=== PATIENT | female | born 1950 | race Caucasian/White ===

== ENCOUNTER 2016-03-24 18:54 | Emergency (ER) | payer MEDICARE, MEDICAID ==
[~2016-03-24] VITALS: Ht 172.7 cm; Wt 88.6 kg
[2016-03-24 18:54] VITALS: Ht 172.7 cm; Wt 88.6 kg
[~2016-03-24 18:54] MED LIST: BACL20TA PO; BENA5TAB2 PO; CALC300T4 PO; DIAZ5TAB4 PO; DIPH25CA6 PO; FENT-23 TD; HYD25 PO; LYR75 PO; NITR-58 PO; ONDA-43 PO; OXYC-183 PO; PANT40TA4 PO; RESTOP4 BOTH EYES; ROSU20TA PO; TEMA30CA6 PO; [UNRECOGNIZED DRUG - OTHER] PO
[2016-03-24] MEDS ORDERED: DIPHTH/TET/ACEL PERTUSS (ADULT) 0.5 ML VIAL IM* ONE (19:30)
--- NOTE | 2016-03-24 19:36 | ERD ---
ER Documentation Chief Complaint Date/Time DATE: 03/24/16 TIME: 19:35 Chief Complaint sacral area lac@1600 after breaking the toilet seat while sitting on it HPI This 65-year-old female complains of a laceration in her sacral area after a toilet seat broke while she was sitting on it. She has some bleeding and is unable to see the wound. Her tetanus is not up-to-date. ROS All systems reviewed and are negative except as per history of present illness. Medications Home Meds Active Scripts Nitrofurantoin Monohyd Macrocr* (Macrobid*) 100 Mg Capsr, 100 MG PO BID for 10 Days, CAP Prov:ADENIKE OTERO 03/01/16 Reported Medications Calcium Carbonate* (Tums X-Str) 300 Mg Tab.chew, 600 MG PO DAILY Y for GASTROINTESTINAL UPSET, TAB.CHEW 03/01/16 Benazepril Hcl* (Benazepril Hcl*) 5 Mg Tablet, 5 MG PO BID, #60 TAB 03/01/16 Hydrochlorothiazide* (Hydrochlorothiazide*) 25 Mg Tab, 25 MG PO DAILY, #30 TAB 03/01/16 Ondansetron Hcl* (Zofran*) 4 Mg Tab, 4 MG PO Q4H Y for NAUSEA AND OR VOMITING, TAB 03/01/16 [Modvigil] No Conflict Check, 200 MG PO DAILY 03/01/16 Diphenhydramine Hcl* (Diphenhydramine Hcl*) 25 Mg Capsule, 25 MG PO Q6 Y for ITCHING, CAP 03/01/16 Pantoprazole* (Pantoprazole*) 40 Mg Tablet.dr, 40 MG PO BID, TAB 03/01/16 Pregabalin* (Lyrica*) 75 Mg Capsule, 75 MG PO BID, CAP 09/18/15 Oxycodone Hcl-Acetaminophen* (Oxycodone Hcl-Acetaminophen*) 10-325 Mg Tablet, 2 TAB PO Q4 Y for SEVERE PAIN LEVEL 7-10, TAB 09/18/15 Cyclosporine* (Restasis* Oph) 32 Ea Droperette, 1 DROP BOTH EYES Q12, #1 BOX 03/02/15 Fentanyl Patch* (Fentanyl Patch*) 75 Mcg/Hr Transdermal Patch, 1 PATCH TD Q72H, PATCH 03/02/15 Diazepam* (Diazepam*) 5 Mg Tablet, 10 MG PO QHS Y for MUSCLE SPASMS, TAB 03/02/15 Temazepam* (Restoril*) 30 Mg Capsule, 30 MG PO HS Y for INSOMNIA, CAP 03/02/15 Rosuvastatin Calcium* (Crestor*) 20 Mg Tablet, 20 MG PO QHS, #30 TAB 03/02/15 Baclofen* (Baclofen*) 20 Mg Tablet, 20 MG PO TID, TAB 03/02/15 Allergies Allergies: Coded Allergies: Sulfa (Sulfonamide Antibiotics) (Verified Allergy, Severe, 03/01/16) NSAIDS (Non-Steroidal Anti-Inflamma (Unverified Allergy, Unknown, 03/01/16 ) aspirin (Unverified Allergy, Unknown, 03/01/16) atenolol (Unverified Allergy, Unknown, 03/01/16) cefazolin (Unverified Allergy, Unknown, 03/01/16) PMhx/Soc History of Surgery: Yes (Mult. revisions, biceps tendon repair, left sholder) Anesthesia Reaction: No Hx Neurological Disorder: Yes (ms, neurogenic bladder, ) Hx Respiratory Disorders: No Hx Cardiac Disorders: Yes (htn, cva, 10 strokes, 2 heart attacks) Hx Psychiatric Problems: No Hx Alcohol Use: No Hx Substance Use: No Hx Tobacco Use: No Smoking Status: Never smoker Physical Exam Vitals Vital Signs Date Time Temp Pulse Resp B/P Pulse Ox O2 Delivery O2 Flow Rate FiO2 03/24/16 18:54 97.4 96 20 149/74 97 Physical Exam Const: [] Alert, [id number]. Head: Atraumatic Eyes: Normal Conjunctiva ENT: Normal External Ears, Nose and Mouth. Neck: Full range of motion..~ No meningismus. Resp: Clear to auscultation bilaterally Cardio: Regular rate and rhythm, no murmurs Abd: Soft, non tender, non distended. Normal bowel sounds Skin: No petechiae or rashes. There is a very small 3 x 2 mm abrasion at the sacral area. There is some dried blood but no active bleeding. There is no warmth, erythema or bony deformities. Back: No midline or flank tenderness Ext: No cyanosis, or edema Neur: Awake and alert Psych: Normal Mood and Affect Results 24 hrs Current Medications Medications (Trade) Dose Ordered Sig/Franky Route PRN Reason Start Time Stop Time Status Last Admin Dose Admin Diphtheria/ Tetanus/Acell Pertussis (Adacel) 0.5 ml ONCE ONCE IM* 03/24/16 19:30 03/24/16 19:32 DC Procedures/MDM Patient was given a tetanus booster. The wound was cleansed and dressed. Patient presents with a superficial abrasion without evidence of laceration which need suturing, infection, signs or symptoms to suggest fracture. She will be discharged home with wound care instructions to return for redness, fevers, new or worsening symptoms or primary care doctor. Departure Diagnosis: Primary Impression: Laceration Condition: Stable Patient Instructions: Laceration, Small/Superficial, Not Sutured Additional Instructions: Wound is a small superficial abrasion should heal without further treatment. Recheck for redness, worsening pain, new or worsening symptoms PAYAM MILIAN MD Mar 24, 2016 19:36
[2016-03-24 20:01] VITALS: BP 145/85; PULSE 86; RESP 15; TEMP 98.4
== END 2016-03-24 20:01 | disposition home or self-care (01) ==
LOC: FTE 18:54
DX: S31.010A Laceration without foreign body of lower back and pelvis without penetration into retroperitoneum, initial encounter (principal); I10 Essential (primary) hypertension; W22.8XXA Striking against or struck by other objects, initial encounter; Y92.511 Restaurant or cafe as the place of occurrence of the external cause; Z23 Encounter for immunization
CPT/HCPCS: 90471; 90715

== ENCOUNTER 2016-07-18 16:37 | Emergency (ER) | payer MEDICARE, BC ==
[~2016-07-18] VITALS: Ht 172.7 cm; Wt 88.0 kg
[2016-07-18 16:39] VITALS: Ht 172.7 cm; Wt 88.0 kg
[2016-07-18] MEDS ORDERED: HYDROmorphONE 1 MG/ML SYG IV STA (17:23)
[2016-07-18] MEDS ORDERED: ONDANSETRON 4 MG INJ IV ONE (17:30)
[2016-07-18] MEDS ORDERED: HYDROmorphONE 1 MG/ML SYG IM STA ×2 (18:19→20:09)
--- NOTE | 2016-07-18 18:19 | RADRPT ---
PROCEDURE: XR Knee. CLINICAL INDICATION: Right knee pain. TECHNIQUE: Three views of the right knee. COMPARISON: None available FINDINGS: There is no acute fracture or dislocation. The patient status post total knee arthroplasty with pat ellar resurfacing. There is no evidence of osteolysis. No joint effusion is identified. IMPRESSION: 1. No acute fracture or dislocation of the right knee. 2. Total knee arthroplasty. RPTAT: HTAR .Aubrey Woods MD, MD Date Time Electronically viewed and signed by .Aubrey Woods MD, on 07/18/2016 18:19 .R/
[2016-07-18] MEDS ORDERED: HYDR-902 PO (19:59)
--- NOTE | 2016-07-18 20:13 | ERD ---
ER Documentation Chief Complaint Date/Time DATE: 07/18/16 TIME: 19:59 Chief Complaint RIGHT KNEE PAIN AFTER TRIP AND FALL AT HOME HPI This is 66-year-old female with a history of right knee replacement since she was walking at home when she lost her balance and tripped and fell twisting and landing on her right knee. She is complaining of pain at the right medial knee more than diffuse. The pain is described as sharp nonradiating worse with movement better with rest. She did not hit her head no loss of consciousness no neck pain no back pain other extremity pain no chest pain abdominal pain no head ROS All systems reviewed and are negative except as per history of present illness. Medications Home Meds Active Scripts Hydrocodone/Acetaminophen (Downs 10-325 Tablet) 1 Each Tablet, 1 TAB PO Q6H Y for PAIN, #20 TAB Prov:ANTHONY ANDERSON DO 07/18/16 Nitrofurantoin Monohyd Macrocr* (Macrobid*) 100 Mg Capsr, 100 MG PO BID for 10 Days, CAP Prov:ADENIKE OTERO 03/01/16 Reported Medications Calcium Carbonate* (Tums X-Str) 300 Mg Tab.chew, 600 MG PO DAILY Y for GASTROINTESTINAL UPSET, TAB.CHEW 03/01/16 Benazepril Hcl* (Benazepril Hcl*) 5 Mg Tablet, 5 MG PO BID, #60 TAB 03/01/16 Hydrochlorothiazide* (Hydrochlorothiazide*) 25 Mg Tab, 25 MG PO DAILY, #30 TAB 03/01/16 Ondansetron Hcl* (Zofran*) 4 Mg Tab, 4 MG PO Q4H Y for NAUSEA AND OR VOMITING, TAB 03/01/16 [Modvigil] No Conflict Check, 200 MG PO DAILY 03/01/16 Diphenhydramine Hcl* (Diphenhydramine Hcl*) 25 Mg Capsule, 25 MG PO Q6 Y for ITCHING, CAP 03/01/16 Pantoprazole* (Pantoprazole*) 40 Mg Tablet.dr, 40 MG PO BID, TAB 03/01/16 Pregabalin* (Lyrica*) 75 Mg Capsule, 75 MG PO BID, CAP 09/18/15 Oxycodone Hcl-Acetaminophen* (Oxycodone Hcl-Acetaminophen*) 10-325 Mg Tablet, 2 TAB PO Q4 Y for SEVERE PAIN LEVEL 7-10, TAB 09/18/15 Cyclosporine* (Restasis* Oph) 32 Ea Droperette, 1 DROP BOTH EYES Q12, #1 BOX 03/02/15 Fentanyl Patch* (Fentanyl Patch*) 75 Mcg/Hr Transdermal Patch, 1 PATCH TD Q72H, PATCH 03/02/15 Diazepam* (Diazepam*) 5 Mg Tablet, 10 MG PO QHS Y for MUSCLE SPASMS, TAB 03/02/15 Temazepam* (Restoril*) 30 Mg Capsule, 30 MG PO HS Y for INSOMNIA, CAP 03/02/15 Rosuvastatin Calcium* (Crestor*) 20 Mg Tablet, 20 MG PO QHS, #30 TAB 03/02/15 Baclofen* (Baclofen*) 20 Mg Tablet, 20 MG PO TID, TAB 03/02/15 Allergies Allergies: Coded Allergies: Sulfa (Sulfonamide Antibiotics) (Verified Allergy, Severe, 03/01/16) NSAIDS (Non-Steroidal Anti-Inflamma (Unverified Allergy, Unknown, 03/01/16 ) aspirin (Unverified Allergy, Unknown, 03/01/16) atenolol (Unverified Allergy, Unknown, 03/01/16) cefazolin (Unverified Allergy, Unknown, 03/01/16) PMhx/Soc History of Surgery: Yes (Mult. revisions, biceps tendon repair, left sholder) Anesthesia Reaction: No Hx Neurological Disorder: Yes (ms, neurogenic bladder, ) Hx Respiratory Disorders: No Hx Cardiac Disorders: Yes (htn, cva, 10 strokes, 2 heart attacks) Hx Psychiatric Problems: No Hx Alcohol Use: No Hx Substance Use: No Hx Tobacco Use: No FmHx Family History: No coronary disease Physical Exam Vitals Vital Signs Date Time Temp Pulse Resp B/P Pulse Ox O2 Delivery O2 Flow Rate FiO2 07/18/16 16:39 98.3 76 18 142/68 96 Physical Exam Const: Well-developed, well-nourished Head: Atraumatic, normocephalic Eyes: Normal Conjunctiva, PERRLA, EOMI, normal sclera, no nystagmus ENT: Normal External Ears, Nose and Mouth, moist mucus membranes. Neck: Full range of motion. No meningismus, no lymphadenopathy. Resp: Clear to auscultation bilaterally, no wheezing, rhonchi, rales Cardio: Regular rate and rhythm, no murmurs, S1 S2 present Abd: Soft, non tender x 4, non distended. Normal bowel sounds, no guarding or rebound, no pulsitile abdominal masses or bruits Skin: No petechiae or rashes, no ecchymosis , no maculopapular rash Back: No midline or flank tenderness Ext: No cyanosis, or edema, FROM x 4, the right leg is held in valgus , there is pain along the medial collateral ligament with some instability of this ligament. No gross dislocation, right leg dorsalis pedis and posterior tibial pulses are bounding the leg is warm, neurovascularly intact x 4 Neur: Awake and alert, STR 5/5 x 4, sensation intact x 4, no focal findings, cerebellum intact Psych: Normal Mood and Affect Results 24 hrs Current Medications Medications (Trade) Dose Ordered Sig/Franky Route PRN Reason Start Time Stop Time Status Last Admin Dose Admin Ondansetron HCl (Zofran Inj) 4 mg ONCE ONCE IV 07/18/16 17:30 07/18/16 17:31 DC Hydromorphone HCl (Dilaudid) 1 mg ONCE STAT IV 07/18/16 17:23 07/18/16 17:24 Cancel Hydromorphone HCl (Dilaudid) 1 mg ONCE STAT IM 07/18/16 18:19 07/18/16 18:20 DC 07/18/16 18:24 Procedures/MDM PROCEDURE: XR Knee. CLINICAL INDICATION: Right knee pain. TECHNIQUE: Three views of the right knee. COMPARISON: None available FINDINGS: There is no acute fracture or dislocation. The patient status post total knee arthroplasty with patellar resurfacing. There is no evidence of osteolysis. No joint effusion is identified. IMPRESSION: 1. No acute fracture or dislocation of the right knee. 2. Total knee arthroplasty. RPTAT: HTAR .Aubrey Woods MD, Date Time Electronically viewed and signed by .Aubrey Woods MD, on 07/18/2016 18:19 .R/ CC: ANTHONY ANDERSON DO The patient has a history of MS and is mostly in a wheelchair but can walk some. She is he walks with a walker. I highly suspect there is a severe middle medial collateral ligament tear due to the deformity that the leg is held in. When the leg is straightened out there is some pain and spontaneously starts to go back into valgus. She had a knee immobilizer placed and she will call her orthopedist in the morning for follow-up Departure Diagnosis: Primary Impression: Knee injury Encounter type: initial encounter Laterality: right Qualified Code: S89.91XA - Knee injury, right, initial encounter Additional Impression: Grade 1 injury of medial collateral ligament of right knee Encounter type: initial encounter Qualified Code: S83.411A - Grade 1 injury of medial collateral ligament of right knee, initial encounter Condition: Stable Patient Instructions: Knee Sprain: Collateral Ligaments Referrals: CARMEN EUCEDA MD, APOSTOLOS A. DO July 18, 2016 20:11
== END 2016-07-18 20:47 | disposition home or self-care (01) ==
LOC: FTE 16:37
DX: S83.411A Sprain of medial collateral ligament of right knee, initial encounter (principal); I10 Essential (primary) hypertension; W01.0XXA Fall on same level from slipping, tripping and stumbling without subsequent striking against object, initial encounter; Y92.009 Unspecified place in unspecified non-institutional (private) residence as the place of occurrence of the external cause
CPT/HCPCS: 29505; 73562; 96372; 99284; J1170; J2405

== ENCOUNTER 2016-09-17 18:46 | Observation (INO) | payer MEDICARE, BC ==
[~2016-09-17] VITALS: Ht 172.7 cm; Wt 96.6 kg
[~2016-09-17 18:46] MED LIST changes: +HYDR-902 PO
--- NOTE | 2016-09-17 19:47 | RADRPT ---
PROCEDURE: XR, Chest. CLINICAL INDICATION: Chest pain. TECHNIQUE: AP chest COMPARISON: Chest, 09/18/2015. FINDINGS: There is calcified atherosclerosis of the aortic arch. There is no acute infiltrate in the lungs. No pleural effusion. The heart is not enlarged. The right Port-A-Cath remains in good position. A catheter or wire is overlying the left subclavian vein and superior vena cava, unchanged. IMPRESSION: 1. Unremarkable chest x-ray. 2. Calcified atherosclerosis of the aortic arch. RPTAT: GG .Miki Herrera MD, MD Date Time Electronically viewed and signed by .Miki Herrera MD, MD on 09/17/2016 19:46 .Y/
[2016-09-17] MEDS ORDERED: NITROGLYCERIN 2% 1 GM OINT PKT TD STA (19:49)
[2016-09-17 20:28] LABS: ADD SCAN DIFF NO
[2016-09-17 20:31] LABS: BASOPHILS % 0.4 % (0.0-2.0); EOSINOPHILS # 0.3 10^3/ul (0.0-0.5); EOSINOPHILS % 3.4 % (0.0-7.0); HEMATOCRIT 35.2 % (37.0-47.0); HEMOGLOBIN 11.2 g/dl (12.0-16.0); LYMPHOCYTES # 3.6 10^3/ul (0.8-2.9); LYMPHOCYTES % 37.5 % (15.0-51.0); MEAN CORPUSCULAR HEMOGLOBIN 26.9 pg (29.0-33.0); MEAN CORPUSCULAR HGB CONC 31.8 g/dl (32.0-37.0); MEAN CORPUSCULAR VOLUME 84.4 fl (82.0-101.0); MEAN PLATELET VOLUME 9.6 fl (7.4-10.4); MONOCYTE # 1.2 10^3/ul (0.3-0.9); NEUTROPHIL # 4.5 10^3/ul (1.6-7.5); NEUTROPHILS % 46.2 % (39.0-77.0); NUCLEATED RED BLOOD CELLS% 0.4 /100WBC (0.0-0.0); PLATELET COUNT 261 10^3/UL (140-415); RED BLOOD COUNT 4.17 10^6/ul (4.20-5.40); RED CELL DISTRIBUTION WIDTH 16.1 % (11.5-14.5); WHITE BLOOD COUNT 9.7 10^3/ul (4.8-10.8)
--- NOTE | 2016-09-17 20:46 | RADRPT ---
PROCEDURE: US bilateral lower extremity venous Doppler CLINICAL INDICATION: Bilateral swelling TECHNIQUE: Multiple sonographic images of the bilateral lower extremity deep venous system was obt ained utilizing grayscale, color-flow, compressive sonography and Doppler imaging with augmentation. COMPARISON: There are no similar studies submitted for comparison. FINDINGS: There is normal compressibility and flow within the left common femoral, superficial femoral, poplit eal, and calf veins. There is normal compressibility and flow within the right common femoral, superficial femoral, popli teal, and calf veins. IMPRESSION: No evidence of DVT within the lower extremities. RPTAT: HIKT .Shmuel Christensen MD, MD Date Time Electronically viewed and signed by .Shmuel Christensen MD, MD on 09/17/2016 20:46 .T/
[2016-09-17 20:47] LABS: INR 1.03; PROTIME 13.5 Sec (12.2-14.2); PT RATIO 1.1
[2016-09-17 20:48] LABS: PARTIAL THROMBOPLASTIN TIME 29.7 Sec (25.0-35.0)
[2016-09-17 20:51] LABS: ALANINE AMINOTRANSFERASE 30 IU/L (13-69); ALBUMIN 4.3 g/dl (3.3-4.9); ALBUMIN/GLOBULIN RATIO 1.65; ALKALINE PHOSPHATASE 90 IU/L (42-121); ANION GAP 21 (8-16); ASPARTATE AMINO TRANSFERASE 24 IU/L (15-46); BILIRUBIN,INDIRECT 0.1 mg/dl (0-1.1); BILIRUBIN,TOTAL 0.1 mg/dl (0.2-1.3); BLOOD UREA NITROGEN 20 mg/dl (7-20); CALCIUM 8.8 mg/dl (8.4-10.2); CARBON DIOXIDE 28 mmol/L (21-31); CHLORIDE 97 mmol/L (97-110); CREATININE 0.67 mg/dl (0.44-1.00); GLUCOSE 99 mg/dl (70-220); SODIUM 143 mmol/L (135-144); TOTAL PROTEIN 6.9 g/dl (6.1-8.1)
[2016-09-17 21:01] LABS: POTASSIUM 2.9 mmol/L (3.5-5.1)
[2016-09-17 21:05] LABS: TROPONIN-I < 0.012 ng/ml (0.00-0.12)
[2016-09-17] MEDS ORDERED: POTASSIUM CHLORIDE 20 MEQ POWDER FOR ORAL SOLN PO ONE (21:30)
[2016-09-17] MEDS ORDERED: morphine 4 MG/ML VIAL IV STA (21:45)
[2016-09-17] MEDS ORDERED: morphine 4 MG/ML VIAL ONE (21:47)
[2016-09-17] MEDS ORDERED: NITROGLYCERIN (SL) 0.4 MG TAB SL PRN (22:00)
[2016-09-17] MEDS ORDERED: ONDANSETRON 4 MG INJ IV PRN (23:00)
[2016-09-17] MEDS ORDERED: ACETAMINOPHEN 325 MG TAB PO PRN (23:00)
--- NOTE | 2016-09-17 23:29 | ERA ---
ER Documentation Chief Complaint Date/Time DATE: 09/17/16 TIME: 19:00 Chief Complaint sharp cp radiates to left jaw and sob started around 5pm HPI 66-year-old female with a history of multiple sclerosis, meningitis, encephalopathy, coronary artery disease and CVA brought to the ED by caregiver for evaluation of chest pain. Patient with several hour history of acute onset of sharp and pressure-like substernal chest pain which radiates to her left jaw and left arm shortness of breath. Denies nausea, vomiting or diaphoresis. No palpitations. No relieving or exacerbating factors. Denies URI symptoms or cough. No leg pain or swelling. Denies abdominal pain or back pain. No fevers or chills. ROS All systems reviewed and are negative except as per history of present illness. Medications Home Meds Active Scripts Acetaminophen* (Tylophen*) 500 Mg Capsule, 500 MG PO Q6H Y for PAIN for 1 Day, TAB Prov:RUBEN SALAZAR MD 09/18/16 Hydrocodone/Acetaminophen ([place] 10-325 Tablet) 1 Each Tablet, 1 TAB PO Q6H Y for PAIN, #20 TAB Prov:ANTHONY ANDERSON DO 07/18/16 Nitrofurantoin Monohyd Macrocr* (Macrobid*) 100 Mg Capsr, 100 MG PO BID for 10 Days, CAP Prov:ADENIKE OTERO 03/01/16 Reported Medications Calcium Carbonate* (Tums X-Str) 300 Mg Tab.chew, 600 MG PO DAILY Y for GASTROINTESTINAL UPSET, TAB.CHEW 03/01/16 Benazepril Hcl* (Benazepril Hcl*) 5 Mg Tablet, 5 MG PO BID, #60 TAB 03/01/16 Hydrochlorothiazide* (Hydrochlorothiazide*) 25 Mg Tab, 25 MG PO DAILY, #30 TAB 03/01/16 Ondansetron Hcl* (Zofran*) 4 Mg Tab, 4 MG PO Q4H Y for NAUSEA AND OR VOMITING, TAB 03/01/16 [Modvigil] No Conflict Check, 200 MG PO DAILY 03/01/16 Diphenhydramine Hcl* (Diphenhydramine Hcl*) 25 Mg Capsule, 25 MG PO Q6 Y for ITCHING, CAP 03/01/16 Pantoprazole* (Pantoprazole*) 40 Mg Tablet.dr, 40 MG PO BID, TAB 03/01/16 Pregabalin* (Lyrica*) 75 Mg Capsule, 75 MG PO BID, CAP 09/18/15 Oxycodone Hcl-Acetaminophen* (Oxycodone Hcl-Acetaminophen*) 10-325 Mg Tablet, 2 TAB PO Q4 Y for SEVERE PAIN LEVEL 7-10, TAB 09/18/15 Cyclosporine* (Restasis* Oph) 32 Ea Droperette, 1 DROP BOTH EYES Q12, #1 BOX 03/02/15 Fentanyl Patch* (Fentanyl Patch*) 75 Mcg/Hr Transdermal Patch, 1 PATCH TD Q72H, PATCH 03/02/15 Diazepam* (Diazepam*) 5 Mg Tablet, 10 MG PO QHS Y for MUSCLE SPASMS, TAB 03/02/15 Temazepam* (Restoril*) 30 Mg Capsule, 30 MG PO HS Y for INSOMNIA, CAP 03/02/15 Rosuvastatin Calcium* (Crestor*) 20 Mg Tablet, 20 MG PO QHS, #30 TAB 03/02/15 Baclofen* (Baclofen*) 20 Mg Tablet, 20 MG PO TID, TAB 03/02/15 Allergies Allergies: Coded Allergies: Sulfa (Sulfonamide Antibiotics) (Verified Allergy, Severe, 03/01/16) NSAIDS (Non-Steroidal Anti-Inflamma (Unverified Allergy, Unknown, 03/01/16 ) aspirin (Unverified Allergy, Unknown, 03/01/16) atenolol (Unverified Allergy, Unknown, 03/01/16) cefazolin (Unverified Allergy, Unknown, 03/01/16) PMhx/Soc Reviewed in chart. As per HPI. History of Surgery: Yes (Mult. revisions, biceps tendon repair, left sholder) Anesthesia Reaction: No Hx Neurological Disorder: Yes (ms, neurogenic bladder, ) Hx Respiratory Disorders: No Hx Cardiac Disorders: Yes (htn, cva, 10 strokes, 2 heart attacks) Hx Psychiatric Problems: No Hx Alcohol Use: No Hx Substance Use: No Hx Tobacco Use: No Smoking Status: Never smoker FmHx Unknown Physical Exam Vitals Vital Signs Date Time Temp Pulse Resp B/P Pulse Ox O2 Delivery O2 Flow Rate FiO2 09/17/16 22:33 85 21 115/90 97 Room Air 09/17/16 21:00 76 27 130/83 100 Room Air 09/17/16 18:50 98.4 81 20 136/72 98 Physical Exam Const: Alert, moderate distress Head: Atraumatic Eyes: Normal Conjunctiva ENT: Normal External Ears, Nose and Mouth. Neck: Full range of motion. Nontender. No JVD. Resp: Breath sounds are equal and clear to auscultation bilaterally. No rales rhonchi or wheezes Cardio: Regular rate and rhythm, no murmurs. Reproducible chest wall tenderness Abd: Soft, obese, non tender, non distended. Normal bowel sounds Skin: No petechiae or rashes Back: No midline or flank tenderness Ext: No cyanosis, or edema. No calf tenderness Neur: Awake and alert Psych: Appears anxious but not depressed. Result Diagram: 09/17/16201409/17/162014 Results 24 hrs Laboratory Tests Test 09/17/16 20:15 White Blood Count 9.710^3/ul Red Blood Count 4.1710^6/ul Hemoglobin 11.2g/dl Hematocrit 35.2% Mean Corpuscular Volume 84.4fl Mean Corpuscular Hemoglobin 26.9pg Mean Corpuscular Hemoglobin Concent 31.8g/dl Red Cell Distribution Width 16.1% Platelet Count 35463^3/UL Mean Platelet Volume 9.6fl Neutrophils % 46.2% Lymphocytes % 37.5% Monocytes % 12.0% Eosinophils % 3.4% Basophils % 0.4% Nucleated Red Blood Cells % 0.4/100WBC Neutrophils # 4.510^3/ul Lymphocytes # 3.610^3/ul Monocytes # 1.210^3/ul Eosinophils # 0.310^3/ul Basophils # 0.010^3/ul Nucleated Red Blood Cells # 0.010^3/ul Prothrombin Time 13.5Sec Prothrombin Time Ratio 1.1 INR International Normalized Ratio 1.03 Activated Partial Thromboplast Time 29.7Sec Sodium Level 143mmol/L Potassium Level 2.9mmol/L Chloride Level 97mmol/L Carbon Dioxide Level 28mmol/L Anion Gap 21 Blood Urea Nitrogen 20mg/dl Creatinine 0.67mg/dl Glucose Level 99mg/dl Calcium Level 8.8mg/dl Total Bilirubin 0.1mg/dl Direct Bilirubin 0.00mg/dl Indirect Bilirubin 0.1mg/dl Aspartate Amino Transf (AST/SGOT) 24IU/L Alanine Aminotransferase (ALT/SGPT) 30IU/L Alkaline Phosphatase 90IU/L Troponin I < 0.012ng/ml Total Protein 6.9g/dl Albumin 4.3g/dl Globulin 2.60g/dl Albumin/Globulin Ratio 1.65 Current Medications Medications (Trade) Dose Ordered Sig/Franky Route PRN Reason Start Time Stop Time Status Last Admin Dose Admin Nitroglycerin (Nitroglycerin 2% Oint) 1 inch ONCE STAT TD 09/17/16 19:49 09/17/16 19:53 DC 09/17/16 20:20 Potassium Chloride (Potassium Chloride Pwd/Soln) 40 meq ONCE ONCE PO 09/17/16 21:30 09/17/16 21:31 DC 09/17/16 21:50 Nitroglycerin (Nitroglycerin (Sl Tab) 0.4 Mg) 1 tab Q5M UP TO 3 DOSES PRN SL CHEST PAIN 09/17/16 22:00 Morphine Sulfate (morphine) 4 mg ONCE STAT IV 09/17/16 21:45 09/17/16 21:46 DC 09/17/16 21:51 Morphine Sulfate (morphine) 4 mg STK-MED ONCE .ROUTE 09/17/16 21:47 09/17/16 21:48 DC EKG: TIME: 18:57. Sinus tachycardia. Ventricular rate 97. Occasional premature atrial complexes. No acute ST segment elevation or depression. EP Interpretation: Abnormal EKG EKG: TIME: 21:40. Sinus rhythm with PACs. Ventricular rate 73. Left axis deviation. No acute ST segment elevation or depression. EP Interpretation: Abnormal EKG. . IMAGING: PROCEDURE: US bilateral lower extremity venous Doppler CLINICAL INDICATION: Bilateral swelling TECHNIQUE: Multiple sonographic images of the bilateral lower extremity deep venous system was obtained utilizing grayscale, color-flow, compressive sonography and Doppler imaging with augmentation. COMPARISON: There are no similar studies submitted for comparison. FINDINGS: There is normal compressibility and flow within the left common femoral, superficial femoral, popliteal, and calf veins. There is normal compressibility and flow within the right common femoral, superficial femoral, popliteal, and calf veins. IMPRESSION: No evidence of DVT within the lower extremities. RPTAT: HIKT .Shmuel Christensen MD, Date Time Electronically viewed and signed by .Shmuel Christensen MD, on 09/17/2016 20:46 .T/ PROCEDURE: XR, Chest. CLINICAL INDICATION: Chest pain. TECHNIQUE: AP chest COMPARISON: Chest, 09/18/2015. FINDINGS: There is calcified atherosclerosis of the aortic arch. There is no acute infiltrate in the lungs. No pleural effusion. The heart is not enlarged. The right Port-A-Cath remains in good position. A catheter or wire is overlying the left subclavian vein and superior vena cava, unchanged. IMPRESSION: 1. Unremarkable chest x-ray. 2. Calcified atherosclerosis of the aortic arch. RPTAT: GG .Miki Herrera MD, MD Date Time Electronically viewed and signed by .Miik Herrera MD, on 09/17/2016 19:46 .Y/ Procedures/MDM DOCUMENTS REVIEWED: ED nurse, no prior records MEDICAL DECISION MAKIN-year-old female with a history of multiple sclerosis , meningitis, encephalopathy, coronary artery disease and CVA brought to the ED by caregiver for evaluation of chest pain. No acute ischemic EKG changes or elevated troponin. Ongoing chest pain despite sublingual nitroglycerin improved with morphine but not resolved. Doubt pulmonary embolism and venous Dopplers of lower extremities are negative. No radiographic evidence of pneumonia or pneumothorax. Doubt aortic dissection. Hypokalemia replaced orally. Patient be admitted to telemetry observation for further evaluation and management. Counseled patient and family regarding diagnosis, diagnostic results and plan for admission. CALLS/CONSULTS: Time 22:30, Dr. Chao, Recommends Admission to telemetry observation. PATIENT CARE TRANSITIONED: Time: Dr. Jeremie Chao. Departure Diagnosis: Primary Impression: Chest pain Qualified Code: R07.9 - Chest pain, unspecified type Additional Impressions: Multiple sclerosis History of KS (myocardial infarction) Hypokalemia Condition: Serious KAL LAMBERT MD Sep 17, 2016 23:28 Chest pain Qualified Code: R07.9 - Chest pain, unspecified type Additional Impressions: Multiple sclerosis History of KS (myocardial infarction) Hypokalemia KAL LAMBERT MD Sep 17, 2016 23:28
[2016-09-18] VITALS (9 sets, daily range): BP systolic 117–133; BP diastolic 63–117; PULSE 60–71; RESP 15–20; Ht 172.7 cm; Wt 96.6 kg
[2016-09-18] MEDS ORDERED: CALCIUM CARBONATE 750 MG CHEW TAB PO PRN (01:30)
[2016-09-18] MEDS ORDERED: POTASSIUM CHLORIDE (SR) 20 MEQ TAB PO ONE (01:30)
[2016-09-18] MEDS ORDERED: DIAZEPAM 5 MG TAB PO PRN (01:30)
[2016-09-18] MEDS ORDERED: TEMAZEPAM 15 MG CAP PO PRN (01:30)
[2016-09-18] MEDS ORDERED: HYDROCODONE/APAP (10/325) TAB PO PRN (01:30)
[2016-09-18] MEDS ORDERED: DIPHENHYDRAMINE 25 MG CAP PO PRN (01:30)
[2016-09-18] MEDS ORDERED: ONDANSETRON 4 MG INJ IV PRN (01:30)
[2016-09-18] MEDS ORDERED: FENTAnyl PATCH 75 MCG/HR TRANSDERM SCH (02:00)
--- NOTE | 2016-09-18 02:12 | HP ---
Date/Time of Note Date/Time of Note DATE: 09/18/16 TIME: 01:13 Assessment/Plan VTE Prophylaxis VTE Prophylaxis Intervention: LMWH Lines/Catheters IV Catheter Type (from Nrsg): [place] [facility] line still needed: Yes Assessment/Plan Assessment/Plan 66 yo Fwith a long hx of MS who presents with chest pain x 1 day with the following 1. Atypical CP r/o ACS 2. Multiple PACs on EKG likely 2/2 #3 3. Hypokalemia 4. Chronic MS on infusion Tx at [facility]: was to have monthly infusion tomorrow 5. Significant family hx of CAD 6. Indwelling Port PLAN: Telemetry admission, trend cardiac enzymes, 2d echo if none recently and possible cardiology consult for stress test if patient opts to miss infusion. oxygen and nitroglycerin therapy as needed. Daily aspirin if no allergy or bleeding risk. Get lipid profile, magnesium and TSH levels in am. Replace Potassium and provide supportive care Prophylaxis:Pecid and Lovenox HPI/ROS Admit Date/Time Admit Date/Time Sep 17, 2016 at 22:59 Hx of Present Illness This is a 66-year-old female who presented to the emergency room with complaints of left midsternal chest pain that radiates to her jaw into and is associated with shortness of breath. Pain was said to have occurred suddenly midafternoon yesterday, and patient has had a few episodes since the first occurrence. Patient's pain starts suddenly and it is rated a 9-10 out of 10 at the worst is relieved by intravenous morphine given in the emergency room as well as on the floor. Patient has a chronic history of multiple sclerosis and is usually wheelchair dependent but can ambulate with a walker. She went to room from her caregiver who takes care of her most of the day. She gets monthly infusions at [facility] for her multiple sclerosis and is actually scheduled for an infusion tomorrow. However, patient's pain is also reproducible on chest wall palpation, and the patient states that in the past when she has had costochondritis she has had similar pain, but because she has significant family history and that the pain radiates up to her jaw she decided to come into be evaluated. 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 It is unclear if patient indeed had 3 MIs in the past. Apparently she had a history of an intracranial bleed which kept her intubated for a prolonged period of time and she was told that during this period she had 3 heart attacks. She states no further intervention shown was done however. ROS 12 point review if systems was done and pertinent findings are as noted. Constitutional: No chills, No fatigue, No nausea, No poor po Eyes: no complaints ENT: no complaints Respiratory: shortness of breath Cardiovascular: edema, No lightheadedness Gastrointestinal: no complaints Genitourinary: no complaints Musculoskeletal: back pain Skin: no complaints Neurologic: no complaints Psychological: anxiety PMH/Family/Social Past Medical History 1. Multiple sclerosis exacerbation that has improved significant with left- sided strength improving. 2. Chronic pain, better controlled. 3. Hypokalemia status post repletion. 4. History of cerebrovascular accident, stable. 5. History of myocardial infarctions, stable., 6. Iron deficiency anemia, status post supplementation. 7. Mild hypokalemia. 8. Mild dysuria without urinary tract infection. 9. High blood pressure with improved control. Past Surgical History She indicates she has had a left hip revision in May 2015 and a right hip revision in December 2015 Family History Significant Family History: other (patient states almost every member of her family including her son had MIs or strokes and bulk of them before age 50) Social History Alcohol Use: none Smoking Status: Never smoker Drug Use: none Exam/Review of Systems Vital Signs Vitals Vital Signs Date Time Temp Pulse Resp B/P Pulse Ox O2 Delivery O2 Flow Rate FiO2 09/18/16 00:23 76 17 114/77 97 Room Air 09/17/16 18:50 98.4 Exam Constitutional: alert, oriented Psych: anxiety Head: normocephalic Eyes: PERRL ENMT: mucosa pink and moist Neck: supple Respiratory: clear to auscultation, normal air movement, other (R port no inflammation or warmth) Cardiovascular: nl pulses, regular rate and rhythm, No murmurs/extra sounds Gastrointestinal: bowel sounds, non-tender, soft Extremities: other (msc wasting), No edema Neurological: nl mental status, nl speech, No confused Skin: No diaphoresis, No rash or lesions Labs Result Diagram: 09/17/16201409/17/162014 Procedures Procedures Laboratory Tests Test 09/17/16 20:15 White Blood Count 9.710^3/ul Red Blood Count 4.1710^6/ul Hemoglobin 11.2g/dl Hematocrit 35.2% Mean Corpuscular Volume 84.4fl Mean Corpuscular Hemoglobin 26.9pg Mean Corpuscular Hemoglobin Concent 31.8g/dl Red Cell Distribution Width 16.1% Platelet Count 85613^3/UL Mean Platelet Volume 9.6fl Neutrophils % 46.2% Lymphocytes % 37.5% Monocytes % 12.0% Eosinophils % 3.4% Basophils % 0.4% Nucleated Red Blood Cells % 0.4/100WBC Neutrophils # 4.510^3/ul Lymphocytes # 3.610^3/ul Monocytes # 1.210^3/ul Eosinophils # 0.310^3/ul Basophils # 0.010^3/ul Nucleated Red Blood Cells # 0.010^3/ul Prothrombin Time 13.5Sec Prothrombin Time Ratio 1.1 INR International Normalized Ratio 1.03 Activated Partial Thromboplast Time 29.7Sec Sodium Level 143mmol/L Potassium Level 2.9mmol/L Chloride Level 97mmol/L Carbon Dioxide Level 28mmol/L Anion Gap 21 Blood Urea Nitrogen 20mg/dl Creatinine 0.67mg/dl Glucose Level 99mg/dl Calcium Level 8.8mg/dl Total Bilirubin 0.1mg/dl Direct Bilirubin 0.00mg/dl Indirect Bilirubin 0.1mg/dl Aspartate Amino Transf (AST/SGOT) 24IU/L Alanine Aminotransferase (ALT/SGPT) 30IU/L Alkaline Phosphatase 90IU/L Troponin I < 0.012ng/ml Total Protein 6.9g/dl Albumin 4.3g/dl Globulin 2.60g/dl Albumin/Globulin Ratio 1.65 Current Medications Medications (Trade) Dose Ordered Sig/Franky Route PRN Reason Start Time Stop Time Status Last Admin Dose Admin Nitroglycerin (Nitroglycerin 2% Oint) 1 inch ONCE STAT TD 09/17/16 19:49 09/17/16 19:53 DC 09/17/16 20:20 1 INCH Potassium Chloride (Potassium Chloride Pwd/Soln) 40 meq ONCE ONCE PO 09/17/16 21:30 09/17/16 21:31 DC 09/17/16 21:50 40 MEQ Nitroglycerin (Nitroglycerin (Sl Tab) 0.4 Mg) 1 tab Q5M UP TO 3 DOSES PRN SL CHEST PAIN 09/17/16 22:00 Morphine Sulfate (morphine) 4 mg ONCE STAT IV 09/17/16 21:45 09/17/16 21:46 DC 09/17/16 21:51 4 MG Morphine Sulfate (morphine) 4 mg STK-MED ONCE .ROUTE 09/17/16 21:47 09/17/16 21:48 DC Ondansetron HCl (Zofran Inj) 4 mg ER BRIDGE PRN IV NAUSEA AND/OR VOMITING 09/17/16 23:00 09/18/16 22:59 Acetaminophen (Tylenol Tab) 650 mg ER BRIDGE PRN PO MILD PAIN/FEVER 09/17/16 23:00 09/18/16 22:59 EKG: TIME: 18:57. Sinus tachycardia. Ventricular rate 97. Occasional premature atrial complexes. No acute ST segment elevation or depression. EP Interpretation: Abnormal EKG EKG: TIME: 21:40. Sinus rhythm with PACs. Ventricular rate 73. Left axis deviation. No acute ST segment elevation or depression. EP Interpretation: Abnormal EKG. PROCEDURE: XR, Chest. CLINICAL INDICATION: Chest pain. TECHNIQUE: AP chest COMPARISON: Chest, 09/18/2015. FINDINGS: There is calcified atherosclerosis of the aortic arch. There is no acute infiltrate in the lungs. No pleural effusion. The heart is not enlarged. The right Port-A-Cath remains in good position. A catheter or wire is overlying the left subclavian vein and superior vena cava, unchanged. IMPRESSION: 1. Unremarkable chest x-ray. 2. Calcified atherosclerosis of the aortic arch. RPTAT: GG .Miki Herrera MD, MD Date Time Electronically viewed and signed by .Miki Herrera MD, MD on 09/17/2016 19:46 .Y/ CC: MAILE WADE MD, BOLATITO M. Sep 18, 2016 01:23
[2016-09-18] MEDS: morphine 2 MG INJ IV PRN ×2 (02:31→08:27)
[2016-09-18 03:09] LABS: CREATINE KINASE 26 IU/L (23-200)
[2016-09-18 03:22] LABS: CK-MB 0.73 ng/ml (0.0-2.4)
[2016-09-18 03:24] LABS: TROPONIN-I < 0.012 ng/ml (0.00-0.12)
[2016-09-18] MEDS ORDERED: PANTOPRAZOLE (EC) 40 MG TAB PO SCH (06:00)
[2016-09-18] MEDS ORDERED: OXYCODONE/ACETAMINOPHEN (10/325) TAB PO PRN (07:30)
[2016-09-18 08:36] LABS: CREATINE KINASE 21 IU/L (23-200)
[2016-09-18 08:39] LABS: CHOL/HDL RATIO 7.1 RATIO; MAGNESIUM 1.7 mg/dl (1.7-2.5)
[2016-09-18 08:56] LABS: TROPONIN-I < 0.012 ng/ml (0.00-0.12)
[2016-09-18] MEDS ORDERED: PREGABALIN 75 MG CAP PO SCH (09:00)
[2016-09-18] MEDS ORDERED: BACLOFEN 10 MG TAB PO SCH (09:00)
[2016-09-18] MEDS ORDERED: ENOXAPARIN 40 MG/0.4 ML SYG SC SCH (09:00)
[2016-09-18] MEDS ORDERED: HYDROCHLOROTHIAZIDE 25 MG TAB PO SCH (09:00)
[2016-09-18] MEDS ORDERED: CYCLOSPORINE 0.05% OPH DROPERETTE BOTH EYES SCH (09:00)
[2016-09-18] MEDS ORDERED: BENAZEPRIL 5 MG TAB PO SCH (09:00)
[2016-09-18 09:07] LABS: THYROID STIMULATING HORMONE 3.19 MIU/L (0.465-4.680)
--- NOTE | 2016-09-18 11:55 | RADRPT ---
Echocardiogram Report Patient Name: ASHLEY LOMAX Gender: Female Date: 1950 Study Date: 18-Sep-2016 [employer] Operator: Clinton Quiñonez [facility] Location: [id number] Ref. Physician: GINA FINLEY Quality: Technically Difficult Study Procedures: Transthoracic echocardiogram with complete 2D, M-Mode, and doppler examination. Indications: Chest Pain. 2D/M Mode Doppler Measurement Value Normal Ranges Measurement Value Normal Ranges LVIDd 2D 4.0 3.5 - 5.6 cm AV Peak Luis Felipe 1.7 m/sec LVIDs 2D 2.6 2.1 - 4.1 cm AV Peak PG 11.0 mmHg FS 2D 35.5 % LVOT Peak Luis Felipe 1.4 m/sec LVPWd 2D 1.0 0.6 - 1.1 cm LVOT Peak PG 8.0 mmHg IVSd 2D 1.2 0.6 - 1.1 cm MV E Peak Luis Felipe 0.5 m/sec IVS/LVPW 2D 1.2 MV A Peak Luis Felipe 0.8 m/sec AoR Diam 2D 3.3 2.0 - 3.7 cm MV E/A 0.6 LA/Ao 2D 1 0 - 1 MV Decel Time 261 msec EDV 2D 62.6 cm3 MV E/A 0.6 ESV 2D 16.8 cm3 TR Peak Luis Felipe 2.5 m/sec LA Dimen 2D 3.3 2.3 - 4.0 cm TR Peak PG 24.0 mmHg RVSP 27.0 mmHg Findings Left Ventricle: Overall, normal left ventricular systolic function. Not all segments visualized. Normal left ventricular cavity size. Mild concentric left ventricular hypertrophy. Ejection fraction is visually estimated at 60 %. Tissue Doppler/Mitral Doppler indices are consistent with impaired relaxation (Stage I diastolic dysfunction). Right Ventricle: Normal right ventricular size. Normal right ventricular systolic function. Left Atrium: The left atrium is normal in size. Right Atrium: The right atrium is normal in size. Mitral Valve: Normal appearance and function of the mitral valve with trace physiologic regurgitation. Aortic Valve: Normal appearance of the aortic valve. No significant aortic stenosis or insufficiency. Tricuspid Valve: Normal appearance of the tricuspid valve. Estimated peak PA systolic pressure 27 mmHg. There is mild tricuspid regurgitation. Pulmonic Valve: Pulmonic valve not well visualized. Pericardium: Normal pericardium with no significant pericardial effusion. Aorta: Normal aortic root. IVC: Normal size and normal respiratory collapse consistent with normal right atrial pressure. Conclusions Overall, normal left ventricular systolic function. Not all segments visualized. Normal left ventricular cavity size. Mild concentric left ventricular hypertrophy. Ejection fraction is visually estimated at 60 %. Tissue Doppler/Mitral Doppler indices are consistent with impaired relaxation (Stage I diastolic dysfunction). Normal right ventricular size. Normal right ventricular systolic function. The left atrium is normal in size. The right atrium is normal in size. Estimated peak PA systolic pressure 27 mmHg. There is mild tricuspid regurgitation. No significant valvular stenosis or regurgitation seen of remaining visualized valves. Normal pericardium with no significant pericardial effusion. Electronically Signed By: Se Friedman 18-Sep-2016 11:55:03 -0700 Patient Name: ASHLEY LOMAX Study Date: 18-Sep-2016 [id number]
--- NOTE | 2016-09-18 12:05 | CONS ---
Date/Time of Note Date/Time of Note DATE: 09/18/16 TIME: 11:59 Assessment/Plan Assessment/Plan Additional Assessment/Plan Chest wall pain Preserved ejection fraction Multiple sclerosis Hypertension Chronic pain -Patient with right-sided chest pain worse after using her walker for prolonged period yesterday. Pain is elicited with movement of the right arm and palpation of the chest wall. Serial cardiac enzymes remain negative, ECG without any ischemic abnormalities and echocardiogram with preserved ejection fraction. Patient is anxious to be discharged since she has a 2 PM infusion appointment at [facility]. Given the above results and symptoms atypical for cardiac ischemia, no further inpatient cardiac workup needed at the current time and recommend outpatient follow-up. Consultation Date/Type/Reason Admit Date/Time Sep 17, 2016 at 22:59 Type of Consultation: cv Reason for Consultation Chest pain Hx of Present Illness This is a 66-year-old female with past medical history of multiple sclerosis, hypertension who presents with right-sided chest pain. Patient admits to being more active yesterday and was walking with her walker. Later in the afternoon, she noticed right-sided chest pain. Pain is sharp and aching like. Pain is worse with palpation of the chest wall movement of the right arm. She also developed some shortness of breath at this time and possible neck pain. Because of the above, she became concerned and came to the emergency room for further evaluation and care. Since then, most of her symptoms have improved but she still has a mild ache on her right side of chest which is worse with palpation. He otherwise denies exertional chest pain or shortness of breath, dizziness or lightheadedness. Denies any diaphoresis. 12 point review of systems was performed with all pertinent positives and negatives mentioned above and all else is negative Eyes: no complaints ENT: no complaints Respiratory: shortness of breath Cardiovascular: edema, No lightheadedness Gastrointestinal: no complaints Genitourinary: no complaints Musculoskeletal: back pain Skin: no complaints Neurologic: no complaints Psychological: anxiety Past Medical History Multiple sclerosis Medical History: hypertension Past Surgical History Orthopedic surgery Family History Significant Family History: no pertinent family hx Social History Alcohol Use: none Smoking Status: Never smoker Drug Use: none Other Social History 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 Exam/Review of Systems Vital Signs Vitals Vital Signs Date Time Temp Pulse Resp B/P Pulse Ox O2 Delivery O2 Flow Rate FiO2 09/18/16 11:22 98.6 67 18 133/63 98 09/18/16 00:30 Room Air Intake and Output 09/17/16 09/17/16 09/18/16 15:00 23:00 07:00 Intake Total 300 ml Balance 300 ml Exam No apparent distress Constitutional: alert, obese, oriented Head: normocephalic Neck: supple Respiratory: clear to auscultation, normal air movement Cardiovascular: other (S1-S2 heard, no murmurs appreciated), regular rate and rhythm Gastrointestinal: bowel sounds, non-tender, other (No guarding), soft Musculoskeletal: other (Right side of chest wall tenderness to palpation with pain elicited the same pain patient complaining of) Extremities: edema (Trace) Results Result Diagram: 09/17/16201409/17/162014 Results 24 hrs Laboratory Tests Test 09/17/16 20:15 09/18/16 02:30 09/18/16 07:55 White Blood Count 9.7 # Red Blood Count 4.17 L Hemoglobin 11.2 L Hematocrit 35.2 L Mean Corpuscular Volume 84.4 Mean Corpuscular Hemoglobin 26.9 L Mean Corpuscular Hemoglobin Concent 31.8 L Red Cell Distribution Width 16.1 H Platelet Count 261 Mean Platelet Volume 9.6 # Neutrophils % 46.2 Lymphocytes % 37.5 Monocytes % 12.0 H Eosinophils % 3.4 Basophils % 0.4 Nucleated Red Blood Cells % 0.4 H Neutrophils # 4.5 Lymphocytes # 3.6 H Monocytes # 1.2 H Eosinophils # 0.3 Basophils # 0.0 Nucleated Red Blood Cells # 0.0 Prothrombin Time 13.5 Prothrombin Time Ratio 1.1 INR International Normalized Ratio 1.03 Activated Partial Thromboplast Time 29.7 Sodium Level 143 Potassium Level 2.9 *L Chloride Level 97 Carbon Dioxide Level 28 Anion Gap 21 H Blood Urea Nitrogen 20 Creatinine 0.67 Glucose Level 99 Calcium Level 8.8 Total Bilirubin 0.1 L Direct Bilirubin 0.00 Indirect Bilirubin 0.1 Aspartate Amino Transf (AST/SGOT) 24 Alanine Aminotransferase (ALT/SGPT) 30 Alkaline Phosphatase 90 Troponin I < 0.012 < 0.012 < 0.012 Total Protein 6.9 Albumin 4.3 Globulin 2.60 Albumin/Globulin Ratio 1.65 Creatine Kinase 26 21 L Creatine Kinase Index 2.8 2.4 Creatinine Kinase MB (Mass) 0.73 0.50 Magnesium Level 1.7 Triglycerides Level 91 Cholesterol Level 277 H LDL Cholesterol, Calculated 220 HDL Cholesterol 39 Cholesterol/HDL Ratio 7.1 Thyroid Stimulating Hormone (TSH) 3.190 Medications Medications Current Medications Baclofen (Lioresal) 20 mg TID PO Last administered on 09/18/16 08:20; Admin Dose 20 MG; Start 09/18/16 at 09:00 Benazepril HCl (Lotensin) 5 mg BID PO ; Start 09/18/16 at 09:00 Calcium Carbonate (Tums Ex) 1,500 mg DAILY PRN PO GASTROINTESTINAL UPSET; Start 09/18/16 at 01:30 Cyclosporine (Restasis) 1 drop Q12 BOTH EYES ; Start 09/18/16 at 09:00 Diazepam (Valium) 5 mg QHS PRN PO MUSCLE SPASMS; Start 09/18/16 at 01:30 Diphenhydramine HCl (Benadryl) 25 mg Q6 PRN PO ITCHING Last administered on 09/18 05:09; Admin Dose 25 MG; Start 09/18/16 at 01:30 Hydrochlorothiazide (Hydrochlorothiazide) 25 mg DAILY PO Last administered on 08:19; Admin Dose 25 MG; Start 09/18/16 at 09:00 Pantoprazole (Protonix Tab) 40 mg DAILY@06 PO Last administered on 09/18/16 05: 09; Admin Dose 40 MG; Start 09/18/16 at 06:00 Pregabalin (Lyrica) 75 mg BID PO Last administered on 09/18/16 08:18; Admin Dose 75 MG; Start 09/18/16 at 09:00 Atorvastatin Calcium (Lipitor) 80 mg DAILY@21 PO ; Start 09/18/16 at 21:00 Temazepam (Restoril) 30 mg HS PRN PO INSOMNIA; Start 09/18/16 at 01:30 Enoxaparin Sodium (Lovenox) 40 mg DAILY SC ; Start 09/18/16 at 09:00 Ondansetron HCl (Zofran Inj) 4 mg Q6H PRN IV NAUSEA AND/OR VOMITING; Start 09/18 at 01:30 Morphine Sulfate (morphine) 2 mg Q6H PRN IV pain Last administered on 09/18/16 08:27; Admin Dose 2 MG; Start 09/18/16 at 01:30 Fentanyl (Duragesic 75 Mcg/Hr Patch) 1 patch Q72H TRANSDERM ; Start 09/20/16 at 02:00 Oxycodone/ Acetaminophen (Endocet ()) 2 tab Q4H PRN PO SEVERE PAIN LEVEL 7-10; Start 09/18/16 at 07:30 Procedures Procedures ECG demonstrates sinus rhythm at 73 bpm, borderline prolonged AL interval at 196 ms, QRS 90 ms, nonspecific STT wave abnormality Se Friedman DO Sep 18, 2016 12:04
--- NOTE | 2016-09-18 12:21 | PDOCDIS ---
Discharge Instructions DIAGNOSIS Discharge Diagnosis chest pain CONDITION Patient Condition: Stable HOME CARE INSTRUCTIONS: Diet Instructions: Regular ACTIVITY: Activity Restrictions: Slowly Increase Activity Avoid heavy lifting FOLLOW UP/APPOINTMENTS Follow-up Plan appt PCP RUBEN Stearns MD Sep 18, 2016 12:21
[2016-09-18] MEDS ORDERED: ACET500C5 PO (12:23)
--- NOTE | 2016-09-18 13:08 | DS ---
Date/Time of Note Date/Time of Note DATE: 09/18/16 TIME: 13:05 Discharge Summary Admission/Discharge Info Admit Date/Time Sep 17, 2016 at 22:59 Discharge Date/Time 09/18/16 Discharge Diagnosis chest pain Procedures Echo normal Hx of Present Illness This is a 66-year-old female who presented to the emergency room with complaints of left midsternal chest pain that radiates to her jaw into and is associated with shortness of breath. Pain was said to have occurred suddenly midafternoon yesterday, and patient has had a few episodes since the first occurrence. Patient's pain starts suddenly and it is rated a 9-10 out of 10 at the worst is relieved by intravenous morphine given in the emergency room as well as on the floor. Patient has a chronic history of multiple sclerosis and is usually wheelchair dependent but can ambulate with a walker. She went to room from her caregiver who takes care of her most of the day. She gets monthly infusions at [facility] for her multiple sclerosis and is actually scheduled for an infusion tomorrow. However, patient's pain is also reproducible on chest wall palpation, and the patient states that in the past when she has had costochondritis she has had similar pain, but because she has significant family history and that the pain radiates up to her jaw she decided to come into be evaluated. 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 It is unclear if patient indeed had 3 MIs in the past. Apparently she had a history of an intracranial bleed which kept her intubated for a prolonged period of time and she was told that during this period she had 3 heart attacks. She states no further intervention shown was done however. Hospital Course This is a 66-year-old female with atypical chest pain. Ruled out for acute coronary syndrome by enzymes EKG symptoms. Seen by cardiology. Patient states she has been more active lately. Denies any chest wall injury recent travel ill contacts or productive cough. Chest x-ray normal/no acute anterior thoracic process. Troponins negative. No arrhythmia on monitor. Stable and fit for discharge. Tylenol Motrin as needed. Reinforced that this she may last for 2 weeks. Does have cardiac risk factors and they will meet need to be continued to be optimized medically. Chronic MS. Needs advanced care planning established. Discharge plan Appointment primary 1 week Appointment later this afternoon with [facility] for MS therapy Diet: Low-salt cholesterol Activity no driving no heavy exercise lifting Allergies apparently nonsteroidals, sulfa, aspirin, atenolol, cephalosporin CODE STATUS full Condition stable Pending tests none Functional status awake alert agrees to plan of care DME to be determined Barriers to discharge none Reason for admission chest pain New medication Tylenol or Motrin as needed. States she cannot take nonsteroidals but for unknown reason. Home Meds Active Scripts Acetaminophen* (Tylophen*) 500 Mg Capsule, 500 MG PO Q6H Y for PAIN for 1 Day, TAB Prov:RUBEN SALAZAR MD 09/18/16 Hydrocodone/Acetaminophen (Christine 10-325 Tablet) 1 Each Tablet, 1 TAB PO Q6H Y for PAIN, #20 TAB Prov:ANTHONY ANDERSON DO 07/18/16 Nitrofurantoin Monohyd Macrocr* (Macrobid*) 100 Mg Capsr, 100 MG PO BID for 10 Days, CAP Prov:ADENIKE OTERO 03/01/16 Reported Medications Calcium Carbonate* (Tums X-Str) 300 Mg Tab.chew, 600 MG PO DAILY Y for GASTROINTESTINAL UPSET, TAB.CHEW 03/01/16 Benazepril Hcl* (Benazepril Hcl*) 5 Mg Tablet, 5 MG PO BID, #60 TAB 03/01/16 Hydrochlorothiazide* (Hydrochlorothiazide*) 25 Mg Tab, 25 MG PO DAILY, #30 TAB 03/01/16 Ondansetron Hcl* (Zofran*) 4 Mg Tab, 4 MG PO Q4H Y for NAUSEA AND OR VOMITING, TAB 03/01/16 [Modvigil] No Conflict Check, 200 MG PO DAILY 03/01/16 Diphenhydramine Hcl* (Diphenhydramine Hcl*) 25 Mg Capsule, 25 MG PO Q6 Y for ITCHING, CAP 03/01/16 Pantoprazole* (Pantoprazole*) 40 Mg Tablet.dr, 40 MG PO BID, TAB 03/01/16 Pregabalin* (Lyrica*) 75 Mg Capsule, 75 MG PO BID, CAP 09/18/15 Oxycodone Hcl-Acetaminophen* (Oxycodone Hcl-Acetaminophen*) 10-325 Mg Tablet, 2 TAB PO Q4 Y for SEVERE PAIN LEVEL 7-10, TAB 09/18/15 Cyclosporine* (Restasis* Oph) 32 Ea Dro[place]rette, 1 DROP BOTH EYES Q12, #1 BOX 03/02/15 Fentanyl Patch* (Fentanyl Patch*) 75 Mcg/Hr Transdermal Patch, 1 PATCH TD Q72H, PATCH 03/02/15 Diazepam* (Diazepam*) 5 Mg Tablet, 10 MG PO QHS Y for MUSCLE SPASMS, TAB 03/02/15 Temazepam* (Restoril*) 30 Mg Capsule, 30 MG PO HS Y for INSOMNIA, CAP 03/02/15 Rosuvastatin Calcium* (Crestor*) 20 Mg Tablet, 20 MG PO QHS, #30 TAB 03/02/15 Baclofen* (Baclofen*) 20 Mg Tablet, 20 MG PO TID, TAB 03/02/15 Primary Care Provider Nikita Severino Pending Labs Laboratory Tests Test 09/17/16 20:15 09/18/16 02:30 09/18/16 07:55 White Blood Count 9.710^3/ul (4.8-10.8) Red Blood Count 4.1710^6/ul (4.20-5.40) Hemoglobin 11.2g/dl (12.0-16.0) Hematocrit 35.2% (37.0-47.0) Mean Corpuscular Volume 84.4fl (82.0-101.0) Mean Corpuscular Hemoglobin 26.9pg (29.0-33.0) Mean Corpuscular Hemoglobin Concent 31.8g/dl (32.0-37.0) Red Cell Distribution Width 16.1% (11.5-14.5) Platelet Count 76553^3/UL (140-415) Mean Platelet Volume 9.6fl (7.4-10.4) Neutrophils % 46.2% (39.0-77.0) Lymphocytes % 37.5% (15.0-51.0) Monocytes % 12.0% (0.0-11.0) Eosinophils % 3.4% (0.0-7.0) Basophils % 0.4% (0.0-2.0) Nucleated Red Blood Cells % 0.4/100WBC (0.0-0.0) Neutrophils # 4.510^3/ul (1.6-7.5) Lymphocytes # 3.610^3/ul (0.8-2.9) Monocytes # 1.210^3/ul (0.3-0.9) Eosinophils # 0.310^3/ul (0.0-0.5) Basophils # 0.010^3/ul (0.0-0.1) Nucleated Red Blood Cells # 0.010^3/ul (0.0-0.0) Prothrombin Time 13.5Sec (12.2-14.2) Prothrombin Time Ratio 1.1 INR International Normalized Ratio 1.03 Activated Partial Thromboplast Time 29.7Sec (25.0-35.0) Sodium Level 143mmol/L (135-144) Potassium Level 2.9mmol/L (3.5-5.1) Chloride Level 97mmol/L (97-110) Carbon Dioxide Level 28mmol/L (21-31) Anion Gap 21 (8-16) Blood Urea Nitrogen 20mg/dl (7-20) Creatinine 0.67mg/dl (0.44-1.00) Glucose Level 99mg/dl (70-220) Calcium Level 8.8mg/dl (8.4-10.2) Total Bilirubin 0.1mg/dl (0.2-1.3) Direct Bilirubin 0.00mg/dl (0.00-0.20) Indirect Bilirubin 0.1mg/dl (0-1.1) Aspartate Amino Transf (AST/SGOT) 24IU/L (15-46) Alanine Aminotransferase (ALT/SGPT) 30IU/L (13-69) Alkaline Phosphatase 90IU/L (42-121) Troponin I < 0.012ng/ml (0.00-0.12) < 0.012ng/ml (0.00-0.12) < 0.012ng/ml (0.00-0.12) Total Protein 6.9g/dl (6.1-8.1) Albumin 4.3g/dl (3.3-4.9) Globulin 2.60g/dl (1.3-3.2) Albumin/Globulin Ratio 1.65 Creatine Kinase 26IU/L (23-200) 21IU/L (23-200) Creatine Kinase Index 2.8 2.4 Creatinine Kinase MB (Mass) 0.73ng/ml (0.0-2.4) 0.50ng/ml (0.0-2.4) Magnesium Level 1.7mg/dl (1.7-2.5) Triglycerides Level 91mg/dl (0-149) Cholesterol Level 277mg/dl (100-200) LDL Cholesterol, Calculated 220mg/dl HDL Cholesterol 39mg/dl (35-98) Cholesterol/HDL Ratio 7.1RATIO Thyroid Stimulating Hormone (TSH) 3.190MIU/L (0.465-4.680) RUBEN SALAZAR MD Sep 18, 2016 13:08
[2016-09-18] MEDS ORDERED: ATORVASTATIN 80 MG TAB PO SCH (21:00)
[2016-09-20] MEDS ORDERED: FENTAnyl PATCH 75 MCG/HR TRANSDERM SCH ×2 (02:00→09:00)
== END 2016-09-18 13:35 | disposition home health service (06) ==
LOC: E/R 18:46 → TEL 22:59
PROVIDERS: ADMIT Family Medicine; ATTEND Family Medicine
DX: R07.89 Other chest pain (principal); E87.6 Hypokalemia
CPT/HCPCS: 36415; 71010; 80053; 80061; 82550; 82553; 83036; 83735; 84443; 84484; 85025; 85610; 85730; 93005; 93306; 93970; 96374; 99285; G0378; J2270; J1650

== ENCOUNTER 2016-09-23 06:55 | Day surgery (SDC) | payer MEDICARE, BC ==
[~2016-09-23] VITALS: Ht 172.7 cm; Wt 97.0 kg
[2016-09-23] VITALS (16 sets, daily range): BP systolic 117–145; BP diastolic 56–72; PULSE 56–70; RESP 11–25; Ht 172.7 cm; Wt 97.0 kg
[~2016-09-23 06:55] MED LIST changes: +ACET500C5 PO
[2016-09-23] MEDS ORDERED: LIDOCAINE 1%/EPI (MDV) 20 ML INJ ONE (07:00)
[2016-09-23] MEDS ORDERED: DEXT10TA9 PO (07:58)
[2016-09-23] MEDS ORDERED: PROPOFOL 20 ML ONE (09:30)
[2016-09-23] MEDS ORDERED: ROCURONIUM 50 MG INJ ONE (09:30)
[2016-09-23] MEDS ORDERED: FENTAnyl 50 MCG/ML VIAL ONE (09:31)
[2016-09-23] MEDS ORDERED: MIDAZOLAM 1 MG/ML 2 ML INJ ONE (09:31)
--- NOTE | 2016-09-23 09:42 | HPN ---
Date/Time of Note Date/Time of Note DATE: 09/23/16 TIME: 09:42 Interval H&P Admission Note Pt. seen H&P reviewed: No system changes LIDIA ROSE MD Sep 23, 2016 09:42
[2016-09-23] MEDS ORDERED: PHENYLephrine (100 MCG/ML) 5ML SYG ONE (10:06)
[2016-09-23] MEDS ORDERED: DEXAMETHASONE 4 MG/ML 1 ML INJ ONE (10:20)
[2016-09-23] MEDS ORDERED: ONDANSETRON 4 MG INJ ONE (10:20)
[2016-09-23] MEDS ORDERED: FAMOTIDINE 20 MG INJ ONE (10:26)
[2016-09-23] MEDS ORDERED: BUPIVACAINE 0.5%/EPI (SDV) 30 ML INJ ONE (10:26)
[2016-09-23] MEDS ORDERED: MEPERIDINE 25 MG INJ IV PRN (11:00)
[2016-09-23] MEDS ORDERED: ONDANSETRON 4 MG INJ IV PRN (11:00)
[2016-09-23] MEDS ORDERED: DIPHENHYDRAMINE 50 MG INJ IV PRN (11:00)
[2016-09-23] MEDS ORDERED: HYDROmorphONE (0.2 MG/ML) 10ML SYG IV PRN ×2 (11:00)
--- NOTE | 2016-09-23 11:03 | OPR ---
Date/Time of Note Date/Time of Note DATE: 09/23/16 TIME: 11:01 Operative Report Procedure Date: Sep 23, 2016 Preoperative Diagnosis Left buttocks mass Postoperative Diagnosis Left buttocks mass Operation Performed Resection left buttocks mass Surgeon: LIDIA ROSE MD Anesthesia: general Estimated Blood Loss: minimal Specimens Left buttocks mass Tubes/Drains None Complications: None Pt Condition Post Procedure: stable Disposition: PACU Indications Left buttocks mass Operative\Procedure Findings Patient was taken to the operating room after induction of general anesthesia was placed placed in the right lateral decubitus position left side up prepped and draped in usual sterile fashion antibiotics was given timeout was called and I started I made a 8 cm incision left buttocks horizontal fashion incision was taken down to subcutaneous tissue which was opened using electrocautery there appeared to be calcified mass in the left buttocks about 6 x 8 cm which was then resected using electrocautery and Metzenbaum scissors the wound was irrigated and closed in 2 layers of 2-0 Vicryl suture for deep 2-0 Vicryl suture for subcu and 3-0 Vicryl suture for running for skin closure and Steri-Strips were applied patient tolerated procedure well end of dictation LIDIA ROSE MD Sep 23, 2016 11:03
== END 2016-09-23 13:48 | disposition home or self-care (01) ==
LOC: SDS 06:55
PROVIDERS: ATTEND Thoracic Surgery (Cardiothoracic Vascular Surgery)
DX: I96 Gangrene, not elsewhere classified (principal); L90.5 Scar conditions and fibrosis of skin; E66.9 Obesity, unspecified; Z68.32 Body mass index [BMI] 32.0-32.9, adult
CPT/HCPCS: 11406; 88307; 88311; J1100; J1170; J2175; J2250; J2405; J3010; J2370

== ENCOUNTER 2016-10-22 18:37 | Inpatient (IN) | payer MEDICARE, BC ==
[~2016-10-22] VITALS: Ht 172.7 cm; Wt 103.7 kg
[~2016-10-22 18:37] MED LIST changes: -ACET500C5 PO; -CALC300T4 PO; +DEXT10TA9 PO; -DIAZ5TAB4 PO; -DIPH25CA6 PO; -HYDR-902 PO; -NITR-58 PO; -ONDA-43 PO; -PANT40TA4 PO; -RESTOP4 BOTH EYES; -TEMA30CA6 PO; -[UNRECOGNIZED DRUG - OTHER] PO
[2016-10-22 22:00] VITALS: BP 153/74; RESP 18
[2016-10-22 22:58] LABS: ADD UMIC YES; UR ASCORBIC ACID NEGATIVE (NEGATIVE); UR BILIRUBIN (Dip) NEGATIVE (NEGATIVE); UR BLOOD (Dip) 1+ mg/dL (NEGATIVE); UR CLARITY CLEAR (CLEAR); UR COLOR STRAW (YELLOW); UR GLUCOSE (Dip) NEGATIVE (NEGATIVE); UR KETONES (Dip) NEGATIVE (NEGATIVE); UR LEUKOCYTE ESTERASE (Dip) 3+ Leu/ul (NEGATIVE); UR NITRITE (Dip) NEGATIVE (NEGATIVE); UR RBC 1 /HPF (0-5); UR SPECIFIC GRAVITY (Dip) 1.006 (1.003-1.030); UR TOTAL PROTEIN (Dip) NEGATIVE (NEGATIVE); UR UROBILINOGEN (Dip) NEGATIVE (NEGATIVE)
[2016-10-22] MEDS ORDERED: ACETAMINOPHEN 325 MG TAB PO PRN (23:00)
[2016-10-22] MEDS ORDERED: OXYCODONE/ACETAMINOPHEN (5/325) TAB PO PRN (23:00)
[2016-10-22] MEDS ORDERED: DIPHENHYDRAMINE 25 MG CAP PO PRN (23:00)
[2016-10-22] MEDS ORDERED: LACTULOSE 30ML CUP PO PRN (23:00)
[2016-10-22] MEDS ORDERED: DIAZEPAM 5 MG TAB PO PRN (23:00)
[2016-10-22] MEDS ORDERED: BISACODYL 10 MG SUPP PR PRN (23:00)
[2016-10-22] MEDS ORDERED: TEMAZEPAM 15 MG CAP PO PRN (23:45)
[2016-10-23] MEDS: OXYCODONE/ACETAMINOPHEN (5/325) TAB PO PRN ×4 (01:27→16:36)
[2016-10-23 01:38] VITALS: Ht 172.7 cm; Wt 103.7 kg
[2016-10-23 02:00] VITALS: BP 143/68; RESP 18
[2016-10-23] MEDS: PANTOPRAZOLE (EC) 40 MG TAB PO SCH ×2 (05:22→18:08)
[2016-10-23] MEDS: morphine 2 MG INJ IV PRN ×2 (05:22→19:12)
[2016-10-23 07:26] LABS: BASOPHILS % 0.2 % (0.0-2.0); EOSINOPHILS # 0.1 10^3/ul (0.0-0.5); EOSINOPHILS % 1.1 % (0.0-7.0); HEMATOCRIT 35.8 % (37.0-47.0); HEMOGLOBIN 11.1 g/dl (12.0-16.0); LYMPHOCYTES # 3.7 10^3/ul (0.8-2.9); LYMPHOCYTES % 33.6 % (15.0-51.0); MEAN CORPUSCULAR HEMOGLOBIN 26.8 pg (29.0-33.0); MEAN CORPUSCULAR VOLUME 86.5 fl (82.0-101.0); MEAN PLATELET VOLUME 10.5 fl (7.4-10.4); MONOCYTE # 1.2 10^3/ul (0.3-0.9); MONOCYTES % 11.1 % (0.0-11.0); NEUTROPHIL # 5.7 10^3/ul (1.6-7.5); NEUTROPHILS % 51.3 % (39.0-77.0); NUCLEATED RED BLOOD CELLS # 0.1 10^3/ul (0.0-0.0); NUCLEATED RED BLOOD CELLS% 0.5 /100WBC (0.0-0.0); PLATELET COUNT 179 10^3/UL (140-415); RED BLOOD COUNT 4.14 10^6/ul (4.20-5.40); RED CELL DISTRIBUTION WIDTH 16.8 % (11.5-14.5)
[2016-10-23 07:46] LABS: ALBUMIN 3.3 g/dl (3.3-4.9); ALBUMIN/GLOBULIN RATIO 1.26; BILIRUBIN,INDIRECT 0.2 mg/dl (0-1.1); BILIRUBIN,TOTAL 0.2 mg/dl (0.2-1.3); CREATININE 0.71 mg/dl (0.44-1.00); POTASSIUM 4.1 mmol/L (3.5-5.1); TOTAL PROTEIN 5.9 g/dl (6.1-8.1)
[2016-10-23 07:57] VITALS: BP 174/74; RESP 18
[2016-10-23] MEDS: CLINDAMYCIN 300 MG CAP PO SCH ×2 (08:49→21:20)
[2016-10-23] MEDS: CYCLOSPORINE 0.05% OPH DROPERETTE BOTH EYES SCH ×2 (08:49→21:20)
[2016-10-23] MEDS: PREGABALIN 75 MG CAP PO SCH ×3 (08:49→21:19)
[2016-10-23] MEDS: ENOXAPARIN 40 MG/0.4 ML SYG SC SCH (08:49)
[2016-10-23] MEDS: HYDROCHLOROTHIAZIDE 25 MG TAB PO SCH (08:49)
[2016-10-23] MEDS: DOCUSATE SODIUM 100 MG CAP PO SCH ×2 (08:50→21:19)
[2016-10-23] MEDS: BACLOFEN 10 MG TAB PO SCH ×3 (08:50→21:20)
[2016-10-23] MEDS: L ACIDOPHIL/B LACTIS/B LONGUM CAPSULE PO SCH (08:51)
[2016-10-23] MEDS ORDERED: BIOTIN 5 MG PO SCH (09:00)
--- NOTE | 2016-10-23 10:21 | HP ---
DATE OF ADMISSION: 10/22/2016 CHIEF COMPLAINT: Left hip wound MS exacerbation. HISTORY OF PRESENT ILLNESS: This is a 66-year-old female with a past medical history of multiple sclerosis status, relapsing, remitting, currently receiving IV monthly infusions by a neurologist, history of hyperlipidemia, chronic pain syndrome, history of CVA, history of multiple hip replacement surgeries, who presents to [facility] for care due to recent MS flare and left hip I and D. patient presented to [facility] due to pain on her left hip. The patient had swelling and redness. She took a course of clindamycin; however, the pain developed and worsened. As a result, she came to the hospital, was admitted and underwent I and D with antibiotic bead placement. The patient, following the play the procedure, developed an MS flare, was seen by a neurologist and given a course of IV Solu-Medrol 1 g for 3 days. The patient also receives monthly Tysabri infusion her neurologist, Dr. Tilley, at [place]. The patient had a recent infusion approximately 1 week ago. The patient, after being stabilized, had a significant decline in her premorbid condition, as a result, she was transferred to [facility] for continued care. Upon my evaluation of the patient at this time, she is currently stable. She is complaining of generalized pain and weakness. She denies any fevers, chills, any nausea, vomiting. PAST MEDICAL HISTORY: As stated above. History of multiple sclerosis, relapsing, remitting, history of dyslipidemia, chronic pain syndrome, history of CVA. PAST SURGICAL HISTORY: Patient has had a subdural hematoma 1999, left hip replacement x2, right hip replacement followed by the revision, right total knee, left shoulder replacement, left toe amputation, appendectomy, cholecystectomy. MEDICATIONS: Reviewed and reconciled. ALLERGIES: MULTIPLE. PLEASE SEE LIST. FAMILY HISTORY: Noncontributory. SOCIAL HISTORY: Does not drink, smoke, or do drugs. REVIEW OF SYSTEMS: Fourteen point review of systems conducted. Pertinent positives stated in HPI, otherwise negative. PHYSICAL EXAMINATION: VITAL SIGNS: Blood pressure is 143/68, respirations 18, pulse 66, temperature 97.8. HEENT: Head is normocephalic. Pupils are reactive to light. NECK: Supple. HEART: Regular rate. LUNGS: Show diminished breath sounds at the base. ABDOMEN: Soft, nontender to palpation. No guarding. EXTREMITIES: Negative for clubbing, cyanosis. Trace edema. DERMATOLOGIC: Clean. No rashes. MUSCULOSKELETAL: No joint effusion. NEUROLOGIC: The patient has general weakness. Exam is limited. The patient is able to move her upper extremities, although there is greater weakness on the right compared to left. LABORATORY DATA: Show white count 11.0, hemoglobin 9.1, crit 25.8, platelet count 179. Sodium 147, potassium 4.1, BUN 34, creatinine 0.71. ASSESSMENT AND PLAN: This is a 66-year-old female who presents with: 1. Left hip infection, status post incision and drainage with antibiotic bead placement. Patient currently is receiving clindamycin. Plan is to continue current treatment plan. Jos[place] place an ID consult with Dr. Saldaña for evaluation and monitor closely. 2. History of multiple sclerosis, relapsing, remitting with acute flare. Patient is status post Solu-Medrol. Patient is status post recent infusion Tysabri. At this point, we will continue to monitor. We will place a neurologic consult for evaluation. 3. Dyslipidemia. Continue current statin regimen. 4. Hypertension. We will continue current blood pressure regimen. Control her underlying pain. We will adjust medications as needed. 5. Hyponatremia. We will encourage free water intake. 6. Chronic pain syndrome. Continue current pain regimen. Continue Lyrica. We will follow up with Dr. Mckeon for pain management. 7. Insomnia. Continue Restoril. 8. Gastrointestinal and deep venous thrombosis prophylaxis. Continue proton pump inhibitor and Lovenox. 9. Anemia. Monitor H and H levels. Please note, I spent 25 minutes face to face time with the patient. The patient is full code. Dictated By: Samy Mejia DO /laura/lia /Document#: [id number]
--- NOTE | 2016-10-23 11:01 | CONS ---
Date/Time of Note Date/Time of Note DATE: 10/23/16 TIME: 10:49 Assessment/Plan Assessment/Plan Chief Complaint/Hosp Course 66 yo female with history of relapsing remitting MS, admitted to [facility] for L hip I/D c/o right sided weakness treated with 3 days of IV Solumedrol. Reviewed MRI Brain and C Spine imaging from outside hospital. Recommend: may give additional 2 doses of IV Solumedrol , would avoid further doses as she already received 3 doses at [facility] continue neuropathic pain meds on Lyrica 75 mg TID and Baclofen for spasticity continue rehabilitation as planned continue to follow with outside neurologist Problems: Consultation Date/Type/Reason Admit Date/Time Oct 22, 2016 at 21:20 Date of Consultation: Oct 23, 2016 Type of Consultation: Neurology Reason for Consultation MS exacerbation Referring Provider: MARIAELENA LINDQUIST DO Hx of Present Illness 66 year old female with history of relapsing remitting MS since 1986 currently being treated with IV Tysabri infusions monthly followed by Dr. Alexander in [place]. She also has a history of HTN, Chronic pain syndrome, multiple CVA, multiple hip replacements admitted to [facility] acute rehab after left hip I/D done at [facility]. Prior to this hospitalization she was given her IV Tysabri dose on 10/18, during admission to the hospital she c/o increasing right sided weakness of her arm and leg during admission and was also treated with 3 days of IV Solumedrol during that admission. She is now transferred to [facility] acute rehab, has an indwelling goldberg catheter and now in a wheelchair. At home she usually ambulates with a cane and her typical exacerbations involve left arm and leg weakness. Recent MRI Brain done at [facility] 10/20 showed multiple white matter lesions c/ w MS no enhancing lesions. MRI C Spine showed spinal cord lesions C7 vertebral body level, disc bulges moderate stenosis C5-6. Past Medical History as per HPI Exam/Review of Systems Vital Signs Vitals Vital Signs Date Time Temp Pulse Resp B/P Pulse Ox O2 Delivery O2 Flow Rate FiO2 10/23/16 07:57 97.9 51 18 174/74 98 Exam awake and alert in wheelchair she is oriented to self, hospital no aphasia no neglect CN: TREVOR, VFF EOMI no nystagmus, V1-3 intact, no facial asymmetry palate upgoing uvula midline scm/trap tongue midline Motor: Bilateral UE strength atleast 3/5 throughout mild weakness on the right side compared to left Tone wnl throughout Reflexes 2+ UE absent LE Results Result Diagram: 10/23/16 0647 10/23/16 0647 Results 24 hrs Laboratory Tests Test 10/22/16 22:30 10/23/16 06:47 Urine Color STRAW Urine Clarity CLEAR Urine pH 9.0 Urine Specific [place] 1.006 Urine Ketones NEGATIVE Urine Nitrite NEGATIVE Urine Bilirubin NEGATIVE Urine Urobilinogen NEGATIVE Urine Leukocyte Esterase 3+ H Urine Microscopic RBC 1 Urine Microscopic WBC 12 H Urine Hemoglobin 1+ H Urine Glucose NEGATIVE Urine Total Protein NEGATIVE White Blood Count 11.0 H Red Blood Count 4.14 L Hemoglobin 11.1 L Hematocrit 35.8 L Mean Corpuscular Volume 86.5 Mean Corpuscular Hemoglobin 26.8 L Mean Corpuscular Hemoglobin Concent 31.0 L Red Cell Distribution Width 16.8 H Platelet Count 179 # Mean Platelet Volume 10.5 H Neutrophils % 51.3 Lymphocytes % 33.6 Monocytes % 11.1 H Eosinophils % 1.1 Basophils % 0.2 Nucleated Red Blood Cells % 0.5 H Neutrophils # 5.7 Lymphocytes # 3.7 H Monocytes # 1.2 H Eosinophils # 0.1 Basophils # 0.0 Nucleated Red Blood Cells # 0.1 H Sodium Level 147 H Potassium Level 4.1 Chloride Level 104 Carbon Dioxide Level 31 Anion Gap 16 Blood Urea Nitrogen 34 H Creatinine 0.71 Glucose Level 77 Calcium Level 9.0 Total Bilirubin 0.2 Direct Bilirubin 0.00 Indirect Bilirubin 0.2 Aspartate Amino Transf (AST/SGOT) 35 Alanine Aminotransferase (ALT/SGPT) 37 Alkaline Phosphatase 57 Total Protein 5.9 L Albumin 3.3 Globulin 2.60 Albumin/Globulin Ratio 1.26 Medications Medications Current Medications Docusate Sodium (Colace) 100 mg BID PO Last administered on 10/23/16t 08:50; Admin Dose 100 MG; Start 10/23/16 at 09:00 Senna (Senokot) 1 tab HS PO ; Start 10/23/16 at 21:00 Lactulose (Enulose) 20 gm DAILY PRN PO CONSTIPATION; Start 10/22/16 at 23:00 Bisacodyl (Dulcolax Supp) 10 mg DAILY PRN MI CONSTIPATION; Start 10/22/16 at 23: 00 Acetaminophen (Tylenol Tab) 650 mg Q4H PRN PO PAIN; Start 10/22/16 at 23:00 Baclofen (Lioresal) 20 mg TID PO Last administered on 10/23/16 08:50; Admin Dose 20 MG; Start 10/23/16 at 09:00 Pantoprazole (Protonix Tab) 40 mg BID@06,18 PO Last administered on 10/23/16 05 :22; Admin Dose 40 MG; Start 10/23/16 at 06:00 Diazepam (Valium) 10 mg HS PRN PO MUSCLE SPASMS; Start 10/22/16 at 23:00 Fentanyl (Duragesic 75 Mcg/Hr Patch) 1 patch Q72H TRANSDERM ; Start 10/24/16 at 18:00 Diphenhydramine HCl (Benadryl) 25 mg Q6H PRN PO ITCHING; Start 10/22/16 at 23:00 Cyclosporine (Restasis) 1 drop BID BOTH EYES Last administered on 10/23/16 08: 49; Admin Dose 1 DROP; Start 10/23/16 at 09:00 Hydrochlorothiazide (Hydrochlorothiazide) 25 mg DAILY PO Last administered on 08:49; Admin Dose 25 MG; Start 10/23/16 at 09:00 Ondansetron HCl (Zofran Tab) 4 mg Q8 PRN PO NAUSEA AND/OR VOMITING; Start at 23:00 Calcium Carbonate (Tums) 1,000 mg Q4 PRN PO heartburn; Start 10/22/16 at 23:00 Oxycodone/ Acetaminophen (Percocet (5/ 325)) 1 tab Q4H PRN PO PAIN; Start at 23:00 Oxycodone/ Acetaminophen (Percocet (5/ 325)) 2 tab Q4H PRN PO PAIN Last administered on 10/23/16 08:48; Admin Dose 2 TAB; Start 10/22/16 at 23:00 Pregabalin (Lyrica) 75 mg TID PO Last administered on 10/23/16 08:49; Admin Dose 75 MG; Start 10/23/16 at 09:00 Clindamycin HCl (Cleocin) 300 mg BID PO Last administered on 10/23/16 08:49; Admin Dose 300 MG; Start 10/23/16 at 09:00 Enoxaparin Sodium (Lovenox) 40 mg DAILY SC Last administered on 10/23/16 08:49 ; Admin Dose 40 MG; Start 10/23/16 at 09:00 Lactobacillus Acidophilus (Florajen3 Capsule) 2 each DAILY PO Last administered on 10/23/16 08:51; Admin Dose 2 EACH; Start 10/23/16 at 09:00 Temazepam (Restoril) 30 mg HS PRN PO INSOMNIA; Start 10/22/16 at 23:45 Atorvastatin Calcium (Lipitor) 20 mg DAILY@21 PO ; Start 10/23/16 at 21:00 Amphetamine/ Dextroamphetamine (Adderall) 10 mg BID PO ; Start 10/23/16 at 09:00 ; Status UNV Morphine Sulfate (morphine) 2 mg Q4H PRN IV SEVERE PAIN LEVEL 7-10 Last administered on 10/23/16 05:22; Admin Dose 2 MG; Start 10/23/16 at 03:00 Miscellaneous Information (*Order Clarification Bulletin) MEDICATION REQUIRES CLARIFICATI... Q8H XX Last administered on 10/23/16 09:22; Admin Dose 1 EA; Start 10/23/16 at 09:00 PK BELL MD Oct 23, 2016 11:00
[2016-10-23] MEDS ORDERED: AMPHETAMINE PO SCH (13:00)
[2016-10-23] MEDS ORDERED: DEXTROAMPHETAMINE PO SCH (13:00)
[2016-10-23] MEDS: METHYLPRED. NA SUCC 1,000 MG in DEXTROSE 5% 50 ML IVPB SCH (13:37)
--- NOTE | 2016-10-23 13:58 | CONS ---
DATE OF ADMISSION: 10/22/2016 DATE OF CONSULTATION: 10/23/2016 REHABILITATION IMPAIRMENT CATEGORY: Multiple sclerosis exacerbation. ACTIVE COMORBIDITIES: 1. Status post left hip I and D. 2. Questionable spinal cord lesion posterior aspect of C7. 3. Hyperlipidemia. 4. Acute pain syndrome. 5. History of multiple hip surgeries. 6. Chronic pain. 7. History of recurrent CVAs. 8. History of subdural hematoma with evacuation. 9. History of right total knee replacement. 10. History of multiple lumbar surgeries. 11. History of left shoulder replacement. 12. History of left 2nd toe amputation. 13. Constipation. 14. Impairments in self-care and mobility. HISTORY OF PRESENT ILLNESS: Patient is a 66-year-old female with a history of multiple medical comorbidities including arthritis affecting multiple joints and with multiple surgeries in addition to multiple sclerosis, who was admitted for a left hip I and D with antibiotic bead placements. After the procedure, patient was noted to have left-sided weakness. Workup did include MRI of the brain and C-spine. MRI of the brain did show white matter lesions consistent with history of MS. MRI of the C-spine did demonstrate questionable spinal cord lesion at C7, C4-5 disk bulge, C5-6 disk bulge, and C6-7 disk bulge. Patient was followed closely by Neurology and treated with IV Solu-Medrol. Patient is noted to have significant impairments in self-care and mobility as compared to baseline and has been cleared to transfer to the rehabilitation unit for comprehensive interdisciplinary rehab care. FUNCTIONAL HISTORY: Prior to recent events, patient ambulated independently. Currently, she is on maximal assist for self-care and maximal assist for mobility tasks. I have reviewed the preadmission screen and patient's current functional status is consistent with the preadmission screen. SOCIAL HISTORY: Patient reportedly lives at home and hopes to return there upon discharge. PAST MEDICAL HISTORY: 1. Multiple sclerosis. 2. Multiple right hip surgeries with right hip replacement followed by revision surgeries for dislocations and repeat revision surgery in January 2016. 3. A history of left hip surgeries. 4. History of right total knee replacement. 5. History of multiple lumbar surgeries. 6. History of left shoulder replacement. 7. History of left toe amputation. CURRENT MEDICATIONS: Please see medication reconciliation sheet. ALLERGIES: SULFA, ASPIRIN, ATENOLOL, CEFAZOLIN AND NSAIDS. PHYSICAL EXAMINATION: VITAL SIGNS: She is currently afebrile, with stable vital signs. HEENT: The extraocular motions appear intact. The oropharynx is clear. NECK: Supple. LUNGS: Clear anteriorly. ABDOMEN: Soft, nontender, with positive bowel sounds. NEUROLOGIC: She is awake and oriented to person and hospital. She will follow simple 1-step commands. She demonstrates antigravity strength in the bilateral biceps, triceps and category analyst strength. She has notably decrease shoulder forward flexion and abduction bilaterally. She has antigravity strength in the bilateral lower extremities. PLAN: Patient has been admitted for comprehensive interdisciplinary acute rehab and is anticipated to tolerate 3 hours of daily therapy in divided doses for at least 5 out 7 days a week. The treatment plan will include: 1. Physical therapy to focus on bed mobility, transfers and household ambulation with goals of having patient reach a standby assist level. 2. Occupational therapy to focus on hygiene, grooming, dressing, bathing and toileting activities with goals of having patient reach a standby assist level at the seated level. 3. Speech therapy for full cognitive assessment and retraining with the goal of having patient return to baseline cognition. 4. Rehabilitation nursing for carryover of therapeutic interventions, the goal of continent of bowel and bladder and the goal of pain adequately managed on oral medications. REHABILITATION BARRIER: Pain. INTERVENTION FOR BARRIER: Interdisciplinary approach. ESTIMATED LENGTH OF STAY: Fourteen days. DISPOSITION GOAL: Home. I acknowledged I performed a full physical examination on this patient within 24 hours of admission to the rehabilitation unit and believe that the patient is a good candidate for comprehensive interdisciplinary rehab care and is anticipated to make reasonable goals in a reasonable period of time as outlined above. Dictated By: Chhaya Saldaña MD /laura/lia /Document#: [id number]
--- NOTE | 2016-10-23 15:31 | CONS ---
Date/Time of Note Date/Time of Note DATE: 10/23/16 TIME: 15:30 Consultation Date/Type/Reason Admit Date/Time Oct 22, 2016 at 21:20 Date of Consultation: Oct 23, 2016 Type of Consultation: ID Reason for Consultation Antibiotic management Exam/Review of Systems Vital Signs Vitals Vital Signs Date Time Temp Pulse Resp B/P Pulse Ox O2 Delivery O2 Flow Rate FiO2 10/23/16 07:57 97.9 51 18 174/74 98 Results Result Diagram: 10/23/16 0647 10/23/16 0647 Results 24 hrs Laboratory Tests Test 10/22/16 22:30 10/23/16 06:47 Urine Color STRAW Urine Clarity CLEAR Urine pH 9.0 Urine Specific Arabi 1.006 Urine Ketones NEGATIVE Urine Nitrite NEGATIVE Urine Bilirubin NEGATIVE Urine Urobilinogen NEGATIVE Urine Leukocyte Esterase 3+ H Urine Microscopic RBC 1 Urine Microscopic WBC 12 H Urine Hemoglobin 1+ H Urine Glucose NEGATIVE Urine Total Protein NEGATIVE White Blood Count 11.0 H Red Blood Count 4.14 L Hemoglobin 11.1 L Hematocrit 35.8 L Mean Corpuscular Volume 86.5 Mean Corpuscular Hemoglobin 26.8 L Mean Corpuscular Hemoglobin Concent 31.0 L Red Cell Distribution Width 16.8 H Platelet Count 179 # Mean Platelet Volume 10.5 H Neutrophils % 51.3 Lymphocytes % 33.6 Monocytes % 11.1 H Eosinophils % 1.1 Basophils % 0.2 Nucleated Red Blood Cells % 0.5 H Neutrophils # 5.7 Lymphocytes # 3.7 H Monocytes # 1.2 H Eosinophils # 0.1 Basophils # 0.0 Nucleated Red Blood Cells # 0.1 H Sodium Level 147 H Potassium Level 4.1 Chloride Level 104 Carbon Dioxide Level 31 Anion Gap 16 Blood Urea Nitrogen 34 H Creatinine 0.71 Glucose Level 77 Calcium Level 9.0 Total Bilirubin 0.2 Direct Bilirubin 0.00 Indirect Bilirubin 0.2 Aspartate Amino Transf (AST/SGOT) 35 Alanine Aminotransferase (ALT/SGPT) 37 Alkaline Phosphatase 57 Total Protein 5.9 L Albumin 3.3 Globulin 2.60 Albumin/Globulin Ratio 1.26 Medications Medications Current Medications Docusate Sodium (Colace) 100 mg BID PO Last administered on 10/23/16t 08:50; Admin Dose 100 MG; Start 10/23/16 at 09:00 Senna (Senokot) 1 tab HS PO ; Start 10/23/16 at 21:00 Lactulose (Enulose) 20 gm DAILY PRN PO CONSTIPATION; Start 10/22/16 at 23:00 Bisacodyl (Dulcolax Supp) 10 mg DAILY PRN [place] CONSTIPATION; Start 10/22/16 at 23: 00 Acetaminophen (Tylenol Tab) 650 mg Q4H PRN PO PAIN; Start 10/22/16 at 23:00 Baclofen (Lioresal) 20 mg TID PO Last administered on 10/23/16 12:25; Admin Dose 20 MG; Start 10/23/16 at 09:00 Pantoprazole (Protonix Tab) 40 mg BID@,18 PO Last administered on 10/23/16 05 :22; Admin Dose 40 MG; Start 10/23/16 at 06:00 Diazepam (Valium) 10 mg HS PRN PO MUSCLE SPASMS; Start 10/22/16 at 23:00 Fentanyl (Duragesic 75 Mcg/Hr Patch) 1 patch Q72H TRANSDERM ; Start 10/24/16 at 18:00 Diphenhydramine HCl (Benadryl) 25 mg Q6H PRN PO ITCHING; Start 10/22/16 at 23:00 Cyclosporine (Restasis) 1 drop BID BOTH EYES Last administered on 10/23/16 08: 49; Admin Dose 1 DROP; Start 10/23/16 at 09:00 Hydrochlorothiazide (Hydrochlorothiazide) 25 mg DAILY PO Last administered on 08:49; Admin Dose 25 MG; Start 10/23/16 at 09:00 Ondansetron HCl (Zofran Tab) 4 mg Q8 PRN PO NAUSEA AND/OR VOMITING; Start at 23:00 Calcium Carbonate (Tums) 1,000 mg Q4 PRN PO heartburn; Start 10/22/16 at 23:00 Oxycodone/ Acetaminophen (Percocet (5/ 325)) 1 tab Q4H PRN PO PAIN; Start at 23:00 Oxycodone/ Acetaminophen (Percocet (5/ 325)) 2 tab Q4H PRN PO PAIN Last administered on 10/23/16 12:53; Admin Dose 2 TAB; Start 10/22/16 at 23:00 Pregabalin (Lyrica) 75 mg TID PO Last administered on 10/23/16 12:25; Admin Dose 75 MG; Start 10/23/16 at 09:00 Clindamycin HCl (Cleocin) 300 mg BID PO Last administered on 10/23/16 08:49; Admin Dose 300 MG; Start 10/23/16 at 09:00 Enoxaparin Sodium (Lovenox) 40 mg DAILY SC Last administered on 10/23/16 08:49 ; Admin Dose 40 MG; Start 10/23/16 at 09:00 Lactobacillus Acidophilus (Florajen3 Capsule) 2 each DAILY PO Last administered on 10/23/16 08:51; Admin Dose 2 EACH; Start 10/23/16 at 09:00 Temazepam (Restoril) 30 mg HS PRN PO INSOMNIA; Start 10/22/16 at 23:45 Atorvastatin Calcium (Lipitor) 20 mg DAILY@21 PO ; Start 10/23/16 at 21:00 Amphetamine/ Dextroamphetamine (Adderall) 10 mg BID@09,12 PO Last administered on 10/23/16 13:37; Admin Dose 10 MG; Start 10/23/16 at 13:00 Morphine Sulfate 2 mg 2 mg Q4H PRN IV SEVERE PAIN LEVEL 7-10 Last administered on 10/23/16 05:22; Admin Dose 2 MG; Start 10/23/16 at 03:00 Methylprednisolone Sodium Succinate/ Dextrose (Solu-Medrol/D5W) 50 ml @ 100 mls /hr DAILY IVPB Last administered on 10/23/16 13:37; Admin Dose 100 MLS/HR; Start 10/23/16 at 12:00; Stop 10/24/16 at 11:59 KELSI MCKINNON MD Oct 23, 2016 15:31
[2016-10-23] MEDS: ERTAPENEM SODIUM 1 GM in SOD CHLORIDE 0.9% 100 ML IVPB SCH ×2 (16:36→17:48)
[2016-10-23 19:56] VITALS: BP 173/82; RESP 18
[2016-10-23] MEDS: AZTREONAM 1 GM/NS (PMX) 50 ML IVPB SCH (21:19)
[2016-10-23] MEDS: SENNA TAB PO SCH (21:19)
[2016-10-23] MEDS: ATORVASTATIN 20 MG TAB PO SCH (21:20)
--- NOTE | 2016-10-23 22:24 | CONS ---
DATE OF ADMISSION: 10/22/2016 DATE OF CONSULTATION: 10/23/2016 REASON FOR CONSULTATION: Antibiotic management. HISTORY OF PRESENT ILLNESS: Claire Mosqueda is a 66-year-old female, brought to [facility] with left hip wound and history of multiple sclerosis exacerbation with relapsing and remitting. She is receiving monthly infusions by neurologist for her multiple sclerosis. Other problems include: 1. Hyperlipidemia. 2. Chronic pain syndrome. 3. History of CVA. 4. Multiple hip replacement surgeries. She presents at [facility] due to recent MS flare and left hip I and D. The patient initially presented to [facility] due to pain in the left hip. She had swelling and redness. She took a course of clindamycin, however, the pain continued to worsen. As a result, she came to the hospital, was admitted, underwent I and D with antibiotic bead placement. The patient had a multiple sclerosis flare. She was seen by Neurology given a course of IV Solu-Medrol 1 g IV piggyback q. day for 3 days. She receives monthly Tysabri infusions by her environmental economist Dr. Tilley at [facility]. She has had a significant decline in her premorbid condition. PAST MEDICAL HISTORY: Operations as outlined. Past medical history is also positive for chronic pain syndrome and history of CVA. PAST SURGICAL HISTORY: Positive for a subdural hematoma in 1999. She had left hip replacement x2. Right hip replacement followed by revision, right total knee replacement, left shoulder replacement, left toe amputation, appendectomy and cholecystectomy. FAMILY HISTORY: Noncontributory. SOCIAL HISTORY: She does not smoke, drink, or abuse drugs. ALLERGIES: NONE TO PENICILLIN, SULFA, OR FOODS. MEDICATION: Per chart. REVIEW OF SYSTEMS: As per HPI. PHYSICAL EXAMINATION: GENERAL APPEARANCE: The patient is well developed, elderly and ill appearing female who is awake, responsive, in no acute distress. VITAL SIGNS: Stable. She is afebrile. SKIN: Without generalized rash. HEENT: Within normal limits. NECK: Supple. Lymph nodes not palpable. CHEST: Decreased breath sounds at the bases. HEART: Without murmur or gallop. ABDOMEN: Soft, nontender, without organosplenomegaly or masses. EXTREMITIES: Without cyanosis, clubbing, or edema. RECTAL AND GENITAL: Exam is deferred. NEUROLOGIC: The patient has generalized weakness. She is able to move her upper extremities. There is great weakness on the right compared to the left LABORATORY DATA: White count of 11,000, hemoglobin and hematocrit 9.1 and 25.8, platelet count 179,000. BUN and creatinine 34/0.71. ASSESSMENT: Patient therefore presents with left hip infection, status post incision and drainage with antibiotic bead placement. She is currently receiving clindamycin. We will continue her on this regimen. I have been called to see the patient for evaluation and to monitor this infection. She has multiple sclerosis, dyslipidemia, hypertension, hyponatremia, chronic pain syndrome, and numerous other problems. I will dictate my findings to Dr. Mejia and Dr. Mike Saldaña. Of note, is the fact that patient's urine culture from the 8th is positive and therefore she may require additional antibiotic therapy. She is currently only on clindamycin. She may be colonized rather than infected. Her white count is 98.4, 97.9 and her urine is positive for 3 plus leukocyte esterase. We will probably add ertapenem to her regimen until we get results back. I will dictate my findings to the aforementioned physicians. Dictated By: Heath Saldaña MD JD/laura/rodney /Document#: [id number]
[2016-10-24 02:00] VITALS: BP 145/70; RESP 18
--- NOTE | 2016-10-24 02:09 | CONS ---
DATE OF ADMISSION: 10/22/2016 DATE OF CONSULTATION: 10/23/2016 Type of consultation: Psychological. REFERRING PHYSICIAN: Chhaya Saldaña MD Consulting psychologist: Miki Keita, Ph.D. REASON FOR CONSULTATION: This consultation was requested by Chhaya Saldaña MD in order to evaluate the cognitive and emotional function of this patient related to her present medical condition. HISTORY OF PRESENT ILLNESS: The patient is a 66-year-old female. She has been in the rehabilitation unit a couple different times before. The patient was last seen by this examiner on 01/31/2016. The patient has multiple sclerosis and has had a recent exacerbation and this is what has caused her to come into the hospital and the rehab unit before. The patient is motivated to get better and does want to increase her overall ability to function. The patient is concerned about her present medical condition, but has had numerous problems medically over the years. The patient has had numerous strokes as well as other medical problems that relate to her MS. FAMILY/SOCIAL HISTORY: The patient presently rents a room from a friend who is a partial caregiver. He helps her with numerous issues that she cannot deal with on her own. The patient does want to return to this living situation when she is discharged. MEDICATION: The patient is currently on: 1. Adderall 10 mg b.i.d. 2. Lyrica 75 mg t.i.d. 3. Valium 10 mg p.r.n. 4. Restoril 30 mg at bedtime. 5. It was suggested with the patient and talked about in regard to her possibly trying Cymbalta for some of her neuropathic pain and underlying depression related to her MS. Substance use: The patient reports that she does not use alcohol or other drugs. 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 The patient used to be a binge drinker periodically and then went to Alcoholics Anonymous and has been involved with them for the last 30 years and has stayed sober. The patient also goes to go Overeaters Anonymous as she used to weigh 356 pounds and is presently still obese. Patient reports that she does not smoke. MENTAL STATUS EXAMINATION: Appearance: The patient was seen up in her wheelchair. She appears of average height. She is obese. She wears glasses and is right-handed. Behavior: The patient was cooperative during the consultation. The patient did attempt to answer all questions presented to her by the interviewer. Mood and affect: The patient's mood appears to be slightly depressed. Affect does appear to be slightly anxious. Perception: Patient reports no hallucinations or delusions. The patient was alert to person, place, situation, and time. Memory and cognition: The patient's memory and cognition does have some impairment. This impairment probably relates to her MS as well as the numerous strokes that she has had. The patient was able to say the name of the hospital and she was able to say the month and year. The patient was able to say who the President of [facility] is but could not say who the governor of the state is or the mayor of the city. The patient was unable to spell world backwards correctly. She spelled it "DLOROW." Patient was only able to do 2, 7 subtractions from 100 and then could not go any further. Overall, the patient's cognitive functioning is fairly good considering all her medical problems. Intelligence: Intelligence appears to fall in the average range. Insight: Good. Judgment: Good. Thought content: The patient is concerned about her present medical condition. The patient wants to return to be as independent as she can be. The patient is very aware and very frustrated about her overall medical condition. The patient reports that she has had numerous struggles with her medical problems and is continuing to have issues with them. DISCUSSION: The patient can likely benefit from some one-to-one cognitive/behavioral psychotherapy while she is on the unit. The psychotherapy could help her deal with her underlying level of depression and frustration regarding her medical problems. The patient is seeing a neurologist Dr. Tilley, and she did say that she was going to talk to her about possible medication adjustments. 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 Thank you very much, Dr. Mike Saldaña, for referring this individual. Please do not hesitate to call if you have additional questions. Dictated By: Miki Keita, PHD /laura/cam /Document#: [id number] MILLICENT
[2016-10-24] MEDS: morphine 2 MG INJ IV PRN ×2 (02:25→09:21)
[2016-10-24] MEDS: PANTOPRAZOLE (EC) 40 MG TAB PO SCH ×2 (05:50→19:11)
[2016-10-24] MEDS: OXYCODONE/ACETAMINOPHEN (5/325) TAB PO PRN ×2 (05:51→15:05)
[2016-10-24 07:30] VITALS: BP 158/76; RESP 18
[2016-10-24] MEDS: ENOXAPARIN 40 MG/0.4 ML SYG SC SCH (09:00)
--- NOTE | 2016-10-24 09:33 | CONS ---
Date/Time of Note Date/Time of Note DATE: 10/24/16 TIME: 09:31 Consult Date/Type/Reason Admit Date/Time Oct 22, 2016 at 21:20 Initial Consult Date 10/23/16 Type of Consultation: ID Ordering Provider: MARIAELENA LINDQUIST DO Objective Vital Signs Date Time Temp Pulse Resp B/P Pulse Ox O2 Delivery O2 Flow Rate FiO2 10/24/16 07:30 98.7 68 18 158/76 97 Intake and Output 10/23/16 10/23/16 10/24/16 15:00 23:00 07:00 Intake Total 800 ml 350 ml 500 ml Output Total 1400 ml 400 ml Balance -600 ml -50 ml 500 ml Results/Medications Result Diagram: 10/23/16 0647 10/23/16 0647 Medications Current Medications Docusate Sodium (Colace) 100 mg BID PO Last administered on 10/23/16 21:19; Admin Dose 100 MG; Start 10/23/16 at 09:00 Senna (Senokot) 1 tab HS PO Last administered on 10/23/16 21:19; Admin Dose 1 TAB; Start 10/23/16 at 21:00 Lactulose (Enulose) 20 gm DAILY PRN PO CONSTIPATION; Start 10/22/16 at 23:00 Bisacodyl (Dulcolax Supp) [address] CONSTIPATION; Start 10/22/16 at 23: 00 Acetaminophen (Tylenol Tab) 650 mg Q4H PRN PO PAIN; Start 10/22/16 at 23:00 Baclofen (Lioresal) 20 mg TID PO Last administered on 10/23/16 21:20; Admin Dose 20 MG; Start 10/23/16 at 09:00 Pantoprazole (Protonix Tab) 40 mg BID@06,18 PO Last administered on 10/24/16 05:50; Admin Dose 40 MG; Start 10/23/16 at 06:00 Diazepam (Valium) 10 mg HS PRN PO MUSCLE SPASMS; Start 10/22/16 at 23:00 Fentanyl (Duragesic 75 Mcg/Hr Patch) 1 patch Q72H TRANSDERM ; Start 10/24/16 at 18:00 Diphenhydramine HCl (Benadryl) 25 mg Q6H PRN PO ITCHING; Start 10/22/16 at 23:00 Cyclosporine (Restasis) 1 drop BID BOTH EYES Last administered on 10/23/16 21: 20; Admin Dose 1 DROP; Start 10/23/16 at 09:00 Hydrochlorothiazide (Hydrochlorothiazide) 25 mg DAILY PO Last administered on 08:49; Admin Dose 25 MG; Start 10/23/16 at 09:00 Ondansetron HCl (Zofran Tab) 4 mg Q8 PRN PO NAUSEA AND/OR VOMITING; Start at 23:00 Calcium Carbonate (Tums) 1,000 mg Q4 PRN PO heartburn; Start 10/22/16 at 23:00 Oxycodone/ Acetaminophen (Percocet (5/ 325)) 1 tab Q4H PRN PO PAIN; Start at 23:00 Oxycodone/ Acetaminophen (Percocet (5/ 325)) 2 tab Q4H PRN PO PAIN Last administered on 10/24/16 05:51; Admin Dose 2 TAB; Start 10/22/16 at 23:00 Pregabalin (Lyrica) 75 mg TID PO Last administered on 10/23/16 21:19; Admin Dose 75 MG; Start 10/23/16 at 09:00 Clindamycin HCl (Cleocin) 300 mg BID PO Last administered on 10/23/16 21:20; Admin Dose 300 MG; Start 10/23/16 at 09:00 Enoxaparin Sodium (Lovenox) 40 mg DAILY SC Last administered on 10/23/16 08:49 ; Admin Dose 40 MG; Start 10/23/16 at 09:00 Lactobacillus Acidophilus (Florajen3 Capsule) 2 each DAILY PO Last administered on 10/23/16 08:51; Admin Dose 2 EACH; Start 10/23/16 at 09:00 Temazepam (Restoril) 30 mg HS PRN PO INSOMNIA; Start 10/22/16 at 23:45 Atorvastatin Calcium (Lipitor) 20 mg DAILY@21 PO Last administered on 10/23/16 21:20; Admin Dose 20 MG; Start 10/23/16 at 21:00 Morphine Sulfate 2 mg 2 mg Q4H PRN IV SEVERE PAIN LEVEL 7-10 Last administered on 10/24/16 09:21; Admin Dose 2 MG; Start 10/23/16 at 03:00 Methylprednisolone Sodium Succinate/ Dextrose (Solu-Medrol/D5W) 50 ml @ 100 mls /hr DAILY IVPB Last administered on 10/23/16 13:37; Admin Dose 100 MLS/HR; Start 10/23/16 at 12:00; Stop 10/24/16 at 11:59 Amphetamine/ Dextroamphetamine 10 mg 10 mg BID@09,13 PO ; Start 10/24/16 at 09: 00 Aztreonam (Azactam 1gm/NS (Pmx)) 50 ml @ 100 mls/hr Q12 IVPB Last administered on 10/23/16 21:19; Admin Dose 100 MLS/HR; Start 10/23/16 at 21:00 Assessment/Plan Additional Assessment/Plan Rehab- MS exacerbation; recent left hip I and D. Continue current rehab program Questionable spinal cord lesion posterior aspect of C7. Hyperlipidemia. Acute/chronic pain syndrome. History of multiple hip surgeries. History of recurrent CVAs. History of subdural hematoma with evacuation. History of right total knee replacement. History of multiple lumbar surgeries. History of left shoulder replacement. History of left 2nd toe amputation. JEREMY CHOWDHURY MD Oct 24, 2016 09:33
[2016-10-24] MEDS: BACLOFEN 10 MG TAB PO SCH ×3 (10:16→21:07)
[2016-10-24] MEDS: DOCUSATE SODIUM 100 MG CAP PO SCH ×2 (10:16→21:07)
[2016-10-24] MEDS: CLINDAMYCIN 300 MG CAP PO SCH ×2 (10:16→21:07)
[2016-10-24] MEDS: CYCLOSPORINE 0.05% OPH DROPERETTE BOTH EYES SCH ×2 (10:17→21:24)
[2016-10-24] MEDS: L ACIDOPHIL/B LACTIS/B LONGUM CAPSULE PO SCH (10:25)
[2016-10-24] MEDS: METHYLPRED. NA SUCC 1,000 MG in DEXTROSE 5% 50 ML IVPB SCH (10:25)
[2016-10-24] MEDS: PREGABALIN 75 MG CAP PO SCH ×3 (10:25→21:07)
[2016-10-24] MEDS: HYDROCHLOROTHIAZIDE 25 MG TAB PO SCH (10:29)
--- NOTE | 2016-10-24 10:35 | CONS ---
Date/Time of Note Date/Time of Note DATE: 10/24/16 TIME: 10:35 Consult Date/Type/Reason Admit Date/Time Oct 22, 2016 at 21:20 Initial Consult Date 10/23/16 Type of Consultation: ID Ordering Provider: MARIAELENA LINDQUIST DO Objective Vital Signs Date Time Temp Pulse Resp B/P Pulse Ox O2 Delivery O2 Flow Rate FiO2 10/24/16 07:30 98.7 68 18 158/76 97 Intake and Output 10/23/16 10/23/16 10/24/16 15:00 23:00 07:00 Intake Total 800 ml 350 ml 500 ml Output Total 1400 ml 400 ml Balance -600 ml -50 ml 500 ml Results/Medications Result Diagram: 10/23/16 0647 10/23/16 0647 Medications Current Medications Docusate Sodium (Colace) 100 mg BID PO Last administered on 10/24/16 10:16; Admin Dose 100 MG; Start 10/23/16 at 09:00 Senna (Senokot) 1 tab HS PO Last administered on 10/23/16 21:19; Admin Dose 1 TAB; Start 10/23/16 at 21:00 Lactulose (Enulose) 20 gm DAILY PRN PO CONSTIPATION; Start 10/22/16 at 23:00 Bisacodyl (Dulcolax Supp) 10 mg DAILY PRN [place] CONSTIPATION; Start 10/22/16 at 23: 00 Acetaminophen (Tylenol Tab) 650 mg Q4H PRN PO PAIN; Start 10/22/16 at 23:00 Baclofen (Lioresal) 20 mg TID PO Last administered on 10/24/16 10:16; Admin Dose 20 MG; Start 10/23/16 at 09:00 Pantoprazole (Protonix Tab) 40 mg BID@06,18 PO Last administered on 10/24/16 05:50; Admin Dose 40 MG; Start 10/23/16 at 06:00 Diazepam (Valium) 10 mg HS PRN PO MUSCLE SPASMS; Start 10/22/16 at 23:00 Fentanyl (Duragesic 75 Mcg/Hr Patch) 1 patch Q72H TRANSDERM ; Start 10/24/16 at 18:00 Diphenhydramine HCl (Benadryl) 25 mg Q6H PRN PO ITCHING; Start 10/22/16 at 23:00 Cyclosporine (Restasis) 1 drop BID BOTH EYES Last administered on 10/24/16 10: 17; Admin Dose 1 DROP; Start 10/23/16 at 09:00 Hydrochlorothiazide (Hydrochlorothiazide) 25 mg DAILY PO Last administered on 08:49; Admin Dose 25 MG; Start 10/23/16 at 09:00 Ondansetron HCl (Zofran Tab) 4 mg Q8 PRN PO NAUSEA AND/OR VOMITING; Start at 23:00 Calcium Carbonate (Tums) 1,000 mg Q4 PRN PO heartburn; Start 10/22/16 at 23:00 Oxycodone/ Acetaminophen (Percocet (5/ 325)) 1 tab Q4H PRN PO PAIN; Start at 23:00 Oxycodone/ Acetaminophen (Percocet (5/ 325)) 2 tab Q4H PRN PO PAIN Last administered on 10/24/16 05:51; Admin Dose 2 TAB; Start 10/22/16 at 23:00 Pregabalin (Lyrica) 75 mg TID PO Last administered on 10/24/16 10:25; Admin Dose 75 MG; Start 10/23/16 at 09:00 Clindamycin HCl (Cleocin) 300 mg BID PO Last administered on 10/24/16 10:16; Admin Dose 300 MG; Start 10/23/16 at 09:00 Enoxaparin Sodium (Lovenox) 40 mg DAILY SC Last administered on 10/23/16 08:49 ; Admin Dose 40 MG; Start 10/23/16 at 09:00 Lactobacillus Acidophilus (Florajen3 Capsule) 2 each DAILY PO Last administered on 10/24/16 10:25; Admin Dose 2 EACH; Start 10/23/16 at 09:00 Temazepam (Restoril) 30 mg HS PRN PO INSOMNIA; Start 10/22/16 at 23:45 Atorvastatin Calcium (Lipitor) 20 mg DAILY@21 PO Last administered on 10/23/16 21:20; Admin Dose 20 MG; Start 10/23/16 at 21:00 Morphine Sulfate 2 mg 2 mg Q4H PRN IV SEVERE PAIN LEVEL 7-10 Last administered on 10/24/16 09:21; Admin Dose 2 MG; Start 10/23/16 at 03:00 Methylprednisolone Sodium Succinate/ Dextrose (Solu-Medrol/D5W) 50 ml @ 100 mls /hr DAILY IVPB Last administered on 10/24/16 10:25; Admin Dose 100 MLS/HR; Start 10/23/16 at 12:00; Stop 10/24/16 at 11:59 Amphetamine/ Dextroamphetamine 10 mg 10 mg BID@09,13 PO ; Start 10/24/16 at 09: 00 Aztreonam (Azactam 1gm/NS (Pmx)) 50 ml @ 100 mls/hr Q12 IVPB Last administered on 10/23/16 21:19; Admin Dose 100 MLS/HR; Start 10/23/16 at 21:00 Amlodipine Besylate (Norvasc) 5 mg DAILY PO ; Start 10/25/16 at 09:00 JEREMY CHOWDHURY MD Oct 24, 2016 10:35
[2016-10-24] MEDS: HYDROmorphONE 1 MG/ML SYG IV PRN ×4 (10:48→19:34)
--- NOTE | 2016-10-24 11:30 | PN ---
DATE: 10/24/2016 SUBJECTIVE DATA: The patient is stable. Complains of pain, receiving pain medications. No other events noted. OBJECTIVE DATA: VITAL SIGNS: Blood pressure 158/76, respirations 18, pulse 68, temperature 98.7. HEENT: Head is normocephalic. NECK: Supple. HEART: Regular rate. LUNGS: Show diminished breath sounds at the base. ABDOMEN: Soft, nontender to palpation. No rebound or guarding. EXTREMITIES: Negative for clubbing, cyanosis. No edema. DERMATOLOGIC: Clean. No rashes. MUSCULOSKELETAL: No joint effusion. NEUROLOGIC: No change in exam. MEDICATIONS: Reviewed. LABORATORY AND DIAGNOSTIC DATA: Currently pending. ASSESSMENT AND PLAN: 1. Left hip infections. Patient is status post incision and drainage with antibiotic bead placement, and clindamycin. Continue follow up with Infectious Disease. 2. History of multiple sclerosis, relapsing, remitting with acute flare. The patient is status post Solu-Medrol recently, status post recent effusion of Tysabri. At this point, continue current medical management. Appreciate Neurology's evaluation. 3. Dyslipidemia. Continue statin therapy. 4. Hypertension. Blood pressure remains elevated. Plan is to continue hydrochlorothiazide. We will start the patient on Norvasc, low dose, 5 mg daily. 5. Hypernatremic. Continue current free water intake. 6. Chronic pain syndrome. Continue current pain regimen. 7. Insomnia. Continue Restoril. 8. Anemia. Monitor H and H levels. 9. Gastrointestinal and deep venous thrombosis prophylaxis. Continue proton pump inhibitor and Lovenox. Dictated By: Samy Mejia DO /laura/lia /Document#: [id number]
[2016-10-24] MEDS: DEXTROAMPHET/AMPHET 10 MG TAB PO SCH ×2 (11:48→16:26)
[2016-10-24] MEDS: AZTREONAM 1 GM/NS (PMX) 50 ML IVPB SCH ×2 (12:30→21:06)
[2016-10-24] MEDS ORDERED: FENTAnyl PATCH 75 MCG/HR TRANSDERM SCH (18:00)
[2016-10-24 19:49] VITALS: BP 178/81; RESP 18
[2016-10-24] MEDS: SENNA TAB PO SCH (21:00)
[2016-10-24] MEDS: ATORVASTATIN 20 MG TAB PO SCH (21:07)
[2016-10-24] MEDS: FENTAnyl PATCH 75 MCG/HR TRANSDERM SCH (21:28)
--- NOTE | 2016-10-25 00:19 | CONS ---
Date/Time of Note Date/Time of Note DATE: 10/24/16 TIME: 23:08 Assessment/Plan Assessment/Plan Chief Complaint/Hosp Course ID PROGRESS NOTE CURRENT ABX: => Clinda PO + Azactam IV #2 * PLAN TONIGHT=> DC AZACTAM + Rx Amikacin in the am s/p Ertapenem x1 10/23 24H INTERVAL SUMMARY * 66 yo F w/Hx of MS w/acute flare == currently sleeping * Hx of left hip infx on topical Clindamycin * Leukocytosis on admit to rehab, no fevers * (+)UA-> Given single dose of Ertapenem -- now on Azactam; however doubt Azactam w/treat ESBL * 10/22 URINE CX: URINE CULTURE Final Organism 1 PROTEUS MIRABILIS COLONY COUNT >100,000 CFU/ml P. MIRAB M.I.C. RX --------- --- AMIKACIN <=2 S AMPICILLIN >=32 R CEFEPIME <=1 S CEFOTAXIME R CIPROFLOXACIN >=4 R GENTAMICIN >=16 R IMIPENEM R LEVOFLOXACIN 4 I NITROFURANTOIN 128 R TOBRAMYCIN >=16 R TRIMETHOPRIM/SULFAMETHOXAZOLE >=320 R PIPERACILLIN/TAZOBACTAM <=4 S Physical examination: WN, WD, VSS, NAD - sleeping HEENT: Unremarkable/ CHEST: Equal chest rise bilaterally without dyspnea on observation CV: Radial pulse RRR ABD: Soft, nontender : Deferred EXT: NO cyanosis on observation, SKIN: No rash, no diaphoresis ID ASSESSMENT 66 yo F w/PMHx of MS=> relapsing/remitting w/acute flare on steroids admit rehab with: 1. SIRS w/ mild leukocytosis 11.0 on admit to rehab, no fevers, VSS 2. Urine Cx (+)GNR-CRE * Proteus Mirabilis CRE =Sensitive to: Amikacin, Cefepime, Zosyn= MISLEADING= Zosyn will FAIL In-Vivo due to ESBL/CRE 3. Left hip infections-> s/p I&D w/antibiotic bead placement == Clindamycin PO ABX 4. Chronic pain syndrome. 5. Insomnia. 6. Anemia ABX ALLERGY: Sulfa/Ancef CURRENT ABX: => Cleocin Topical Gel + Azactam #2 => PLAN TONIGHT = DC AZACTAM + Rx Amikacin in the am s/p Ertapenem x1 10/23 ID RECOMMENDATIONS 1. DC Azactam => CRE & ESBL enzyme renders beta-lactams + monobactams (Azactam) resistant. 2. Start Amikacin and watch renal function * ABX of choice for CRE = Aminoglycosides (per sensitivities) + Colimycin * Will not use Cefepime due to allergy to cephalosporin listed. * This GNR is RESISTANT to Primaxin/Macrobid = MDRO CRE * Fosfomycin is approved empiric Rx for MDRO pathogens; yet we don't have sensitivities; hence she may fail empiric RX. 3. Continue current ABX for left hip infection = Clindamycin PO * =>Will come back/follow up on clinical status of the wound response to topical another day. Problems: Consultation Date/Type/Reason Admit Date/Time Oct 22, 2016 at 21:20 Initial Consult Date 10/23/16 Type of Consultation: ID Referring Provider: MARIAELENA LINDQUIST DO Exam/Review of Systems Vital Signs Vitals Vital Signs Date Time Temp Pulse Resp B/P Pulse Ox O2 Delivery O2 Flow Rate FiO2 10/24/16 19:49 97.8 74 18 178/81 97 Intake and Output 10/23/16 10/23/16 10/24/16 15:00 23:00 07:00 Intake Total 800 ml 350 ml 500 ml Output Total 1400 ml 400 ml Balance -600 ml -50 ml 500 ml Results Result Diagram: 10/23/16 0647 10/23/16 0647 Medications Medications Current Medications Docusate Sodium (Colace) 100 mg BID PO Last administered on 10/24/16 21:07; Admin Dose 100 MG; Start 10/23/16 at 09:00 Senna (Senokot) 1 tab HS PO Last administered on 10/23/16 21:19; Admin Dose 1 TAB; Start 10/23/16 at 21:00 Lactulose (Enulose) 20 gm DAILY PRN PO CONSTIPATION; Start 10/22/16 at 23:00 Bisacodyl (Dulcolax Supp) 10 mg DAILY PRN [place] CONSTIPATION; Start 10/22/16 at 23: 00 Acetaminophen (Tylenol Tab) 650 mg Q4H PRN PO PAIN; Start 10/22/16 at 23:00 Baclofen (Lioresal) 20 mg TID PO Last administered on 10/24/16 21:07; Admin Dose 20 MG; Start 10/23/16 at 09:00 Pantoprazole (Protonix Tab) 40 mg BID@,18 PO Last administered on 10/24/16 19:11; Admin Dose 40 MG; Start 10/23/16 at 06:00 Diazepam (Valium) 10 mg HS PRN PO MUSCLE SPASMS; Start 10/22/16 at 23:00 Diphenhydramine HCl (Benadryl) 25 mg Q6H PRN PO ITCHING; Start 10/22/16 at 23:00 Cyclosporine (Restasis) 1 drop BID BOTH EYES Last administered on 10/24/16 21: 24; Admin Dose 1 DROP; Start 10/23/16 at 09:00 Hydrochlorothiazide (Hydrochlorothiazide) 25 mg DAILY PO Last administered on 08:49; Admin Dose 25 MG; Start 10/23/16 at 09:00 Ondansetron HCl (Zofran Tab) 4 mg Q8 PRN PO NAUSEA AND/OR VOMITING; Start at 23:00 Calcium Carbonate (Tums) 1,000 mg Q4 PRN PO heartburn; Start 10/22/16 at 23:00 Oxycodone/ Acetaminophen (Percocet (5/ 325)) 1 tab Q4H PRN PO PAIN; Start at 23:00 Oxycodone/ Acetaminophen (Percocet (5/ 325)) 2 tab Q4H PRN PO PAIN Last administered on 10/24/16 15:05; Admin Dose 2 TAB; Start 10/22/16 at 23:00 Pregabalin (Lyrica) 75 mg TID PO Last administered on 10/24/16 21:07; Admin Dose 75 MG; Start 10/23/16 at 09:00 Clindamycin HCl (Cleocin) 300 mg BID PO Last administered on 10/24/16 21:07; Admin Dose 300 MG; Start 10/23/16 at 09:00 Enoxaparin Sodium (Lovenox) 40 mg DAILY SC Last administered on 10/23/16 08:49 ; Admin Dose 40 MG; Start 10/23/16 at 09:00 Lactobacillus Acidophilus (Florajen3 Capsule) 2 each DAILY PO Last administered on 10/24/16 10:25; Admin Dose 2 EACH; Start 10/23/16 at 09:00 Temazepam (Restoril) 30 mg HS PRN PO INSOMNIA; Start 10/22/16 at 23:45 Atorvastatin Calcium (Lipitor) 20 mg DAILY@21 PO Last administered on 21:07; Admin Dose 20 MG; Start 10/23/16 at 21:00 Amphetamine/ Dextroamphetamine 10 mg 10 mg BID@09,13 PO Last administered on 16:26; Admin Dose 10 MG; Start 10/24/16 at 09:00 Aztreonam (Azactam 1gm/NS (Pmx)) 50 ml @ 100 mls/hr Q12 IVPB Last administered on 10/24/16 21:06; Admin Dose 100 MLS/HR; Start 10/23/16 at 21:00 Amlodipine Besylate (Norvasc) 5 mg DAILY PO ; Start 10/25/16 at 09:00 Hydromorphone HCl (Dilaudid) 1 mg Q3H PRN IV PAIN Last administered on 19:34; Admin Dose 1 MG; Start 10/24/16 at 11:00 Fentanyl (Duragesic 75 Mcg/Hr Patch) 1 patch Q72H TRANSDERM Last administered on 10/24/16 21:28; Admin Dose 1 PATCH; Start 10/24/16 at 21:00 PEDRO SANDHU NP Oct 24, 2016 23:53
[2016-10-25] MEDS ORDERED: AMIKACIN 1,000 MG in SOD CHLORIDE 0.9% 150 ML IVPB SCH ×2 (01:00→08:00)
[2016-10-25 03:41] VITALS: BP 140/68; RESP 18
[2016-10-25] MEDS: HYDROmorphONE 1 MG/ML SYG IV PRN ×3 (04:17→20:44)
[2016-10-25] MEDS: PANTOPRAZOLE (EC) 40 MG TAB PO SCH ×2 (06:40→17:41)
[2016-10-25 07:46] LABS: BASOPHILS % 0.3 % (0.0-2.0); HEMATOCRIT 34.7 % (37.0-47.0); HEMOGLOBIN 11.3 g/dl (12.0-16.0); LYMPHOCYTES # 1.8 10^3/ul (0.8-2.9); LYMPHOCYTES % 19.1 % (15.0-51.0); MEAN CORPUSCULAR HEMOGLOBIN 27.6 pg (29.0-33.0); MEAN CORPUSCULAR HGB CONC 32.6 g/dl (32.0-37.0); MEAN CORPUSCULAR VOLUME 84.8 fl (82.0-101.0); MEAN PLATELET VOLUME 11.2 fl (7.4-10.4); MONOCYTE # 0.5 10^3/ul (0.3-0.9); NEUTROPHIL # 6.8 10^3/ul (1.6-7.5); NEUTROPHILS % 71.7 % (39.0-77.0); NUCLEATED RED BLOOD CELLS% 0.4 /100WBC (0.0-0.0); PLATELET COUNT 223 10^3/UL (140-415); RED BLOOD COUNT 4.09 10^6/ul (4.20-5.40); WHITE BLOOD COUNT 9.4 10^3/ul (4.8-10.8)
[2016-10-25 07:56] VITALS: BP 176/75; RESP 18
[2016-10-25 08:10] LABS: CALCIUM 8.9 mg/dl (8.4-10.2); CREATININE 0.62 mg/dl (0.44-1.00); MAGNESIUM 2.3 mg/dl (1.7-2.5); PHOSPHORUS 3.7 mg/dl (2.5-4.9)
[2016-10-25] MEDS: ENOXAPARIN 40 MG/0.4 ML SYG SC SCH ×2 (09:00→09:26)
[2016-10-25] MEDS ORDERED: AMLODIPINE 5 MG TAB PO SCH (09:00)
[2016-10-25] MEDS: CYCLOSPORINE 0.05% OPH DROPERETTE BOTH EYES SCH ×2 (09:00→21:00)
[2016-10-25] MEDS ORDERED: AMIKACIN IV PER PHARMACY XX SCH (09:00)
[2016-10-25] MEDS: DEXTROAMPHET/AMPHET 10 MG TAB PO SCH ×2 (09:12→13:38)
[2016-10-25] MEDS: PREGABALIN 75 MG CAP PO SCH ×3 (09:20→20:45)
[2016-10-25] MEDS: CLINDAMYCIN 300 MG CAP PO SCH ×2 (09:20→20:48)
[2016-10-25] MEDS: DOCUSATE SODIUM 100 MG CAP PO SCH ×2 (09:24→20:45)
[2016-10-25] MEDS: HYDROCHLOROTHIAZIDE 25 MG TAB PO SCH (09:24)
[2016-10-25] MEDS: NIFEdipine (XL) 30 MG TAB PO SCH (09:24)
[2016-10-25] MEDS: BACLOFEN 10 MG TAB PO SCH ×3 (09:25→20:45)
[2016-10-25 09:30] VITALS: BP 152/68; PULSE 72
[2016-10-25] MEDS: L ACIDOPHIL/B LACTIS/B LONGUM CAPSULE PO SCH (09:32)
--- NOTE | 2016-10-25 10:52 | PN ---
DATE: 10/25/2016 SUBJECTIVE DATA: The patient is clinically stable. The patient continues to have pain, but controlled. No other events noted. OBJECTIVE DATA: VITAL SIGNS: Blood pressure is 176/75, respirations 18, pulse 104, temperature 98.6. HEENT: Head is normocephalic. NECK: Supple. HEART: Regular rate. LUNGS: Diminished breath sounds at the base. ABDOMEN: Soft, nontender to palpation. No rebound or guarding. EXTREMITIES: Negative for clubbing, cyanosis. No edema. DERMATOLOGIC: No rashes. MUSCULOSKELETAL: No joint effusion. NEUROLOGIC: No change in exam. MEDICATIONS: Reviewed. LABORATORY AND DIAGNOSTIC DATA: White count 9.4, hemoglobin 9.3, platelet count 223,000. Sodium 145, potassium 4.2, BUN 30, creatinine 0.62. ASSESSMENT AND PLAN: 1. Left hip infection. Patient status post-irrigation and debridement, with antibiotic . The patient is currently on antibiotic therapy. Will continue. Follow up with Infectious Disease. 2. Multiple sclerosis, relapsing, remitting with acute flare. The patient is currently receiving Solu-Medrol, status post- steroid infusion. Continue to monitor. Follow up with Urology. 3. Hypertension. Blood pressure remains elevated. Will continue hydrochlorothiazide. The patient's Norvasc was added. Will also continue to controlled the patient's underlying pain. 4. Dyslipidemia. Continue statin therapy. 5. Hypernatremia. Continue current free water intake. 6. Chronic pain syndrome and neuropathy. Continue current pain regimen. 7. Insomnia. Continue Restoril. 8. Anemia. Monitor hemoglobin and hematocrit levels. 9. Gastrointestinal and deep venous thrombosis prophylaxis. Continue PPI and Lovenox. Dictated By: Samy Mejia DO /laura/suzette /Document#: [id number]
--- NOTE | 2016-10-25 11:46 | HKNOTE ---
DATE OF SERVICE: 10/25/2016 HISTORY OF PRESENT ILLNESS: The patient is a 66-year-old lady with a past medical history of multiple sclerosis. The patient says has exacerbation of multiple sclerosis. The patient is followed by IV Tysabri infusion monthly. The patient feels weak on the right side more than the left side. Admitted to acute rehab facility for more evaluation and treatment, continuation of her therapy. PHYSICAL EXAMINATION: GENERAL: The patient is alert, awake and oriented, following simple commands. HEART: Regular rate and rhythm. LUNGS: Equal breath sounds. ABDOMEN: Soft, not distended and nontender. NEUROLOGIC: Cranial nerve 2 shows pupils equal on both sides. Cranial nerve 3, 4, and 6 equal and intact. Cranial nerve 5 lack of sensation to face. Cranial nerve 7 symmetrical. Cranial nerve 8 decreased hearing bilaterally with hearing aids. Cranial nerve 9 and 10 Motor exam; right side is 3/5, left side 4/5. Reflexes 2 plus with upgoing toes. ASSESSMENT: 1. The patient is a 66-year-old with underlying multiple sclerosis. Continue the patient on intravenous steroids for 5 days total. 2. Muscle spasm probably secondary to multiple sclerosis. Leave the patient on Soma as needed or baclofen 20 mg 3 times a day as needed. 3. Paresthesia, probably secondary to multiple sclerosis. Follow up the patient with Lyrica 75 mg twice a day as needed. The patient followed by physical therapy. 4. Arm weakness. The patient followed by occupational therapy. Thank you for asking me to see this patient with you. Dictated By: Will Melton MD /laura/lavelle /Document#: [id number]
--- NOTE | 2016-10-25 14:36 | CONS ---
Date/Time of Note Date/Time of Note DATE: 10/25/16 TIME: 14:25 Consult Date/Type/Reason Admit Date/Time Oct 22, 2016 at 21:20 Initial Consult Date 10/23/16 Type of Consultation: ID Ordering Provider: MARIAELENA LINDQUIST DO Subjective Patient with some short-term memory impairment Objective Lungs clear abdomen soft Moderate assist ambulation 35 feet Vital Signs Date Time Temp Pulse Resp B/P Pulse Ox O2 Delivery O2 Flow Rate FiO2 10/25/16 09:30 72 152/68 100 10/25/16 07:56 98.6 18 Intake and Output 10/24/16 10/24/16 10/25/16 15:00 23:00 07:00 Intake Total 50 ml 870 ml 1020 ml Output Total 1 ml Balance 50 ml 869 ml 1020 ml Results/Medications Result Diagram: 10/25/16 0635 10/25/16 0635 Results 24 hrs Laboratory Tests Test 10/25/16 06:35 White Blood Count 9.4 Red Blood Count 4.09 L Hemoglobin 11.3 L Hematocrit 34.7 L Mean Corpuscular Volume 84.8 Mean Corpuscular Hemoglobin 27.6 L Mean Corpuscular Hemoglobin Concent 32.6 Red Cell Distribution Width 16.0 H Platelet Count 223 # Mean Platelet Volume 11.2 H Neutrophils % 71.7 Lymphocytes % 19.1 Monocytes % 5.0 Eosinophils % 0.0 Basophils % 0.3 Nucleated Red Blood Cells % 0.4 H Neutrophils # 6.8 Lymphocytes # 1.8 Monocytes # 0.5 Eosinophils # 0.0 Basophils # 0.0 Nucleated Red Blood Cells # 0.0 Sodium Level 145 H Potassium Level 4.0 Chloride Level 102 Carbon Dioxide Level 31 Anion Gap 16 Blood Urea Nitrogen 30 H Creatinine 0.62 Glucose Level 151 Calcium Level 8.9 Phosphorus Level 3.7 Magnesium Level 2.3 Medications Current Medications Docusate Sodium (Colace) 100 mg BID PO Last administered on 10/25/16 09:24; Admin Dose 100 MG; Start 10/23/16 at 09:00 Senna (Senokot) 1 tab HS PO Last administered on 10/23/16 21:19; Admin Dose 1 TAB; Start 10/23/16 at 21:00 Lactulose (Enulose) 20 gm DAILY PRN PO CONSTIPATION; Start 10/22/16 at 23:00 Bisacodyl (Dulcolax Supp) 10 mg DAILY PRN [place] CONSTIPATION; Start 10/22/16 at 23: 00 Acetaminophen (Tylenol Tab) 650 mg Q4H PRN PO PAIN; Start 10/22/16 at 23:00 Baclofen (Lioresal) 20 mg TID PO Last administered on 10/25/16 13:05; Admin Dose 20 MG; Start 10/23/16 at 09:00 Pantoprazole (Protonix Tab) 40 mg BID@,18 PO Last administered on 10/25/16 06:40; Admin Dose 40 MG; Start 10/23/16 at 06:00 Diazepam (Valium) 10 mg HS PRN PO MUSCLE SPASMS; Start 10/22/16 at 23:00 Diphenhydramine HCl (Benadryl) 25 mg Q6H PRN PO ITCHING; Start 10/22/16 at 23:00 Cyclosporine (Restasis) 1 drop BID BOTH EYES Last administered on 10/24/16 21: 24; Admin Dose 1 DROP; Start 10/23/16 at 09:00 Hydrochlorothiazide (Hydrochlorothiazide) 25 mg DAILY PO Last administered on 09:24; Admin Dose 25 MG; Start 10/23/16 at 09:00 Ondansetron HCl (Zofran Tab) 4 mg Q8 PRN PO NAUSEA AND/OR VOMITING; Start at 23:00 Calcium Carbonate (Tums) 1,000 mg Q4 PRN PO heartburn; Start 10/22/16 at 23:00 Oxycodone/ Acetaminophen (Percocet (5/ 325)) 1 tab Q4H PRN PO PAIN; Start at 23:00 Oxycodone/ Acetaminophen (Percocet (5/ 325)) 2 tab Q4H PRN PO PAIN Last administered on 10/24/16 15:05; Admin Dose 2 TAB; Start 10/22/16 at 23:00 Pregabalin (Lyrica) 75 mg TID PO Last administered on 10/25/16 13:05; Admin Dose 75 MG; Start 10/23/16 at 09:00 Clindamycin HCl (Cleocin) 300 mg BID PO Last administered on 10/25/16 09:20; Admin Dose 300 MG; Start 10/23/16 at 09:00 Enoxaparin Sodium (Lovenox) 40 mg DAILY SC Last administered on 10/23/16 08:49 ; Admin Dose 40 MG; Start 10/23/16 at 09:00 Lactobacillus Acidophilus (Florajen3 Capsule) 2 each DAILY PO Last administered on 10/25/16 09:32; Admin Dose 2 EACH; Start 10/23/16 at 09:00 Temazepam (Restoril) 30 mg HS PRN PO INSOMNIA; Start 10/22/16 at 23:45 Atorvastatin Calcium (Lipitor) 20 mg DAILY@21 PO Last administered on 21:07; Admin Dose 20 MG; Start 10/23/16 at 21:00 Hydromorphone HCl (Dilaudid) 1 mg Q3H PRN IV PAIN Last administered on 13:04; Admin Dose 1 MG; Start 10/24/16 at 11:00 Fentanyl (Duragesic 75 Mcg/Hr Patch) 1 patch Q72H TRANSDERM Last administered on 10/24/16 21:28; Admin Dose 1 PATCH; Start 10/24/16 at 21:00 Amikacin Sulfate AMIKACIN PER PHARMAC... NOTE XX ; Start 10/25/16 at 09:00; Stop 10/30/16 at 08:59 Amikacin Sulfate/ Sodium Chloride (Amikacin/NS) 154 ml @ 154 mls/hr Q36H IVPB Last administered on 10/25/16 09:32; Admin Dose 154 MLS/HR; Start 10/25/16 at 08:00 Amphetamine/ Dextroamphetamine (Adderall) 10 mg BID@08,13 PO Last administered on 10/25/16 13:38; Admin Dose 10 MG; Start 10/25/16 at 08:00 Nifedipine (Procardia Xl) 30 mg DAILY PO Last administered on 10/25/16 09:24; Admin Dose 30 MG; Start 10/25/16 at 09:00 Miscellaneous Information (*Rx Drug Level Order Reminder*) RANDOM AMIKACIN LEVEL 8... ONCE ONCE XX ; Start 10/25/16 at 19:00; Stop 10/25/16 at 19:01 Assessment/Plan Additional Assessment/Plan Rehabilitation- Multiple sclerosis exacerbation. Continue treatment plan as tolerated Status post left hip I and D. Questionable spinal cord lesion posterior aspect of C7. Hyperlipidemia. Acute pain syndrome-continue current pain meds History of multiple hip surgeries. History of recurrent CVAs. History of subdural hematoma with evacuation. History of right total knee replacement. History of multiple lumbar surgeries. History of left shoulder replacement. JEREMY CHOWDHURY MD Oct 25, 2016 14:35
--- NOTE | 2016-10-25 16:30 | CONS ---
Date/Time of Note Date/Time of Note DATE: 10/25/16 TIME: 16:23 Assessment/Plan Assessment/Plan Chief Complaint/Hosp Course ID PROGRESS NOTE CURRENT ABX: => Clinda PO + Amikacin #1 Azactam IV #2 -> DC 10/24 s/p Ertapenem x1 10/23 24H INTERVAL SUMMARY * 66 yo F -- Obese, sitting up in chair -- not able to talk to me since she is "I'm on the phone calling my other doctor, I need him to call in a prescription for me" --- She nods her head "yes" when I ask if she is doing OK. * No fevers, WBC normalized @ 9.4 today * She was given single dose of Ertapenem, then started on Azactam for GNR UTI which came back (+)CRE * Last night, Azactam was changed to Amikacin for short course cover CRE UTI * 10/22 URINE CX: URINE CULTURE Final Organism 1 PROTEUS MIRABILIS COLONY COUNT >100,000 CFU/ml P. MIRAB M.I.C. RX --------- --- AMIKACIN <=2 S AMPICILLIN >=32 R CEFEPIME <=1 S CEFOTAXIME R CIPROFLOXACIN >=4 R GENTAMICIN >=16 R IMIPENEM R LEVOFLOXACIN 4 I NITROFURANTOIN 128 R TOBRAMYCIN >=16 R TRIMETHOPRIM/SULFAMETHOXAZOLE >=320 R PIPERACILLIN/TAZOBACTAM <=4 S Physical examination: WN, WD, VSS, NAD - A/A/O sitting up in chair, NAD HEENT: Unremarkable/ CHEST: Equal chest rise bilaterally without dyspnea on observation CV: Radial pulse RRR ABD: Soft, nontender : Deferred EXT: NO cyanosis on observation, large BLEXT == obesity SKIN: No rash, no diaphoresis ID ASSESSMENT 66 yo F w/PMHx of MS=> relapsing/remitting w/acute flare on steroids admit rehab with: 1. SIRS w/ mild leukocytosis 11.0 on admit to rehab, no fevers, VSS 2. Urine Cx (+)GNR-CRE * Proteus Mirabilis CRE =Sensitive to: Amikacin, Cefepime, Zosyn= MISLEADING= Zosyn will FAIL In-Vivo due to ESBL/CRE 3. Left hip infections-> s/p I&D w/antibiotic bead placement == Clindamycin PO ABX 4. Chronic pain syndrome. 5. Insomnia. 6. Anemia ABX ALLERGY: Sulfa/Ancef CURRENT ABX: => Clinda PO + Amikacin #1 Azactam IV #2 -> DC 10/24 s/p Ertapenem x1 10/23 ID RECOMMENDATIONS 1. DC Azactam => CRE & ESBL enzyme renders beta-lactams + monobactams (Azactam) resistant. 2. Started on short course Amikacin => watch renal function * ABX of choice for CRE = Aminoglycosides (per sensitivities) + Colimycin * Will not use Cefepime due to allergy to cephalosporin listed. * This GNR is RESISTANT to Primaxin/Macrobid = MDRO CRE * Fosfomycin is approved empiric Rx for MDRO pathogens; yet we don't have sensitivities; hence she may fail empiric RX. 3. Continue current ABX for left hip infection with follow up per her ORTHO surgeon = Clindamycin PO * Will see PRN -- call Neelima Blas NP or Dr. Saldaña if further recs warranted. Problems: Consultation Date/Type/Reason Admit Date/Time Oct 22, 2016 at 21:20 Initial Consult Date 10/23/16 Type of Consultation: ID Referring Provider: MARIAELENA LINDQUIST DO Exam/Review of Systems Vital Signs Vitals Vital Signs Date Time Temp Pulse Resp B/P Pulse Ox O2 Delivery O2 Flow Rate FiO2 10/25/16 09:30 72 152/68 100 10/25/16 07:56 98.6 18 Intake and Output 10/24/16 10/24/16 10/25/16 15:00 23:00 07:00 Intake Total 50 ml 870 ml 1020 ml Output Total 1 ml Balance 50 ml 869 ml 1020 ml Results Result Diagram: 10/25/16 0635 10/25/16 0635 Results 24 hrs Laboratory Tests Test 10/25/16 06:35 White Blood Count 9.4 Red Blood Count 4.09 L Hemoglobin 11.3 L Hematocrit 34.7 L Mean Corpuscular Volume 84.8 Mean Corpuscular Hemoglobin 27.6 L Mean Corpuscular Hemoglobin Concent 32.6 Red Cell Distribution Width 16.0 H Platelet Count 223 # Mean Platelet Volume 11.2 H Neutrophils % 71.7 Lymphocytes % 19.1 Monocytes % 5.0 Eosinophils % 0.0 Basophils % 0.3 Nucleated Red Blood Cells % 0.4 H Neutrophils # 6.8 Lymphocytes # 1.8 Monocytes # 0.5 Eosinophils # 0.0 Basophils # 0.0 Nucleated Red Blood Cells # 0.0 Sodium Level 145 H Potassium Level 4.0 Chloride Level 102 Carbon Dioxide Level 31 Anion Gap 16 Blood Urea Nitrogen 30 H Creatinine 0.62 Glucose Level 151 Calcium Level 8.9 Phosphorus Level 3.7 Magnesium Level 2.3 Medications Medications Current Medications Docusate Sodium (Colace) 100 mg BID PO Last administered on 10/25/16 09:24; Admin Dose 100 MG; Start 10/23/16 at 09:00 Senna (Senokot) 1 tab HS PO Last administered on 10/23/16 21:19; Admin Dose 1 TAB; Start 10/23/16 at 21:00 Lactulose (Enulose) 20 gm DAILY PRN PO CONSTIPATION; Start 10/22/16 at 23:00 Bisacodyl (Dulcolax Supp) 10 mg DAILY PRN [place] CONSTIPATION; Start 10/22/16 at 23: 00 Acetaminophen (Tylenol Tab) 650 mg Q4H PRN PO PAIN; Start 10/22/16 at 23:00 Baclofen (Lioresal) 20 mg TID PO Last administered on 10/25/16 13:05; Admin Dose 20 MG; Start 10/23/16 at 09:00 Pantoprazole (Protonix Tab) 40 mg BID@06,18 PO Last administered on 10/25/16 06:40; Admin Dose 40 MG; Start 10/23/16 at 06:00 Diazepam (Valium) 10 mg HS PRN PO MUSCLE SPASMS; Start 10/22/16 at 23:00 Diphenhydramine HCl (Benadryl) 25 mg Q6H PRN PO ITCHING; Start 10/22/16 at 23:00 Cyclosporine (Restasis) 1 drop BID BOTH EYES Last administered on 10/24/16 21: 24; Admin Dose 1 DROP; Start 10/23/16 at 09:00 Hydrochlorothiazide (Hydrochlorothiazide) 25 mg DAILY PO Last administered on 09:24; Admin Dose 25 MG; Start 10/23/16 at 09:00 Ondansetron HCl (Zofran Tab) 4 mg Q8 PRN PO NAUSEA AND/OR VOMITING; Start at 23:00 Calcium Carbonate (Tums) 1,000 mg Q4 PRN PO heartburn; Start 10/22/16 at 23:00 Oxycodone/ Acetaminophen (Percocet (5/ 325)) 1 tab Q4H PRN PO PAIN; Start at 23:00 Oxycodone/ Acetaminophen (Percocet (5/ 325)) 2 tab Q4H PRN PO PAIN Last administered on 10/24/16 15:05; Admin Dose 2 TAB; Start 10/22/16 at 23:00 Pregabalin (Lyrica) 75 mg TID PO Last administered on 10/25/16 13:05; Admin Dose 75 MG; Start 10/23/16 at 09:00 Clindamycin HCl (Cleocin) 300 mg BID PO Last administered on 10/25/16 09:20; Admin Dose 300 MG; Start 10/23/16 at 09:00 Enoxaparin Sodium (Lovenox) 40 mg DAILY SC Last administered on 10/23/16 08:49 ; Admin Dose 40 MG; Start 10/23/16 at 09:00 Lactobacillus Acidophilus (Florajen3 Capsule) 2 each DAILY PO Last administered on 10/25/16 09:32; Admin Dose 2 EACH; Start 10/23/16 at 09:00 Temazepam (Restoril) 30 mg HS PRN PO INSOMNIA; Start 10/22/16 at 23:45 Atorvastatin Calcium (Lipitor) 20 mg DAILY@21 PO Last administered on 21:07; Admin Dose 20 MG; Start 10/23/16 at 21:00 Hydromorphone HCl (Dilaudid) 1 mg Q3H PRN IV PAIN Last administered on 13:04; Admin Dose 1 MG; Start 10/24/16 at 11:00 Fentanyl (Duragesic 75 Mcg/Hr Patch) 1 patch Q72H TRANSDERM Last administered on 10/24/16 21:28; Admin Dose 1 PATCH; Start 10/24/16 at 21:00 Amikacin Sulfate AMIKACIN PER PHARMAC... NOTE XX ; Start 10/25/16 at 09:00; Stop 10/30/16 at 08:59 Amikacin Sulfate/ Sodium Chloride (Amikacin/NS) 154 ml @ 154 mls/hr Q36H IVPB Last administered on 10/25/16 09:32; Admin Dose 154 MLS/HR; Start 10/25/16 at 08:00 Amphetamine/ Dextroamphetamine (Adderall) 10 mg BID@08,13 PO Last administered on 10/25/16 13:38; Admin Dose 10 MG; Start 10/25/16 at 08:00 Nifedipine (Procardia Xl) 30 mg DAILY PO Last administered on 10/25/16 09:24; Admin Dose 30 MG; Start 10/25/16 at 09:00 Miscellaneous Information (*Rx Drug Level Order Reminder*) RANDOM AMIKACIN LEVEL 8... ONCE ONCE XX ; Start 10/25/16 at 19:00; Stop 10/25/16 at 19:01 Duloxetine HCl (Cymbalta) 20 mg DAILY PO ; Start 10/26/16 at 09:00 PEDRO SANDHU NP Oct 25, 2016 16:30
[2016-10-25 20:00] VITALS: BP 140/77; RESP 18
[2016-10-25] MEDS: ATORVASTATIN 20 MG TAB PO SCH (20:44)
[2016-10-25] MEDS: SENNA TAB PO SCH (20:44)
[2016-10-26 02:00] VITALS: BP 137/60; RESP 18
[2016-10-26] MEDS: HYDROmorphONE 1 MG/ML SYG IV PRN ×3 (02:21→17:53)
[2016-10-26] MEDS: PANTOPRAZOLE (EC) 40 MG TAB PO SCH ×2 (06:47→17:52)
[2016-10-26] MEDS: OXYCODONE/ACETAMINOPHEN (5/325) TAB PO PRN (06:52)
[2016-10-26 07:30] VITALS: BP 167/73; RESP 18
[2016-10-26 08:30] VITALS: PULSE 55
[2016-10-26] MEDS: DOCUSATE SODIUM 100 MG CAP PO SCH ×3 (09:00→21:34)
[2016-10-26] MEDS: ENOXAPARIN 40 MG/0.4 ML SYG SC SCH (09:00)
[2016-10-26] MEDS: PREGABALIN 75 MG CAP PO SCH ×3 (09:48→21:34)
[2016-10-26] MEDS: L ACIDOPHIL/B LACTIS/B LONGUM CAPSULE PO SCH (09:48)
[2016-10-26] MEDS: BACLOFEN 10 MG TAB PO SCH ×3 (09:49→21:35)
[2016-10-26] MEDS: CLINDAMYCIN 300 MG CAP PO SCH ×2 (09:49→21:35)
[2016-10-26] MEDS: CYCLOSPORINE 0.05% OPH DROPERETTE BOTH EYES SCH ×2 (09:49→21:35)
[2016-10-26] MEDS: DULOXETINE 20 MG CAP DR PO SCH (09:49)
[2016-10-26] MEDS: NIFEdipine (XL) 30 MG TAB PO SCH (09:50)
[2016-10-26] MEDS: HYDROCHLOROTHIAZIDE 25 MG TAB PO SCH (09:50)
[2016-10-26] MEDS: AMIKACIN 1,000 MG in SOD CHLORIDE 0.9% 150 ML IVPB SCH (10:06)
--- NOTE | 2016-10-26 10:15 | PN ---
Date/Time of Note Date/Time of Note DATE: 10/26/16 TIME: 10:11 Assessment/Plan VTE Prophylaxis VTE Prophylaxis Intervention: LMWH Lines/Catheters IV Catheter Type (from Nrs): PORTACATH Urinary Cath still in place: No Assessment/Plan Assessment/Plan 1. Multiple sclerosis, relapsing remitting, with exacerbation, with spasticity, neurogenic bowel/bladder, impaired mobility/gait/ADLs. Continue PT/OT. Max assist for transfers and gait with walker. Poor standing balance. Bowel and bladder programs. Continue medical management per neurology, status post steroids. 2. Left hip infection, status post left hip I& D with antibiotics bead placement , with history of multiple hip surgeries in the past. Antibiotics per infectious disease. Continue hip precautions. Continue therapies. 3. Hypertension. Monitor BP. Continue medical management per internal medicine. 4. Hyperlipidemia. Continue statin. 5. Acute on chronic pain syndrome, history of neuropathy. Pain stable. Continue pain regimen. Adjust as needed. 6. History of recurrent CVAs. 7. History of subdural hematoma with evacuation. 8. History of right total knee replacement. 9. History of multiple lumbar surgeries. 10. History of left shoulder replacement. 11. Anemia. Stable on last labs, continue to monitor. 12. UTI. Antibiotics managed per infectious disease. Subjective 24 Hr Interval Summary Free Text/Dictation Rehab progress note Subjective: Reports minimal pain currently in back and lower extremity. ROS: Denies chest pain, no shortness of breath, no abdominal pain, no vomiting, no chills, no constipation. Exam/Review of Systems Vital Signs Vitals Vital Signs Date Time Temp Pulse Resp B/P Pulse Ox O2 Delivery O2 Flow Rate FiO2 10/26/16 07:30 97.7 56 18 167/73 99 Intake and Output 10/25/16 10/25/16 10/26/16 15:00 23:00 07:00 Intake Total 800 ml 660 ml 450 ml Balance 800 ml 660 ml 450 ml Exam General: Awake, alert, no acute distress CV: Regular rate, s1s2 audible Lungs: Clear to auscultation anteriorly, no wheezing Abdomen soft, nontender Extremities without cyanosis, no distal edema Neuro: Follows simple commands. No apparent focal changes. Results Result Diagram: 10/25/16 0635 10/25/16 0635 Medications Medications Current Medications Docusate Sodium (Colace) 100 mg BID PO Last administered on 10/25/16 20:45; Admin Dose 100 MG; Start 10/23/16 at 09:00 Senna (Senokot) 1 tab HS PO Last administered on 10/25/16 20:44; Admin Dose 1 TAB; Start 10/23/16 at 21:00 Lactulose (Enulose) 20 gm DAILY PRN PO CONSTIPATION; Start 10/22/16 at 23:00 Bisacodyl (Dulcolax Supp) 10 mg DAILY PRN [place] CONSTIPATION; Start 10/22/16 at 23: 00 Acetaminophen (Tylenol Tab) 650 mg Q4H PRN PO PAIN; Start 10/22/16 at 23:00 Baclofen (Lioresal) 20 mg TID PO Last administered on 10/26/16 09:49; Admin Dose 20 MG; Start 10/23/16 at 09:00 Pantoprazole (Protonix Tab) 40 mg BID@,18 PO Last administered on 10/26/16 06:47; Admin Dose 40 MG; Start 10/23/16 at 06:00 Diazepam (Valium) 10 mg HS PRN PO MUSCLE SPASMS; Start 10/22/16 at 23:00 Diphenhydramine HCl (Benadryl) 25 mg Q6H PRN PO ITCHING; Start 10/22/16 at 23:00 Cyclosporine (Restasis) 1 drop BID BOTH EYES Last administered on 10/26/16 09: 49; Admin Dose 1 DROP; Start 10/23/16 at 09:00 Hydrochlorothiazide (Hydrochlorothiazide) 25 mg DAILY PO Last administered on 09:50; Admin Dose 25 MG; Start 10/23/16 at 09:00 Ondansetron HCl (Zofran Tab) 4 mg Q8 PRN PO NAUSEA AND/OR VOMITING; Start at 23:00 Calcium Carbonate (Tums) 1,000 mg Q4 PRN PO heartburn; Start 10/22/16 at 23:00 Oxycodone/ Acetaminophen (Percocet (5/ 325)) 1 tab Q4H PRN PO PAIN; Start at 23:00 Oxycodone/ Acetaminophen (Percocet (5/ 325)) 2 tab Q4H PRN PO PAIN Last administered on 10/26/16 06:52; Admin Dose 2 TAB; Start 10/22/16 at 23:00 Pregabalin (Lyrica) 75 mg TID PO Last administered on 10/26/16 09:48; Admin Dose 75 MG; Start 10/23/16 at 09:00 Clindamycin HCl (Cleocin) 300 mg BID PO Last administered on 10/26/16 09:49; Admin Dose 300 MG; Start 10/23/16 at 09:00 Enoxaparin Sodium (Lovenox) 40 mg DAILY SC Last administered on 10/23/16 08:49 ; Admin Dose 40 MG; Start 10/23/16 at 09:00 Lactobacillus Acidophilus (Florajen3 Capsule) 2 each DAILY PO Last administered on 10/26/16 09:48; Admin Dose 2 EACH; Start 10/23/16 at 09:00 Temazepam (Restoril) 30 mg HS PRN PO INSOMNIA; Start 10/22/16 at 23:45 Atorvastatin Calcium (Lipitor) 20 mg DAILY@21 PO Last administered on 20:44; Admin Dose 20 MG; Start 10/23/16 at 21:00 Hydromorphone HCl (Dilaudid) 1 mg Q3H PRN IV PAIN Last administered on 02:21; Admin Dose 1 MG; Start 10/24/16 at 11:00 Fentanyl (Duragesic 75 Mcg/Hr Patch) 1 patch Q72H TRANSDERM Last administered on 10/24/16 21:28; Admin Dose 1 PATCH; Start 10/24/16 at 21:00 Amikacin Sulfate (Amikacin Iv Per Pharmacy) AMIKACIN PER PHARMAC... NOTE XX ; Start 10/25/16 at 09:00; Stop 10/30/16 at 08:59 Amphetamine/ Dextroamphetamine (Adderall) 10 mg BID@08,13 PO Last administered on 10/25/16 13:38; Admin Dose 10 MG; Start 10/25/16 at 08:00 Nifedipine (Procardia Xl) 30 mg DAILY PO Last administered on 10/26/16 09:50; Admin Dose 30 MG; Start 10/25/16 at 09:00 Duloxetine HCl 20 mg 20 mg DAILY PO Last administered on 10/26/16 09:49; Admin Dose 20 MG; Start 8/12/17 at 09:00 Amikacin Sulfate/ Sodium Chloride (Amikacin/NS) 154 ml @ 154 mls/hr Q24H IVPB Last administered on 10/26/16t 10:06; Admin Dose 154 MLS/HR; Start 10/26/16 at 09:30 Miscellaneous Information (*Rx Drug Level Order Reminder*) AMIKACIN TROUGH AT 0... ONCE ONCE XX ; Start 10/27/16 at 08:30; Stop 10/27/16 at 08:31 TEENA CHOUDHARY Oct 26, 2016 10:15
[2016-10-26] MEDS: DEXTROAMPHET/AMPHET 10 MG TAB PO SCH ×2 (10:18→14:19)
--- NOTE | 2016-10-26 10:32 | PN ---
DATE: 10/26/2016 SUBJECTIVE DATA: The patient is stable. No events overnight. No fevers, chills, nausea, or vomiting. OBJECTIVE DATA: VITAL SIGNS: Blood pressure is 167/73, respirations 18, pulse 60, temperature 97.7. HEENT: Head is normocephalic. NECK: Supple. HEART: Regular rate. LUNGS: Diminished breath sounds at the base. ABDOMEN: Soft, nontender to palpation. No guarding. EXTREMITIES: Negative for clubbing, cyanosis, no edema. DERMATOLOGIC: No rashes. MUSCULOSKELETAL: No joint effusion. NEUROLOGIC: No change in exam. MEDICATIONS: Reviewed. LABORATORY AND DIAGNOSTIC DATA: Reviewed. ASSESSMENT AND PLAN: 1. Left hip infection. Status post irrigation and debridement. Status post-antibiotic replacement. At this point, continue to monitor. 2. Urinary tract infection. Continue current antibiotic regimen. Per infectious disease. 3. Hypertension. Blood pressure is improving. Continue current blood pressure regimen. 4. Dyslipidemia. Continue statin therapy. 5. Multiple sclerosis, relapsing, remitting. The patient is status post-acute flare. The patient is status [id number]. [id number] infusion. Appreciate Neurology's evaluation. Continue current treatment plan. Follow up recommendations. 6. Hyponatremia, improved. 7. Chronic pain syndrome. Continue current pain regimen. 8. Neuropathy. Continue Lyrica. 9. Insomnia. Continue Restoril. 10. Anemia. Monitor hemoglobin and hematocrit levels. 11. Gastrointestinal and deep venous thrombosis prophylaxis. Continue proton pump inhibitor and Lovenox. Dictated By: Samy Mejia DO /laura/suzette /Document#: [id number]
[2016-10-26 14:00] VITALS: BP 130/79; RESP 18
[2016-10-26 19:32] VITALS: BP 158/66; RESP 19
[2016-10-26 19:49] VITALS: BP 139/71; RESP 18
[2016-10-26] MEDS: SENNA TAB PO SCH (21:00)
[2016-10-26] MEDS: ATORVASTATIN 20 MG TAB PO SCH (21:35)
[2016-10-26] MEDS: CALCIUM CARBONATE 500 MG CHEW TAB PO PRN (21:54)
[2016-10-27] MEDS: HYDROmorphONE 1 MG/ML SYG IV PRN ×5 (01:20→21:54)
[2016-10-27 02:00] VITALS: BP 113/56; RESP 18
[2016-10-27] MEDS: OXYCODONE/ACETAMINOPHEN (5/325) TAB PO PRN ×4 (02:08→20:37)
--- NOTE | 2016-10-27 04:33 | PN ---
DATE: 10/22/2016 SUBJECTIVE: No acute changes overnight. The patient is alert, sitting up in a wheelchair. She has visitors at the bedside. She denies pain or discomfort. No nausea, vomiting, or diarrhea. Antimicrobial is Amikacin. PHYSICAL EXAMINATION: GENERAL: Chronically ill-appearing, elderly woman who is alert, in no distress. HEENT: Head is atraumatic, normocephalic. Sclerae are anicteric. Buccal mucosa is pink. NECK: Supple. LUNGS: Chest rise is symmetrical. Breath sounds are clear. HEART: S1, S2. ABDOMEN: Soft. Bowel sounds are present. ASSESSMENT: 1. Proteus mirabilis urinary tract infection, remains on Amikacin. 2. Neurogenic bladder with ongoing urinary retention. 3. Multiple sclerosis. 4. History of cerebrovascular accident. 5. Multiple hip replacements surgeries. PLAN: The patient remains stable on appropriate antimicrobials. She is also on oral clindamycin for recurrent hip infection. We will continue her on current regimen, monitor postvoid residuals. Dictated By: Ritika Blas NP /laura/bon /Document#: [id number]
[2016-10-27] MEDS: PANTOPRAZOLE (EC) 40 MG TAB PO SCH ×2 (06:40→17:50)
[2016-10-27 08:00] VITALS: BP 104/53; PULSE 55; RESP 21
[2016-10-27] MEDS: HYDROCHLOROTHIAZIDE 25 MG TAB PO SCH (09:00)
[2016-10-27] MEDS: NIFEdipine (XL) 30 MG TAB PO SCH (09:00)
--- NOTE | 2016-10-27 09:09 | PN ---
Date/Time of Note Date/Time of Note DATE: 10/27/16 TIME: 09:07 Assessment/Plan VTE Prophylaxis VTE Prophylaxis Intervention: LMWH Lines/Catheters IV Catheter Type (from Nrsg): Central Line Central line still needed: Yes Urinary Cath still in place: No Assessment/Plan Assessment/Plan 1. Relapsing remitting multiple sclerosis with exacerbation, with spasticity, neuropathy, neurogenic bowel/bladder, with impaired mobility/gait/ADLs. Continue PT/OT. SPV for grooming, total assist for lower body dressing. Medical management per neurology, status post course of steroids. Continue bowel and bladder programs. 2. Left hip infection, status post left hip I& D with antibiotic bead placement , with history of multiple hip surgeries in the past. Continue antibiotics per infectious disease. Continue hip precautions. 3. Hypertension. Continue medical management per internal medicine. 4. Hyperlipidemia. Continue statin. 5. Acute on chronic pain syndrome. Pain controlled. Continue pain regimen. 6. History of recurrent CVAs. Secondary stroke prevention per neurology. 7. History of subdural hematoma with evacuation. 8. History of right total knee replacement. 9. History of multiple lumbar surgeries. 10. History of left shoulder replacement. 11. UTI. On antibiotics per infectious disease. 12. Anemia. Continue to monitor hemoglobin/hematocrit. 13. Hypernatremia, improving on last labs. Internal medicine managing. Continue to monitor. Subjective 24 Hr Interval Summary Free Text/Dictation Rehab progress note Subjective: No new complaints, chronic pain stable. ROS: Denies chest pain, no shortness of breath, no abdominal pain, no nausea or vomiting, no chills, no new weakness, no constipation. Exam/Review of Systems Vital Signs Vitals Vital Signs Date Time Temp Pulse Resp B/P Pulse Ox O2 Delivery O2 Flow Rate FiO2 10/27/16 02:00 98.0 60 18 113/56 97 Intake and Output 10/26/16 10/26/16 10/27/16 15:00 23:00 07:00 Intake Total 154 ml 920 ml 500 ml Output Total 1 ml Balance 154 ml 920 ml 499 ml Exam General: Awake, alert, no acute distress CV: Regular rate, s1s2 audible Lungs: No crackles, no wheezing Abdomen soft, nontender Extremities without cyanosis, no new swelling Neuro: Follows simple commands. No focal changes. Results Result Diagram: 10/25/16 0635 10/25/16 0635 Medications Medications Current Medications Docusate Sodium (Colace) 100 mg BID PO Last administered on 10/25/16 20:45; Admin Dose 100 MG; Start 10/23/16 at 09:00 Senna (Senokot) 1 tab HS PO Last administered on 10/25/16 20:44; Admin Dose 1 TAB; Start 10/23/16 at 21:00 Lactulose (Enulose) 20 gm DAILY PRN PO CONSTIPATION; Start 10/22/16 at 23:00 Bisacodyl (Dulcolax Supp) 10 mg DAILY PRN [place] CONSTIPATION; Start 10/22/16 at 23: 00 Acetaminophen (Tylenol Tab) 650 mg Q4H PRN PO PAIN; Start 10/22/16 at 23:00 Baclofen (Lioresal) 20 mg TID PO Last administered on 10/26/16 21:35; Admin Dose 20 MG; Start 10/23/16 at 09:00 Pantoprazole (Protonix Tab) 40 mg BID@18 PO Last administered on 10/27/16 06:40; Admin Dose 40 MG; Start 10/23/16 at 06:00 Diazepam (Valium) 10 mg HS PRN PO MUSCLE SPASMS; Start 10/22/16 at 23:00 Diphenhydramine HCl (Benadryl) 25 mg Q6H PRN PO ITCHING; Start 10/22/16 at 23:00 Cyclosporine (Restasis) 1 drop BID BOTH EYES Last administered on 10/26/16 21: 35; Admin Dose 1 DROP; Start 10/23/16 at 09:00 Hydrochlorothiazide (Hydrochlorothiazide) 25 mg DAILY PO Last administered on 09:50; Admin Dose 25 MG; Start 10/23/16 at 09:00 Ondansetron HCl (Zofran Tab) 4 mg Q8 PRN PO NAUSEA AND/OR VOMITING; Start at 23:00 Calcium Carbonate (Tums) 1,000 mg Q4 PRN PO heartburn Last administered on 10/26 21:54; Admin Dose 1,000 MG; Start 10/22/16 at 23:00 Oxycodone/ Acetaminophen (Percocet (5/ 325)) 1 tab Q4H PRN PO PAIN; Start at 23:00 Oxycodone/ Acetaminophen (Percocet (5/ 325)) 2 tab Q4H PRN PO PAIN Last administered on 10/27/16 06:43; Admin Dose 2 TAB; Start 10/22/16 at 23:00 Pregabalin (Lyrica) 75 mg TID PO Last administered on 10/26/16 21:34; Admin Dose 75 MG; Start 10/23/16 at 09:00 Clindamycin HCl (Cleocin) 300 mg BID PO Last administered on 10/26/16 21:35; Admin Dose 300 MG; Start 10/23/16 at 09:00 Enoxaparin Sodium (Lovenox) 40 mg DAILY SC Last administered on 10/23/16 08:49 ; Admin Dose 40 MG; Start 10/23/16 at 09:00 Lactobacillus Acidophilus (Florajen3 Capsule) 2 each DAILY PO Last administered on 10/26/16 09:48; Admin Dose 2 EACH; Start 10/23/16 at 09:00 Temazepam (Restoril) 30 mg HS PRN PO INSOMNIA; Start 10/22/16 at 23:45 Atorvastatin Calcium (Lipitor) 20 mg DAILY@21 PO Last administered on 21:35; Admin Dose 20 MG; Start 10/23/16 at 21:00 Hydromorphone HCl (Dilaudid) 1 mg Q3H PRN IV PAIN Last administered on 01:20; Admin Dose 1 MG; Start 10/24/16 at 11:00 Fentanyl (Duragesic 75 Mcg/Hr Patch) 1 patch Q72H TRANSDERM Last administered on 10/24/16 21:28; Admin Dose 1 PATCH; Start 10/24/16 at 21:00 Amikacin Sulfate (Amikacin Iv Per Pharmacy) AMIKACIN PER PHARMAC... NOTE XX ; Start 10/25/16 at 09:00; Stop 10/30/16 at 08:59 Amphetamine/ Dextroamphetamine (Adderall) 10 mg BID@08,13 PO Last administered on 10/26/16 14:19; Admin Dose 10 MG; Start 10/25/16 at 08:00 Nifedipine (Procardia Xl) 30 mg DAILY PO Last administered on 10/26/16 09:50; Admin Dose 30 MG; Start 10/25/16 at 09:00 Duloxetine HCl 20 mg 20 mg DAILY PO Last administered on 10/26/16 09:49; Admin Dose 20 MG; Start 10/26/16 at 09:00 Amikacin Sulfate/ Sodium Chloride (Amikacin/NS) 154 ml @ 154 mls/hr Q24H IVPB Last administered on 10/26/16 10:06; Admin Dose 154 MLS/HR; Start 10/26/16 at 09:30 TEENA CHOUDHARY Oct 27, 2016 09:09
[2016-10-27] MEDS: DEXTROAMPHET/AMPHET 10 MG TAB PO SCH ×2 (09:44→12:58)
[2016-10-27] MEDS: CLINDAMYCIN 300 MG CAP PO SCH ×2 (09:45→20:36)
[2016-10-27] MEDS: DOCUSATE SODIUM 100 MG CAP PO SCH ×2 (09:45→20:36)
[2016-10-27] MEDS: DULOXETINE 20 MG CAP DR PO SCH (09:45)
[2016-10-27] MEDS: BACLOFEN 10 MG TAB PO SCH ×3 (09:51→20:35)
[2016-10-27] MEDS: PREGABALIN 75 MG CAP PO SCH ×3 (09:51→20:37)
[2016-10-27] MEDS: CYCLOSPORINE 0.05% OPH DROPERETTE BOTH EYES SCH ×2 (09:52→21:00)
[2016-10-27] MEDS: ENOXAPARIN 40 MG/0.4 ML SYG SC SCH (09:52)
[2016-10-27] MEDS: AMIKACIN 1,000 MG in SOD CHLORIDE 0.9% 150 ML IVPB SCH (09:55)
[2016-10-27] MEDS: L ACIDOPHIL/B LACTIS/B LONGUM CAPSULE PO SCH (09:58)
--- NOTE | 2016-10-27 10:06 | PN ---
DATE: 10/27/2016 SUBJECTIVE DATA: The patient is clinically improving. No other events noted. No hemoptysis, hematemesis, hematochezia. OBJECTIVE DATA: VITAL SIGNS: Blood pressure is 113/56, respirations 18, pulse 60, temperature 98.0. HEENT: Head is normocephalic. NECK: Supple. HEART: Regular rate. LUNGS: Diminished breath sounds at the base. ABDOMEN: Soft, nontender to palpation. No rebound or guarding. EXTREMITIES: Negative for clubbing, cyanosis, no edema. DERMATOLOGIC: No rashes. MUSCULOSKELETAL: No joint effusion. NEUROLOGIC: No change in exam. MEDICATIONS: Reviewed. LABORATORY AND DIAGNOSTIC DATA: Reviewed. No new labs. ASSESSMENT AND PLAN: 1. Left hip infection, status post incision and drainage, status post antibiotic bead placement. The patient is currently stable. Continue to monitor. 2. Urinary tract infection. Continue current antibiotic regimen. 3. Hypertension. Blood pressure controlled. Continue current regimen. 4. . 5. Multiple sclerosis. The patient has relapsing and remitting. The patient is status post acute flare, status post Solu-Medrol. Status post infusion. Being followed by Neurology. Follow up recommendations. 6. Hyponatremia, improved. 7. Chronic pain regimen. Continue current pain management. 8. Neuropathy. Continue Lyrica. 9. Insomnia. Continue Restoril. 10. Anemia. Monitor hemoglobin and hematocrit levels. 11. Gastrointestinal and deep venous thrombosis prophylaxis. Continue proton pump inhibitor and Lovenox. 12. Mild hyponatremia. Continue current free water intake. Dictated By: Samy Mejia DO /laura/gerard /Document#: [id number]
[2016-10-27 20:00] VITALS: BP 137/60; RESP 18
[2016-10-27] MEDS: ATORVASTATIN 20 MG TAB PO SCH (20:35)
[2016-10-27] MEDS: SENNA TAB PO SCH (20:37)
[2016-10-27] MEDS: FENTAnyl PATCH 75 MCG/HR TRANSDERM SCH (22:01)
[2016-10-28 02:00] VITALS: BP 133/63; RESP 18
[2016-10-28] MEDS: HYDROmorphONE 1 MG/ML SYG IV PRN ×5 (02:15→18:41)
[2016-10-28] MEDS: OXYCODONE/ACETAMINOPHEN (5/325) TAB PO PRN ×4 (04:50→21:16)
[2016-10-28] MEDS: PANTOPRAZOLE (EC) 40 MG TAB PO SCH ×2 (05:34→17:43)
[2016-10-28 07:14] LABS: BASOPHILS % 0.1 % (0.0-2.0); EOSINOPHILS # 0.5 10^3/ul (0.0-0.5); EOSINOPHILS % 5.2 % (0.0-7.0); HEMATOCRIT 34.5 % (37.0-47.0); HEMOGLOBIN 10.8 g/dl (12.0-16.0); LYMPHOCYTES # 4.7 10^3/ul (0.8-2.9); LYMPHOCYTES % 45.5 % (15.0-51.0); MEAN CORPUSCULAR HEMOGLOBIN 27.1 pg (29.0-33.0); MEAN CORPUSCULAR HGB CONC 31.3 g/dl (32.0-37.0); MEAN CORPUSCULAR VOLUME 86.7 fl (82.0-101.0); MEAN PLATELET VOLUME 10.9 fl (7.4-10.4); MONOCYTE # 0.9 10^3/ul (0.3-0.9); MONOCYTES % 8.2 % (0.0-11.0); NEUTROPHIL # 3.8 10^3/ul (1.6-7.5); NEUTROPHILS % 37.2 % (39.0-77.0); NUCLEATED RED BLOOD CELLS% 0.2 /100WBC (0.0-0.0); PLATELET COUNT 185 10^3/UL (140-415); RED BLOOD COUNT 3.98 10^6/ul (4.20-5.40); RED CELL DISTRIBUTION WIDTH 16.3 % (11.5-14.5); WHITE BLOOD COUNT 10.3 10^3/ul (4.8-10.8)
[2016-10-28 07:30] VITALS: BP 130/62; RESP 18
[2016-10-28 07:57] LABS: CALCIUM 8.4 mg/dl (8.4-10.2); CREATININE 0.71 mg/dl (0.44-1.00); MAGNESIUM 1.9 mg/dl (1.7-2.5); PHOSPHORUS 4.5 mg/dl (2.5-4.9); POTASSIUM 3.9 mmol/L (3.5-5.1)
[2016-10-28] MEDS: DULOXETINE 20 MG CAP DR PO SCH (08:11)
[2016-10-28] MEDS: CLINDAMYCIN 300 MG CAP PO SCH ×2 (08:11→21:16)
[2016-10-28] MEDS: BACLOFEN 10 MG TAB PO SCH ×3 (08:12→21:16)
[2016-10-28] MEDS: HYDROCHLOROTHIAZIDE 25 MG TAB PO SCH (08:12)
[2016-10-28] MEDS: PREGABALIN 75 MG CAP PO SCH ×3 (08:12→21:15)
[2016-10-28] MEDS: NIFEdipine (XL) 30 MG TAB PO SCH (08:16)
[2016-10-28] MEDS: DOCUSATE SODIUM 100 MG CAP PO SCH ×2 (08:16→21:15)
[2016-10-28] MEDS: ENOXAPARIN 40 MG/0.4 ML SYG SC SCH (08:17)
[2016-10-28] MEDS: L ACIDOPHIL/B LACTIS/B LONGUM CAPSULE PO SCH (08:58)
[2016-10-28] MEDS: DEXTROAMPHET/AMPHET 10 MG TAB PO SCH ×2 (08:58→13:16)
[2016-10-28] MEDS: CYCLOSPORINE 0.05% OPH DROPERETTE BOTH EYES SCH ×2 (08:58→21:23)
--- NOTE | 2016-10-28 11:00 | PN ---
DATE: 10/28/2016 SUBJECTIVE DATA: Patient is stable. No events overnight. No fevers, chills, nausea, vomiting. OBJECTIVE DATA: VITAL SIGNS: Blood pressure 132/62, respirations 18, pulse 83, temperature 97.6. HEENT: Head is normocephalic. NECK: Supple. HEART: Regular rate. LUNGS: Diminished breath sounds at the base. ABDOMEN: Soft, nontender to palpation. No rebound or guarding. EXTREMITIES: Negative for clubbing, cyanosis. No edema. DERMATOLOGIC: No rashes. MUSCULOSKELETAL: No joint effusion. NEUROLOGIC: No change in exam. MEDICATIONS: Reviewed. LABORATORY AND DIAGNOSTIC DATA: Sodium 139, potassium 3.9, BUN 22, creatinine 0.71. White count 10.3, hemoglobin 10.8, hematocrit 34.5, platelet count is 185. ASSESSMENT AND PLAN: 1. Left hip infection, status post I and D, status post antibiotic replacement. The patient is currently stable. 2. Urinary tract infection. Continue current antibiotic regimen. 3. Hypertension. Continue current blood pressure regimen. 4. Multiple sclerosis. Patient's has relapsing and remitting. The patient is status post acute flare, status post Solu-Medrol being followed by Neurology. 5. Hyponatremia, improved. 6. Chronic pain syndrome. Continue current pain management. 7. Neuropathy, continue Lyrica. 8. Insomnia. Continue Restoril. 9. Anemia. Monitor H and H levels. 10. Gastrointestinal and deep venous thrombosis prophylaxis. Continue Lovenox. 11. Mild hypernatremia, improved. Continue to monitor. Dictated By: Samy Mejia DO /laura/nilesh /Document#: [id number]
--- NOTE | 2016-10-28 13:26 | CONS ---
Date/Time of Note Date/Time of Note DATE: 10/28/16 TIME: 13:25 Consult Date/Type/Reason Admit Date/Time Oct 22, 2016 at 21:20 Initial Consult Date 10/23/16 Type of Consultation: ID Ordering Provider: MARIAELENA LINDQUIST DO Objective Vital Signs Date Time Temp Pulse Resp B/P Pulse Ox O2 Delivery O2 Flow Rate FiO2 10/28/16 07:30 97.7 56 18 130/62 96 10/27/16 08:00 Room Air Intake and Output 10/27/16 10/27/16 10/28/16 15:00 23:00 07:00 Intake Total 154 ml Balance 154 ml INTERDISCIPLINARY TEAM CONFERENCE BOWEL- Cont BLADDER-Cont SKIN- improving OT- DRESSING-min/mod BATHING-min/mod TOILETING-min/mod PT- BED MOBILITY-min TRANSFERS-mod AMBULATION- mod 30 feet W.C. MOBILITY-min SPEECH- COGNITION-min A/P- Interdisciplinary team conference held today. Please see interdisciplinary sheet. Working toward d.c. on 11/05 with post discharge follow up of physical therapy, occupational therapy. Results/Medications Result Diagram: 10/28/16 0600 10/28/16 0600 Results 24 hrs Laboratory Tests Test 10/28/16 06:00 White Blood Count 10.3 Red Blood Count 3.98 L Hemoglobin 10.8 L Hematocrit 34.5 L Mean Corpuscular Volume 86.7 Mean Corpuscular Hemoglobin 27.1 L Mean Corpuscular Hemoglobin Concent 31.3 L Red Cell Distribution Width 16.3 H Platelet Count 185 Mean Platelet Volume 10.9 H Neutrophils % 37.2 L Lymphocytes % 45.5 Monocytes % 8.2 Eosinophils % 5.2 Basophils % 0.1 Nucleated Red Blood Cells % 0.2 H Neutrophils # 3.8 Lymphocytes # 4.7 H Monocytes # 0.9 Eosinophils # 0.5 Basophils # 0.0 Nucleated Red Blood Cells # 0.0 Sodium Level 139 Potassium Level 3.9 Chloride Level 101 Carbon Dioxide Level 33 H Anion Gap 9 Blood Urea Nitrogen 22 H Creatinine 0.71 Glucose Level 83 Calcium Level 8.4 Phosphorus Level 4.5 Magnesium Level 1.9 Medications Current Medications Docusate Sodium (Colace) 100 mg BID PO Last administered on 10/27/16t 09:45; Admin Dose 100 MG; Start 10/23/16 at 09:00 Senna (Senokot) 1 tab HS PO Last administered on 10/25/16 20:44; Admin Dose 1 TAB; Start 10/23/16 at 21:00 Lactulose (Enulose) 20 gm DAILY PRN PO CONSTIPATION; Start 10/22/16 at 23:00 Bisacodyl (Dulcolax Supp) 10 mg DAILY PRN [place] CONSTIPATION; Start 10/22/16 at 23: 00 Acetaminophen (Tylenol Tab) 650 mg Q4H PRN PO PAIN; Start 10/22/16 at 23:00 Baclofen (Lioresal) 20 mg TID PO Last administered on 10/28/16 12:38; Admin Dose 20 MG; Start 10/23/16 at 09:00 Pantoprazole (Protonix Tab) 40 mg BID@18 PO Last administered on 10/28/16 05:34; Admin Dose 40 MG; Start 10/23/16 at 06:00 Diazepam (Valium) 10 mg HS PRN PO MUSCLE SPASMS; Start 10/22/16 at 23:00 Diphenhydramine HCl (Benadryl) 25 mg Q6H PRN PO ITCHING; Start 10/22/16 at 23:00 Cyclosporine (Restasis) 1 drop BID BOTH EYES Last administered on 10/28/16 08: 58; Admin Dose 1 DROP; Start 10/23/16 at 09:00 Hydrochlorothiazide (Hydrochlorothiazide) 25 mg DAILY PO Last administered on 08:12; Admin Dose 25 MG; Start 10/23/16 at 09:00 Ondansetron HCl (Zofran Tab) 4 mg Q8 PRN PO NAUSEA AND/OR VOMITING; Start at 23:00 Calcium Carbonate (Tums) 1,000 mg Q4 PRN PO heartburn Last administered on 10/26 21:54; Admin Dose 1,000 MG; Start 10/22/16 at 23:00 Oxycodone/ Acetaminophen (Percocet (5/ 325)) 1 tab Q4H PRN PO PAIN; Start at 23:00 Oxycodone/ Acetaminophen (Percocet (5/ 325)) 2 tab Q4H PRN PO PAIN Last administered on 10/28/16 10:27; Admin Dose 2 TAB; Start 10/22/16 at 23:00 Pregabalin (Lyrica) 75 mg TID PO Last administered on 10/28/16 12:38; Admin Dose 75 MG; Start 10/23/16 at 09:00 Clindamycin HCl (Cleocin) 300 mg BID PO Last administered on 10/28/16 08:11; Admin Dose 300 MG; Start 10/23/16 at 09:00 Enoxaparin Sodium (Lovenox) 40 mg DAILY SC Last administered on 10/27/16 09:52 ; Admin Dose 40 MG; Start 10/23/16 at 09:00 Lactobacillus Acidophilus (Florajen3 Capsule) 2 each DAILY PO Last administered on 10/28/16 08:58; Admin Dose 2 EACH; Start 10/23/16 at 09:00 Temazepam (Restoril) 30 mg HS PRN PO INSOMNIA; Start 10/22/16 at 23:45 Atorvastatin Calcium (Lipitor) 20 mg DAILY@21 PO Last administered on 20:35; Admin Dose 20 MG; Start 10/23/16 at 21:00 Hydromorphone HCl (Dilaudid) 1 mg Q3H PRN IV PAIN Last administered on 12:43; Admin Dose 1 MG; Start 10/24/16 at 11:00 Fentanyl (Duragesic 75 Mcg/Hr Patch) 1 patch Q72H TRANSDERM Last administered on 10/27/16 22:01; Admin Dose 1 PATCH; Start 10/24/16 at 21:00 Amikacin Sulfate (Amikacin Iv Per Pharmacy) AMIKACIN PER PHARMAC... NOTE XX ; Start 10/25/16 at 09:00; Stop 10/30/16 at 08:59 Amphetamine/ Dextroamphetamine (Adderall) 10 mg BID@08,13 PO Last administered on 10/28/16 13:16; Admin Dose 10 MG; Start 10/25/16 at 08:00 Nifedipine (Procardia Xl) 30 mg DAILY PO Last administered on 10/26/16 09:50; Admin Dose 30 MG; Start 10/25/16 at 09:00 Duloxetine HCl 20 mg 20 mg DAILY PO Last administered on 10/28/16 08:11; Admin Dose 20 MG; Start 10/26/16 at 09:00 Amikacin Sulfate/ Sodium Chloride (Amikacin/NS) 154 ml @ 154 mls/hr Q36H IVPB ; Start 10/28/16 at 21:30 JEREMY CHOWDHURY MD Oct 28, 2016 13:25
[2016-10-28 14:00] VITALS: BP 128/66; RESP 18
--- NOTE | 2016-10-28 19:32 | RADRPT ---
Vent Rate: 65 bpm RR Interval: 0 msec SD Interval: 152 msec QRS Duration: 88 msec QT Interval: 382 msec QTC Interval: 397 msec P-R-T Orange: 28 - -19 - 41 degrees Sinus rhythm with premature atrial complexes Minimal voltage criteria for LVH, may be normal variant Borderline ECG Electronically Signed By: Vargas Mary [id number]
[2016-10-28 20:00] VITALS: BP 144/63; RESP 18
[2016-10-28] MEDS: ATORVASTATIN 20 MG TAB PO SCH (21:15)
[2016-10-28] MEDS: SENNA TAB PO SCH (21:15)
[2016-10-28] MEDS: AMIKACIN 1,000 MG in SOD CHLORIDE 0.9% 150 ML IVPB SCH (21:22)
[2016-10-28] MEDS: CALCIUM CARBONATE 500 MG CHEW TAB PO PRN (21:22)
[2016-10-29] MEDS: HYDROmorphONE 1 MG/ML SYG IV PRN ×7 (00:32→20:49)
[2016-10-29 02:00] VITALS: RESP 18
[2016-10-29] MEDS: CALCIUM CARBONATE 500 MG CHEW TAB PO PRN ×2 (03:52→21:00)
[2016-10-29] MEDS: PANTOPRAZOLE (EC) 40 MG TAB PO SCH ×2 (06:40→19:10)
[2016-10-29 07:48] VITALS: BP 128/60; RESP 18
[2016-10-29] MEDS: L ACIDOPHIL/B LACTIS/B LONGUM CAPSULE PO SCH (09:00)
[2016-10-29] MEDS: HYDROCHLOROTHIAZIDE 25 MG TAB PO SCH (09:00)
[2016-10-29] MEDS: CYCLOSPORINE 0.05% OPH DROPERETTE BOTH EYES SCH ×2 (09:00→20:44)
[2016-10-29] MEDS: DOCUSATE SODIUM 100 MG CAP PO SCH ×2 (09:00→20:44)
[2016-10-29] MEDS: ENOXAPARIN 40 MG/0.4 ML SYG SC SCH (09:00)
[2016-10-29] MEDS: PREGABALIN 75 MG CAP PO SCH ×3 (09:00→20:44)
[2016-10-29] MEDS: BACLOFEN 10 MG TAB PO SCH ×3 (09:00→20:44)
[2016-10-29] MEDS: NIFEdipine (XL) 30 MG TAB PO SCH (09:00)
[2016-10-29] MEDS: CLINDAMYCIN 300 MG CAP PO SCH ×3 (09:00→20:44)
[2016-10-29] MEDS: OXYCODONE/ACETAMINOPHEN (5/325) TAB PO PRN ×2 (09:19→23:36)
[2016-10-29] MEDS: DEXTROAMPHET/AMPHET 10 MG TAB PO SCH ×2 (09:21→13:41)
--- NOTE | 2016-10-29 12:37 | CONS ---
Date/Time of Note Date/Time of Note DATE: 10/29/16 TIME: 12:37 Consult Date/Type/Reason Admit Date/Time Oct 22, 2016 at 21:20 Initial Consult Date 10/23/16 Type of Consultation: ID Ordering Provider: MARIAELENA LINDQUIST DO Subjective Rn reports patient has inadvertantly sprayed room freshener in her mouth last night Objective pulm-cta abd-soft mod assist transfer Vital Signs Date Time Temp Pulse Resp B/P Pulse Ox O2 Delivery O2 Flow Rate FiO2 10/29/16 07:48 98.0 52 18 128/60 97 10/27/16 08:00 Room Air Intake and Output 10/28/16 10/28/16 10/29/16 15:00 23:00 07:00 Intake Total 694 ml 350 ml Balance 694 ml 350 ml Results/Medications Result Diagram: 10/28/16 0600 10/28/16 0600 Medications Current Medications Docusate Sodium (Colace) 100 mg BID PO Last administered on 10/28/16 21:15; Admin Dose 100 MG; Start 10/23/16 at 09:00 Senna (Senokot) 1 tab HS PO Last administered on 10/28/16 21:15; Admin Dose 1 TAB; Start 10/23/16 at 21:00 Lactulose (Enulose) 20 gm DAILY PRN PO CONSTIPATION; Start 10/22/16 at 23:00 Bisacodyl (Dulcolax Supp) 10 mg DAILY PRN [place] CONSTIPATION; Start 10/22/16 at 23: 00 Acetaminophen (Tylenol Tab) 650 mg Q4H PRN PO PAIN; Start 10/22/16 at 23:00 Baclofen (Lioresal) 20 mg TID PO Last administered on 10/28/16 21:16; Admin Dose 20 MG; Start 10/23/16 at 09:00 Pantoprazole (Protonix Tab) 40 mg BID@06,18 PO Last administered on 10/29/16 06:40; Admin Dose 40 MG; Start 10/23/16 at 06:00 Diazepam (Valium) 10 mg HS PRN PO MUSCLE SPASMS; Start 10/22/16 at 23:00 Diphenhydramine HCl (Benadryl) 25 mg Q6H PRN PO ITCHING; Start 10/22/16 at 23:00 Cyclosporine (Restasis) 1 drop BID BOTH EYES Last administered on 10/28/16 21: 23; Admin Dose 1 DROP; Start 10/23/16 at 09:00 Hydrochlorothiazide (Hydrochlorothiazide) 25 mg DAILY PO Last administered on 08:12; Admin Dose 25 MG; Start 10/23/16 at 09:00 Ondansetron HCl (Zofran Tab) 4 mg Q8 PRN PO NAUSEA AND/OR VOMITING; Start at 23:00 Calcium Carbonate (Tums) 1,000 mg Q4 PRN PO heartburn Last administered on 10/29 03:52; Admin Dose 1,000 MG; Start 10/22/16 at 23:00 Oxycodone/ Acetaminophen (Percocet (5/ 325)) 1 tab Q4H PRN PO PAIN; Start at 23:00 Oxycodone/ Acetaminophen (Percocet (5/ 325)) 2 tab Q4H PRN PO PAIN Last administered on 10/29/16 09:19; Admin Dose 2 TAB; Start 10/22/16 at 23:00 Pregabalin (Lyrica) 75 mg TID PO Last administered on 10/28/16 21:15; Admin Dose 75 MG; Start 10/23/16 at 09:00 Clindamycin HCl (Cleocin) 300 mg BID PO Last administered on 10/28/16 21:16; Admin Dose 300 MG; Start 10/23/16 at 09:00 Enoxaparin Sodium (Lovenox) 40 mg DAILY SC Last administered on 10/27/16 09:52 ; Admin Dose 40 MG; Start 10/23/16 at 09:00 Lactobacillus Acidophilus (Florajen3 Capsule) 2 each DAILY PO Last administered on 10/28/16 08:58; Admin Dose 2 EACH; Start 10/23/16 at 09:00 Temazepam (Restoril) 30 mg HS PRN PO INSOMNIA; Start 10/22/16 at 23:45 Atorvastatin Calcium (Lipitor) 20 mg DAILY@21 PO Last administered on 21:15; Admin Dose 20 MG; Start 10/23/16 at 21:00 Hydromorphone HCl (Dilaudid) 1 mg Q3H PRN IV PAIN Last administered on 11:16; Admin Dose 1 MG; Start 10/24/16 at 11:00 Fentanyl (Duragesic 75 Mcg/Hr Patch) 1 patch Q72H TRANSDERM Last administered on 10/27/16 22:01; Admin Dose 1 PATCH; Start 10/24/16 at 21:00 Amikacin Sulfate (Amikacin Iv Per Pharmacy) AMIKACIN PER PHARMAC... NOTE XX ; Start 10/25/16 at 09:00; Stop 10/30/16 at 08:59 Amphetamine/ Dextroamphetamine (Adderall) 10 mg BID@08,13 PO Last administered on 10/29/16 09:21; Admin Dose 10 MG; Start 10/25/16 at 08:00 Nifedipine (Procardia Xl) 30 mg DAILY PO Last administered on 10/26/16 09:50; Admin Dose 30 MG; Start 10/25/16 at 09:00 Duloxetine HCl 20 mg 20 mg DAILY PO Last administered on 10/28/16 08:11; Admin Dose 20 MG; Start 10/26/16 at 09:00 Amikacin Sulfate/ Sodium Chloride (Amikacin/NS) 154 ml @ 154 mls/hr Q36H IVPB Last administered on 10/28/16 21:22; Admin Dose 154 MLS/HR; Start 10/28/16 at 21:30 Assessment/Plan Additional Assessment/Plan Rehabilitation- Multiple sclerosis exacerbation. Increase activities as tolerated. GI- monitor sx Status post left hip I and D. Questionable spinal cord lesion posterior aspect of C7. Hyperlipidemia. Acute pain syndrome-continue current pain meds History of multiple hip surgeries. History of recurrent CVAs. History of subdural hematoma with evacuation. History of right total knee replacement. History of multiple lumbar surgeries. History of left shoulder replacement. JEREMY CHOWDHURY MD Oct 29, 2016 12:37
[2016-10-29] MEDS: DULOXETINE 20 MG CAP DR PO SCH (14:05)
--- NOTE | 2016-10-29 16:00 | PN ---
Date/Time of Note Date/Time of Note DATE: 10/29/16 TIME: 15:59 Assessment/Plan VTE Prophylaxis VTE Prophylaxis Intervention: other Lines/Catheters IV Catheter Type (from Nrs): portacath Urinary Cath still in place: No Assessment/Plan Assessment/Plan 1. Left hip infection, status post I and D, status post antibiotic replacement. The patient is currently stable. 2. Urinary tract infection. Continue current antibiotic regimen. 3. Hypertension. Continue current blood pressure regimen. 4. Multiple sclerosis. Patient's has relapsing and remitting. The patient is status post acute flare, status post Solu-Medrol being followed by Neurology. 5. Hyponatremia, improved. 6. Chronic pain syndrome. Continue current pain management. 7. Neuropathy, continue Lyrica. 8. Insomnia. Continue Restoril. 9. Anemia. Monitor H and H levels. 10. Gastrointestinal and deep venous thrombosis prophylaxis. Continue Lovenox. 11. Mild hypernatremia, improved. Continue to monitor. Subjective 24 Hr Interval Summary Free Text/Dictation SUBJECTIVE DATA: Patient is stable. No events overnight. No fevers, chills, nausea, vomiting. OBJECTIVE DATA: HEENT: Head is normocephalic. NECK: Supple. HEART: Regular rate. LUNGS: Diminished breath sounds at the base. ABDOMEN: Soft, nontender to palpation. No rebound or guarding. EXTREMITIES: Negative for clubbing, cyanosis. No edema. DERMATOLOGIC: No rashes. MUSCULOSKELETAL: No joint effusion. NEUROLOGIC: No change in exam. MEDICATIONS: Reviewed. Exam/Review of Systems Vital Signs Vitals Vital Signs Date Time Temp Pulse Resp B/P Pulse Ox O2 Delivery O2 Flow Rate FiO2 10/29/16 07:48 98.0 52 18 128/60 97 10/27/16 08:00 Room Air Intake and Output 10/28/16 10/28/16 10/29/16 15:00 23:00 07:00 Intake Total 694 ml 350 ml Balance 694 ml 350 ml Results Result Diagram: 10/28/16 0600 10/28/16 0600 Medications Medications Current Medications Docusate Sodium (Colace) 100 mg BID PO Last administered on 10/28/16 21:15; Admin Dose 100 MG; Start 10/23/16 at 09:00 Senna (Senokot) 1 tab HS PO Last administered on 10/28/16 21:15; Admin Dose 1 TAB; Start 10/23/16 at 21:00 Lactulose (Enulose) 20 gm DAILY PRN PO CONSTIPATION; Start 10/22/16 at 23:00 Bisacodyl (Dulcolax Supp) 10 mg DAILY PRN [place] CONSTIPATION; Start 10/22/16 at 23: 00 Acetaminophen (Tylenol Tab) 650 mg Q4H PRN PO PAIN; Start 10/22/16 at 23:00 Baclofen (Lioresal) 20 mg TID PO Last administered on 10/29/16 14:07; Admin Dose 20 MG; Start 10/23/16 at 09:00 Pantoprazole (Protonix Tab) 40 mg BID@18 PO Last administered on 10/29/16 06:40; Admin Dose 40 MG; Start 10/23/16 at 06:00 Diazepam (Valium) 10 mg HS PRN PO MUSCLE SPASMS; Start 10/22/16 at 23:00 Diphenhydramine HCl (Benadryl) 25 mg Q6H PRN PO ITCHING; Start 10/22/16 at 23:00 Cyclosporine (Restasis) 1 drop BID BOTH EYES Last administered on 10/28/16 21: 23; Admin Dose 1 DROP; Start 10/23/16 at 09:00 Hydrochlorothiazide (Hydrochlorothiazide) 25 mg DAILY PO Last administered on 08:12; Admin Dose 25 MG; Start 10/23/16 at 09:00 Ondansetron HCl (Zofran Tab) 4 mg Q8 PRN PO NAUSEA AND/OR VOMITING; Start at 23:00 Calcium Carbonate (Tums) 1,000 mg Q4 PRN PO heartburn Last administered on 10/29 03:52; Admin Dose 1,000 MG; Start 10/22/16 at 23:00 Oxycodone/ Acetaminophen (Percocet (5/ 325)) 1 tab Q4H PRN PO PAIN; Start at 23:00 Oxycodone/ Acetaminophen (Percocet (5/ 325)) 2 tab Q4H PRN PO PAIN Last administered on 10/29/16 09:19; Admin Dose 2 TAB; Start 10/22/16 at 23:00 Pregabalin (Lyrica) 75 mg TID PO Last administered on 10/29/16 14:05; Admin Dose 75 MG; Start 10/23/16 at 09:00 Clindamycin HCl (Cleocin) 300 mg BID PO Last administered on 10/29/16 14:07; Admin Dose 300 MG; Start 10/23/16 at 09:00 Enoxaparin Sodium (Lovenox) 40 mg DAILY SC Last administered on 10/27/16 09:52 ; Admin Dose 40 MG; Start 10/23/16 at 09:00 Lactobacillus Acidophilus (Florajen3 Capsule) 2 each DAILY PO Last administered on 10/28/16 08:58; Admin Dose 2 EACH; Start 10/23/16 at 09:00 Temazepam (Restoril) 30 mg HS PRN PO INSOMNIA; Start 10/22/16 at 23:45 Atorvastatin Calcium (Lipitor) 20 mg DAILY@21 PO Last administered on 21:15; Admin Dose 20 MG; Start 10/23/16 at 21:00 Hydromorphone HCl (Dilaudid) 1 mg Q3H PRN IV PAIN Last administered on 14:04; Admin Dose 1 MG; Start 10/24/16 at 11:00 Fentanyl (Duragesic 75 Mcg/Hr Patch) 1 patch Q72H TRANSDERM Last administered on 10/27/16 22:01; Admin Dose 1 PATCH; Start 10/24/16 at 21:00 Amikacin Sulfate (Amikacin Iv Per Pharmacy) AMIKACIN PER PHARMAC... NOTE XX ; Start 10/25/16 at 09:00; Stop 10/30/16 at 08:59 Amphetamine/ Dextroamphetamine (Adderall) 10 mg BID@08,13 PO Last administered on 10/29/16 13:41; Admin Dose 10 MG; Start 10/25/16 at 08:00 Nifedipine (Procardia Xl) 30 mg DAILY PO Last administered on 10/26/16 09:50; Admin Dose 30 MG; Start 10/25/16 at 09:00 Duloxetine HCl 20 mg 20 mg DAILY PO Last administered on 10/29/16 14:05; Admin Dose 20 MG; Start 10/26/16 at 09:00 Amikacin Sulfate/ Sodium Chloride (Amikacin/NS) 154 ml @ 154 mls/hr Q36H IVPB Last administered on 10/28/16t 21:22; Admin Dose 154 MLS/HR; Start 10/28/16 at 21:30 ENEDINA THAKUR DO Oct 29, 2016 16:00
--- NOTE | 2016-10-29 17:01 | CONS ---
Date/Time of Note Date/Time of Note DATE: 10/29/16 TIME: 17:00 Assessment/Plan Assessment/Plan Chief Complaint/Hosp Course SUBJECTIVE: No acute changes overnight. The patient is alert, sitting up in a wheelchair, denies pain, no fevers. PHYSICAL EXAMINATION: GENERAL: Chronically ill-appearing, elderly woman who is alert, in no distress. HEENT: Head is atraumatic, normocephalic. Sclerae are anicteric. Buccal mucosa is pink. NECK: Supple. LUNGS: Chest rise is symmetrical. Breath sounds are clear. HEART: S1, S2. ABDOMEN: Soft. Bowel sounds are present. ASSESSMENT: 1. Proteus mirabilis urinary tract infection, remains on Amikacin. 2. Neurogenic bladder with ongoing urinary retention. 3. Multiple sclerosis. 4. History of cerebrovascular accident. 5. Multiple hip replacements surgeries. PLAN: The patient remains stable, completing abx, continue acute rehab, repeat cx's prn DW pt Problems: Consultation Date/Type/Reason Admit Date/Time Oct 22, 2016 at 21:20 Initial Consult Date 10/23/16 Type of Consultation: ID Referring Provider: MARIAELENA LINDQUIST DO Exam/Review of Systems Vital Signs Vitals Vital Signs Date Time Temp Pulse Resp B/P Pulse Ox O2 Delivery O2 Flow Rate FiO2 10/29/16 07:48 98.0 52 18 128/60 97 10/27/16 08:00 Room Air Intake and Output 10/28/16 10/28/16 10/29/16 15:00 23:00 07:00 Intake Total 694 ml 350 ml Balance 694 ml 350 ml Results Result Diagram: 10/28/16 0600 10/28/16 0600 Medications Medications Current Medications Docusate Sodium (Colace) 100 mg BID PO Last administered on 10/28/16 21:15; Admin Dose 100 MG; Start 10/23/16 at 09:00 Senna (Senokot) 1 tab HS PO Last administered on 10/28/16 21:15; Admin Dose 1 TAB; Start 10/23/16 at 21:00 Lactulose (Enulose) 20 gm DAILY PRN PO CONSTIPATION; Start 10/22/16 at 23:00 Bisacodyl (Dulcolax Supp) 10 mg DAILY PRN [place] CONSTIPATION; Start 10/22/16 at 23: 00 Acetaminophen (Tylenol Tab) 650 mg Q4H PRN PO PAIN; Start 10/22/16 at 23:00 Baclofen (Lioresal) 20 mg TID PO Last administered on 10/29/16 14:07; Admin Dose 20 MG; Start 10/23/16 at 09:00 Pantoprazole (Protonix Tab) 40 mg BID@06,18 PO Last administered on 10/29/16 06:40; Admin Dose 40 MG; Start 10/23/16 at 06:00 Diazepam (Valium) 10 mg HS PRN PO MUSCLE SPASMS; Start 10/22/16 at 23:00 Diphenhydramine HCl (Benadryl) 25 mg Q6H PRN PO ITCHING; Start 10/22/16 at 23:00 Cyclosporine (Restasis) 1 drop BID BOTH EYES Last administered on 10/28/16 21: 23; Admin Dose 1 DROP; Start 10/23/16 at 09:00 Hydrochlorothiazide (Hydrochlorothiazide) 25 mg DAILY PO Last administered on 08:12; Admin Dose 25 MG; Start 10/23/16 at 09:00 Ondansetron HCl (Zofran Tab) 4 mg Q8 PRN PO NAUSEA AND/OR VOMITING; Start at 23:00 Calcium Carbonate (Tums) 1,000 mg Q4 PRN PO heartburn Last administered on 10/29 03:52; Admin Dose 1,000 MG; Start 10/22/16 at 23:00 Oxycodone/ Acetaminophen (Percocet (5/ 325)) 1 tab Q4H PRN PO PAIN; Start at 23:00 Oxycodone/ Acetaminophen (Percocet (5/ 325)) 2 tab Q4H PRN PO PAIN Last administered on 10/29/16 09:19; Admin Dose 2 TAB; Start 10/22/16 at 23:00 Pregabalin (Lyrica) 75 mg TID PO Last administered on 10/29/16 14:05; Admin Dose 75 MG; Start 10/23/16 at 09:00 Clindamycin HCl (Cleocin) 300 mg BID PO Last administered on 10/29/16 14:07; Admin Dose 300 MG; Start 10/23/16 at 09:00 Enoxaparin Sodium (Lovenox) 40 mg DAILY SC Last administered on 10/27/16 09:52 ; Admin Dose 40 MG; Start 10/23/16 at 09:00 Lactobacillus Acidophilus (Florajen3 Capsule) 2 each DAILY PO Last administered on 10/29/16 09:00; Admin Dose 2 EACH; Start 10/23/16 at 09:00 Temazepam (Restoril) 30 mg HS PRN PO INSOMNIA; Start 10/22/16 at 23:45 Atorvastatin Calcium (Lipitor) 20 mg DAILY@21 PO Last administered on 21:15; Admin Dose 20 MG; Start 10/23/16 at 21:00 Hydromorphone HCl (Dilaudid) 1 mg Q3H PRN IV PAIN Last administered on 14:04; Admin Dose 1 MG; Start 10/24/16 at 11:00 Fentanyl (Duragesic 75 Mcg/Hr Patch) 1 patch Q72H TRANSDERM Last administered on 10/27/16 22:01; Admin Dose 1 PATCH; Start 10/24/16 at 21:00 Amikacin Sulfate (Amikacin Iv Per Pharmacy) AMIKACIN PER PHARMAC... NOTE XX ; Start 10/25/16 at 09:00; Stop 10/30/16 at 08:59 Amphetamine/ Dextroamphetamine (Adderall) 10 mg BID@08,13 PO Last administered on 10/29/16 13:41; Admin Dose 10 MG; Start 10/25/16 at 08:00 Nifedipine (Procardia Xl) 30 mg DAILY PO Last administered on 10/26/16 09:50; Admin Dose 30 MG; Start 10/25/16 at 09:00 Duloxetine HCl 20 mg 20 mg DAILY PO Last administered on 10/29/16 14:05; Admin Dose 20 MG; Start 10/26/16 at 09:00 Amikacin Sulfate/ Sodium Chloride (Amikacin/NS) 154 ml @ 154 mls/hr Q36H IVPB Last administered on 10/28/16 21:22; Admin Dose 154 MLS/HR; Start 10/28/16 at 21:30 Miscellaneous Information (* Miscellaneous Pharmacy Order) 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 ONCE XX ; Start 10/29/16 at 17:00; Status UNV Miscellaneous Information (* Miscellaneous Pharmacy Order) patients own medication- blink tea... ONCE XX ; Start 10/29/16 at 17:00; Status YAN AIKEN NP Oct 29, 2016 17:01
[2016-10-29] MEDS ORDERED: BIOTENE MOISTURIZING PO PRN (17:30)
[2016-10-29] MEDS ORDERED: BLINK TEARS BOTH EYES PRN (17:30)
[2016-10-29 20:00] VITALS: BP 147/65; RESP 18
[2016-10-29] MEDS: ATORVASTATIN 20 MG TAB PO SCH (20:44)
[2016-10-29] MEDS: SENNA TAB PO SCH (21:00)
[2016-10-30 02:00] VITALS: BP 102/51; RESP 18
[2016-10-30] MEDS: HYDROmorphONE 1 MG/ML SYG IV PRN (02:03)
[2016-10-30] MEDS: PANTOPRAZOLE (EC) 40 MG TAB PO SCH ×2 (05:33→17:48)
[2016-10-30] MEDS: OXYCODONE/ACETAMINOPHEN (5/325) TAB PO PRN ×3 (05:34→22:02)
[2016-10-30 07:26] VITALS: BP 108/59; RESP 18
--- NOTE | 2016-10-30 08:53 | PN ---
Date/Time of Note Date/Time of Note DATE: 10/30/16 TIME: 08:51 Assessment/Plan VTE Prophylaxis VTE Prophylaxis Intervention: other Lines/Catheters [facility] PORTACATH Urinary Cath still in place: No Assessment/Plan Chief Complaint/Hosp Course 1. Left hip infection, status post I and D, status post antibiotic replacement. The patient is currently stable. 2. Urinary tract infection. Continue current antibiotic regimen. 3. Hypertension. Continue current blood pressure regimen. 4. Multiple sclerosis. Patient's has relapsing and remitting. The patient is status post acute flare, status post Solu-Medrol being followed by Neurology. 5. Hyponatremia, improved. 6. Chronic pain syndrome. Continue current pain management. 7. Neuropathy, continue Lyrica. 8. Insomnia. Continue Restoril. 9. Anemia. Monitor H and H levels. 10. Gastrointestinal and deep venous thrombosis prophylaxis. Continue Lovenox. 11. Mild hypernatremia, improved. Continue to monitor. medicine follow up SUBJECTIVE DATA: Patient is stable. No events overnight. No fevers, chills, nausea, vomiting. pain is not adequately controlled with current dose of dilaudid OBJECTIVE DATA: HEENT: Head is normocephalic. NECK: Supple. HEART: Regular rate. LUNGS: Diminished breath sounds at the base. ABDOMEN: Soft, nontender to palpation. No rebound or guarding. EXTREMITIES: Negative for clubbing, cyanosis. No edema. DERMATOLOGIC: No rashes. MUSCULOSKELETAL: No joint effusion. NEUROLOGIC: No change in exam. MEDICATIONS: Reviewed. Problems: Exam/Review of Systems Vital Signs Vitals Vital Signs Date Time Temp Pulse Resp B/P Pulse Ox O2 Delivery O2 Flow Rate FiO2 10/30/16 07:26 97.9 51 18 108/59 97 10/27/16 08:00 Room Air Intake and Output 10/29/16 10/29/16 10/30/16 15:00 23:00 07:00 Intake Total 800 ml 400 ml 420 ml Output Total 500 ml Balance 300 ml 400 ml 420 ml Results Result Diagram: 10/28/16 0600 10/28/16 0600 Medications Medications Current Medications Docusate Sodium (Colace) 100 mg BID PO Last administered on 10/29/16t 20:44; Admin Dose 100 MG; Start 10/23/16 at 09:00 Senna (Senokot) 1 tab HS PO Last administered on 10/28/16 21:15; Admin Dose 1 TAB; Start 10/23/16 at 21:00 Lactulose (Enulose) 20 gm DAILY PRN PO CONSTIPATION; Start 10/22/16 at 23:00 Bisacodyl (Dulcolax Supp) 10 mg DAILY PRN [place] CONSTIPATION; Start 10/22/16 at 23: 00 Acetaminophen (Tylenol Tab) 650 mg Q4H PRN PO PAIN; Start 10/22/16 at 23:00 Baclofen (Lioresal) 20 mg TID PO Last administered on 10/29/16 20:44; Admin Dose 20 MG; Start 10/23/16 at 09:00 Pantoprazole (Protonix Tab) 40 mg BID@,18 PO Last administered on 10/30/16 05:33; Admin Dose 40 MG; Start 10/23/16 at 06:00 Diazepam (Valium) 10 mg HS PRN PO MUSCLE SPASMS; Start 10/22/16 at 23:00 Diphenhydramine HCl (Benadryl) 25 mg Q6H PRN PO ITCHING; Start 10/22/16 at 23:00 Cyclosporine (Restasis) 1 drop BID BOTH EYES Last administered on 10/29/16 20: 44; Admin Dose 1 DROP; Start 10/23/16 at 09:00 Hydrochlorothiazide (Hydrochlorothiazide) 25 mg DAILY PO Last administered on 08:12; Admin Dose 25 MG; Start 10/23/16 at 09:00 Ondansetron HCl (Zofran Tab) 4 mg Q8 PRN PO NAUSEA AND/OR VOMITING; Start at 23:00 Calcium Carbonate (Tums) 1,000 mg Q4 PRN PO heartburn Last administered on 10/29 21:00; Admin Dose 1,000 MG; Start 10/22/16 at 23:00 Oxycodone/ Acetaminophen (Percocet (5/ 325)) 1 tab Q4H PRN PO PAIN; Start at 23:00 Oxycodone/ Acetaminophen (Percocet (5/ 325)) 2 tab Q4H PRN PO PAIN Last administered on 10/30/16 05:34; Admin Dose 2 TAB; Start 10/22/16 at 23:00 Pregabalin (Lyrica) 75 mg TID PO Last administered on 10/29/16 20:44; Admin Dose 75 MG; Start 10/23/16 at 09:00 Clindamycin HCl (Cleocin) 300 mg BID PO Last administered on 10/29/16 20:44; Admin Dose 300 MG; Start 10/23/16 at 09:00 Enoxaparin Sodium (Lovenox) 40 mg DAILY SC Last administered on 10/27/16 09:52 ; Admin Dose 40 MG; Start 10/23/16 at 09:00 Lactobacillus Acidophilus (Florajen3 Capsule) 2 each DAILY PO Last administered on 10/29/16 09:00; Admin Dose 2 EACH; Start 10/23/16 at 09:00 Temazepam (Restoril) 30 mg HS PRN PO INSOMNIA; Start 10/22/16 at 23:45 Atorvastatin Calcium (Lipitor) 20 mg DAILY@21 PO Last administered on 20:44; Admin Dose 20 MG; Start 10/23/16 at 21:00 Hydromorphone HCl (Dilaudid) 1 mg Q3H PRN IV PAIN Last administered on 02:03; Admin Dose 1 MG; Start 10/24/16 at 11:00 Fentanyl (Duragesic 75 Mcg/Hr Patch) 1 patch Q72H TRANSDERM Last administered on 10/27/16 22:01; Admin Dose 1 PATCH; Start 10/24/16 at 21:00 Amikacin Sulfate (Amikacin Iv Per Pharmacy) AMIKACIN PER PHARMAC... NOTE XX ; Start 10/25/16 at 09:00; Stop 10/30/16 at 08:59 Amphetamine/ Dextroamphetamine (Adderall) 10 mg BID@,13 PO Last administered on 10/29/16 13:41; Admin Dose 10 MG; Start 10/25/16 at 08:00 Nifedipine (Procardia Xl) 30 mg DAILY PO Last administered on 10/26/16 09:50; Admin Dose 30 MG; Start 10/25/16 at 09:00 Duloxetine HCl 20 mg 20 mg DAILY PO Last administered on 10/29/16 14:05; Admin Dose 20 MG; Start 10/26/16 at 09:00 Amikacin Sulfate/ Sodium Chloride (Amikacin/NS) 154 ml @ 154 mls/hr Q36H IVPB Last administered on 10/28/16t 21:22; Admin Dose 154 MLS/HR; Start 10/28/16 at 21:30 Patient Own Medication 1 ea Q2H PRN PO DRY MOUTH; Start 10/29/16 at 17:30 Patient Own Medication 1 ea Q1H PRN BOTH EYES DRY EYES; Start 10/29/16 at 17:30 ENEDINA THKAUR DO Oct 30, 2016 08:53
[2016-10-30] MEDS: DULOXETINE 20 MG CAP DR PO SCH (09:00)
[2016-10-30] MEDS: ENOXAPARIN 40 MG/0.4 ML SYG SC SCH (09:00)
[2016-10-30] MEDS: DOCUSATE SODIUM 100 MG CAP PO SCH ×3 (09:00→21:03)
--- NOTE | 2016-10-30 09:30 | CONS ---
Date/Time of Note Date/Time of Note DATE: 10/30/16 TIME: 09:29 Consult Date/Type/Reason Admit Date/Time Oct 22, 2016 at 21:20 Initial Consult Date 10/23/16 Type of Consultation: ID Ordering Provider: MARIAELENA LINDQUIST DO Subjective Doing well Objective mod assist ambulation 40 feet Vital Signs Date Time Temp Pulse Resp B/P Pulse Ox O2 Delivery O2 Flow Rate FiO2 10/30/16 07:26 97.9 51 18 108/59 97 10/27/16 08:00 Room Air Intake and Output 10/29/16 10/29/16 10/30/16 14:59 22:59 06:59 Intake Total 800 ml 400 ml 420 ml Output Total 500 ml Balance 300 ml 400 ml 420 ml Results/Medications Result Diagram: 10/28/16 0600 10/28/16 0600 Medications Current Medications Docusate Sodium (Colace) 100 mg BID PO Last administered on 10/29/16 20:44; Admin Dose 100 MG; Start 10/23/16 at 09:00 Senna (Senokot) 1 tab HS PO Last administered on 10/28/16 21:15; Admin Dose 1 TAB; Start 10/23/16 at 21:00 Lactulose (Enulose) 20 gm DAILY PRN PO CONSTIPATION; Start 10/22/16 at 23:00 Bisacodyl (Dulcolax Supp) 10 mg DAILY PRN [place] CONSTIPATION; Start 10/22/16 at 23: 00 Acetaminophen (Tylenol Tab) 650 mg Q4H PRN PO PAIN; Start 10/22/16 at 23:00 Baclofen (Lioresal) 20 mg TID PO Last administered on 10/29/16 20:44; Admin Dose 20 MG; Start 10/23/16 at 09:00 Pantoprazole (Protonix Tab) 40 mg BID@06,18 PO Last administered on 10/30/16 05:33; Admin Dose 40 MG; Start 10/23/16 at 06:00 Diazepam (Valium) 10 mg HS PRN PO MUSCLE SPASMS; Start 10/22/16 at 23:00 Diphenhydramine HCl (Benadryl) 25 mg Q6H PRN PO ITCHING; Start 10/22/16 at 23:00 Cyclosporine (Restasis) 1 drop BID BOTH EYES Last administered on 10/29/16 20: 44; Admin Dose 1 DROP; Start 10/23/16 at 09:00 Hydrochlorothiazide (Hydrochlorothiazide) 25 mg DAILY PO Last administered on 08:12; Admin Dose 25 MG; Start 10/23/16 at 09:00 Ondansetron HCl (Zofran Tab) 4 mg Q8 PRN PO NAUSEA AND/OR VOMITING; Start at 23:00 Calcium Carbonate (Tums) 1,000 mg Q4 PRN PO heartburn Last administered on 10/29 21:00; Admin Dose 1,000 MG; Start 10/22/16 at 23:00 Oxycodone/ Acetaminophen (Percocet (5/ 325)) 1 tab Q4H PRN PO PAIN; Start at 23:00 Oxycodone/ Acetaminophen (Percocet (5/ 325)) 2 tab Q4H PRN PO PAIN Last administered on 10/30/16 05:34; Admin Dose 2 TAB; Start 10/22/16 at 23:00 Pregabalin (Lyrica) 75 mg TID PO Last administered on 10/29/16 20:44; Admin Dose 75 MG; Start 10/23/16 at 09:00 Clindamycin HCl (Cleocin) 300 mg BID PO Last administered on 10/29/16 20:44; Admin Dose 300 MG; Start 10/23/16 at 09:00 Enoxaparin Sodium (Lovenox) 40 mg DAILY SC Last administered on 10/27/16 09:52 ; Admin Dose 40 MG; Start 10/23/16 at 09:00 Lactobacillus Acidophilus (Florajen3 Capsule) 2 each DAILY PO Last administered on 10/29/16 09:00; Admin Dose 2 EACH; Start 10/23/16 at 09:00 Temazepam (Restoril) 30 mg HS PRN PO INSOMNIA; Start 10/22/16 at 23:45 Atorvastatin Calcium (Lipitor) 20 mg DAILY@21 PO Last administered on 20:44; Admin Dose 20 MG; Start 10/23/16 at 21:00 Fentanyl (Duragesic 75 Mcg/Hr Patch) 1 patch Q72H TRANSDERM Last administered on 10/27/16 22:01; Admin Dose 1 PATCH; Start 10/24/16 at 21:00 Amphetamine/ Dextroamphetamine (Adderall) 10 mg BID@08,13 PO Last administered on 10/29/16 13:41; Admin Dose 10 MG; Start 10/25/16 at 08:00 Nifedipine (Procardia Xl) 30 mg DAILY PO Last administered on 10/26/16 09:50; Admin Dose 30 MG; Start 10/25/16 at 09:00 Duloxetine HCl 20 mg 20 mg DAILY PO Last administered on 10/29/16 14:05; Admin Dose 20 MG; Start 10/26/16 at 09:00 Amikacin Sulfate/ Sodium Chloride (Amikacin/NS) 154 ml @ 154 mls/hr Q36H IVPB Last administered on 10/28/16 21:22; Admin Dose 154 MLS/HR; Start 10/28/16 at 21:30 Patient Own Medication 1 ea Q2H PRN PO DRY MOUTH; Start 10/29/16 at 17:30 Patient Own Medication 1 ea Q1H PRN BOTH EYES DRY EYES; Start 10/29/16 at 17:30 Hydromorphone HCl (Dilaudid) 1.5 mg Q3H PRN IV PAIN; Start 10/30/16 at 11:00; Status UNV Assessment/Plan Additional Assessment/Plan Rehabilitation- Multiple sclerosis exacerbation, Status post left hip I and D, Questionable spinal cord lesion posterior aspect of C7. Continue treatment plan Hyperlipidemia. Acute pain syndrome-continue current pain meds-encouraged to decrease prn History of multiple hip surgeries. History of recurrent CVAs. History of subdural hematoma with evacuation. History of right total knee replacement. History of multiple lumbar surgeries. History of left shoulder replacement. JEREMY CHOWDHURY MD Oct 30, 2016 09:30
[2016-10-30] MEDS: CYCLOSPORINE 0.05% OPH DROPERETTE BOTH EYES SCH ×2 (09:46→21:52)
[2016-10-30] MEDS: DEXTROAMPHET/AMPHET 10 MG TAB PO SCH ×2 (09:46→13:01)
[2016-10-30] MEDS: CLINDAMYCIN 300 MG CAP PO SCH ×2 (09:46→21:03)
[2016-10-30] MEDS: HYDROCHLOROTHIAZIDE 25 MG TAB PO SCH (09:47)
[2016-10-30] MEDS: PREGABALIN 75 MG CAP PO SCH ×3 (09:47→21:03)
[2016-10-30] MEDS: BACLOFEN 10 MG TAB PO SCH ×3 (09:47→21:03)
[2016-10-30] MEDS: NIFEdipine (XL) 30 MG TAB PO SCH (09:48)
[2016-10-30] MEDS: CALCIUM CARBONATE 500 MG CHEW TAB PO PRN ×2 (10:01→21:08)
[2016-10-30] MEDS: HYDROmorphONE 2 MG/ML SYG IV PRN ×4 (10:01→21:01)
[2016-10-30] MEDS: L ACIDOPHIL/B LACTIS/B LONGUM CAPSULE PO SCH (10:10)
[2016-10-30] MEDS: AMIKACIN 1,000 MG in SOD CHLORIDE 0.9% 150 ML IVPB SCH (10:12)
--- NOTE | 2016-10-30 13:10 | CONS ---
DATE OF ADMISSION: 10/22/2016 DATE OF CONSULTATION: 10/30/2016 HISTORY OF PRESENT ILLNESS: Claire Mosqueda is a 66-year-old female, with a history of right-sided hearing loss since pushing a silicone earplug deep in her ear. She has some pressure but no true pain. She denies any vertigo, otorrhea or tinnitus. PAST MEDICAL HISTORY: Multiple sclerosis, left hip infection. PAST SURGICAL HISTORY: Fifty-eight separate surgeries. DRUG ALLERGIES: Ancef, sulfa, aspirin, NSAIDs, atenolol. MEDICATION: List was reviewed. SOCIAL HISTORY: Negative for tobacco, alcohol, or drug abuse. FAMILY HISTORY: Negative for any heart, lung, kidney, thyroid, or liver disease. REVIEW OF SYSTEMS: Other than her left hip pain, 14-point review of systems otherwise noncontributory. PHYSICAL EXAMINATION: HEENT: Today, her left ear canal is clear. Ear drum is intact without evidence of fluid, erythema or infection. On the right side, canal is impacted with a silicone earplug. Using an alligator forceps, I was able to dissect this to 160 degrees and slowly wiggle it out. I was able to completely remove it. At this point, I could see the eardrum, which is intact. There is no evidence of fluid, erythema or infection. The nose shows no significant septal deflection. Oral cavity, oropharynx are without lesion. NECK: Shows no lymphadenopathy or thyromegaly. Trachea is midline. without lesion. IMPRESSION: 1. Foreign body, right ear. 2. Conductive hearing loss, right ear. PLAN: At this point, the foreign body was easily removed. Nothing else needs to be done at this point. If there are any questions or concerns, please feel free to call at any time. Dictated By: Roshan Carty MD /laura/lia /Document#: [id number]
[2016-10-30 20:00] VITALS: BP 125/65; RESP 18
[2016-10-30] MEDS: SENNA TAB PO SCH ×2 (21:00→21:03)
[2016-10-30] MEDS: ATORVASTATIN 20 MG TAB PO SCH (21:03)
[2016-10-30] MEDS: FENTAnyl PATCH 75 MCG/HR TRANSDERM SCH (22:01)
[2016-10-31] MEDS: HYDROmorphONE 2 MG/ML SYG IV PRN ×7 (01:40→22:20)
[2016-10-31 02:00] VITALS: BP 128/58; RESP 18
[2016-10-31] MEDS: PANTOPRAZOLE (EC) 40 MG TAB PO SCH ×2 (05:38→18:37)
[2016-10-31] MEDS: OXYCODONE/ACETAMINOPHEN (5/325) TAB PO PRN ×2 (06:24→20:59)
[2016-10-31 07:30] VITALS: BP 121/56; RESP 18
[2016-10-31] MEDS: DOCUSATE SODIUM 100 MG CAP PO SCH ×2 (09:00→21:00)
[2016-10-31] MEDS: DULOXETINE 20 MG CAP DR PO SCH (09:00)
[2016-10-31] MEDS: ENOXAPARIN 40 MG/0.4 ML SYG SC SCH (09:00)
--- NOTE | 2016-10-31 09:33 | PN ---
Date/Time of Note Date/Time of Note DATE: 10/31/16 TIME: 09:33 Assessment/Plan VTE Prophylaxis VTE Prophylaxis Intervention: other Lines/Catheters IV [facility] Type [facility]from [facility]): MICHAEL CATH Urinary Cath still in place: No Assessment/Plan Chief Complaint/Hosp Course 1. Left hip infection, status post I and D, status post antibiotic replacement. The patient is currently stable. 2. Urinary tract infection. Continue current antibiotic regimen. 3. Hypertension. Continue current blood pressure regimen. 4. Multiple sclerosis. Patient's has relapsing and remitting. The patient is status post acute flare, status post Solu-Medrol being followed by Neurology. 5. Hyponatremia, improved. 6. Chronic pain syndrome. Continue current pain management. 7. Neuropathy, continue Lyrica. 8. Insomnia. Continue Restoril. 9. Anemia. Monitor H and H levels. 10. Gastrointestinal and deep venous thrombosis prophylaxis. Continue Lovenox. 11. Mild hypernatremia, improved. Continue to monitor. medicine follow up SUBJECTIVE DATA: Patient is stable. No events overnight. No fevers, chills, nausea, vomiting. pain is now adequately controlled with current dose of dilaudid foreign object from R ear removed by ENT OBJECTIVE DATA: HEENT: Head is normocephalic. NECK: Supple. HEART: Regular rate. LUNGS: Diminished breath sounds at the base. ABDOMEN: Soft, nontender to palpation. No rebound or guarding. EXTREMITIES: Negative for clubbing, cyanosis. No edema. DERMATOLOGIC: No rashes. MUSCULOSKELETAL: No joint effusion. NEUROLOGIC: No change in exam. MEDICATIONS: Reviewed. Problems: Exam/Review of Systems Vital Signs Vitals Vital Signs Date Time Temp Pulse Resp B/P Pulse Ox O2 Delivery O2 Flow Rate FiO2 10/31/16 07:30 97.6 46 18 121/56 98 10/27/16 08:00 Room Air Intake and Output 10/30/16 10/30/16 10/31/16 15:00 23:00 07:00 Intake Total 1004 ml 700 ml 200 ml Output Total 250 ml Balance 754 ml 700 ml 200 ml Results Result Diagram: 10/28/16 0600 10/28/16 0600 Medications Medications Current Medications Docusate Sodium (Colace) 100 mg BID PO Last administered on 10/29/16t 20:44; Admin Dose 100 MG; Start 10/23/16 at 09:00 Senna (Senokot) 1 tab HS PO Last administered on 10/28/16 21:15; Admin Dose 1 TAB; Start 10/23/16 at 21:00 Lactulose (Enulose) 20 gm DAILY PRN PO CONSTIPATION; Start 10/22/16 at 23:00 Bisacodyl (Dulcolax Supp) 10 mg DAILY PRN [place] CONSTIPATION; Start 10/22/16 at 23: 00 Acetaminophen (Tylenol Tab) 650 mg Q4H PRN PO PAIN; Start 10/22/16 at 23:00 Baclofen (Lioresal) 20 mg TID PO Last administered on 10/30/16 21:03; Admin Dose 20 MG; Start 10/23/16 at 09:00 Pantoprazole (Protonix Tab) 40 mg BID@,18 PO Last administered on 10/31/16 05:38; Admin Dose 40 MG; Start 10/23/16 at 06:00 Diazepam (Valium) 10 mg HS PRN PO MUSCLE SPASMS; Start 10/22/16 at 23:00 Diphenhydramine HCl (Benadryl) 25 mg Q6H PRN PO ITCHING; Start 10/22/16 at 23:00 Cyclosporine (Restasis) 1 drop BID BOTH EYES Last administered on 10/30/16 21: 52; Admin Dose 1 DROP; Start 10/23/16 at 09:00 Hydrochlorothiazide (Hydrochlorothiazide) 25 mg DAILY PO Last administered on 09:47; Admin Dose 25 MG; Start 10/23/16 at 09:00 Ondansetron HCl (Zofran Tab) 4 mg Q8 PRN PO NAUSEA AND/OR VOMITING; Start at 23:00 Calcium Carbonate (Tums) 1,000 mg Q4 PRN PO heartburn Last administered on 10/30 21:08; Admin Dose 1,000 MG; Start 10/22/16 at 23:00 Oxycodone/ Acetaminophen (Percocet (5/ 325)) 1 tab Q4H PRN PO PAIN; Start at 23:00 Oxycodone/ Acetaminophen (Percocet (5/ 325)) 2 tab Q4H PRN PO PAIN Last administered on 10/31/16 06:24; Admin Dose 2 TAB; Start 10/22/16 at 23:00 Pregabalin (Lyrica) 75 mg TID PO Last administered on 10/30/16 21:03; Admin Dose 75 MG; Start 10/23/16 at 09:00 Clindamycin HCl (Cleocin) 300 mg BID PO Last administered on 10/30/16 21:03; Admin Dose 300 MG; Start 10/23/16 at 09:00 Enoxaparin Sodium (Lovenox) 40 mg DAILY SC Last administered on 10/27/16 09:52 ; Admin Dose 40 MG; Start 10/23/16 at 09:00 Lactobacillus Acidophilus (Florajen3 Capsule) 2 each DAILY PO Last administered on 10/30/16 10:10; Admin Dose 2 EACH; Start 10/23/16 at 09:00 Temazepam (Restoril) 30 mg HS PRN PO INSOMNIA; Start 10/22/16 at 23:45 Atorvastatin Calcium (Lipitor) 20 mg DAILY@21 PO Last administered on 21:03; Admin Dose 20 MG; Start 10/23/16 at 21:00 Fentanyl (Duragesic 75 Mcg/Hr Patch) 1 patch Q72H TRANSDERM Last administered on 10/30/16 22:01; Admin Dose 1 PATCH; Start 10/24/16 at 21:00 Amphetamine/ Dextroamphetamine (Adderall) 10 mg BID@08,13 PO Last administered on 10/30/16 13:01; Admin Dose 10 MG; Start 10/25/16 at 08:00 Nifedipine (Procardia Xl) 30 mg DAILY PO Last administered on 10/30/16 09:48; Admin Dose 30 MG; Start 10/25/16 at 09:00 Duloxetine HCl 20 mg 20 mg DAILY PO Last administered on 10/30/16 09:00; Admin Dose 20 MG; Start 10/26/16 at 09:00 Amikacin Sulfate/ Sodium Chloride (Amikacin/NS) 154 ml @ 154 mls/hr Q36H IVPB Last administered on 10/30/16 10:12; Admin Dose 154 MLS/HR; Start 10/28/16 at 21:30 Patient Own Medication 1 ea Q2H PRN PO DRY MOUTH Last administered on 10:04; Admin Dose 1 EA; Start 10/29/16 at 17:30 Patient Own Medication 1 ea Q1H PRN BOTH EYES DRY EYES Last administered on 10:04; Admin Dose 1 EA; Start 10/29/16 at 17:30 Hydromorphone HCl (Dilaudid) 1.5 mg Q3H PRN IV PAIN Last administered on 05:38; Admin Dose 1.5 MG; Start 10/30/16 at 10:00 ENEDINA THAKUR DO Oct 31, 2016 09:33
[2016-10-31] MEDS: NIFEdipine (XL) 30 MG TAB PO SCH (09:36)
[2016-10-31] MEDS: PREGABALIN 75 MG CAP PO SCH ×3 (09:36→20:59)
[2016-10-31] MEDS: HYDROCHLOROTHIAZIDE 25 MG TAB PO SCH (09:37)
[2016-10-31] MEDS: CLINDAMYCIN 300 MG CAP PO SCH (09:37)
[2016-10-31] MEDS: CYCLOSPORINE 0.05% OPH DROPERETTE BOTH EYES SCH ×2 (09:37→20:59)
--- NOTE | 2016-10-31 09:55 | PN ---
DATE: 10/30/2016 PSYCHOLOGY - INDIVIDUAL SESSION - [id number]: This is a follow up on a patient was seen last week. The patient reports that she is feeling better. The patient feels that she is making progress while she has been in the hospital. The patient does know that she probably could benefit from some continued psychotherapy. The patient is going to look for a therapist near where she lives to see if she can follow up in psychotherapy after discharge. The patient also reported that she was able to and has started Cymbalta to try to help her with her mood and MS. The patient is motivated to help herself. Dictated By: Miki Keita, PHD /laura/cam /Document#: [id number]
[2016-10-31] MEDS: BACLOFEN 10 MG TAB PO SCH ×3 (11:23→20:59)
[2016-10-31] MEDS: L ACIDOPHIL/B LACTIS/B LONGUM CAPSULE PO SCH (11:24)
[2016-10-31] MEDS: DEXTROAMPHET/AMPHET 10 MG TAB PO SCH ×2 (11:50→18:37)
--- NOTE | 2016-10-31 13:17 | CONS ---
Date/Time of Note Date/Time of Note DATE: 10/31/16 TIME: 13:15 Consult Date/Type/Reason Admit Date/Time Oct 22, 2016 at 21:20 Initial Consult Date 10/23/16 Type of Consultation: ID Ordering Provider: MARIAELENA LINDQUIST DO Subjective Comfortable Objective pulm-cta abd-soft Vital Signs Date Time Temp Pulse Resp B/P Pulse Ox O2 Delivery O2 Flow Rate FiO2 10/31/16 07:30 97.6 46 18 121/56 98 10/27/16 08:00 Room Air Intake and Output 10/30/16 10/30/16 10/31/16 15:00 23:00 07:00 Intake Total 1004 ml 700 ml 200 ml Output Total 250 ml Balance 754 ml 700 ml 200 ml Results/Medications Result Diagram: 10/28/16 0600 10/28/16 0600 Medications Current Medications Docusate Sodium (Colace) 100 mg BID PO Last administered on 10/29/16 20:44; Admin Dose 100 MG; Start 10/23/16 at 09:00 Senna (Senokot) 1 tab HS PO Last administered on 10/28/16 21:15; Admin Dose 1 TAB; Start 10/23/16 at 21:00 Lactulose (Enulose) 20 gm DAILY PRN PO CONSTIPATION; Start 10/22/16 at 23:00 Bisacodyl (Dulcolax Supp) [address] CONSTIPATION; Start 10/22/16 at 23: 00 Acetaminophen (Tylenol Tab) 650 mg Q4H PRN PO PAIN; Start 10/22/16 at 23:00 Baclofen (Lioresal) 20 mg TID PO Last administered on 10/31/16 11:23; Admin Dose 20 MG; Start 10/23/16 at 09:00 Pantoprazole (Protonix Tab) 40 mg BID@06,18 PO Last administered on 10/31/16 05:38; Admin Dose 40 MG; Start 10/23/16 at 06:00 Diazepam (Valium) 10 mg HS PRN PO MUSCLE SPASMS; Start 10/22/16 at 23:00 Diphenhydramine HCl (Benadryl) 25 mg Q6H PRN PO ITCHING; Start 10/22/16 at 23:00 Cyclosporine (Restasis) 1 drop BID BOTH EYES Last administered on 10/31/16 09: 37; Admin Dose 1 DROP; Start 10/23/16 at 09:00 Hydrochlorothiazide (Hydrochlorothiazide) 25 mg DAILY PO Last administered on 09:37; Admin Dose 25 MG; Start 10/23/16 at 09:00 Ondansetron HCl (Zofran Tab) 4 mg Q8 PRN PO NAUSEA AND/OR VOMITING; Start at 23:00 Calcium Carbonate (Tums) 1,000 mg Q4 PRN PO heartburn Last administered on 10/30 21:08; Admin Dose 1,000 MG; Start 10/22/16 at 23:00 Oxycodone/ Acetaminophen (Percocet (5/ 325)) 1 tab Q4H PRN PO PAIN; Start at 23:00 Oxycodone/ Acetaminophen (Percocet (5/ 325)) 2 tab Q4H PRN PO PAIN Last administered on 10/31/16 06:24; Admin Dose 2 TAB; Start 10/22/16 at 23:00 Pregabalin (Lyrica) 75 mg TID PO Last administered on 10/31/16 09:36; Admin Dose 75 MG; Start 10/23/16 at 09:00 Clindamycin HCl (Cleocin) 300 mg BID PO Last administered on 10/31/16 09:37; Admin Dose 300 MG; Start 10/23/16 at 09:00 Enoxaparin Sodium (Lovenox) 40 mg DAILY SC Last administered on 10/27/16 09:52 ; Admin Dose 40 MG; Start 10/23/16 at 09:00 Lactobacillus Acidophilus (Florajen3 Capsule) 2 each DAILY PO Last administered on 10/31/16 11:24; Admin Dose 2 EACH; Start 10/23/16 at 09:00 Temazepam (Restoril) 30 mg HS PRN PO INSOMNIA; Start 10/22/16 at 23:45 Atorvastatin Calcium (Lipitor) 20 mg DAILY@21 PO Last administered on 21:03; Admin Dose 20 MG; Start 10/23/16 at 21:00 Fentanyl (Duragesic 75 Mcg/Hr Patch) 1 patch Q72H TRANSDERM Last administered on 10/30/16 22:01; Admin Dose 1 PATCH; Start 10/24/16 at 21:00 Amphetamine/ Dextroamphetamine (Adderall) 10 mg BID@08,13 PO Last administered on 10/31/16 11:50; Admin Dose 10 MG; Start 10/25/16 at 08:00 Nifedipine (Procardia Xl) 30 mg DAILY PO Last administered on 10/31/16 09:36; Admin Dose 30 MG; Start 10/25/16 at 09:00 Duloxetine HCl 20 mg 20 mg DAILY PO Last administered on 10/30/16 09:00; Admin Dose 20 MG; Start 10/26/16 at 09:00 Amikacin Sulfate/ Sodium Chloride (Amikacin/NS) 154 ml @ 154 mls/hr Q36H IVPB Last administered on 10/30/16 10:12; Admin Dose 154 MLS/HR; Start 10/28/16 at 21:30 Patient Own Medication 1 ea Q2H PRN PO DRY MOUTH Last administered on 10:04; Admin Dose 1 EA; Start 10/29/16 at 17:30 Patient Own Medication 1 ea Q1H PRN BOTH EYES DRY EYES Last administered on 10:04; Admin Dose 1 EA; Start 10/29/16 at 17:30 Hydromorphone HCl (Dilaudid) 1.5 mg Q3H PRN IV PAIN Last administered on 11:46; Admin Dose 1.5 MG; Start 10/30/16 at 10:00 Miscellaneous Information (*Rx Drug Level Order Reminder*) 1 ONCE ONCE XX ; Start 10/31/16 at 20:30; Stop 10/31/16 at 20:31 Assessment/Plan Additional Assessment/Plan Rehabilitation- Multiple sclerosis exacerbation, Status post left hip I and D, Questionable spinal cord lesion posterior aspect of C7. Continue to improve Hyperlipidemia. Acute pain syndrome-continue current pain meds-encouraged to decrease prn History of multiple hip surgeries. History of recurrent CVAs. History of subdural hematoma with evacuation. History of right total knee replacement. History of multiple lumbar surgeries. History of left shoulder replacement. JEREMY CHOWDHURY MD Oct 31, 2016 13:17
[2016-10-31 14:00] VITALS: BP 124/56; RESP 20
--- NOTE | 2016-10-31 14:26 | CONS ---
Date/Time of Note Date/Time of Note DATE: 10/31/16 TIME: 14:25 Assessment/Plan Assessment/Plan Chief Complaint/Hosp Course SUBJECTIVE: No acute changes overnight. The patient is alert, sitting up in a wheelchair, denies pain, no fevers. PHYSICAL EXAMINATION: GENERAL: Chronically ill-appearing, elderly woman who is alert, in no distress. HEENT: Head is atraumatic, normocephalic. Sclerae are anicteric. Buccal mucosa is pink. NECK: Supple. LUNGS: Chest rise is symmetrical. Breath sounds are clear. HEART: S1, S2. ABDOMEN: Soft. Bowel sounds are present. ASSESSMENT: 1. Proteus mirabilis urinary tract infection 2. Neurogenic bladder with ongoing urinary retention. 3. Multiple sclerosis. 4. History of cerebrovascular accident. 5. Multiple hip replacements surgeries. PLAN: The patient remains stable, hip incision looks clean, no fevers, will dc abx and observe, repeat cx's prn DW staff Problems: Consultation Date/Type/Reason Admit Date/Time Oct 22, 2016 at 21:20 Initial Consult Date 10/23/16 Type of Consultation: ID Referring Provider: MARIAELENA LINDQUIST DO Exam/Review of Systems Vital Signs Vitals Vital Signs Date Time Temp Pulse Resp B/P Pulse Ox O2 Delivery O2 Flow Rate FiO2 10/31/16 07:30 97.6 46 18 121/56 98 10/27/16 08:00 Room Air Intake and Output 10/30/16 10/30/16 10/31/16 15:00 23:00 07:00 Intake Total 1004 ml 700 ml 200 ml Output Total 250 ml Balance 754 ml 700 ml 200 ml Results Result Diagram: 10/28/16 0600 10/28/16 0600 Medications Medications Current Medications Docusate Sodium (Colace) 100 mg BID PO Last administered on 10/29/16 20:44; Admin Dose 100 MG; Start 10/23/16 at 09:00 Senna (Senokot) 1 tab HS PO Last administered on 10/28/16 21:15; Admin Dose 1 TAB; Start 10/23/16 at 21:00 Lactulose (Enulose) 20 gm DAILY PRN PO CONSTIPATION; Start 10/22/16 at 23:00 Bisacodyl (Dulcolax Supp) 10 mg DAILY PRN [place] CONSTIPATION; Start 10/22/16 at 23: 00 Acetaminophen (Tylenol Tab) 650 mg Q4H PRN PO PAIN; Start 10/22/16 at 23:00 Baclofen (Lioresal) 20 mg TID PO Last administered on 10/31/16 11:23; Admin Dose 20 MG; Start 10/23/16 at 09:00 Pantoprazole (Protonix Tab) 40 mg BID@,18 PO Last administered on 10/31/16 05:38; Admin Dose 40 MG; Start 10/23/16 at 06:00 Diazepam (Valium) 10 mg HS PRN PO MUSCLE SPASMS; Start 10/22/16 at 23:00 Diphenhydramine HCl (Benadryl) 25 mg Q6H PRN PO ITCHING; Start 10/22/16 at 23:00 Cyclosporine (Restasis) 1 drop BID BOTH EYES Last administered on 10/31/16 09: 37; Admin Dose 1 DROP; Start 10/23/16 at 09:00 Hydrochlorothiazide (Hydrochlorothiazide) 25 mg DAILY PO Last administered on 09:37; Admin Dose 25 MG; Start 10/23/16 at 09:00 Ondansetron HCl (Zofran Tab) 4 mg Q8 PRN PO NAUSEA AND/OR VOMITING; Start at 23:00 Calcium Carbonate (Tums) 1,000 mg Q4 PRN PO heartburn Last administered on 10/30 21:08; Admin Dose 1,000 MG; Start 10/22/16 at 23:00 Oxycodone/ Acetaminophen (Percocet (5/ 325)) 1 tab Q4H PRN PO PAIN; Start at 23:00 Oxycodone/ Acetaminophen (Percocet (5/ 325)) 2 tab Q4H PRN PO PAIN Last administered on 10/31/16 06:24; Admin Dose 2 TAB; Start 10/22/16 at 23:00 Pregabalin (Lyrica) 75 mg TID PO Last administered on 10/31/16 09:36; Admin Dose 75 MG; Start 10/23/16 at 09:00 Clindamycin HCl (Cleocin) 300 mg BID PO Last administered on 10/31/16 09:37; Admin Dose 300 MG; Start 10/23/16 at 09:00 Enoxaparin Sodium (Lovenox) 40 mg DAILY SC Last administered on 10/27/16 09:52 ; Admin Dose 40 MG; Start 10/23/16 at 09:00 Lactobacillus Acidophilus (Florajen3 Capsule) 2 each DAILY PO Last administered on 10/31/16 11:24; Admin Dose 2 EACH; Start 10/23/16 at 09:00 Temazepam (Restoril) 30 mg HS PRN PO INSOMNIA; Start 10/22/16 at 23:45 Atorvastatin Calcium (Lipitor) 20 mg DAILY@21 PO Last administered on 21:03; Admin Dose 20 MG; Start 10/23/16 at 21:00 Fentanyl (Duragesic 75 Mcg/Hr Patch) 1 patch Q72H TRANSDERM Last administered on 10/30/16 22:01; Admin Dose 1 PATCH; Start 10/24/16 at 21:00 Amphetamine/ Dextroamphetamine (Adderall) 10 mg BID@08,13 PO Last administered on 10/31/16 11:50; Admin Dose 10 MG; Start 10/25/16 at 08:00 Nifedipine (Procardia Xl) 30 mg DAILY PO Last administered on 10/31/16 09:36; Admin Dose 30 MG; Start 10/25/16 at 09:00 Duloxetine HCl 20 mg 20 mg DAILY PO Last administered on 10/30/16 09:00; Admin Dose 20 MG; Start 10/26/16 at 09:00 Amikacin Sulfate/ Sodium Chloride (Amikacin/NS) 154 ml @ 154 mls/hr Q36H IVPB Last administered on 10/30/16 10:12; Admin Dose 154 MLS/HR; Start 10/28/16 at 21:30 Patient Own Medication 1 ea Q2H PRN PO DRY MOUTH Last administered on 10:04; Admin Dose 1 EA; Start 10/29/16 at 17:30 Patient Own Medication 1 ea Q1H PRN BOTH EYES DRY EYES Last administered on 10:04; Admin Dose 1 EA; Start 10/29/16 at 17:30 Hydromorphone HCl (Dilaudid) 1.5 mg Q3H PRN IV PAIN Last administered on 11:46; Admin Dose 1.5 MG; Start 10/30/16 at 10:00 Miscellaneous Information (*Rx Drug Level Order Reminder*) 1 ONCE ONCE XX ; Start 10/31/16 at 20:30; Stop 10/31/16 at 20:31 YAN OATES NP Oct 31, 2016 14:26
[2016-10-31 19:27] VITALS: BP 128/74; RESP 19
[2016-10-31] MEDS: ATORVASTATIN 20 MG TAB PO SCH (20:59)
[2016-10-31] MEDS: SENNA TAB PO SCH (21:00)
[2016-11-01] MEDS: HYDROmorphONE 2 MG/ML SYG IV PRN ×6 (05:38→21:03)
[2016-11-01] MEDS: PANTOPRAZOLE (EC) 40 MG TAB PO SCH ×2 (05:38→18:11)
[2016-11-01 05:41] VITALS: BP 101/51; PULSE 53; RESP 16
[2016-11-01 06:49] LABS: CREATININE 0.6 mg/dl (0.44-1.00)
[2016-11-01 07:30] VITALS: BP 107/55; RESP 18
[2016-11-01] MEDS: DEXTROAMPHET/AMPHET 10 MG TAB PO SCH ×2 (08:00→15:51)
[2016-11-01] MEDS: PREGABALIN 75 MG CAP PO SCH ×3 (09:00→20:59)
[2016-11-01] MEDS: DOCUSATE SODIUM 100 MG CAP PO SCH ×2 (09:00→20:59)
[2016-11-01] MEDS: DULOXETINE 20 MG CAP DR PO SCH (09:00)
[2016-11-01] MEDS: CYCLOSPORINE 0.05% OPH DROPERETTE BOTH EYES SCH ×2 (09:00→21:03)
[2016-11-01] MEDS: ENOXAPARIN 40 MG/0.4 ML SYG SC SCH (09:00)
[2016-11-01] MEDS: NIFEdipine (XL) 30 MG TAB PO SCH (09:00)
[2016-11-01] MEDS: L ACIDOPHIL/B LACTIS/B LONGUM CAPSULE PO SCH (09:00)
[2016-11-01] MEDS: ONDANSETRON 4 MG TAB PO PRN (09:03)
--- NOTE | 2016-11-01 09:54 | CONS ---
Date/Time of Note Date/Time of Note DATE: 11/01/16 TIME: 09:53 Consult Date/Type/Reason Admit Date/Time Oct 22, 2016 at 21:20 Initial Consult Date 10/23/16 Type of Consultation: ID Ordering Provider: MARIAELENA LINDQUIST DO Objective min assist ambulation Vital Signs Date Time Temp Pulse Resp B/P Pulse Ox O2 Delivery O2 Flow Rate FiO2 11/01/16 07:30 97.6 50 18 107/55 96 11/01/16 05:41 Room Air Intake and Output 10/31/16 10/31/16 11/01/16 15:00 23:00 07:00 Intake Total 650 ml 920 ml Output Total 1 ml Balance 650 ml 919 ml Results/Medications Result Diagram: 10/28/16 0600 11/01/16 0557 Results 24 hrs Laboratory Tests Test 11/01/16 05:57 Blood Urea Nitrogen 14 Creatinine 0.60 Medications Current Medications Docusate Sodium (Colace) 100 mg BID PO Last administered on 10/29/16 20:44; Admin Dose 100 MG; Start 10/23/16 at 09:00 Senna (Senokot) 1 tab HS PO Last administered on 10/28/16 21:15; Admin Dose 1 TAB; Start 10/23/16 at 21:00 Lactulose (Enulose) 20 gm DAILY PRN PO CONSTIPATION; Start 10/22/16 at 23:00 Bisacodyl (Dulcolax Supp) 10 mg DAILY PRN [place] CONSTIPATION; Start 10/22/16 at 23: 00 Acetaminophen (Tylenol Tab) 650 mg Q4H PRN PO PAIN; Start 10/22/16 at 23:00 Baclofen (Lioresal) 20 mg TID PO Last administered on 10/31/16 20:59; Admin Dose 20 MG; Start 10/23/16 at 09:00 Pantoprazole (Protonix Tab) 40 mg BID@ PO Last administered on 11/01/16 05:38; Admin Dose 40 MG; Start 10/23/16 at 06:00 Diazepam (Valium) 10 mg HS PRN PO MUSCLE SPASMS; Start 10/22/16 at 23:00 Diphenhydramine HCl (Benadryl) 25 mg Q6H PRN PO ITCHING; Start 10/22/16 at 23:00 Cyclosporine (Restasis) 1 drop BID BOTH EYES Last administered on 10/31/16 20: 59; Admin Dose 1 DROP; Start 10/23/16 at 09:00 Hydrochlorothiazide (Hydrochlorothiazide) 25 mg DAILY PO Last administered on 09:37; Admin Dose 25 MG; Start 10/23/16 at 09:00 Ondansetron HCl (Zofran Tab) 4 mg Q8 PRN PO NAUSEA AND/OR VOMITING Last administered on 11/01/16 09:03; Admin Dose 4 MG; Start 10/22/16 at 23:00 Calcium Carbonate (Tums) 1,000 mg Q4 PRN PO heartburn Last administered on 10/30 21:08; Admin Dose 1,000 MG; Start 10/22/16 at 23:00 Oxycodone/ Acetaminophen (Percocet (5/ 325)) 1 tab Q4H PRN PO PAIN; Start at 23:00 Oxycodone/ Acetaminophen (Percocet (5/ 325)) 2 tab Q4H PRN PO PAIN Last administered on 10/31/16 20:59; Admin Dose 2 TAB; Start 10/22/16 at 23:00 Pregabalin (Lyrica) 75 mg TID PO Last administered on 10/31/16 20:59; Admin Dose 75 MG; Start 10/23/16 at 09:00 Enoxaparin Sodium (Lovenox) 40 mg DAILY SC Last administered on 10/27/16 09:52 ; Admin Dose 40 MG; Start 10/23/16 at 09:00 Lactobacillus Acidophilus (Florajen3 Capsule) 2 each DAILY PO Last administered on 10/31/16 11:24; Admin Dose 2 EACH; Start 10/23/16 at 09:00 Temazepam (Restoril) 30 mg HS PRN PO INSOMNIA; Start 10/22/16 at 23:45 Atorvastatin Calcium (Lipitor) 20 mg DAILY@21 PO Last administered on 20:59; Admin Dose 20 MG; Start 10/23/16 at 21:00 Fentanyl (Duragesic 75 Mcg/Hr Patch) 1 patch Q72H TRANSDERM Last administered on 10/30/16 22:01; Admin Dose 1 PATCH; Start 10/24/16 at 21:00 Amphetamine/ Dextroamphetamine (Adderall) 10 mg BID@08,13 PO Last administered on 10/31/16 18:37; Admin Dose 10 MG; Start 10/25/16 at 08:00 Nifedipine (Procardia Xl) 30 mg DAILY PO Last administered on 10/31/16 09:36; Admin Dose 30 MG; Start 10/25/16 at 09:00 Duloxetine HCl (Cymbalta) 20 mg DAILY PO Last administered on 10/31/16 09:00; Admin Dose 20 MG; Start 10/26/16 at 09:00 Patient Own Medication 1 ea Q2H PRN PO DRY MOUTH Last administered on 10:04; Admin Dose 1 EA; Start 10/29/16 at 17:30 Patient Own Medication 1 ea Q1H PRN BOTH EYES DRY EYES Last administered on 10:04; Admin Dose 1 EA; Start 10/29/16 at 17:30 Hydromorphone HCl (Dilaudid) 1.5 mg Q3H PRN IV PAIN Last administered on 08:59; Admin Dose 1.5 MG; Start 10/30/16 at 10:00 Assessment/Plan Additional Assessment/Plan Rehabilitation- Multiple sclerosis exacerbation, Status post left hip I and D, Questionable spinal cord lesion posterior aspect of C7. Continue treatment plan. Patient continues to make gains Hyperlipidemia. Acute pain syndrome-continue current pain meds-encouraged to decrease prn History of multiple hip surgeries. History of recurrent CVAs. History of subdural hematoma with evacuation. History of right total knee replacement. History of multiple lumbar surgeries. History of left shoulder replacement. JEREMY CHOWDHURY MD Nov 01, 2016 09:53
--- NOTE | 2016-11-01 11:49 | PN ---
Date/Time of Note Date/Time of Note DATE: 11/01/16 TIME: 11:49 Assessment/Plan VTE Prophylaxis VTE Prophylaxis Intervention: other Lines/Catheters IV Catheter Type (from [facility], [place]): MICHAEL CATH Urinary Cath still in place: No Assessment/Plan Chief Complaint/Hosp Course 1. Left hip infection, status post I and D, status post antibiotic replacement. The patient is currently stable. 2. Urinary tract infection. Continue current antibiotic regimen. 3. Hypertension. Continue current blood pressure regimen. 4. Multiple sclerosis. Patient's has relapsing and remitting. The patient is status post acute flare, status post Solu-Medrol being followed by Neurology. 5. Hyponatremia, improved. 6. Chronic pain syndrome. Continue current pain management. 7. Neuropathy, continue Lyrica. 8. Insomnia. Continue Restoril. 9. Anemia. Monitor H and H levels. 10. Gastrointestinal and deep venous thrombosis prophylaxis. Continue Lovenox. 11. Mild hypernatremia, improved. Continue to monitor. medicine follow up SUBJECTIVE DATA: Patient is stable. No events overnight. No fevers, chills, nausea, vomiting. pain is now adequately controlled with current dose of dilaudid foreign object from R ear removed by ENT OBJECTIVE DATA: HEENT: Head is normocephalic. NECK: Supple. HEART: Regular rate. LUNGS: Diminished breath sounds at the base. ABDOMEN: Soft, nontender to palpation. No rebound or guarding. EXTREMITIES: Negative for clubbing, cyanosis. No edema. DERMATOLOGIC: No rashes. MUSCULOSKELETAL: No joint effusion. NEUROLOGIC: No change in exam. MEDICATIONS: Reviewed. Problems: Exam/Review of Systems Vital Signs Vitals Vital Signs Date Time Temp Pulse Resp B/P Pulse Ox O2 Delivery O2 Flow Rate FiO2 11/01/16 07:30 97.6 50 18 107/55 96 11/01/16 05:41 Room Air Intake and Output 10/31/16 10/31/16 11/01/16 15:00 23:00 07:00 Intake Total 650 ml 920 ml Output Total 1 ml Balance 650 ml 919 ml Results Result Diagram: 10/28/16 0600 11/01/16 0557 Results 24 hrs Laboratory Tests Test 11/01/16 05:57 Blood Urea Nitrogen 14 Creatinine 0.60 Medications Medications Current Medications Docusate Sodium (Colace) 100 mg BID PO Last administered on 10/29/16 20:44; Admin Dose 100 MG; Start 10/23/16 at 09:00 Senna (Senokot) 1 tab HS PO Last administered on 10/28/16 21:15; Admin Dose 1 TAB; Start 10/23/16 at 21:00 Lactulose (Enulose) 20 gm DAILY PRN PO CONSTIPATION; Start 10/22/16 at 23:00 Bisacodyl (Dulcolax Supp) 10 mg DAILY PRN [place] CONSTIPATION; Start 10/22/16 at 23: 00 Acetaminophen (Tylenol Tab) 650 mg Q4H PRN PO PAIN; Start 10/22/16 at 23:00 Baclofen (Lioresal) 20 mg TID PO Last administered on 10/31/16 20:59; Admin Dose 20 MG; Start 10/23/16 at 09:00 Pantoprazole (Protonix Tab) 40 mg BID@18 PO Last administered on 11/01/16 05:38; Admin Dose 40 MG; Start 10/23/16 at 06:00 Diazepam (Valium) 10 mg HS PRN PO MUSCLE SPASMS; Start 10/22/16 at 23:00 Diphenhydramine HCl (Benadryl) 25 mg Q6H PRN PO ITCHING; Start 10/22/16 at 23:00 Cyclosporine (Restasis) 1 drop BID BOTH EYES Last administered on 10/31/16 20: 59; Admin Dose 1 DROP; Start 10/23/16 at 09:00 Hydrochlorothiazide (Hydrochlorothiazide) 25 mg DAILY PO Last administered on 09:37; Admin Dose 25 MG; Start 10/23/16 at 09:00 Ondansetron HCl (Zofran Tab) 4 mg Q8 PRN PO NAUSEA AND/OR VOMITING Last administered on 11/01/16 09:03; Admin Dose 4 MG; Start 10/22/16 at 23:00 Calcium Carbonate (Tums) 1,000 mg Q4 PRN PO heartburn Last administered on 10/30 21:08; Admin Dose 1,000 MG; Start 10/22/16 at 23:00 Oxycodone/ Acetaminophen (Percocet (5/ 325)) 1 tab Q4H PRN PO PAIN; Start at 23:00 Oxycodone/ Acetaminophen (Percocet (5/ 325)) 2 tab Q4H PRN PO PAIN Last administered on 10/31/16 20:59; Admin Dose 2 TAB; Start 10/22/16 at 23:00 Pregabalin (Lyrica) 75 mg TID PO Last administered on 10/31/16 20:59; Admin Dose 75 MG; Start 10/23/16 at 09:00 Enoxaparin Sodium (Lovenox) 40 mg DAILY SC Last administered on 10/27/16 09:52 ; Admin Dose 40 MG; Start 10/23/16 at 09:00 Lactobacillus Acidophilus (Florajen3 Capsule) 2 each DAILY PO Last administered on 10/31/16 11:24; Admin Dose 2 EACH; Start 10/23/16 at 09:00 Temazepam (Restoril) 30 mg HS PRN PO INSOMNIA; Start 10/22/16 at 23:45 Atorvastatin Calcium (Lipitor) 20 mg DAILY@21 PO Last administered on 20:59; Admin Dose 20 MG; Start 10/23/16 at 21:00 Fentanyl (Duragesic 75 Mcg/Hr Patch) 1 patch Q72H TRANSDERM Last administered on 10/30/16 22:01; Admin Dose 1 PATCH; Start 10/24/16 at 21:00 Amphetamine/ Dextroamphetamine (Adderall) 10 mg BID@08,13 PO Last administered on 10/31/16 18:37; Admin Dose 10 MG; Start 10/25/16 at 08:00 Nifedipine (Procardia Xl) 30 mg DAILY PO Last administered on 10/31/16 09:36; Admin Dose 30 MG; Start 10/25/16 at 09:00 Duloxetine HCl (Cymbalta) 20 mg DAILY PO Last administered on 10/31/16 09:00; Admin Dose 20 MG; Start 10/26/16 at 09:00 Patient Own Medication 1 ea Q2H PRN PO DRY MOUTH Last administered on 10:04; Admin Dose 1 EA; Start 10/29/16 at 17:30 Patient Own Medication 1 ea Q1H PRN BOTH EYES DRY EYES Last administered on 10:04; Admin Dose 1 EA; Start 10/29/16 at 17:30 Hydromorphone HCl (Dilaudid) 1.5 mg Q3H PRN IV PAIN Last administered on t 08:59; Admin Dose 1.5 MG; Start 10/30/16 at 10:00 ENEDINA THAKUR DO Nov 01, 2016 11:49
[2016-11-01] MEDS: HYDROCHLOROTHIAZIDE 25 MG TAB PO SCH (12:55)
[2016-11-01] MEDS: BACLOFEN 10 MG TAB PO SCH ×3 (12:56→20:59)
[2016-11-01 19:49] VITALS: BP 160/73; RESP 18
[2016-11-01] MEDS: ATORVASTATIN 20 MG TAB PO SCH (20:59)
[2016-11-01] MEDS: SENNA TAB PO SCH (20:59)
[2016-11-01] MEDS: OXYCODONE/ACETAMINOPHEN (5/325) TAB PO PRN (21:48)
[2016-11-02 02:00] VITALS: BP 139/62; RESP 18
[2016-11-02] MEDS: HYDROmorphONE 2 MG/ML SYG IV PRN ×5 (02:47→21:34)
[2016-11-02] MEDS: PANTOPRAZOLE (EC) 40 MG TAB PO SCH ×2 (05:17→17:16)
[2016-11-02] MEDS: ENOXAPARIN 40 MG/0.4 ML SYG SC SCH (09:00)
[2016-11-02] MEDS: DOCUSATE SODIUM 100 MG CAP PO SCH ×2 (09:00→21:00)
[2016-11-02] MEDS: NIFEdipine (XL) 30 MG TAB PO SCH (09:00)
[2016-11-02] MEDS: HYDROCHLOROTHIAZIDE 25 MG TAB PO SCH (09:00)
[2016-11-02] MEDS: PREGABALIN 75 MG CAP PO SCH ×3 (09:24→21:32)
[2016-11-02] MEDS: CYCLOSPORINE 0.05% OPH DROPERETTE BOTH EYES SCH ×2 (09:24→21:33)
[2016-11-02] MEDS: DULOXETINE 20 MG CAP DR PO SCH (09:24)
[2016-11-02] MEDS: BACLOFEN 10 MG TAB PO SCH ×3 (09:24→21:32)
[2016-11-02] MEDS: L ACIDOPHIL/B LACTIS/B LONGUM CAPSULE PO SCH (09:25)
[2016-11-02 09:30] VITALS: BP 124/61; PULSE 52; RESP 18
[2016-11-02] MEDS: DEXTROAMPHET/AMPHET 10 MG TAB PO SCH ×2 (09:52→14:11)
--- NOTE | 2016-11-02 10:53 | PN ---
Date/Time of Note Date/Time of Note DATE: 11/02/16 TIME: 10:53 Assessment/Plan VTE Prophylaxis VTE Prophylaxis Intervention: other Lines/Catheters IV C[facility]ter Type (from [facility]): MICHAEL CATH Urinary Cath still in place: No Assessment/Plan Chief Complaint/Hosp Course medicine follow up SUBJECTIVE DATA: Patient is stable. No events overnight. No fevers, chills, nausea, vomiting. pain is now adequately controlled with current dose of dilaudid foreign object from R ear removed by ENT OBJECTIVE DATA: HEENT: Head is normocephalic. NECK: Supple. HEART: Regular rate. LUNGS: Diminished breath sounds at the base. ABDOMEN: Soft, nontender to palpation. No rebound or guarding. EXTREMITIES: Negative for clubbing, cyanosis. No edema. DERMATOLOGIC: No rashes. MUSCULOSKELETAL: No joint effusion. NEUROLOGIC: No change in exam. MEDICATIONS: Reviewed. 1. Left hip infection, status post I and D, status post antibiotic replacement. The patient is currently stable. 2. Urinary tract infection. Continue current antibiotic regimen. 3. Hypertension. Continue current blood pressure regimen. 4. Multiple sclerosis. Patient's has relapsing and remitting. The patient is status post acute flare, status post Solu-Medrol being followed by Neurology. 5. Hyponatremia, improved. 6. Chronic pain syndrome. Continue current pain management. 7. Neuropathy, continue Lyrica. 8. Insomnia. Continue Restoril. 9. Anemia. Monitor H and H levels. 10. Gastrointestinal and deep venous thrombosis prophylaxis. Continue Lovenox. 11. Mild hypernatremia, improved. Continue to monitor. Problems: Exam/Review of Systems Vital Signs Vitals Vital Signs Date Time Temp Pulse Resp B/P Pulse Ox O2 Delivery O2 Flow Rate FiO2 11/02/16 09:30 52 18 124/61 11/02/16 02:00 98.2 92 11/01/16 05:41 Room Air Intake and Output 11/01/16 11/01/16 11/02/16 15:00 23:00 07:00 Intake Total 1360 ml 700 ml Balance 1360 ml 700 ml Results Result Diagram: 11/01/16 0557 Medications Medications Current Medications Docusate Sodium (Colace) 100 mg BID PO Last administered on 11/01/16t 20:59; Admin Dose 100 MG; Start 10/23/16 at 09:00 Senna (Senokot) 1 tab HS PO Last administered on 11/01/16 20:59; Admin Dose 1 TAB; Start 10/23/16 at 21:00 Lactulose (Enulose) 20 gm DAILY PRN PO CONSTIPATION; Start 10/22/16 at 23:00 Bisacodyl (Dulcolax Supp) 10 mg DAILY PRN [place] CONSTIPATION; Start 10/22/16 at 23: 00 Acetaminophen (Tylenol Tab) 650 mg Q4H PRN PO PAIN; Start 10/22/16 at 23:00 Baclofen (Lioresal) 20 mg TID PO Last administered on 11/02/16 09:24; Admin Dose 20 MG; Start 10/23/16 at 09:00 Pantoprazole (Protonix Tab) 40 mg BID@ PO Last administered on 11/02/16 05:17; Admin Dose 40 MG; Start 10/23/16 at 06:00 Diazepam (Valium) 10 mg HS PRN PO MUSCLE SPASMS; Start 10/22/16 at 23:00 Diphenhydramine HCl (Benadryl) 25 mg Q6H PRN PO ITCHING; Start 10/22/16 at 23:00 Cyclosporine (Restasis) 1 drop BID BOTH EYES Last administered on 11/02/16 09: 24; Admin Dose 1 DROP; Start 10/23/16 at 09:00 Hydrochlorothiazide (Hydrochlorothiazide) 25 mg DAILY PO Last administered on 12:55; Admin Dose 25 MG; Start 10/23/16 at 09:00 Ondansetron HCl (Zofran Tab) 4 mg Q8 PRN PO NAUSEA AND/OR VOMITING Last administered on 11/01/16 09:03; Admin Dose 4 MG; Start 10/22/16 at 23:00 Calcium Carbonate (Tums) 1,000 mg Q4 PRN PO heartburn Last administered on 10/30 21:08; Admin Dose 1,000 MG; Start 10/22/16 at 23:00 Oxycodone/ Acetaminophen (Percocet (5/ 325)) 1 tab Q4H PRN PO PAIN Last administered on 11/02/16 05:17; Admin Dose 1 TAB; Start 10/22/16 at 23:00 Oxycodone/ Acetaminophen (Percocet (5/ 325)) 2 tab Q4H PRN PO PAIN Last administered on 11/01/16 21:48; Admin Dose 2 TAB; Start 10/22/16 at 23:00 Pregabalin (Lyrica) 75 mg TID PO Last administered on 11/02/16 09:24; Admin Dose 75 MG; Start 10/23/16 at 09:00 Enoxaparin Sodium (Lovenox) 40 mg DAILY SC Last administered on 10/27/16 09:52 ; Admin Dose 40 MG; Start 10/23/16 at 09:00 Lactobacillus Acidophilus (Florajen3 Capsule) 2 each DAILY PO Last administered on 11/02/16 09:25; Admin Dose 2 EACH; Start 10/23/16 at 09:00 Temazepam (Restoril) 30 mg HS PRN PO INSOMNIA; Start 10/22/16 at 23:45 Atorvastatin Calcium (Lipitor) 20 mg DAILY@21 PO Last administered on 20:59; Admin Dose 20 MG; Start 10/23/16 at 21:00 Fentanyl (Duragesic 75 Mcg/Hr Patch) 1 patch Q72H TRANSDERM Last administered on 10/30/16 22:01; Admin Dose 1 PATCH; Start 10/24/16 at 21:00 Amphetamine/ Dextroamphetamine (Adderall) 10 mg BID@ PO Last administered on 11/02/16 09:52; Admin Dose 10 MG; Start 10/25/16 at 08:00 Nifedipine (Procardia Xl) 30 mg DAILY PO Last administered on 10/31/16 09:36; Admin Dose 30 MG; Start 10/25/16 at 09:00 Duloxetine HCl (Cymbalta) 20 mg DAILY PO Last administered on 11/02/16 09:24; Admin Dose 20 MG; Start 10/26/16 at 09:00 Patient Own Medication 1 ea Q2H PRN PO DRY MOUTH Last administered on 10:04; Admin Dose 1 EA; Start 10/29/16 at 17:30 Patient Own Medication 1 ea Q1H PRN BOTH EYES DRY EYES Last administered on 10:04; Admin Dose 1 EA; Start 10/29/16 at 17:30 Hydromorphone HCl (Dilaudid) 1.5 mg Q3H PRN IV PAIN Last administered on t 07:46; Admin Dose 1.5 MG; Start 10/30/16 at 10:00 ENEDINA THAKUR DO Nov 02, 2016 10:53
--- NOTE | 2016-11-02 11:05 | CONS ---
Date/Time of Note Date/Time of Note DATE: 11/02/16 TIME: 11:03 Consult Date/Type/Reason Admit Date/Time Oct 22, 2016 at 21:20 Initial Consult Date 10/23/16 Type of Consultation: ID Ordering Provider: MARIAELENA LINDQUIST DO Subjective No new complaints Objective pulm-cta abd-soft min assist Vital Signs Date Time Temp Pulse Resp B/P Pulse Ox O2 Delivery O2 Flow Rate FiO2 11/02/16 09:30 52 18 124/61 11/02/16 02:00 98.2 92 11/01/16 05:41 Room Air Intake and Output 11/01/16 11/01/16 11/02/16 15:00 23:00 07:00 Intake Total 1360 ml 700 ml Balance 1360 ml 700 ml Results/Medications Result Diagram: 11/01/16 0557 Medications Current Medications Docusate Sodium (Colace) 100 mg BID PO Last administered on 11/01/16 20:59; Admin Dose 100 MG; Start 10/23/16 at 09:00 Senna (Senokot) 1 tab HS PO Last administered on 11/01/16 20:59; Admin Dose 1 TAB; Start 10/23/16 at 21:00 Lactulose (Enulose) 20 gm DAILY PRN PO CONSTIPATION; Start 10/22/16 at 23:00 Bisacodyl (Dulcolax Supp) 10 mg DAILY PRN [place] CONSTIPATION; Start 10/22/16 at 23: 00 Acetaminophen (Tylenol Tab) 650 mg Q4H PRN PO PAIN; Start 10/22/16 at 23:00 Baclofen (Lioresal) 20 mg TID PO Last administered on 11/02/16 09:24; Admin Dose 20 MG; Start 10/23/16 at 09:00 Pantoprazole (Protonix Tab) 40 mg BID@18 PO Last administered on 11/02/16 05:17; Admin Dose 40 MG; Start 10/23/16 at 06:00 Diazepam (Valium) 10 mg HS PRN PO MUSCLE SPASMS; Start 10/22/16 at 23:00 Diphenhydramine HCl (Benadryl) 25 mg Q6H PRN PO ITCHING; Start 10/22/16 at 23:00 Cyclosporine (Restasis) 1 drop BID BOTH EYES Last administered on 11/02/16 09: 24; Admin Dose 1 DROP; Start 10/23/16 at 09:00 Hydrochlorothiazide (Hydrochlorothiazide) 25 mg DAILY PO Last administered on 12:55; Admin Dose 25 MG; Start 10/23/16 at 09:00 Ondansetron HCl (Zofran Tab) 4 mg Q8 PRN PO NAUSEA AND/OR VOMITING Last administered on 11/01/16 09:03; Admin Dose 4 MG; Start 10/22/16 at 23:00 Calcium Carbonate (Tums) 1,000 mg Q4 PRN PO heartburn Last administered on 10/30 21:08; Admin Dose 1,000 MG; Start 10/22/16 at 23:00 Oxycodone/ Acetaminophen (Percocet (5/ 325)) 1 tab Q4H PRN PO PAIN Last administered on 11/02/16 05:17; Admin Dose 1 TAB; Start 10/22/16 at 23:00 Oxycodone/ Acetaminophen (Percocet (5/ 325)) 2 tab Q4H PRN PO PAIN Last administered on 11/01/16 21:48; Admin Dose 2 TAB; Start 10/22/16 at 23:00 Pregabalin (Lyrica) 75 mg TID PO Last administered on 11/02/16 09:24; Admin Dose 75 MG; Start 10/23/16 at 09:00 Enoxaparin Sodium (Lovenox) 40 mg DAILY SC Last administered on 10/27/16 09:52 ; Admin Dose 40 MG; Start 10/23/16 at 09:00 Lactobacillus Acidophilus (Florajen3 Capsule) 2 each DAILY PO Last administered on 11/02/16 09:25; Admin Dose 2 EACH; Start 10/23/16 at 09:00 Temazepam (Restoril) 30 mg HS PRN PO INSOMNIA; Start 10/22/16 at 23:45 Atorvastatin Calcium (Lipitor) 20 mg DAILY@21 PO Last administered on 20:59; Admin Dose 20 MG; Start 10/23/16 at 21:00 Fentanyl (Duragesic 75 Mcg/Hr Patch) 1 patch Q72H TRANSDERM Last administered on 10/30/16 22:01; Admin Dose 1 PATCH; Start 10/24/16 at 21:00 Amphetamine/ Dextroamphetamine (Adderall) 10 mg BID@08,13 PO Last administered on 11/02/16 09:52; Admin Dose 10 MG; Start 10/25/16 at 08:00 Nifedipine (Procardia Xl) 30 mg DAILY PO Last administered on 10/31/16 09:36; Admin Dose 30 MG; Start 10/25/16 at 09:00 Duloxetine HCl (Cymbalta) 20 mg DAILY PO Last administered on 11/02/16 09:24; Admin Dose 20 MG; Start 10/26/16 at 09:00 Patient Own Medication 1 ea Q2H PRN PO DRY MOUTH Last administered on 10:04; Admin Dose 1 EA; Start 10/29/16 at 17:30 Patient Own Medication 1 ea Q1H PRN BOTH EYES DRY EYES Last administered on 10:04; Admin Dose 1 EA; Start 10/29/16 at 17:30 Hydromorphone HCl (Dilaudid) 1.5 mg Q3H PRN IV PAIN Last administered on 07:46; Admin Dose 1.5 MG; Start 10/30/16 at 10:00 Assessment/Plan Additional Assessment/Plan Rehabilitation- Multiple sclerosis exacerbation, Status post left hip I and D, Questionable spinal cord lesion posterior aspect of C7. Continue current treatment plan Hyperlipidemia. Acute pain syndrome- decrease prn History of multiple hip surgeries. History of recurrent CVAs. History of subdural hematoma with evacuation. History of right total knee replacement. History of multiple lumbar surgeries. History of left shoulder replacement. JEREMY CHOWDHURY MD Nov 02, 2016 11:05
[2016-11-02 20:46] VITALS: BP 143/70; RESP 18
[2016-11-02] MEDS: SENNA TAB PO SCH (21:00)
[2016-11-02] MEDS: ATORVASTATIN 20 MG TAB PO SCH (21:32)
[2016-11-02] MEDS: FENTAnyl PATCH 75 MCG/HR TRANSDERM SCH (21:55)
[2016-11-03] MEDS: HYDROmorphONE 2 MG/ML SYG IV PRN ×6 (00:14→21:15)
[2016-11-03 02:30] VITALS: BP 145/68; RESP 18
[2016-11-03] MEDS: PANTOPRAZOLE (EC) 40 MG TAB PO SCH ×2 (06:44→18:12)
[2016-11-03] MEDS: OXYCODONE/ACETAMINOPHEN (5/325) TAB PO PRN ×3 (06:48→20:43)
[2016-11-03 08:00] VITALS: BP 136/65; PULSE 68; RESP 18
[2016-11-03] MEDS: HYDROCHLOROTHIAZIDE 25 MG TAB PO SCH (08:58)
[2016-11-03] MEDS: NIFEdipine (XL) 30 MG TAB PO SCH (08:58)
[2016-11-03] MEDS: PREGABALIN 75 MG CAP PO SCH ×3 (08:58→20:42)
[2016-11-03] MEDS: BACLOFEN 10 MG TAB PO SCH ×3 (08:58→20:43)
[2016-11-03] MEDS: L ACIDOPHIL/B LACTIS/B LONGUM CAPSULE PO SCH (08:59)
[2016-11-03] MEDS: ENOXAPARIN 40 MG/0.4 ML SYG SC SCH (09:00)
[2016-11-03] MEDS: DOCUSATE SODIUM 100 MG CAP PO SCH ×2 (09:00→20:47)
--- NOTE | 2016-11-03 10:13 | PN ---
Date/Time of Note Date/Time of Note DATE: 11/03/16 TIME: 10:12 Assessment/Plan VTE Prophylaxis VTE Prophylaxis Intervention: other Lines/Catheters IV Catheter Type (from Nrs): Port-A-Cath Urinary Cath still in place: No Assessment/Plan Chief Complaint/Hosp Course medicine follow up SUBJECTIVE DATA: Patient is stable. No events overnight. No fevers, chills, nausea, vomiting. pain is now adequately controlled with current dose of dilaudid foreign object from R ear removed by ENT OBJECTIVE DATA: HEENT: Head is normocephalic. NECK: Supple. HEART: Regular rate. LUNGS: Diminished breath sounds at the base. ABDOMEN: Soft, nontender to palpation. No rebound or guarding. EXTREMITIES: Negative for clubbing, cyanosis. No edema. DERMATOLOGIC: No rashes. MUSCULOSKELETAL: No joint effusion. NEUROLOGIC: No change in exam. MEDICATIONS: Reviewed. 1. Left hip infection, status post I and D, status post antibiotic replacement. The patient is currently stable. 2. Urinary tract infection. Continue current antibiotic regimen. 3. Hypertension. Continue current blood pressure regimen. 4. Multiple sclerosis. Patient's has relapsing and remitting. The patient is status post acute flare, status post Solu-Medrol being followed by Neurology. 5. Hyponatremia, improved. 6. Chronic pain syndrome. Continue current pain management. 7. Neuropathy, continue Lyrica. 8. Insomnia. Continue Restoril. 9. Anemia. Monitor H and H levels. 10. Gastrointestinal and deep venous thrombosis prophylaxis. Continue Lovenox. 11. Mild hypernatremia, improved. Continue to monitor. Problems: Exam/Review of Systems Vital Signs Vitals Vital Signs Date Time Temp Pulse Resp B/P Pulse Ox O2 Delivery O2 Flow Rate FiO2 11/03/16 02:30 97.3 68 18 145/68 94 11/01/16 05:41 Room Air Intake and Output 11/02/16 11/02/16 11/03/16 15:00 23:00 07:00 Intake Total 800 ml 1120 ml 980 ml Balance 800 ml 1120 ml 980 ml Results Result Diagram: 11/01/16 0557 Medications Medications Current Medications Docusate Sodium (Colace) 100 mg BID PO Last administered on 11/01/16t 20:59; Admin Dose 100 MG; Start 10/23/16 at 09:00 Senna (Senokot) 1 tab HS PO Last administered on 11/01/16 20:59; Admin Dose 1 TAB; Start 10/23/16 at 21:00 Lactulose (Enulose) 20 gm DAILY PRN PO CONSTIPATION; Start 10/22/16 at 23:00 Bisacodyl (Dulcolax Supp) 10 mg DAILY PRN CA CONSTIPATION; Start 10/22/16 at 23: 00 Acetaminophen (Tylenol Tab) 650 mg Q4H PRN PO PAIN; Start 10/22/16 at 23:00 Baclofen (Lioresal) 20 mg TID PO Last administered on 11/03/16 08:58; Admin Dose 20 MG; Start 10/23/16 at 09:00 Pantoprazole (Protonix Tab) 40 mg BID@ PO Last administered on 11/03/16 06:44; Admin Dose 40 MG; Start 10/23/16 at 06:00 Diazepam (Valium) 10 mg HS PRN PO MUSCLE SPASMS; Start 10/22/16 at 23:00 Diphenhydramine HCl (Benadryl) 25 mg Q6H PRN PO ITCHING; Start 10/22/16 at 23:00 Cyclosporine (Restasis) 1 drop BID BOTH EYES Last administered on 11/02/16 21: 33; Admin Dose 1 DROP; Start 10/23/16 at 09:00 Hydrochlorothiazide (Hydrochlorothiazide) 25 mg DAILY PO Last administered on 08:58; Admin Dose 25 MG; Start 10/23/16 at 09:00 Ondansetron HCl (Zofran Tab) 4 mg Q8 PRN PO NAUSEA AND/OR VOMITING Last administered on 11/01/16 09:03; Admin Dose 4 MG; Start 10/22/16 at 23:00 Calcium Carbonate (Tums) 1,000 mg Q4 PRN PO heartburn Last administered on 10/30 21:08; Admin Dose 1,000 MG; Start 10/22/16 at 23:00 Oxycodone/ Acetaminophen (Percocet (5/ 325)) 1 tab Q4H PRN PO PAIN Last administered on 11/02/16 05:17; Admin Dose 1 TAB; Start 10/22/16 at 23:00 Oxycodone/ Acetaminophen (Percocet (5/ 325)) 2 tab Q4H PRN PO PAIN Last administered on 11/03/16 06:48; Admin Dose 2 TAB; Start 10/22/16 at 23:00 Pregabalin (Lyrica) 75 mg TID PO Last administered on 11/03/16 08:58; Admin Dose 75 MG; Start 10/23/16 at 09:00 Enoxaparin Sodium (Lovenox) 40 mg DAILY SC Last administered on 10/27/16 09:52 ; Admin Dose 40 MG; Start 10/23/16 at 09:00 Lactobacillus Acidophilus (Florajen3 Capsule) 2 each DAILY PO Last administered on 11/03/16 08:59; Admin Dose 2 EACH; Start 10/23/16 at 09:00 Temazepam (Restoril) 30 mg HS PRN PO INSOMNIA; Start 10/22/16 at 23:45 Atorvastatin Calcium (Lipitor) 20 mg DAILY@21 PO Last administered on 21:32; Admin Dose 20 MG; Start 10/23/16 at 21:00 Fentanyl (Duragesic 75 Mcg/Hr Patch) 1 patch Q72H TRANSDERM Last administered on 11/02/16 21:55; Admin Dose 1 PATCH; Start 10/24/16 at 21:00 Amphetamine/ Dextroamphetamine (Adderall) 10 mg BID@08,13 PO Last administered on 11/02/16 14:11; Admin Dose 10 MG; Start 10/25/16 at 08:00 Nifedipine (Procardia Xl) 30 mg DAILY PO Last administered on 11/03/16 08:58; Admin Dose 30 MG; Start 10/25/16 at 09:00 Duloxetine HCl (Cymbalta) 20 mg DAILY PO Last administered on 11/02/16 09:24; Admin Dose 20 MG; Start 10/26/16 at 09:00 Patient Own Medication 1 ea Q2H PRN PO DRY MOUTH Last administered on 10:04; Admin Dose 1 EA; Start 10/29/16 at 17:30 Patient Own Medication 1 ea Q1H PRN BOTH EYES DRY EYES Last administered on 10:04; Admin Dose 1 EA; Start 10/29/16 at 17:30 Hydromorphone HCl (Dilaudid) 1.5 mg Q3H PRN IV PAIN Last administered on t 08:57; Admin Dose 1.5 MG; Start 10/30/16 at 10:00 ENEDINA THAKUR DO Nov 03, 2016 10:12
[2016-11-03] MEDS: DEXTROAMPHET/AMPHET 10 MG TAB PO SCH ×2 (10:25→12:53)
[2016-11-03] MEDS: CYCLOSPORINE 0.05% OPH DROPERETTE BOTH EYES SCH ×2 (10:26→20:43)
[2016-11-03] MEDS: DULOXETINE 20 MG CAP DR PO SCH (10:26)
[2016-11-03] MEDS: ATORVASTATIN 20 MG TAB PO SCH (20:42)
[2016-11-03] MEDS: SENNA TAB PO SCH (20:47)
[2016-11-04] MEDS: HYDROmorphONE 2 MG/ML SYG IV PRN ×7 (00:14→18:17)
[2016-11-04] MEDS: PANTOPRAZOLE (EC) 40 MG TAB PO SCH ×2 (06:12→18:17)
[2016-11-04 07:30] VITALS: BP 135/71; RESP 18
[2016-11-04] MEDS: OXYCODONE/ACETAMINOPHEN (5/325) TAB PO PRN ×2 (08:24→21:06)
[2016-11-04] MEDS: DEXTROAMPHET/AMPHET 10 MG TAB PO SCH ×2 (08:24→13:40)
[2016-11-04] MEDS: DULOXETINE 20 MG CAP DR PO SCH (08:39)
[2016-11-04] MEDS: BACLOFEN 10 MG TAB PO SCH ×3 (08:39→21:06)
[2016-11-04] MEDS: HYDROCHLOROTHIAZIDE 25 MG TAB PO SCH (08:39)
[2016-11-04] MEDS: PREGABALIN 75 MG CAP PO SCH ×3 (08:39→21:06)
[2016-11-04] MEDS: DOCUSATE SODIUM 100 MG CAP PO SCH ×2 (08:41→21:00)
[2016-11-04] MEDS: ENOXAPARIN 40 MG/0.4 ML SYG SC SCH (09:00)
[2016-11-04] MEDS: L ACIDOPHIL/B LACTIS/B LONGUM CAPSULE PO SCH (09:00)
[2016-11-04] MEDS: NIFEdipine (XL) 30 MG TAB PO SCH (09:00)
--- NOTE | 2016-11-04 09:23 | CONS ---
Date/Time of Note Date/Time of Note DATE: 11/04/16 TIME: 23 Consult Date/Type/Reason Admit Date/Time Oct 22, 2016 at 21:20 Initial Consult Date 10/23/16 Type of Consultation: ID Ordering Provider: MARIAELENA LINDQUIST DO Objective Vital Signs Date Time Temp Pulse Resp B/P Pulse Ox O2 Delivery O2 Flow Rate FiO2 11/04/16 07:30 97.8 54 18 135/71 98 11/03/16 08:00 Room Air Intake and Output 11/03/16 11/03/16 11/04/16 15:00 23:00 07:00 Intake Total 1080 ml Balance 1080 ml Exam INTERDISCIPLINARY TEAM CONFERENCE BOWEL- Cont BLADDER-Cont SKIN- intact OT- DRESSING-standby assist BATHING-standby assist TOILETING-standby assist PT- BED MOBILITY-standby assist TRANSFERS-standby assist AMBULATION-standby assist 90 feet W.C. MOBILITY-modified independent A/P- Interdisciplinary team conference held today. Please see interdisciplinary sheet. Working toward d.c. on 11/08 with post discharge follow up of physical therapy, occupational therapy. Results/Medications Result Diagram: 11/01/16 0557 Medications Current Medications Docusate Sodium (Colace) 100 mg BID PO Last administered on 11/01/16 20:59; Admin Dose 100 MG; Start 10/23/16 at 09:00 Senna (Senokot) 1 tab HS PO Last administered on 11/01/16 20:59; Admin Dose 1 TAB; Start 10/23/16 at 21:00 Lactulose (Enulose) 20 gm DAILY PRN PO CONSTIPATION; Start 10/22/16 at 23:00 Bisacodyl (Dulcolax Supp) 10 mg DAILY PRN [place] CONSTIPATION; Start 10/22/16 at 23: 00 Acetaminophen (Tylenol Tab) 650 mg Q4H PRN PO PAIN; Start 10/22/16 at 23:00 Baclofen (Lioresal) 20 mg TID PO Last administered on 11/04/16 08:39; Admin Dose 20 MG; Start 10/23/16 at 09:00 Pantoprazole (Protonix Tab) 40 mg BID@18 PO Last administered on 11/04/16 06:12; Admin Dose 40 MG; Start 10/23/16 at 06:00 Diazepam (Valium) 10 mg HS PRN PO MUSCLE SPASMS; Start 10/22/16 at 23:00 Diphenhydramine HCl (Benadryl) 25 mg Q6H PRN PO ITCHING; Start 10/22/16 at 23:00 Cyclosporine (Restasis) 1 drop BID BOTH EYES Last administered on 11/03/16 20: 43; Admin Dose 1 DROP; Start 10/23/16 at 09:00 Hydrochlorothiazide (Hydrochlorothiazide) 25 mg DAILY PO Last administered on 08:39; Admin Dose 25 MG; Start 10/23/16 at 09:00 Ondansetron HCl (Zofran Tab) 4 mg Q8 PRN PO NAUSEA AND/OR VOMITING Last administered on 11/01/16 09:03; Admin Dose 4 MG; Start 10/22/16 at 23:00 Calcium Carbonate (Tums) 1,000 mg Q4 PRN PO heartburn Last administered on 10/30 21:08; Admin Dose 1,000 MG; Start 10/22/16 at 23:00 Oxycodone/ Acetaminophen (Percocet (5/ 325)) 1 tab Q4H PRN PO PAIN Last administered on 11/02/16 05:17; Admin Dose 1 TAB; Start 10/22/16 at 23:00 Oxycodone/ Acetaminophen (Percocet (5/ 325)) 2 tab Q4H PRN PO PAIN Last administered on 11/04/16 08:24; Admin Dose 2 TAB; Start 10/22/16 at 23:00 Pregabalin (Lyrica) 75 mg TID PO Last administered on 11/04/16 08:39; Admin Dose 75 MG; Start 10/23/16 at 09:00 Enoxaparin Sodium (Lovenox) 40 mg DAILY SC Last administered on 10/27/16 09:52 ; Admin Dose 40 MG; Start 10/23/16 at 09:00 Lactobacillus Acidophilus (Florajen3 Capsule) 2 each DAILY PO Last administered on 11/04/16 09:00; Admin Dose 2 EACH; Start 10/23/16 at 09:00 Temazepam (Restoril) 30 mg HS PRN PO INSOMNIA; Start 10/22/16 at 23:45 Atorvastatin Calcium (Lipitor) 20 mg DAILY@21 PO Last administered on 20:42; Admin Dose 20 MG; Start 10/23/16 at 21:00 Fentanyl (Duragesic 75 Mcg/Hr Patch) 1 patch Q72H TRANSDERM Last administered on 11/02/16 21:55; Admin Dose 1 PATCH; Start 10/24/16 at 21:00 Amphetamine/ Dextroamphetamine (Adderall) 10 mg BID@08,13 PO Last administered on 11/04/16 08:24; Admin Dose 10 MG; Start 10/25/16 at 08:00 Nifedipine (Procardia Xl) 30 mg DAILY PO Last administered on 11/03/16 08:58; Admin Dose 30 MG; Start 10/25/16 at 09:00 Duloxetine HCl (Cymbalta) 20 mg DAILY PO Last administered on 11/04/16 08:39; Admin Dose 20 MG; Start 10/26/16 at 09:00 Patient Own Medication 1 ea Q2H PRN PO DRY MOUTH Last administered on 10:04; Admin Dose 1 EA; Start 10/29/16 at 17:30 Patient Own Medication 1 ea Q1H PRN BOTH EYES DRY EYES Last administered on 10:04; Admin Dose 1 EA; Start 10/29/16 at 17:30 Hydromorphone HCl (Dilaudid) 1.5 mg Q3H PRN IV PAIN Last administered on 09:07; Admin Dose 1.5 MG; Start 10/30/16 at 10:00 JEREMY CHOWDHURY MD Nov 04, 2016 09:23 JEREMY CHOWDHURY MD Nov 04, 2016 09:23
--- NOTE | 2016-11-04 11:53 | PN ---
Date/Time of Note Date/Time of Note DATE: 11/04/16 TIME: 11:53 Assessment/Plan VTE Prophylaxis VTE Prophylaxis Intervention: other Lines/Catheters IV C[facility]ter Type (from [facility] Port-A Cath Urinary Cath still in place: No Assessment/Plan Chief Complaint/Hosp Course medicine follow up SUBJECTIVE DATA: Patient is stable. No events overnight. No fevers, chills, nausea, vomiting. pain is now adequately controlled with current dose of dilaudid foreign object from R ear removed by ENT OBJECTIVE DATA: HEENT: Head is normocephalic. NECK: Supple. HEART: Regular rate. LUNGS: Diminished breath sounds at the base. ABDOMEN: Soft, nontender to palpation. No rebound or guarding. EXTREMITIES: Negative for clubbing, cyanosis. No edema. DERMATOLOGIC: No rashes. MUSCULOSKELETAL: No joint effusion. NEUROLOGIC: No change in exam. MEDICATIONS: Reviewed. 1. Left hip infection, status post I and D, status post antibiotic replacement. The patient is currently stable. 2. Urinary tract infection. Continue current antibiotic regimen. 3. Hypertension. Continue current blood pressure regimen. 4. Multiple sclerosis. Patient's has relapsing and remitting. The patient is status post acute flare, status post Solu-Medrol being followed by Neurology. 5. Hyponatremia, improved. 6. Chronic pain syndrome. Continue current pain management. 7. Neuropathy, continue Lyrica. 8. Insomnia. Continue Restoril. 9. Anemia. Monitor H and H levels. 10. Gastrointestinal and deep venous thrombosis prophylaxis. Continue Lovenox. 11. Mild hypernatremia, improved. Continue to monitor. Problems: Exam/Review of Systems Vital Signs Vitals Vital Signs Date Time Temp Pulse Resp B/P Pulse Ox O2 Delivery O2 Flow Rate FiO2 11/04/16 07:30 97.8 54 18 135/71 98 11/03/16 08:00 Room Air Intake and Output 11/03/16 11/03/16 11/04/16 15:00 23:00 07:00 Intake Total 1080 ml Balance 1080 ml Results Result Diagram: 11/01/16 0557 Medications Medications Current Medications Docusate Sodium (Colace) 100 mg BID PO Last administered on 11/01/16 20:59; Admin Dose 100 MG; Start 10/23/16 at 09:00 Senna (Senokot) 1 tab HS PO Last administered on 11/01/16 20:59; Admin Dose 1 TAB; Start 10/23/16 at 21:00 Lactulose (Enulose) 20 gm DAILY PRN PO CONSTIPATION; Start 10/22/16 at 23:00 Bisacodyl (Dulcolax Supp) 10 mg DAILY PRN [place] CONSTIPATION; Start 10/22/16 at 23: 00 Acetaminophen (Tylenol Tab) 650 mg Q4H PRN PO PAIN; Start 10/22/16 at 23:00 Baclofen (Lioresal) 20 mg TID PO Last administered on 11/04/16 08:39; Admin Dose 20 MG; Start 10/23/16 at 09:00 Pantoprazole (Protonix Tab) 40 mg BID@ PO Last administered on 11/04/16 06:12; Admin Dose 40 MG; Start 10/23/16 at 06:00 Diazepam (Valium) 10 mg HS PRN PO MUSCLE SPASMS; Start 10/22/16 at 23:00 Diphenhydramine HCl (Benadryl) 25 mg Q6H PRN PO ITCHING; Start 10/22/16 at 23:00 Cyclosporine (Restasis) 1 drop BID BOTH EYES Last administered on 11/03/16 20: 43; Admin Dose 1 DROP; Start 10/23/16 at 09:00 Hydrochlorothiazide (Hydrochlorothiazide) 25 mg DAILY PO Last administered on 08:39; Admin Dose 25 MG; Start 10/23/16 at 09:00 Ondansetron HCl (Zofran Tab) 4 mg Q8 PRN PO NAUSEA AND/OR VOMITING Last administered on 11/01/16 09:03; Admin Dose 4 MG; Start 10/22/16 at 23:00 Calcium Carbonate (Tums) 1,000 mg Q4 PRN PO heartburn Last administered on 10/30 21:08; Admin Dose 1,000 MG; Start 10/22/16 at 23:00 Oxycodone/ Acetaminophen (Percocet (5/ 325)) 1 tab Q4H PRN PO PAIN Last administered on 11/02/16 05:17; Admin Dose 1 TAB; Start 10/22/16 at 23:00 Oxycodone/ Acetaminophen (Percocet (5/ 325)) 2 tab Q4H PRN PO PAIN Last administered on 11/04/16 08:24; Admin Dose 2 TAB; Start 10/22/16 at 23:00 Pregabalin (Lyrica) 75 mg TID PO Last administered on 11/04/16 08:39; Admin Dose 75 MG; Start 10/23/16 at 09:00 Enoxaparin Sodium (Lovenox) 40 mg DAILY SC Last administered on 10/27/16 09:52 ; Admin Dose 40 MG; Start 10/23/16 at 09:00 Lactobacillus Acidophilus (Florajen3 Capsule) 2 each DAILY PO Last administered on 11/04/16 09:00; Admin Dose 2 EACH; Start 10/23/16 at 09:00 Temazepam (Restoril) 30 mg HS PRN PO INSOMNIA; Start 10/22/16 at 23:45 Atorvastatin Calcium (Lipitor) 20 mg DAILY@21 PO Last administered on 20:42; Admin Dose 20 MG; Start 10/23/16 at 21:00 Fentanyl (Duragesic 75 Mcg/Hr Patch) 1 patch Q72H TRANSDERM Last administered on 11/02/16 21:55; Admin Dose 1 PATCH; Start 10/24/16 at 21:00 Amphetamine/ Dextroamphetamine (Adderall) 10 mg BID@ PO Last administered on 11/04/16 08:24; Admin Dose 10 MG; Start 10/25/16 at 08:00 Nifedipine (Procardia Xl) 30 mg DAILY PO Last administered on 11/03/16 08:58; Admin Dose 30 MG; Start 10/25/16 at 09:00 Duloxetine HCl (Cymbalta) 20 mg DAILY PO Last administered on 11/04/16 08:39; Admin Dose 20 MG; Start 10/26/16 at 09:00 Patient Own Medication 1 ea Q2H PRN PO DRY MOUTH Last administered on 10:04; Admin Dose 1 EA; Start 10/29/16 at 17:30 Patient Own Medication 1 ea Q1H PRN BOTH EYES DRY EYES Last administered on 10:04; Admin Dose 1 EA; Start 10/29/16 at 17:30 Hydromorphone HCl (Dilaudid) 1.5 mg Q3H PRN IV PAIN Last administered on 09:07; Admin Dose 1.5 MG; Start 10/30/16 at 10:00 ENEDINA THAKUR DO Nov 04, 2016 11:53
[2016-11-04] MEDS: CYCLOSPORINE 0.05% OPH DROPERETTE BOTH EYES SCH ×2 (13:40→21:06)
[2016-11-04 14:00] VITALS: BP 155/72; RESP 18
[2016-11-04 17:30] VITALS: BP 209/118; PULSE 70
[2016-11-04] MEDS: SENNA TAB PO SCH (21:00)
[2016-11-04 21:02] VITALS: BP 153/67; RESP 18
[2016-11-04] MEDS: ATORVASTATIN 20 MG TAB PO SCH (21:06)
[2016-11-05 02:00] VITALS: BP 122/56; RESP 18
[2016-11-05] MEDS: HYDROmorphONE 2 MG/ML SYG IV PRN ×5 (02:34→18:20)
[2016-11-05] MEDS: OXYCODONE/ACETAMINOPHEN (5/325) TAB PO PRN ×4 (03:59→20:40)
[2016-11-05] MEDS: PANTOPRAZOLE (EC) 40 MG TAB PO SCH ×2 (06:10→18:00)
[2016-11-05 07:34] VITALS: BP 137/63; RESP 18
[2016-11-05] MEDS: ENOXAPARIN 40 MG/0.4 ML SYG SC SCH (09:00)
[2016-11-05] MEDS: NIFEdipine (XL) 30 MG TAB PO SCH ×2 (09:00→10:41)
[2016-11-05] MEDS: DEXTROAMPHET/AMPHET 10 MG TAB PO SCH ×2 (09:11→16:26)
[2016-11-05] MEDS: DOCUSATE SODIUM 100 MG CAP PO SCH ×2 (10:37→20:46)
[2016-11-05] MEDS: CYCLOSPORINE 0.05% OPH DROPERETTE BOTH EYES SCH ×2 (10:42→20:41)
[2016-11-05] MEDS: L ACIDOPHIL/B LACTIS/B LONGUM CAPSULE PO SCH (10:43)
[2016-11-05] MEDS: BACLOFEN 10 MG TAB PO SCH ×3 (10:43→20:40)
[2016-11-05] MEDS: HYDROCHLOROTHIAZIDE 25 MG TAB PO SCH (10:45)
[2016-11-05] MEDS: DULOXETINE 20 MG CAP DR PO SCH (10:45)
[2016-11-05] MEDS: PREGABALIN 75 MG CAP PO SCH ×3 (10:45→20:41)
--- NOTE | 2016-11-05 11:41 | CONS ---
Date/Time of Note Date/Time of Note DATE: 11/05/16 TIME: 11:40 Consult Date/Type/Reason Admit Date/Time Oct 22, 2016 at 21:20 Initial Consult Date 10/23/16 Type of Consultation: ID Ordering Provider: MARIAELENA LINDQUIST DO Subjective Feeling much better today Objective Lungs clear abdomen soft Standby assist ambulation Vital Signs Date Time Temp Pulse Resp B/P Pulse Ox O2 Delivery O2 Flow Rate FiO2 11/05/16 07:34 98.4 47 18 137/63 97 11/03/16 08:00 Room Air Intake and Output 11/04/16 11/04/16 11/05/16 15:00 23:00 07:00 Intake Total 740 ml 120 ml Balance 740 ml 120 ml Results/Medications Result Diagram: 11/01/16 0557 Medications Current Medications Docusate Sodium (Colace) 100 mg BID PO Last administered on 11/05/16 10:37; Admin Dose 100 MG; Start 10/23/16 at 09:00 Senna (Senokot) 1 tab HS PO Last administered on 11/01/16 20:59; Admin Dose 1 TAB; Start 10/23/16 at 21:00 Lactulose (Enulose) 20 gm DAILY PRN PO CONSTIPATION; Start 10/22/16 at 23:00 Bisacodyl (Dulcolax Supp) 10 mg DAILY PRN CA CONSTIPATION; Start 10/22/16 at 23: 00 Acetaminophen (Tylenol Tab) 650 mg Q4H PRN PO PAIN; Start 10/22/16 at 23:00 Baclofen (Lioresal) 20 mg TID PO Last administered on 11/05/16 10:43; Admin Dose 20 MG; Start 10/23/16 at 09:00 Pantoprazole (Protonix Tab) 40 mg BID@,18 PO Last administered on 11/05/16 06:10; Admin Dose 40 MG; Start 10/23/16 at 06:00 Diazepam (Valium) 10 mg HS PRN PO MUSCLE SPASMS; Start 10/22/16 at 23:00 Diphenhydramine HCl (Benadryl) 25 mg Q6H PRN PO ITCHING; Start 10/22/16 at 23:00 Cyclosporine (Restasis) 1 drop BID BOTH EYES Last administered on 11/05/16 10: 42; Admin Dose 1 DROP; Start 10/23/16 at 09:00 Hydrochlorothiazide (Hydrochlorothiazide) 25 mg DAILY PO Last administered on 10:45; Admin Dose 25 MG; Start 10/23/16 at 09:00 Ondansetron HCl (Zofran Tab) 4 mg Q8 PRN PO NAUSEA AND/OR VOMITING Last administered on 11/01/16 09:03; Admin Dose 4 MG; Start 10/22/16 at 23:00 Calcium Carbonate (Tums) 1,000 mg Q4 PRN PO heartburn Last administered on 10/30 21:08; Admin Dose 1,000 MG; Start 10/22/16 at 23:00 Oxycodone/ Acetaminophen (Percocet (5/ 325)) 1 tab Q4H PRN PO PAIN Last administered on 11/02/16 05:17; Admin Dose 1 TAB; Start 10/22/16 at 23:00 Oxycodone/ Acetaminophen (Percocet (5/ 325)) 2 tab Q4H PRN PO PAIN Last administered on 11/05/16 10:55; Admin Dose 2 TAB; Start 10/22/16 at 23:00 Pregabalin (Lyrica) 75 mg TID PO Last administered on 11/05/16 10:45; Admin Dose 75 MG; Start 10/23/16 at 09:00 Enoxaparin Sodium (Lovenox) 40 mg DAILY SC Last administered on 10/27/16 09:52 ; Admin Dose 40 MG; Start 10/23/16 at 09:00 Lactobacillus Acidophilus (Florajen3 Capsule) 2 each DAILY PO Last administered on 11/05/16 10:43; Admin Dose 2 EACH; Start 10/23/16 at 09:00 Temazepam (Restoril) 30 mg HS PRN PO INSOMNIA; Start 10/22/16 at 23:45 Atorvastatin Calcium (Lipitor) 20 mg DAILY@21 PO Last administered on 21:06; Admin Dose 20 MG; Start 10/23/16 at 21:00 Fentanyl (Duragesic 75 Mcg/Hr Patch) 1 patch Q72H TRANSDERM Last administered on 11/02/16 21:55; Admin Dose 1 PATCH; Start 10/24/16 at 21:00 Amphetamine/ Dextroamphetamine (Adderall) 10 mg BID@08,13 PO Last administered on 11/05/16 09:11; Admin Dose 10 MG; Start 10/25/16 at 08:00 Nifedipine (Procardia Xl) 30 mg DAILY PO Last administered on 11/03/16 08:58; Admin Dose 30 MG; Start 10/25/16 at 09:00 Duloxetine HCl (Cymbalta) 20 mg DAILY PO Last administered on 11/05/16 10:45; Admin Dose 20 MG; Start 10/26/16 at 09:00 Patient Own Medication 1 ea Q2H PRN PO DRY MOUTH Last administered on 10:04; Admin Dose 1 EA; Start 10/29/16 at 17:30 Patient Own Medication 1 ea Q1H PRN BOTH EYES DRY EYES Last administered on 10:04; Admin Dose 1 EA; Start 10/29/16 at 17:30 Hydromorphone HCl (Dilaudid) 1.5 mg Q3H PRN IV PAIN Last administered on 09:11; Admin Dose 1.5 MG; Start 10/30/16 at 10:00 Assessment/Plan Additional Assessment/Plan Rehabilitation- Multiple sclerosis exacerbation, Status post left hip I and D, Questionable spinal cord lesion posterior aspect of C7. Steady progress working towards discharge home on Friday Hyperlipidemia. Acute pain syndrome- decrease prn History of multiple hip surgeries. History of recurrent CVAs. History of subdural hematoma with evacuation. History of right total knee replacement. History of multiple lumbar surgeries. History of left shoulder replacement. JEREMY CHOWDHURY MD Nov 05, 2016 11:40
--- NOTE | 2016-11-05 15:47 | PN ---
Date/Time of Note Date/Time of Note DATE: 11/05/16 TIME: 15:46 Assessment/Plan VTE Prophylaxis VTE Prophylaxis Intervention: other Lines/Catheters IV Catheter Type (from Nrs): Port-A Cath Urinary Cath still in place: No Assessment/Plan Chief Complaint/Hosp Course medicine follow up SUBJECTIVE DATA: Patient is stable. No events overnight. No fevers, chills, nausea, vomiting. pain is now adequately controlled with current dose of dilaudid foreign object from R ear removed by ENT OBJECTIVE DATA: HEENT: Head is normocephalic. NECK: Supple. HEART: Regular rate. LUNGS: Diminished breath sounds at the base. ABDOMEN: Soft, nontender to palpation. No rebound or guarding. EXTREMITIES: Negative for clubbing, cyanosis. No edema. DERMATOLOGIC: No rashes. MUSCULOSKELETAL: No joint effusion. NEUROLOGIC: No change in exam. MEDICATIONS: Reviewed. 1. Left hip infection, status post I and D, status post antibiotic replacement. The patient is currently stable. 2. Urinary tract infection. Continue current antibiotic regimen. 3. Hypertension. Continue current blood pressure regimen. 4. Multiple sclerosis. Patient's has relapsing and remitting. The patient is status post acute flare, status post Solu-Medrol being followed by Neurology. 5. Hyponatremia, improved. 6. Chronic pain syndrome. Continue current pain management. 7. Neuropathy, continue Lyrica. 8. Insomnia. Continue Restoril. 9. Anemia. Monitor H and H levels. 10. Gastrointestinal and deep venous thrombosis prophylaxis. Continue Lovenox. 11. Mild hypernatremia, improved. Continue to monitor. Problems: Exam/Review of Systems Vital Signs Vitals Vital Signs Date Time Temp Pulse Resp B/P Pulse Ox O2 Delivery O2 Flow Rate FiO2 11/05/16 07:34 98.4 47 18 137/63 97 11/03/16 08:00 Room Air Intake and Output 11/04/16 11/04/16 11/05/16 15:00 23:00 07:00 Intake Total 740 ml 120 ml Balance 740 ml 120 ml Results Result Diagram: 11/01/16 0557 Medications Medications Current Medications Docusate Sodium (Colace) 100 mg BID PO Last administered on 11/05/16t 10:37; Admin Dose 100 MG; Start 10/23/16 at 09:00 Senna (Senokot) 1 tab HS PO Last administered on 11/01/16 20:59; Admin Dose 1 TAB; Start 10/23/16 at 21:00 Lactulose (Enulose) 20 gm DAILY PRN PO CONSTIPATION; Start 10/22/16 at 23:00 Bisacodyl (Dulcolax Supp) 10 mg DAILY PRN [place] CONSTIPATION; Start 10/22/16 at 23: 00 Acetaminophen (Tylenol Tab) 650 mg Q4H PRN PO PAIN; Start 10/22/16 at 23:00 Baclofen (Lioresal) 20 mg TID PO Last administered on 11/05/16 14:35; Admin Dose 20 MG; Start 10/23/16 at 09:00 Pantoprazole (Protonix Tab) 40 mg BID@ PO Last administered on 11/05/16 06:10; Admin Dose 40 MG; Start 10/23/16 at 06:00 Diazepam (Valium) 10 mg HS PRN PO MUSCLE SPASMS; Start 10/22/16 at 23:00 Diphenhydramine HCl (Benadryl) 25 mg Q6H PRN PO ITCHING; Start 10/22/16 at 23:00 Cyclosporine (Restasis) 1 drop BID BOTH EYES Last administered on 11/05/16 10: 42; Admin Dose 1 DROP; Start 10/23/16 at 09:00 Hydrochlorothiazide (Hydrochlorothiazide) 25 mg DAILY PO Last administered on 10:45; Admin Dose 25 MG; Start 10/23/16 at 09:00 Ondansetron HCl (Zofran Tab) 4 mg Q8 PRN PO NAUSEA AND/OR VOMITING Last administered on 11/01/16 09:03; Admin Dose 4 MG; Start 10/22/16 at 23:00 Calcium Carbonate (Tums) 1,000 mg Q4 PRN PO heartburn Last administered on 10/30 21:08; Admin Dose 1,000 MG; Start 10/22/16 at 23:00 Oxycodone/ Acetaminophen (Percocet (5/ 325)) 1 tab Q4H PRN PO PAIN Last administered on 11/02/16 05:17; Admin Dose 1 TAB; Start 10/22/16 at 23:00 Oxycodone/ Acetaminophen (Percocet (5/ 325)) 2 tab Q4H PRN PO PAIN Last administered on 11/05/16 10:55; Admin Dose 2 TAB; Start 10/22/16 at 23:00 Pregabalin (Lyrica) 75 mg TID PO Last administered on 11/05/16 14:35; Admin Dose 75 MG; Start 10/23/16 at 09:00 Enoxaparin Sodium (Lovenox) 40 mg DAILY SC Last administered on 10/27/16 09:52 ; Admin Dose 40 MG; Start 10/23/16 at 09:00 Lactobacillus Acidophilus (Florajen3 Capsule) 2 each DAILY PO Last administered on 11/05/16 10:43; Admin Dose 2 EACH; Start 10/23/16 at 09:00 Temazepam (Restoril) 30 mg HS PRN PO INSOMNIA; Start 10/22/16 at 23:45 Atorvastatin Calcium (Lipitor) 20 mg DAILY@21 PO Last administered on 21:06; Admin Dose 20 MG; Start 10/23/16 at 21:00 Fentanyl (Duragesic 75 Mcg/Hr Patch) 1 patch Q72H TRANSDERM Last administered on 11/02/16 21:55; Admin Dose 1 PATCH; Start 10/24/16 at 21:00 Amphetamine/ Dextroamphetamine (Adderall) 10 mg BID@08,13 PO Last administered on 11/05/16 09:11; Admin Dose 10 MG; Start 10/25/16 at 08:00 Nifedipine (Procardia Xl) 30 mg DAILY PO Last administered on 11/03/16 08:58; Admin Dose 30 MG; Start 10/25/16 at 09:00 Duloxetine HCl (Cymbalta) 20 mg DAILY PO Last administered on 11/05/16 10:45; Admin Dose 20 MG; Start 10/26/16 at 09:00 Patient Own Medication 1 ea Q2H PRN PO DRY MOUTH Last administered on 10:04; Admin Dose 1 EA; Start 10/29/16 at 17:30 Patient Own Medication 1 ea Q1H PRN BOTH EYES DRY EYES Last administered on 10:04; Admin Dose 1 EA; Start 10/29/16 at 17:30 Hydromorphone HCl (Dilaudid) 1.5 mg Q3H PRN IV PAIN Last administered on 8/22/ 17at 14:32; Admin Dose 1.5 MG; Start 10/30/16 at 10:00 ENEDINA THAKUR DO Nov 05, 2016 15:47
[2016-11-05 20:00] VITALS: BP 142/92; RESP 18
[2016-11-05] MEDS: ATORVASTATIN 20 MG TAB PO SCH (20:41)
[2016-11-05] MEDS: SENNA TAB PO SCH (20:46)
[2016-11-05] MEDS: FENTAnyl PATCH 75 MCG/HR TRANSDERM SCH (21:47)
[2016-11-06 01:48] VITALS: BP 118/56; RESP 18
[2016-11-06] MEDS: HYDROmorphONE 2 MG/ML SYG IV PRN ×5 (03:39→20:42)
[2016-11-06] MEDS: ONDANSETRON 4 MG TAB PO PRN (04:57)
[2016-11-06] MEDS: PANTOPRAZOLE (EC) 40 MG TAB PO SCH ×2 (05:22→18:29)
[2016-11-06 07:43] VITALS: BP 132/81; RESP 18
[2016-11-06] MEDS: OXYCODONE/ACETAMINOPHEN (5/325) TAB PO PRN (07:46)
[2016-11-06] MEDS: DEXTROAMPHET/AMPHET 10 MG TAB PO SCH ×2 (08:44→14:36)
[2016-11-06] MEDS: PREGABALIN 75 MG CAP PO SCH ×3 (08:48→20:39)
[2016-11-06] MEDS: HYDROCHLOROTHIAZIDE 25 MG TAB PO SCH (08:48)
[2016-11-06] MEDS: BACLOFEN 10 MG TAB PO SCH ×3 (08:48→20:39)
[2016-11-06] MEDS: NIFEdipine (XL) 30 MG TAB PO SCH (09:00)
[2016-11-06] MEDS: ENOXAPARIN 40 MG/0.4 ML SYG SC SCH (09:00)
[2016-11-06] MEDS: L ACIDOPHIL/B LACTIS/B LONGUM CAPSULE PO SCH (09:00)
[2016-11-06] MEDS: DOCUSATE SODIUM 100 MG CAP PO SCH ×2 (09:49→20:39)
[2016-11-06] MEDS: CYCLOSPORINE 0.05% OPH DROPERETTE BOTH EYES SCH ×2 (09:49→20:40)
[2016-11-06] MEDS: DULOXETINE 20 MG CAP DR PO SCH (09:53)
--- NOTE | 2016-11-06 12:17 | CONS ---
Date/Time of Note Date/Time of Note DATE: 11/06/16 TIME: :17 Consult Date/Type/Reason Admit Date/Time Oct 22, 2016 at 21:20 Initial Consult Date 10/23/16 Type of Consultation: ID Ordering Provider: MARIAELENA LINDQUIST DO Subjective Comfortable Objective Lungs clear abdomen soft Same assist transfer Vital Signs Date Time Temp Pulse Resp B/P Pulse Ox O2 Delivery O2 Flow Rate FiO2 11/06/16 07:43 98.0 50 18 132/81 97 11/03/16 08:00 Room Air Intake and Output 11/05/16 11/05/16 11/06/16 14:59 22:59 06:59 Intake Total 800 ml 520 ml 150 ml Balance 800 ml 520 ml 150 ml Results/Medications Medications Current Medications Docusate Sodium (Colace) 100 mg BID PO Last administered on 11/06/16 09:49; Admin Dose 100 MG; Start 10/23/16 at 09:00 Senna (Senokot) 1 tab HS PO Last administered on 11/01/16 20:59; Admin Dose 1 TAB; Start 10/23/16 at 21:00 Lactulose (Enulose) 20 gm DAILY PRN PO CONSTIPATION; Start 10/22/16 at 23:00 Bisacodyl (Dulcolax Supp) 10 mg DAILY PRN [place] CONSTIPATION; Start 10/22/16 at 23: 00 Acetaminophen (Tylenol Tab) 650 mg Q4H PRN PO PAIN; Start 10/22/16 at 23:00 Baclofen (Lioresal) 20 mg TID PO Last administered on 11/06/16 08:48; Admin Dose 20 MG; Start 10/23/16 at 09:00 Pantoprazole (Protonix Tab) 40 mg BID@,18 PO Last administered on 11/06/16 05:22; Admin Dose 40 MG; Start 10/23/16 at 06:00 Diazepam (Valium) 10 mg HS PRN PO MUSCLE SPASMS; Start 10/22/16 at 23:00 Diphenhydramine HCl (Benadryl) 25 mg Q6H PRN PO ITCHING; Start 10/22/16 at 23:00 Cyclosporine (Restasis) 1 drop BID BOTH EYES Last administered on 11/06/16 09: 49; Admin Dose 1 DROP; Start 10/23/16 at 09:00 Hydrochlorothiazide (Hydrochlorothiazide) 25 mg DAILY PO Last administered on 08:48; Admin Dose 25 MG; Start 10/23/16 at 09:00 Ondansetron HCl (Zofran Tab) 4 mg Q8 PRN PO NAUSEA AND/OR VOMITING Last administered on 11/06/16 04:57; Admin Dose 4 MG; Start 10/22/16 at 23:00 Calcium Carbonate (Tums) 1,000 mg Q4 PRN PO heartburn Last administered on 10/30 21:08; Admin Dose 1,000 MG; Start 10/22/16 at 23:00 Oxycodone/ Acetaminophen (Percocet (5/ 325)) 1 tab Q4H PRN PO PAIN Last administered on 11/02/16 05:17; Admin Dose 1 TAB; Start 10/22/16 at 23:00 Oxycodone/ Acetaminophen (Percocet (5/ 325)) 2 tab Q4H PRN PO PAIN Last administered on 11/06/16 07:46; Admin Dose 2 TAB; Start 10/22/16 at 23:00 Pregabalin (Lyrica) 75 mg TID PO Last administered on 11/06/16 08:48; Admin Dose 75 MG; Start 10/23/16 at 09:00 Enoxaparin Sodium (Lovenox) 40 mg DAILY SC Last administered on 10/27/16 09:52 ; Admin Dose 40 MG; Start 10/23/16 at 09:00 Lactobacillus Acidophilus (Florajen3 Capsule) 2 each DAILY PO Last administered on 11/05/16 10:43; Admin Dose 2 EACH; Start 10/23/16 at 09:00 Temazepam (Restoril) 30 mg HS PRN PO INSOMNIA; Start 10/22/16 at 23:45 Atorvastatin Calcium (Lipitor) 20 mg DAILY@21 PO Last administered on 20:41; Admin Dose 20 MG; Start 10/23/16 at 21:00 Fentanyl (Duragesic 75 Mcg/Hr Patch) 1 patch Q72H TRANSDERM Last administered on 11/05/16 21:47; Admin Dose 1 PATCH; Start 10/24/16 at 21:00 Amphetamine/ Dextroamphetamine (Adderall) 10 mg BID@08,13 PO Last administered on 11/06/16 08:44; Admin Dose 10 MG; Start 10/25/16 at 08:00 Nifedipine (Procardia Xl) 30 mg DAILY PO Last administered on 11/03/16 08:58; Admin Dose 30 MG; Start 10/25/16 at 09:00 Duloxetine HCl (Cymbalta) 20 mg DAILY PO Last administered on 11/06/16 09:53; Admin Dose 20 MG; Start 10/26/16 at 09:00 Patient Own Medication 1 ea Q2H PRN PO DRY MOUTH Last administered on 10:04; Admin Dose 1 EA; Start 10/29/16 at 17:30 Patient Own Medication 1 ea Q1H PRN BOTH EYES DRY EYES Last administered on 10:04; Admin Dose 1 EA; Start 10/29/16 at 17:30 Hydromorphone HCl (Dilaudid) 1.5 mg Q3H PRN IV PAIN Last administered on 12:14; Admin Dose 1.5 MG; Start 10/30/16 at 10:00 Assessment/Plan Additional Assessment/Plan Rehabilitation- Multiple sclerosis exacerbation, Status post left hip I and D, Questionable spinal cord lesion posterior aspect of C7. Patient continues to work with therapy and is agreeable with the discharge plan Hyperlipidemia. Acute pain syndrome- decrease prn History of multiple hip surgeries. History of recurrent CVAs. History of subdural hematoma with evacuation. History of right total knee replacement. History of multiple lumbar surgeries. History of left shoulder replacement. JEREMY CHOWDHURY MD Nov 06, 2016 12:17
[2016-11-06 20:00] VITALS: BP 154/68; RESP 18
[2016-11-06] MEDS: ATORVASTATIN 20 MG TAB PO SCH (20:39)
[2016-11-06] MEDS: SENNA TAB PO SCH (20:39)
--- NOTE | 2016-11-06 21:20 | PN ---
DATE: SUBJECTIVE DATA: Patient is stable. No events overnight. No fevers, chills, nausea, vomiting. No shortness of breath. OBJECTIVE DATA: VITAL SIGNS: Blood pressure is 132/71, temperature is 98, pulse 50, respirations 18. HEENT: Head is normocephalic. NECK: Supple. HEART: Regular rate. LUNGS: Diminished breath sounds at the base. ABDOMEN: Soft, nontender to palpation. No rebound or guarding. EXTREMITIES: Negative for clubbing, cyanosis, no edema. DERMATOLOGIC: No rashes. MUSCULOSKELETAL: No joint effusion. NEUROLOGIC: No change in exam. MEDICATIONS: Has been reviewed. LABORATORY AND DIAGNOSTIC DATA: Has been reviewed. ASSESSMENT AND PLAN: 1. Left hip infection, status post incision and drainage, status post antibiotic bead placement. The patient is currently stable. 2. Urinary tract infection. The patient is completing antibiotic course. 3. Hypertension. Continue current blood pressure regimen. 4. Multiple sclerosis. The patient has . The patient is status post acute flare, status post Solu-Medrol. Continue to monitor. Follow up with Neurology. 5. Hyponatremia, improved. 6. Chronic pain syndrome. Continue current pain regimen. 7. Neuropathy. Continue Lyrica. 8. Insomnia. Continue Restoril. 9. Anemia. Monitor hemoglobin and hematocrit levels. 10. Gastrointestinal and deep venous thrombosis prophylaxis. Continue proton pump inhibitors and Lovenox. Dictated By: Samy Mejia DO /laura/gerard /Document#: [id number]
[2016-11-07 02:00] VITALS: BP 141/72; RESP 18
[2016-11-07] MEDS: HYDROmorphONE 2 MG/ML SYG IV PRN ×7 (02:32→23:59)
--- NOTE | 2016-11-07 03:08 | PN ---
DATE: 11/06/2016 SUBJECTIVE DATA: Psychology-individual session-[id number]: The patient is a 66-year-old female, who was seen last week. The patient is seen sitting up in her wheelchair. The patient is feeling better because she had a setback and was almost going to be discharged to a fpc facility but then has made a comeback in regard to her ability to function and is going to be discharged to home on Friday. The patient has made progress while she is in the program. The patient does have problems overall because of all her medical problems. Primarily the issue with her MS. The patient did try Cymbalta as a new medication and did think that this was helping her. I worked with the patient supportively to try to help her see that different things that she could do to continue to help herself emotionally and physically. Dictated By: Miki Keita, PHD /laura/lia /Document#: [id number]
[2016-11-07] MEDS: PANTOPRAZOLE (EC) 40 MG TAB PO SCH ×2 (06:18→17:55)
[2016-11-07] MEDS: OXYCODONE/ACETAMINOPHEN (5/325) TAB PO PRN ×3 (06:18→20:35)
[2016-11-07 07:30] VITALS: BP 115/57; RESP 20
[2016-11-07] MEDS: PREGABALIN 75 MG CAP PO SCH ×3 (07:33→20:35)
[2016-11-07] MEDS: DULOXETINE 20 MG CAP DR PO SCH (07:34)
[2016-11-07] MEDS: CYCLOSPORINE 0.05% OPH DROPERETTE BOTH EYES SCH ×2 (07:34→23:59)
[2016-11-07 07:41] LABS: BASOPHILS % 0.5 % (0.0-2.0); EOSINOPHILS # 0.3 10^3/ul (0.0-0.5); EOSINOPHILS % 3.7 % (0.0-7.0); HEMATOCRIT 30.2 % (37.0-47.0); HEMOGLOBIN 9.1 g/dl (12.0-16.0); LYMPHOCYTES # 2.9 10^3/ul (0.8-2.9); LYMPHOCYTES % 34.5 % (15.0-51.0); MEAN CORPUSCULAR HEMOGLOBIN 26.5 pg (29.0-33.0); MEAN CORPUSCULAR HGB CONC 30.1 g/dl (32.0-37.0); MEAN PLATELET VOLUME 10.4 fl (7.4-10.4); MONOCYTE # 0.8 10^3/ul (0.3-0.9); MONOCYTES % 9.9 % (0.0-11.0); NEUTROPHILS % 50.9 % (39.0-77.0); NUCLEATED RED BLOOD CELLS% 0.2 /100WBC (0.0-0.0); PLATELET COUNT 165 10^3/UL (140-415); RED BLOOD COUNT 3.43 10^6/ul (4.20-5.40); RED CELL DISTRIBUTION WIDTH 16.2 % (11.5-14.5); WHITE BLOOD COUNT 8.3 10^3/ul (4.8-10.8)
[2016-11-07 08:30] LABS: CALCIUM 8.4 mg/dl (8.4-10.2); CREATININE 0.71 mg/dl (0.44-1.00); PHOSPHORUS 4.4 mg/dl (2.5-4.9)
[2016-11-07 08:46] LABS: POTASSIUM 2.9 mmol/L (3.5-5.1)
[2016-11-07] MEDS: ENOXAPARIN 40 MG/0.4 ML SYG SC SCH (09:00)
[2016-11-07] MEDS: NIFEdipine (XL) 30 MG TAB PO SCH (09:00)
[2016-11-07] MEDS: DOCUSATE SODIUM 100 MG CAP PO SCH ×2 (09:00→20:35)
[2016-11-07] MEDS: L ACIDOPHIL/B LACTIS/B LONGUM CAPSULE PO SCH (09:09)
[2016-11-07] MEDS: BACLOFEN 10 MG TAB PO SCH ×3 (09:09→20:35)
[2016-11-07] MEDS: HYDROCHLOROTHIAZIDE 25 MG TAB PO SCH (09:10)
[2016-11-07] MEDS ORDERED: POTASSIUM CHLORIDE (SR) 20 MEQ TAB PO STA (09:10)
[2016-11-07] MEDS: DEXTROAMPHET/AMPHET 10 MG TAB PO SCH ×2 (09:53→14:59)
--- NOTE | 2016-11-07 12:33 | CONS ---
Date/Time of Note Date/Time of Note DATE: 11/07/16 TIME: 12:32 Consult Date/Type/Reason Admit Date/Time Oct 22, 2016 at 21:20 Initial Consult Date 10/23/16 Type of Consultation: ID Ordering Provider: MARIAELENA LINDQUIST DO Subjective No new complaint Objective Lungs clear Abdomen soft Standby assist ambulation Vital Signs Date Time Temp Pulse Resp B/P Pulse Ox O2 Delivery O2 Flow Rate FiO2 11/07/16 07:30 97.4 52 20 115/57 96 11/03/16 08:00 Room Air Intake and Output 11/06/16 11/06/16 11/07/16 15:00 23:00 07:00 Intake Total 800 ml 520 ml 750 ml Balance 800 ml 520 ml 750 ml Results/Medications Result Diagram: 11/07/16 0645 11/07/16 0645 Results 24 hrs Laboratory Tests Test 11/07/16 06:45 White Blood Count 8.3 Red Blood Count 3.43 L Hemoglobin 9.1 L Hematocrit 30.2 L Mean Corpuscular Volume 88.0 Mean Corpuscular Hemoglobin 26.5 L Mean Corpuscular Hemoglobin Concent 30.1 L Red Cell Distribution Width 16.2 H Platelet Count 165 Mean Platelet Volume 10.4 Neutrophils % 50.9 Lymphocytes % 34.5 Monocytes % 9.9 Eosinophils % 3.7 Basophils % 0.5 Nucleated Red Blood Cells % 0.2 H Neutrophils # (Manual) 4 Lymphocytes # 2.9 Monocytes # 0.8 Eosinophils # 0.3 Basophils # 0.0 Nucleated Red Blood Cells # 0.0 Sodium Level 139 Potassium Level 2.9 *L Chloride Level 96 L Carbon Dioxide Level 38 H Anion Gap 8 Blood Urea Nitrogen 19 Creatinine 0.71 Glucose Level 83 Calcium Level 8.4 Phosphorus Level 4.4 Magnesium Level 2.0 Medications Current Medications Docusate Sodium (Colace) 100 mg BID PO Last administered on 11/06/16 20:39; Admin Dose 100 MG; Start 10/23/16 at 09:00 Senna (Senokot) 1 tab HS PO Last administered on 11/06/16 20:39; Admin Dose 1 TAB; Start 10/23/16 at 21:00 Lactulose (Enulose) 20 gm DAILY PRN PO CONSTIPATION; Start 10/22/16 at 23:00 Bisacodyl (Dulcolax Supp) 10 mg DAILY PRN [place] CONSTIPATION; Start 10/22/16 at 23: 00 Acetaminophen (Tylenol Tab) 650 mg Q4H PRN PO PAIN; Start 10/22/16 at 23:00 Baclofen (Lioresal) 20 mg TID PO Last administered on 11/07/16 09:09; Admin Dose 20 MG; Start 10/23/16 at 09:00 Pantoprazole (Protonix Tab) 40 mg BID@,18 PO Last administered on 11/07/16 06:18; Admin Dose 40 MG; Start 10/23/16 at 06:00 Diazepam (Valium) 10 mg HS PRN PO MUSCLE SPASMS; Start 10/22/16 at 23:00 Diphenhydramine HCl (Benadryl) 25 mg Q6H PRN PO ITCHING; Start 10/22/16 at 23:00 Cyclosporine (Restasis) 1 drop BID BOTH EYES Last administered on 11/07/16 07: 34; Admin Dose 1 DROP; Start 10/23/16 at 09:00 Hydrochlorothiazide (Hydrochlorothiazide) 25 mg DAILY PO Last administered on 09:10; Admin Dose 25 MG; Start 10/23/16 at 09:00 Ondansetron HCl (Zofran Tab) 4 mg Q8 PRN PO NAUSEA AND/OR VOMITING Last administered on 11/06/16 04:57; Admin Dose 4 MG; Start 10/22/16 at 23:00 Calcium Carbonate (Tums) 1,000 mg Q4 PRN PO heartburn Last administered on 10/30 21:08; Admin Dose 1,000 MG; Start 10/22/16 at 23:00 Oxycodone/ Acetaminophen (Percocet (5/ 325)) 1 tab Q4H PRN PO PAIN Last administered on 11/02/16 05:17; Admin Dose 1 TAB; Start 10/22/16 at 23:00 Oxycodone/ Acetaminophen (Percocet (5/ 325)) 2 tab Q4H PRN PO PAIN Last administered on 11/07/16 11:01; Admin Dose 2 TAB; Start 10/22/16 at 23:00 Pregabalin (Lyrica) 75 mg TID PO Last administered on 11/07/16 07:33; Admin Dose 75 MG; Start 10/23/16 at 09:00 Enoxaparin Sodium (Lovenox) 40 mg DAILY SC Last administered on 10/27/16 09:52 ; Admin Dose 40 MG; Start 10/23/16 at 09:00 Lactobacillus Acidophilus (Florajen3 Capsule) 2 each DAILY PO Last administered on 11/07/16 09:09; Admin Dose 2 EACH; Start 10/23/16 at 09:00 Temazepam (Restoril) 30 mg HS PRN PO INSOMNIA; Start 10/22/16 at 23:45 Atorvastatin Calcium (Lipitor) 20 mg DAILY@21 PO Last administered on 20:39; Admin Dose 20 MG; Start 10/23/16 at 21:00 Fentanyl (Duragesic 75 Mcg/Hr Patch) 1 patch Q72H TRANSDERM Last administered on 11/05/16 21:47; Admin Dose 1 PATCH; Start 10/24/16 at 21:00 Amphetamine/ Dextroamphetamine (Adderall) 10 mg BID@,13 PO Last administered on 11/07/16 09:53; Admin Dose 10 MG; Start 10/25/16 at 08:00 Nifedipine (Procardia Xl) 30 mg DAILY PO Last administered on 11/03/16 08:58; Admin Dose 30 MG; Start 10/25/16 at 09:00 Duloxetine HCl (Cymbalta) 20 mg DAILY PO Last administered on 11/07/16 07:34; Admin Dose 20 MG; Start 10/26/16 at 09:00 Patient Own Medication 1 ea Q2H PRN PO DRY MOUTH Last administered on 10:04; Admin Dose 1 EA; Start 10/29/16 at 17:30 Patient Own Medication 1 ea Q1H PRN BOTH EYES DRY EYES Last administered on 10:04; Admin Dose 1 EA; Start 10/29/16 at 17:30 Hydromorphone HCl (Dilaudid) 1.5 mg Q3H PRN IV PAIN Last administered on 07:35; Admin Dose 1.5 MG; Start 10/30/16 at 10:00 Assessment/Plan Additional Assessment/Plan Rehabilitation- Multiple sclerosis exacerbation, Status post left hip I and D, Questionable spinal cord lesion posterior aspect of C7. Good progress working towards discharge home tomorrow Hyperlipidemia. Acute pain syndrome- decrease prn History of multiple hip surgeries. History of recurrent CVAs. History of subdural hematoma with evacuation. History of right total knee replacement. History of multiple lumbar surgeries. History of left shoulder replacement. JEREMY CHOWDHURY MD Nov 07, 2016 12:33
--- NOTE | 2016-11-07 15:14 | PN ---
DATE: 11/07/2016 SUBJECTIVE DATA: The patient is stable. No events overnight. No fevers, chills, nausea, vomiting. OBJECTIVE DATA: VITAL SIGNS: Blood pressure is 115/57, respirations 20, pulse 63, temperature 97.4. HEENT: Head is normocephalic. NECK: Supple. HEART: Regular rate. LUNGS: Diminished breath sounds at the base. ABDOMEN: Soft, nontender to palpation. No rebound or guarding. EXTREMITIES: Negative for clubbing, cyanosis. No edema. DERMATOLOGIC: No rashes. MUSCULOSKELETAL: No joint effusion. NEUROLOGIC: No change in exam. MEDICATIONS: Reviewed. LABORATORY AND DIAGNOSTIC DATA: Sodium 139, potassium 2.9, chloride 96, BUN 19, creatinine 0.71. White count 8.3, hemoglobin 9.1, hematocrit 30.2, platelet count is 165,000. ASSESSMENT AND PLAN: 1. Left hip infection, status post I\T\D, status post antibiotic bead placement. The patient is currently stable. 2. . Patient completed antibiotic course. 3. Hypertension. Continue current blood pressure regimen. 4. Hypokalemia, likely due to diuretic therapy. Will replete potassium chloride. 5. Multiple sclerosis. The patient is status post acute flare, status post Solu-Medrol. Continue to monitor. Follow up with Neurology. Dictated By: Samy Mejia DO /laura/alka /Document#: [id number]
[2016-11-07 20:29] VITALS: BP 133/60; PULSE 55; RESP 16
[2016-11-07] MEDS: ATORVASTATIN 20 MG TAB PO SCH (20:35)
[2016-11-07] MEDS: SENNA TAB PO SCH (20:35)
[2016-11-08 02:00] VITALS: BP 129/68; RESP 18
[2016-11-08] MEDS: OXYCODONE/ACETAMINOPHEN (5/325) TAB PO PRN ×5 (04:37→20:26)
[2016-11-08] MEDS: PANTOPRAZOLE (EC) 40 MG TAB PO SCH ×2 (05:05→17:43)
[2016-11-08] MEDS: ONDANSETRON 4 MG TAB PO PRN (05:05)
[2016-11-08 07:40] LABS: CALCIUM 8.6 mg/dl (8.4-10.2); CREATININE 0.63 mg/dl (0.44-1.00); PHOSPHORUS 4.2 mg/dl (2.5-4.9)
[2016-11-08 07:43] VITALS: BP 117/54; RESP 18
[2016-11-08 08:01] LABS: POTASSIUM 2.9 mmol/L (3.5-5.1)
[2016-11-08] MEDS ORDERED: POTASSIUM CHLORIDE (SR) 20 MEQ TAB PO STA (08:32)
[2016-11-08] MEDS: L ACIDOPHIL/B LACTIS/B LONGUM CAPSULE PO SCH (09:00)
[2016-11-08] MEDS: ENOXAPARIN 40 MG/0.4 ML SYG SC SCH ×2 (09:00→09:06)
[2016-11-08] MEDS: NIFEdipine (XL) 30 MG TAB PO SCH (09:00)
[2016-11-08] MEDS: CYCLOSPORINE 0.05% OPH DROPERETTE BOTH EYES SCH ×2 (09:02→20:24)
[2016-11-08] MEDS: DULOXETINE 20 MG CAP DR PO SCH (09:02)
[2016-11-08] MEDS: DEXTROAMPHET/AMPHET 10 MG TAB PO SCH ×2 (09:02→14:14)
[2016-11-08] MEDS: BACLOFEN 10 MG TAB PO SCH ×3 (09:03→20:24)
[2016-11-08] MEDS: DOCUSATE SODIUM 100 MG CAP PO SCH ×2 (09:03→20:25)
[2016-11-08] MEDS: PREGABALIN 75 MG CAP PO SCH ×3 (09:03→20:24)
[2016-11-08] MEDS: HYDROCHLOROTHIAZIDE 25 MG TAB PO SCH (09:06)
[2016-11-08] MEDS ORDERED: ONDANSETRON 4 MG INJ IV PRN (11:30)
--- NOTE | 2016-11-08 11:50 | PN ---
DATE: 11/08/2016 SUBJECTIVE DATA: The patient is stable. No events overnight. No fevers, chills, nausea, vomiting. OBJECTIVE DATA: VITAL SIGNS: Blood pressure is 117/54, respirations 18, pulse 60, temperature 98.5. HEENT: Head is normocephalic. NECK: Supple. HEART: Regular rate. LUNGS: Diminished breath sounds at the base. ABDOMEN: Soft, nontender to palpation. No rebound or guarding. EXTREMITIES: Negative for clubbing, cyanosis. No edema. DERMATOLOGIC: No rashes. MUSCULOSKELETAL: No joint effusion. NEUROLOGIC: No change in exam. MEDICATIONS: Reviewed. LABORATORY DATA: Sodium 141. Potassium is 2.9, chloride 95, BUN 19, creatinine 0.63. ASSESSMENT AND PLAN: 1. Left hip infection, status post I and D, status post antibiotic bead placement. The patient is completing antibiotic course. 2. Hypokalemia. Etiology from diuretic therapy. Will replete potassium chloride 60 mEq p.o. x1. Will repeat a potassium level at 1400. The patient may require to be on potassium chloride daily, given her diuretic therapy. 3. Hypertension, controlled. Continue current diuretic regimen. 4. Multiple sclerosis. The patient is status post acute flare, status post Solu-Medrol. Continue to monitor. Follow up with Neurology. 5. Dyslipidemia. Continue statin therapy. 6. Hyponatremia, improved. 7. Chronic pain syndrome. Continue current pain regimen. 8. Neuropathy. Continue Lyrica. 9. Insomnia. Continue Restoril. 10. Anemia. Monitor H and H levels. 11. Gastrointestinal and deep venous thrombosis prophylaxis. Continue PPI and Lovenox. Dictated By: Samy Mejia DO /laura/gricelda /Document#: [id number]
--- NOTE | 2016-11-08 11:57 | CONS ---
Date/Time of Note Date/Time of Note DATE: 11/08/16 TIME: 11:57 Consult Date/Type/Reason Admit Date/Time Oct 22, 2016 at 21:20 Initial Consult Date 10/23/16 Type of Consultation: ID Ordering Provider: MARIAELENA LINDQUIST DO Subjective comfortable Objective sba transfer Vital Signs Date Time Temp Pulse Resp B/P Pulse Ox O2 Delivery O2 Flow Rate FiO2 11/08/16 07:43 98.5 50 18 117/54 97 11/07/16 20:29 Room Air Intake and Output 11/07/16 11/07/16 11/08/16 15:00 23:00 07:00 Intake Total 680 ml 550 ml Output Total 1 ml Balance 679 ml 550 ml Results/Medications Result Diagram: 11/07/16 0645 11/08/16 0608 Results 24 hrs Laboratory Tests Test 11/08/16 06:08 Sodium Level 141 Potassium Level 2.9 *L Chloride Level 95 L Carbon Dioxide Level 39 H Anion Gap 10 Blood Urea Nitrogen 19 Creatinine 0.63 Glucose Level 83 Calcium Level 8.6 Phosphorus Level 4.2 Magnesium Level 2.0 Medications Current Medications Docusate Sodium (Colace) 100 mg BID PO Last administered on 11/08/16 09:03; Admin Dose 100 MG; Start 10/23/16 at 09:00 Senna (Senokot) 1 tab HS PO Last administered on 11/07/16 20:35; Admin Dose 1 TAB; Start 10/23/16 at 21:00 Lactulose (Enulose) 20 gm DAILY PRN PO CONSTIPATION; Start 10/22/16 at 23:00 Bisacodyl (Dulcolax Supp) 10 mg DAILY PRN PA CONSTIPATION; Start 10/22/16 at 23: 00 Acetaminophen (Tylenol Tab) 650 mg Q4H PRN PO PAIN; Start 10/22/16 at 23:00 Baclofen (Lioresal) 20 mg TID PO Last administered on 11/08/16 09:03; Admin Dose 20 MG; Start 10/23/16 at 09:00 Pantoprazole (Protonix Tab) 40 mg BID@,18 PO Last administered on 11/08/16 05:05; Admin Dose 40 MG; Start 10/23/16 at 06:00 Diazepam (Valium) 10 mg HS PRN PO MUSCLE SPASMS; Start 10/22/16 at 23:00 Diphenhydramine HCl (Benadryl) 25 mg Q6H PRN PO ITCHING; Start 10/22/16 at 23:00 Cyclosporine (Restasis) 1 drop BID BOTH EYES Last administered on 11/08/16 09: 02; Admin Dose 1 DROP; Start 10/23/16 at 09:00 Hydrochlorothiazide (Hydrochlorothiazide) 25 mg DAILY PO Last administered on 09:06; Admin Dose 25 MG; Start 10/23/16 at 09:00 Ondansetron HCl (Zofran Tab) 4 mg Q8 PRN PO NAUSEA AND/OR VOMITING Last administered on 11/08/16 05:05; Admin Dose 4 MG; Start 10/22/16 at 23:00 Calcium Carbonate (Tums) 1,000 mg Q4 PRN PO heartburn Last administered on 10/30 21:08; Admin Dose 1,000 MG; Start 10/22/16 at 23:00 Oxycodone/ Acetaminophen (Percocet (5/ 325)) 1 tab Q4H PRN PO PAIN Last administered on 11/02/16 05:17; Admin Dose 1 TAB; Start 10/22/16 at 23:00 Oxycodone/ Acetaminophen (Percocet (5/ 325)) 2 tab Q4H PRN PO PAIN Last administered on 11/08/16 09:03; Admin Dose 2 TAB; Start 10/22/16 at 23:00 Pregabalin (Lyrica) 75 mg TID PO Last administered on 11/08/16 09:03; Admin Dose 75 MG; Start 10/23/16 at 09:00 Enoxaparin Sodium (Lovenox) 40 mg DAILY SC Last administered on 10/27/16 09:52 ; Admin Dose 40 MG; Start 10/23/16 at 09:00 Lactobacillus Acidophilus (Florajen3 Capsule) 2 each DAILY PO Last administered on 11/07/16 09:09; Admin Dose 2 EACH; Start 10/23/16 at 09:00 Temazepam (Restoril) 30 mg HS PRN PO INSOMNIA; Start 10/22/16 at 23:45 Atorvastatin Calcium (Lipitor) 20 mg DAILY@21 PO Last administered on 20:35; Admin Dose 20 MG; Start 10/23/16 at 21:00 Fentanyl (Duragesic 75 Mcg/Hr Patch) 1 patch Q72H TRANSDERM Last administered on 11/05/16 21:47; Admin Dose 1 PATCH; Start 10/24/16 at 21:00 Amphetamine/ Dextroamphetamine (Adderall) 10 mg BID@08,13 PO Last administered on 11/08/16 09:02; Admin Dose 10 MG; Start 10/25/16 at 08:00 Nifedipine (Procardia Xl) 30 mg DAILY PO Last administered on 11/03/16 08:58; Admin Dose 30 MG; Start 10/25/16 at 09:00 Duloxetine HCl (Cymbalta) 20 mg DAILY PO Last administered on 11/08/16 09:02; Admin Dose 20 MG; Start 10/26/16 at 09:00 Patient Own Medication 1 ea Q2H PRN PO DRY MOUTH Last administered on 10:04; Admin Dose 1 EA; Start 10/29/16 at 17:30 Patient Own Medication 1 ea Q1H PRN BOTH EYES DRY EYES Last administered on 10:04; Admin Dose 1 EA; Start 10/29/16 at 17:30 Hydromorphone HCl (Dilaudid) 1.5 mg Q3H PRN IV PAIN Last administered on 23:59; Admin Dose 1.5 MG; Start 10/30/16 at 10:00 Ondansetron HCl (Zofran Inj) 4 mg Q6H PRN IV NAUSEA AND/OR VOMITING; Start at 11:30 Assessment/Plan Additional Assessment/Plan Rehabilitation- Multiple sclerosis exacerbation, Status post left hip I and D, Questionable spinal cord lesion posterior aspect of C7. Continue rehab activities BRAIN- hypokalemia- gently replenish Hyperlipidemia. Acute pain syndrome- decrease prn History of multiple hip surgeries. History of recurrent CVAs. History of subdural hematoma with evacuation. History of right total knee replacement. History of multiple lumbar surgeries. History of left shoulder replacement. JEREMY CHOWDHURY MD Nov 08, 2016 11:57
[2016-11-08] MEDS: HYDROmorphONE 2 MG/ML SYG IV PRN ×2 (13:14→21:47)
[2016-11-08 20:00] VITALS: BP 139/63; RESP 18
[2016-11-08] MEDS: ATORVASTATIN 20 MG TAB PO SCH (20:24)
[2016-11-08] MEDS: SENNA TAB PO SCH (20:25)
[2016-11-08] MEDS: FENTAnyl PATCH 75 MCG/HR TRANSDERM SCH (21:53)
[2016-11-09] MEDS: PANTOPRAZOLE (EC) 40 MG TAB PO SCH (07:11)
[2016-11-09 07:30] VITALS: BP 142/65; RESP 18
[2016-11-09] MEDS: DEXTROAMPHET/AMPHET 10 MG TAB PO SCH ×2 (08:39→12:56)
[2016-11-09] MEDS: NIFEdipine (XL) 30 MG TAB PO SCH (08:40)
[2016-11-09] MEDS: PREGABALIN 75 MG CAP PO SCH ×2 (08:40→12:56)
[2016-11-09] MEDS: DULOXETINE 20 MG CAP DR PO SCH (08:41)
[2016-11-09] MEDS: BACLOFEN 10 MG TAB PO SCH ×2 (08:41→12:56)
[2016-11-09] MEDS: ENOXAPARIN 40 MG/0.4 ML SYG SC SCH (08:42)
[2016-11-09] MEDS: HYDROCHLOROTHIAZIDE 25 MG TAB PO SCH (08:42)
[2016-11-09] MEDS: OXYCODONE/ACETAMINOPHEN (5/325) TAB PO PRN ×2 (08:43→12:59)
[2016-11-09] MEDS: DOCUSATE SODIUM 100 MG CAP PO SCH (08:50)
[2016-11-09] MEDS ORDERED: HEPARIN (100 UNITS/ML) 5 ML SYG CATHETER ONE (09:00)
[2016-11-09] MEDS: CYCLOSPORINE 0.05% OPH DROPERETTE BOTH EYES SCH (09:37)
[2016-11-09] MEDS: L ACIDOPHIL/B LACTIS/B LONGUM CAPSULE PO SCH (09:37)
--- NOTE | 2016-11-09 09:40 | PN ---
DATE: 11/09/2016 SUBJECTIVE DATA: Patient is stable. No events overnight. No fevers, chills, nausea, vomiting. OBJECTIVE DATA: VITAL SIGNS: Blood pressure 139/63, respiration 18, pulse 60, temperature 98.3. HEENT: Head is normocephalic. NECK: Supple. HEART: Regular rate. LUNGS: Diminished breath sounds at the base. ABDOMEN: Soft, nontender to palpation. No rebound or guarding. EXTREMITIES: Negative for clubbing, cyanosis. No edema. DERMATOLOGIC: No rashes. MUSCULOSKELETAL: No joint effusion. NEUROLOGIC: Unchanged exam. MEDICATIONS: Reviewed. LABORATORY AND DIAGNOSTIC DATA: Laboratory data shows potassium level of 4.1. ASSESSMENT AND PLAN: 1. Left hip infection, status post irrigation and debridement. The patient is status post -antibiotic course. 2. Hypokalemia. Etiology is likely from diuretic therapy. The patient is status post-potassium chloride with normalization of potassium levels. Will continue to monitor. 3. Hypertension. Continue current blood pressure regimen. 4. Multiple sclerosis, status post-acute flare. The patient is status [id number]. Continue to monitor. Follow up with Neurology. 5. Dyslipidemia. Continue statin therapy. 6. Chronic pain syndrome. Continue current pain regimen. 7. Neuropathy. Continue Lyrica. 8. Insomnia. Continue Restoril. 9. Anemia. Monitor hemoglobin and hematocrit levels. 10. Gastrointestinal and deep venous thrombosis prophylaxis. Continue proton pump inhibitor and Lovenox. Dictated By: Samy Mejia DO /laura/suzette /Document#: [id number]
--- NOTE | 2016-11-09 10:29 | DS ---
Date/Time of Note Date/Time of Note DATE: 11/09/16 TIME: 10:27 Discharge Summary Admission/Discharge Info Admit Date/Time Oct 22, 2016 at 21:20 Discharge Date/Time Discharge Diagnosis 1.Multiple sclerosis exacerbation. 2. Status post left hip I and D. 3. Questionable spinal cord lesion posterior aspect of C7. 4. Acute pain syndrome. 5. History of multiple hip surgeries. 6. Chronic pain. 7. History of recurrent CVAs. 8. History of subdural hematoma with evacuation. 9. History of right total knee replacement. 10. History of multiple lumbar surgeries. 11. History of left shoulder replacement. 12. History of left 2nd toe amputation. 13. Improved self care and mobility Patient Condition: Good Hospital Course Patient admitted for interdisciplinary rehab and made steady functional gains. She improved from a Max level to a SBA level. Patient is beind dc'd home [facility] for PT/OT follow up. She will f/u with PMD. Home Meds Reported Medications Amphet Msw-Nlmgeh-S-Amphet (Adderall) 10 Mg Tablet, 10 MG PO BID, TAB 09/23/16 Benazepril Hcl* (Benazepril Hcl*) 5 Mg Tablet, 5 MG PO BID, #60 TAB 03/01/16 Hydrochlorothiazide* (Hydrochlorothiazide*) 25 Mg Tab, 25 MG PO DAILY, #30 TAB 03/01/16 Pregabalin* (Lyrica*) 75 Mg Capsule, 75 MG PO BID, CAP 09/18/15 Oxycodone Hcl-Acetaminophen* (Oxycodone Hcl-Acetaminophen*) 10-325 Mg Tablet, 2 TAB PO Q4 Y for SEVERE PAIN LEVEL 7-10, TAB 09/18/15 Fentanyl Patch* (Fentanyl Patch*) 75 Mcg/Hr Transdermal Patch, 1 PATCH TD Q72H, PATCH 03/02/15 Rosuvastatin Calcium* (Crestor*) 20 Mg Tablet, 20 MG PO QHS, #30 TAB 03/02/15 Baclofen* (Baclofen*) 20 Mg Tablet, 20 MG PO TID, TAB 03/02/15 Primary Care Provider Nikita Severino Pending Labs Laboratory Tests Test 11/08/16 13:52 Potassium Level 4.1mmol/L (3.5-5.1) JEREMY CHOWDHURY MD Nov 09, 2016 10:29
[2016-11-09 14:00] VITALS: BP 113/55; RESP 20
== END 2016-11-09 15:50 | disposition home health service (06) | DRG 59 ==
LOC: VRC 21:20
PROVIDERS: ADMIT Physical Medicine & Rehabilitation; ATTEND Internal Medicine Nephrology
DX: G35 Multiple sclerosis (principal); E87.1 Hypo-osmolality and hyponatremia; G62.9 Polyneuropathy, unspecified; N31.9 Neuromuscular dysfunction of bladder, unspecified; M50.221 Other cervical disc displacement at C4-C5 level; I10 Essential (primary) hypertension; N39.0 Urinary tract infection, site not specified; G81.94 Hemiplegia, unspecified affecting left nondominant side; D64.9 Anemia, unspecified; E78.5 Hyperlipidemia, unspecified; Z74.09 Other reduced mobility; F06.31 Mood disorder due to known physiological condition with depressive features; G31.84 Mild cognitive impairment of uncertain or unknown etiology; G89.4 Chronic pain syndrome; K59.00 Constipation, unspecified; B96.4 Proteus (mirabilis) (morganii) as the cause of diseases classified elsewhere; G47.00 Insomnia, unspecified; R33.8 Other retention of urine; G95.9 Disease of spinal cord, unspecified; T16.1XXA Foreign body in right ear, initial encounter; H90.2 Conductive hearing loss, unspecified; X58.XXXA Exposure to other specified factors, initial encounter; E66.9 Obesity, unspecified; Z68.34 Body mass index [BMI] 34.0-34.9, adult; Z86.73 Personal history of transient ischemic attack (TIA), and cerebral infarction without residual deficits; Z16.24 Resistance to multiple antibiotics; Z96.643 Presence of artificial hip joint, bilateral; Z96.651 Presence of right artificial knee joint; Z96.612 Presence of left artificial shoulder joint; Z98.890 Other specified postprocedural states; Z89.422 Acquired absence of other left toe(s); Z79.2 Long term (current) use of antibiotics
CPT/HCPCS: 80048; 80053; 80150; 81001; 82565; 83735; 84100; 84132; 84520; 85025; 87081; 87086; 92507; 92523; 92610; 93005; 97110; 97112; 97116; 97150; 97163; 97167; 97530; 97535; 97542; J0278; J1170; J1335; J1642; J1650; J2270; J2405; J2930

== ENCOUNTER 2016-11-13 19:39 | Emergency (ER) | payer BC, MEDICARE | END 2016-11-13 19:45 | disposition left against medical advice (07) | LOC: E/R 19:39 | DX: Z53.21 Procedure and treatment not carried out due to patient leaving prior to being seen by health care provider (principal) ==

== ENCOUNTER 2017-01-01 11:08 | Inpatient (IN) | payer MEDICARE, BC ==
[~2017-01-01] VITALS: Ht 172.7 cm; Wt 100.5 kg
[~2017-01-01 11:08] MED LIST changes: -HYD25 PO; +HYDR25TA6 PO
--- NOTE | 2017-01-01 11:58 | ERD ---
ER Documentation Chief Complaint Date/Time DATE: 01/01/17 TIME: 11:54 Chief Complaint fall from wheelchair , no k/o , c/o rt knee , rt toe , low back pain HPI Patient is a 66-year-old female who is wheelchair-bound due to multiple sclerosis who reports sudden onset, constant, severe pain to her right lower extremity after she lost control of her wheelchair on a hill and fell out of the wheelchair onto her right leg. She states that the wheelchair landed on top of her right foot. She also reports having pain to her right shoulder and her lumbar spine. She has history of multiple surgeries to the lumbar spine. She reports having new weakness to the right lower extremity. She denies head trauma or other injury. Last tetanus is greater than 10 years. ROS All systems reviewed and are negative except as per history of present illness. Medications Home Meds Reported Medications Amphet Pzu-Vtzzmu-Y-Amphet (Adderall) 10 Mg Tablet, 10 MG PO BID, TAB 09/23/16 Benazepril Hcl* (Benazepril Hcl*) 5 Mg Tablet, 5 MG PO BID, #60 TAB 03/01/16 Hydrochlorothiazide* (Hydrochlorothiazide*) 25 Mg Tab, 25 MG PO DAILY, #30 TAB 03/01/16 Pregabalin* (Lyrica*) 75 Mg Capsule, 75 MG PO BID, CAP 09/18/15 Oxycodone Hcl-Acetaminophen* (Oxycodone Hcl-Acetaminophen*) 10-325 Mg Tablet, 2 TAB PO Q4 Y for SEVERE PAIN LEVEL 7-10, TAB 09/18/15 Fentanyl Patch* (Fentanyl Patch*) 75 Mcg/Hr Transdermal Patch, 1 PATCH TD Q72H, PATCH 03/02/15 Rosuvastatin Calcium* (Crestor*) 20 Mg Tablet, 20 MG PO QHS, #30 TAB 03/02/15 Baclofen* (Baclofen*) 20 Mg Tablet, 20 MG PO TID, TAB 03/02/15 Allergies Allergies: Coded Allergies: Sulfa (Sulfonamide Antibiotics) (Verified Allergy, Severe, 09/23/16) NSAIDS (Non-Steroidal Anti-Inflamma (Verified Allergy, Unknown, 10/23/16) aspirin (Verified Allergy, Unknown, 10/23/16) atenolol (Verified Allergy, Unknown, 10/23/16) cefazolin (Verified Allergy, Unknown, 10/23/16) PMhx/Soc Past medical history: Multiple sclerosis, chronic back pain, subdural hematoma Past surgical history: Multiple hip replacements, right knee replacement, multiple lumbar spine surgeries, tracheostomy Social history: Denies tobacco, alcohol or illicit drugs History of Surgery: Yes (multiple Rt/Lt hip surgeries) Anesthesia Reaction: No Hx Neurological Disorder: Yes (MULTIPLE SCLEROSIS ) Hx Respiratory Disorders: No Hx Cardiac Disorders: Yes (HTN, HYPERLIPIDEMIA ) Hx Psychiatric Problems: No Hx Miscellaneous Medical Probl: Yes (MS, multiple CGA, SDH ) Hx Alcohol Use: No Hx Substance Use: No Hx Tobacco Use: No Smoking Status: Never smoker FmHx Family History: No coronary disease, No diabetes Physical Exam Vitals Vital Signs Date Time Temp Pulse Resp B/P Pulse Ox O2 Delivery O2 Flow Rate FiO2 01/01/17 13:23 98.2 76 18 164/70 97 01/01/17 11:12 98.1 76 18 172/77 97 Physical Exam Const: Alert, in mild distress Head: Atraumatic Eyes: Normal Conjunctiva, No pallor, no icterus ENT: Normal External Ears, Nose and Mouth. Mucous membranes tacky Neck: Full range of motion..~ No meningismus. No midline tenderness Resp: Clear to auscultation bilaterally, No wheezes, no rales, no chest wall tenderness Cardio: Regular rate and rhythm, no murmurs Abd: Soft, non tender, non distended. Skin: No petechiae or rashes Back: Tenderness in the lumbar spine without step-off or crepitus, flank tenderness Ext: No cyanosis, or edema. Ecchymosis, point tenderness and mild effusion to right knee. Abrasions to multiple toes of right foot. No tenderness in the midfoot or ankle or ace. 2+ DP pulse and 2 second cap refill to all digits. No pain with hip range of motion. Neur: Awake and alert, Cranial nerves II through XII intact bilaterally, strength and sensation full in upper extremities, sensation full in right lower extremity with weakness of ankle flexion and extension. Patient is able to maintain straight leg with support of the hip, but is not able to lift the right lower extremity to gravity. There are some inconsistencies on serial examination. Psych: Normal Mood and Affect Results 24 hrs Current Medications Medications (Trade) Dose Ordered Sig/Franky Route PRN Reason Start Time Stop Time Status Last Admin Dose Admin Diphtheria/ Tetanus/Acell Pertussis (Adacel) 0.5 ml ONCE ONCE IM* 01/01/17 12:00 01/01/17 12:01 DC 01/01/17 12:22 Oxycodone/ Acetaminophen (Percocet (5/ 325)) 1 tab ONCE ONCE PO 01/01/17 12:00 01/01/17 12:01 DC 01/01/17 12:21 Procedures/MDM MDM: Patient is a 66-year-old female who presents with complaint of back and right lower extremity pain after falling from her wheelchair. X-rays show fracture to 2 toes. X-ray of the knee is unremarkable but there is a significant contusion on exam. The patient also complains of low back pain and has significant history of lumbar spine disease. She reports that she is having acute weakness in the right lower extremity. She has been wheelchair- bound at baseline, but states that she is ordinarily able to move her right lower extremity. Her weakness in the right lower extremity on exam is somewhat inconsistent, but is more significant than I would expect from association with pain alone. I would therefore obtain an MRI of the L-spine to exclude radiculopathy or cord injury. Dr. Justice will follow up on the MRI results and notify neurosurgery if an acute surgical condition exists. Otherwise, the patient will be admitted for pain control and serial exams, and neurologic consultation as indicated. History is not suggestive of stroke, and there are no right upper extremity deficits. Case was discussed with Dr. Henry, who will admit the patient under observation status. I will send basic labs. There is no evidence of open fracture of the foot. Departure Diagnosis: Primary Impression: Right leg weakness Additional Impressions: Phalanx fracture, foot Encounter type: initial encounter Toe: great toe Fracture type: closed Phalanx: distal Fracture alignment: displaced Laterality: left Qualified Code: S92.422A - Closed displaced fracture of distal phalanx of left great toe , initial encounter Abrasion Knee contusion Encounter type: initial encounter Laterality: left Qualified Code: S80.02XA - Contusion of left knee, initial encounter Condition: YOLANDA Cruz MD Jan 01, 2017 11:58
[2017-01-01] MEDS ORDERED: DIPHTH/TET/ACEL PERTUSS (ADULT) 0.5 ML VIAL IM* ONE (12:00)
[2017-01-01] MEDS ORDERED: OXYCODONE/ACETAMINOPHEN (5/325) TAB PO ONE (12:00)
--- NOTE | 2017-01-01 13:33 | RADRPT ---
PROCEDURE: Right shoulder 3 views CLINICAL INDICATION: Right shoulder pain and trauma. TECHNIQUE: AP internal and external rotation and transscapular Y views of the right shoulder were obtained COMPARISON: None available FINDINGS: Osteopenia is identified. The osseous structures appear intact. No destructive bony lesions are obs erved. Elevation of the humeral head with narrowing of the subacromial space is identified. Mild na rrowing of the glenohumeral joint is seen. Mild inferior subluxation of the distal clavicle in relat ion to the distal acromion is seen. Soft tissues are unremarkable. IMPRESSION: Mild inferior subluxation of the distal clavicle in relation to the distal acromion. Finding could r eflect ligamentous sprain or injury. If further characterization of the ligaments and tendons is nee ded MRI is recommended. Elevation of the humeral head with narrowing of the subacromial space. Finding could reflect suprasp inatus impingement in the appropriate clinical scenario. Mild degenerative change of the glenohumeral joint. Osteopenia. If there is high clinical suspicion for bony traumatic injury, further evaluation with CT should be considered. RPTAT: AA .Claudy Adams MD, Date Time Electronically viewed and signed by .Claudy Adams MD, on 01/01/2017 13:33 .P/
--- NOTE | 2017-01-01 13:36 | RADRPT ---
PROCEDURE: XR Knee 3 Views. CLINICAL INDICATION: Right knee pain and trauma. TECHNIQUE: AP, lateral and oblique view of the right knee were obtained. The images reviewed on a PACS workstation. COMPARISON: None. FINDINGS: Right knee replacement is identified. Prosthetic components appear in appropriate position and align ment. Diffuse osteopenia is seen. The osseous structures appear intact. No destructive bony lesions are observed. Soft tissues are unremarkable. IMPRESSION: No visualized traumatic injury. Right knee replacement. Prosthetic components appear in appropriate position alignment. Osteopenia. If there is high clinical suspicion for traumatic injury, further evaluation with CT should be consi dered. RPTAT: AA .Claudy Adams MD, MD Date Time Electronically viewed and signed by .Claudy Adams MD, on 01/01/2017 13:36 .P/
--- NOTE | 2017-01-01 13:40 | RADRPT ---
PROCEDURE: XR Foot 3 Views. CLINICAL INDICATION: Right foot painand trauma. TECHNIQUE: AP, oblique and lateral views of the right foot were obtained. The images were reviewe d on a PACS workstation. COMPARISON: None. FINDINGS: Diffuse osteopenia is identified. Comminuted, mildly displaced fracture through the proximal and mid shaft of the first distal phalanx is identified. Subtle, transverse, nondisplaced fracture through the tuft of the second distal phalanx is seen. The remaining osseous structures appear grossly intac t. No destructive bony lesions are identified. Moderate degenerative changes are identified at the fourth and fifth proximal and distal interphalangeal joints. Mild narrowing and degenerative changes are identified at the tarsometatarsal joints. The posterior aspect of the calcaneus is obscured by material overlying the patient on the lateral image. IMPRESSION: Limited exam with the posterior aspect of the calcaneus partially obscured by material overlying the patient on the lateral image. Repeat lateral image can be considered. Fractures of the first and second distal phalanges. Osteopenia. Degenerative changes at the fourth and fifth proximal and distal interphalangeal joints. Mild narrowing degenerative changes at the tarsometatarsal joints. If there is high clinical suspicion for additional traumatic injury, further evaluation with CT shou ld be considered. RPTAT: AA .Claudy Adams MD, Date Time Electronically viewed and signed by .Claudy Adams MD, MD on 01/01/2017 13:40 .P/
--- NOTE | 2017-01-01 14:32 | RADRPT ---
PROCEDURE: XR Lumbar Spine. CLINICAL INDICATION: Severe pain status post accident. TECHNIQUE: AP and lateral views of the lumbar spine were obtained. COMPARISON: No prior studies are available for comparison. FINDINGS: Posterior fusion L4-S1 with bilateral transpedicular screws and rods. No interval fracture or subluxation. IVC filter noted anterior to the L3 and L4 vertebral bodies. Bi lateral total hip arthroplasty changes are noted. IMPRESSION: 1. No acute fracture or subluxation. 2. Posterior fusion L4 - S1. 3. IVC filter. 4. Bilateral total hip arthroplasties. RPTAT: HRS[facility] Physician Brigid Date Time Electronically viewed and signed by Physician Brigid on 01/01/2017 14:32 RR/
[2017-01-01] MEDS ORDERED: ACETAMINOPHEN 325 MG TAB PO PRN ×2 (15:30→17:00)
[2017-01-01] MEDS ORDERED: ONDANSETRON 4 MG INJ IV PRN (15:30)
[2017-01-01] MEDS ORDERED: ROSU5TAB5 PO (16:05)
[2017-01-01] MEDS ORDERED: DIAZ5TAB4 PO (16:07)
[2017-01-01] MEDS ORDERED: BACL10TA PO (16:08)
[2017-01-01] MEDS ORDERED: BEN25 PO (16:09)
[2017-01-01] MEDS ORDERED: ONDA4TAB8 PO (16:09)
[2017-01-01] MEDS ORDERED: DULO20CA43 PO (16:10)
[2017-01-01 16:23] LABS: BASOPHILS % 0.3 % (0.0-2.0); EOSINOPHILS # 0.3 10^3/ul (0.0-0.5); EOSINOPHILS % 4.2 % (0.0-7.0); HEMATOCRIT 35.8 % (37.0-47.0); HEMOGLOBIN 11.3 g/dl (12.0-16.0); LYMPHOCYTES # 2.1 10^3/ul (0.8-2.9); LYMPHOCYTES % 31.2 % (15.0-51.0); MEAN CORPUSCULAR HEMOGLOBIN 27.1 pg (29.0-33.0); MEAN CORPUSCULAR HGB CONC 31.6 g/dl (32.0-37.0); MEAN CORPUSCULAR VOLUME 85.9 fl (82.0-101.0); MEAN PLATELET VOLUME 9.9 fl (7.4-10.4); MONOCYTE # 0.8 10^3/ul (0.3-0.9); MONOCYTES % 12.1 % (0.0-11.0); NEUTROPHIL # 3.4 10^3/ul (1.6-7.5); NEUTROPHILS % 51.7 % (39.0-77.0); NUCLEATED RED BLOOD CELLS% 0.3 /100WBC (0.0-0.0); PLATELET COUNT 263 10^3/UL (140-415); RED BLOOD COUNT 4.17 10^6/ul (4.20-5.40); RED CELL DISTRIBUTION WIDTH 14.9 % (11.5-14.5); WHITE BLOOD COUNT 6.6 10^3/ul (4.8-10.8)
--- NOTE | 2017-01-01 16:31 | RADRPT ---
PROCEDURE: MR Lumbar Spine without contrast. CLINICAL INDICATION: Trauma. Left leg weakness. Postoperative. TECHNIQUE: Multiplanar multisequence MRI of the lumbar spine was performed. COMPARISON: No similar studies are submitted for comparison. X-ray of the lumbar spine from 2016. FINDINGS: There is extensive susceptibility artifact throughout the lumbar spine significantly limiting evalua tion. This is due to bilateral L4, L5, S1 transpedicular screws with vertical fixation rods. There is a normal lumbar lordosis. The vertebral body heights are maintained. There is normal alignment. There is disc desiccation from T11-T12 to L1-L2. The conus medullaris is at the not well visualized due to susceptibility artifact. There is limited evaluation of the cauda quinine due to susceptibility artifact. T12-L1 : There is no disc herniation or spinal canal stenosis. There is mild bilateral facet arthro darlene without bilateral foraminal stenosis. Evaluation is limited due to susceptibility artifact. L1-L2 : There is moderate disc space narrowing. Evaluation is limited due to susceptibility artifact . No definite spinal canal stenosis. L2-L3 : Evaluation is limited due to susceptibility artifact. There is a broad-based disc bulge and moderate by facet arthropathy with probable mild spinal canal stenosis. There is limited evaluation of the bilateral foramina due to susceptibility artifact. L3-L4 : There is limited evaluation at this level due to susceptibility artifact. L4-L5 : There is an interbody spacer with possible partial osseous fusion with susceptibility at thi s level limiting evaluation. There is no definite right foraminal stenosis. Susceptibility limits ev aluation of the left foramina. L5-S1 : There is an interbody spacer with solid osseous fusion with susceptibility artifact limiting evaluation. There is no definite spine. There is possible mild bilateral foraminal stenosis. The paraspinal musculature are within normal limits.There is a 1 cm round T2 hyperintensity within t he right kidney which is incompletely evaluated but statistically represent a cyst. IMPRESSION: 1. Extensive susceptibility artifact throughout the lumbar spine significantly limiting evaluation. This is due to bilateral L4, L5, S1 transpedicular screws with vertical fixation rods. 2. Interbody spacers at L4-5 and L5-S1 was evidence of solid osseous fusion at L5-S1 and possible pa rtial osseous fusion at L4-L5. Evaluation is limited on MRI. 3. The vertebral body heights are maintained. 4. Limited evaluation for multilevel degenerative changes as detailed above. Further findings as detailed above. RPTAT: PP .Teddy Agarwal MD, MD Date Time Electronically viewed and signed by .Teddy Agarwal MD, MD on 01/01/2017 16:31 .F/
--- NOTE | 2017-01-01 16:56 | RADRPT ---
PROCEDURE: CT Brain without contrast. CLINICAL INDICATION: Fall, pain. Previous history of MS. TECHNIQUE: A CT of the brain was performed on multidetector high-resolution CT scanner utilizing a xial sections from the skull base through the vertex without contrast. The scan was reviewed in sof t tissue brain and high frequency resolution bone algorithm windows. Images were reviewed on a high -resolution PACS workstation. One or more the following does reduction techniques were utilized: Aut omated exposure control, adjustment of the mA/ or kV according to patient's size, or use of iterativ e reconstruction technique. The exam CTDI = 44.03 mGy and the DLP = 630.2 mGy-cm. COMPARISON: Brain MRI 09/25/2015. FINDINGS: The ventricles and sulci are mildly prominent indicative of volume loss. There is no intracranial h emorrhage, mass effect or midline shift. No abnormal intra-axial or extra-axial fluid collections a re seen. The calderón/white matter differentiation is preserved. There are mild scattered foci of hypoattenuation in the white matter, which are nonspecific in etio logy but likely reflect chronic small vessel ischemic changes and sequela of demyelinating disease, considering history of prior MS on prior brain MRI. There are mild intracranial vascular calcificat ions consistent with atherosclerosis. The visualized paranasal sinuses are essentially clear. Postsu rgical changes of prior right frontotemporal craniotomy are noted. IMPRESSION: 1. No acute intracranial hemorrhage, transcortical infarction or mass effect. 2. Mild intracranial atherosclerosis. 3. Mild white matter hypoattenuation which likely represent chronic small vessel ischemic changes w ith superimposed sequela of demyelinating disease. 4. Mild generalized cerebral volume loss. 5. Prior right frontotemporal craniotomy. RPTAT: UU .Kathia Jorgensen MD, MD Date Time Electronically viewed and signed by .Kathia Jorgensen MD, MD on 01/01/2017 16:56 .N/
[2017-01-01 16:59] LABS: INR 1.11; PROTIME 14.3 Sec (12.2-14.2); PT RATIO 1.1
[2017-01-01] MEDS ORDERED: OXYCODONE/ACETAMINOPHEN (10/325) TAB PO PRN (17:00)
[2017-01-01] MEDS ORDERED: DIPHENHYDRAMINE 25 MG CAP PO PRN (17:00)
[2017-01-01] MEDS ORDERED: NACL 0.9% 3 ML SYG IV SCH (17:00)
[2017-01-01] MEDS ORDERED: ONDANSETRON 4 MG TAB PO PRN (17:00)
[2017-01-01 17:01] LABS: CALCIUM 9.4 mg/dl (8.4-10.2); CREATININE 0.56 mg/dl (0.44-1.00)
[2017-01-01 17:11] LABS: POTASSIUM 2.9 mmol/L (3.5-5.1)
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
[2017-01-01] MEDS ORDERED: KETOROLAC 15 MG INJ IV STA (17:15)
[2017-01-01] MEDS ORDERED: POTASSIUM CHLORIDE (SR) 10 MEQ TAB PO ONE (17:30)
[2017-01-01] MEDS ORDERED: MAGNESIUM SULFATE 1 GM/D5W 100 ML IVPB ONE (17:30)
[2017-01-01] MEDS ORDERED: POTASSIUM CHLORIDE 250 ML IVPB ONE (17:30)
--- NOTE | 2017-01-01 19:05 | QN ---
Documentation Comment 66-year-old woman signed out to me pending MRI of the lumbar spine. MRI revealed no significant spinal canal stenosis and no concerning acute fractures or pathologic findings. There was significant motivation artifact as well. Please refer to radiologist dictation for full report. There is no indication at this time for acute neurosurgical consultation. Patient admitted to hospitalist group. IWLL EVANS MD Jan 01, 2017 19:05
[2017-01-01] MEDS: FENTAnyl PATCH 75 MCG/HR TRANSDERM SCH (19:35)
[2017-01-01 20:30] VITALS: TEMP 97.5
[2017-01-01] MEDS ORDERED: AMPHET ASP AMPHET D AMPHET 10 MG PO SCH (21:00)
[2017-01-01 21:30] VITALS: Ht 172.7 cm; Wt 100.5 kg
[2017-01-01] MEDS: ATORVASTATIN 20 MG TAB PO SCH (21:56)
[2017-01-01] MEDS: PREGABALIN 75 MG CAP PO SCH (21:56)
[2017-01-01] MEDS: BACLOFEN 10 MG TAB PO SCH (21:56)
[2017-01-01 21:59] VITALS: BP 138/64; RESP 18
[2017-01-02] MEDS: DULOXETINE 20 MG CAP DR PO SCH ×2 (01:51→20:40)
[2017-01-02] MEDS: morphine 2 MG INJ IV PRN ×6 (01:51→23:30)
[2017-01-02 02:00] VITALS: BP 120/58; RESP 19
[2017-01-02 07:06] LABS: EOSINOPHILS # 0.3 10^3/ul (0.0-0.5); EOSINOPHILS % 5.2 % (0.0-7.0); MEAN PLATELET VOLUME 9.9 fl (7.4-10.4); MONOCYTE # 0.6 10^3/ul (0.3-0.9); NUCLEATED RED BLOOD CELLS% 0.4 /100WBC (0.0-0.0); RED BLOOD COUNT 3.83 10^6/ul (4.20-5.40)
[2017-01-02 07:12] LABS: BASOPHILS % 0.6 % (0.0-2.0); HEMATOCRIT 33.2 % (37.0-47.0); HEMOGLOBIN 10.4 g/dl (12.0-16.0); LYMPHOCYTES # 2.3 10^3/ul (0.8-2.9); MEAN CORPUSCULAR HEMOGLOBIN 27.2 pg (29.0-33.0); MEAN CORPUSCULAR HGB CONC 31.3 g/dl (32.0-37.0); MEAN CORPUSCULAR VOLUME 86.7 fl (82.0-101.0); MONOCYTES % 11.8 % (0.0-11.0); NEUTROPHIL # 1.8 10^3/ul (1.6-7.5); PLATELET COUNT 238 10^3/UL (140-415); RED CELL DISTRIBUTION WIDTH 14.9 % (11.5-14.5)
[2017-01-02 07:30] LABS: ALBUMIN 3.1 g/dl (3.3-4.9); ALBUMIN/GLOBULIN RATIO 1.06; BILIRUBIN,INDIRECT 0.3 mg/dl (0-1.1); BILIRUBIN,TOTAL 0.3 mg/dl (0.2-1.3); CALCIUM 8.5 mg/dl (8.4-10.2); CHOL/HDL RATIO 6.4 RATIO; CREATININE 0.62 mg/dl (0.44-1.00); POTASSIUM 3.2 mmol/L (3.5-5.1)
[2017-01-02 07:35] VITALS: BP 129/63; RESP 18
[2017-01-02] MEDS: ENOXAPARIN 40 MG/0.4 ML SYG SC SCH (09:00)
[2017-01-02] MEDS ORDERED: DULOXETINE 20 MG CAP DR PO SCH (09:00)
[2017-01-02] MEDS: PREGABALIN 75 MG CAP PO SCH ×3 (09:18→20:40)
[2017-01-02] MEDS: BACLOFEN 10 MG TAB PO SCH ×3 (09:18→20:40)
[2017-01-02] MEDS: DIAZEPAM 5 MG TAB PO SCH (09:19)
[2017-01-02] MEDS: HYDROCHLOROTHIAZIDE 25 MG TAB PO SCH (09:19)
[2017-01-02 14:00] VITALS: BP_SYST 111; BP_SYST 130; BP_DIAS 53; BP_DIAS 71; RESP 16
[2017-01-02] MEDS ORDERED: POTASSIUM CHLORIDE (SR) 20 MEQ TAB PO STA (14:39)
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
[2017-01-02 20:00] VITALS: BP 118/58; RESP 18
[2017-01-02] MEDS: ATORVASTATIN 20 MG TAB PO SCH (20:40)
[2017-01-02 21:12] VITALS: BP 118/58; RESP 18
[2017-01-03 02:10] VITALS: BP 94/46; RESP 20
[2017-01-03] MEDS: morphine 2 MG INJ IV PRN ×4 (03:19→20:40)
[2017-01-03 06:53] LABS: CALCIUM 8.2 mg/dl (8.4-10.2); CREATININE 0.59 mg/dl (0.44-1.00); MAGNESIUM 1.8 mg/dl (1.7-2.5); POTASSIUM 3.4 mmol/L (3.5-5.1)
[2017-01-03 08:00] VITALS: BP 114/55; RESP 19
[2017-01-03] MEDS: HYDROCHLOROTHIAZIDE 25 MG TAB PO SCH (08:39)
[2017-01-03] MEDS: BACLOFEN 10 MG TAB PO SCH ×3 (08:40→20:40)
[2017-01-03] MEDS: PREGABALIN 75 MG CAP PO SCH ×3 (08:40→20:40)
[2017-01-03] MEDS: DIAZEPAM 5 MG TAB PO SCH (08:40)
[2017-01-03] MEDS: ENOXAPARIN 40 MG/0.4 ML SYG SC SCH (08:45)
[2017-01-03] MEDS ORDERED: POTASSIUM CHLORIDE (SR) 20 MEQ TAB PO STA (09:51)
[2017-01-03 14:00] VITALS: BP 118/58; RESP 19
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
[2017-01-03 19:51] VITALS: BP 126/59; RESP 18
[2017-01-03] MEDS: DULOXETINE 20 MG CAP DR PO SCH (20:39)
[2017-01-03] MEDS: ATORVASTATIN 20 MG TAB PO SCH (20:40)
[2017-01-04] MEDS: morphine 2 MG INJ IV PRN ×6 (01:04→18:18)
[2017-01-04 02:10] VITALS: BP 132/60; RESP 16
[2017-01-04 08:00] VITALS: BP 131/62; RESP 18
[2017-01-04] MEDS: ENOXAPARIN 40 MG/0.4 ML SYG SC SCH (09:00)
[2017-01-04] MEDS: DIAZEPAM 5 MG TAB PO SCH (09:00)
[2017-01-04] MEDS: BACLOFEN 10 MG TAB PO SCH ×3 (09:15→21:23)
[2017-01-04] MEDS: PREGABALIN 75 MG CAP PO SCH ×3 (09:15→21:24)
[2017-01-04] MEDS: HYDROCHLOROTHIAZIDE 25 MG TAB PO SCH (09:15)
[2017-01-04 14:00] VITALS: BP 125/66; RESP 19
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
[2017-01-04] MEDS: FENTAnyl PATCH 75 MCG/HR TRANSDERM SCH (19:59)
[2017-01-04 20:22] VITALS: BP 135/59; RESP 19
[2017-01-04] MEDS: DULOXETINE 20 MG CAP DR PO SCH (21:23)
[2017-01-04] MEDS: ATORVASTATIN 20 MG TAB PO SCH (21:23)
[2017-01-05] MEDS: morphine 2 MG INJ IV PRN ×5 (01:07→21:58)
[2017-01-05 02:03] VITALS: BP 120/56; RESP 18
[2017-01-05] MEDS ORDERED: NALOXONE (0.4 MG/ML) INJ ONE (07:00)
[2017-01-05 07:31] VITALS: BP 130/74; RESP 20
[2017-01-05] MEDS: ENOXAPARIN 40 MG/0.4 ML SYG SC SCH (09:00)
[2017-01-05] MEDS: DIAZEPAM 5 MG TAB PO SCH ×2 (09:00→09:54)
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
[2017-01-05] MEDS: HYDROCHLOROTHIAZIDE 25 MG TAB PO SCH (09:54)
[2017-01-05] MEDS: PREGABALIN 75 MG CAP PO SCH ×3 (09:54→20:31)
[2017-01-05] MEDS: BACLOFEN 10 MG TAB PO SCH ×3 (09:54→20:32)
[2017-01-05] MEDS: CYCLOSPORINE 0.05% OPH DROPERETTE BOTH EYES SCH ×2 (09:55→21:25)
[2017-01-05 14:07] VITALS: BP 119/74; RESP 18
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
[2017-01-05] MEDS ORDERED: POLYETHYLENE GLYCOL 17 GM PACKET PO ONE (17:30)
[2017-01-05 20:00] VITALS: BP 126/60; RESP 19
[2017-01-05] MEDS: ATORVASTATIN 20 MG TAB PO SCH (20:31)
[2017-01-05] MEDS: DULOXETINE 20 MG CAP DR PO SCH (20:32)
[2017-01-06] VITALS (12 sets, daily range): BP systolic 119–141; BP diastolic 60–78; PULSE 70–150; RESP 16–20
[2017-01-06] MEDS: morphine 2 MG INJ IV PRN ×6 (01:07→20:56)
--- NOTE | 2017-01-06 04:59 | RADRPT ---
PROCEDURE: CT Brain without contrast. CLINICAL INDICATION: Acute aphasia. Prior history of MS. TECHNIQUE: Axial images from the skull base through the vertex without IV contrast. Multiplanar r eformatted images were made. Images were reviewed on a PACS workstation. The CTDIvol is 43.6 a mGy and the DLP is 810.25 mGycm. One or more of the following dose reduction techniques were used: aut omated exposure control, adjustment of the mA and/or kV according to patient size, or use of iterati ve reconstruction technique. COMPARISON: 01/01/2017 FINDINGS: Minimal cortical atrophy is again seen. Tiny subcortical calcification in the right frontal lobe is again seen and may be due to old infection. 1 small focal low attenuation white matter area in the h igh right frontal lobe measuring 6 mm is seen. There is not evidence for widespread demyelinating di sease. There is no definite evidence for acute territorial infarction or intracranial hemorrhage. N o mass or midline shift is seen. No extraaxial fluid collection is seen. Slight intracranial vascula r calcification. Changes are seen from right parietal craniotomy. The visualized paranasal sinuses a nd mastoids are clear. IMPRESSION: No definite acute abnormality. If a MS flare is suspected, MRI with without contrast would be sugges tonya. RPTAT: [facility] Physician Francheska Date Time Electronically viewed and signed by Physician Francheska on 01/06/2017 04:59 LE/
[2017-01-06] MEDS ORDERED: METHYLPREDNISOLONE 125 MG INJ ONE (05:14)
[2017-01-06] MEDS ORDERED: METHYLPREDNISOLONE 125 MG INJ IV ONE (05:30)
[2017-01-06] MEDS ORDERED: NALOXONE (0.4 MG/ML) INJ IV ONE (05:30)
[2017-01-06] MEDS ORDERED: morphine 4 MG/ML VIAL IV STA (05:33)
[2017-01-06] MEDS ORDERED: morphine 4 MG/ML VIAL ONE (05:34)
[2017-01-06] MEDS ORDERED: hydrALAzine 20 MG INJ ONE (05:34)
[2017-01-06 05:35] LABS: BASOPHIL # 0.1 10^3/ul (0.0-0.1); BASOPHILS % 0.5 % (0.0-2.0); EOSINOPHILS # 0.4 10^3/ul (0.0-0.5); HEMATOCRIT 37.7 % (37.0-47.0); LYMPHOCYTES # 3.7 10^3/ul (0.8-2.9); LYMPHOCYTES % 35.6 % (15.0-51.0); MEAN CORPUSCULAR HGB CONC 31.8 g/dl (32.0-37.0); MEAN CORPUSCULAR VOLUME 84.9 fl (82.0-101.0); MEAN PLATELET VOLUME 10.1 fl (7.4-10.4); MONOCYTES % 9.6 % (0.0-11.0); NEUTROPHIL # 5.1 10^3/ul (1.6-7.5); NEUTROPHILS % 49.7 % (39.0-77.0); NUCLEATED RED BLOOD CELLS% 0.4 /100WBC (0.0-0.0); PLATELET COUNT 271 10^3/UL (140-415); RED BLOOD COUNT 4.44 10^6/ul (4.20-5.40); RED CELL DISTRIBUTION WIDTH 15.2 % (11.5-14.5); WHITE BLOOD COUNT 10.3 10^3/ul (4.8-10.8)
[2017-01-06 05:43] LABS: INR 1.08; PT RATIO 1.1
[2017-01-06 05:43] LABS: AADO2 Arterial 57.2 mmHg (7.0-24.0); Allen Test ACCEPTAB; Arterial Base Excess 5.7 mmol/L (-3.0-3); Arterial COHb 0.3 % (0.0-3.0); Arterial Fraction of Oxyhgb 97.5 % (93.0-99.0); Arterial HCO3 29.5 mmol/L (22.0-26.0); Arterial MetHb 0.3 % (0.0-1.5); Arterial Total Hemglobin 13.4 g/dl (12.0-18.0); MODE NASAL CANNULA
[2017-01-06 05:45] LABS: ALBUMIN 3.6 g/dl (3.3-4.9); ALBUMIN/GLOBULIN RATIO 1.09; BILIRUBIN,INDIRECT 0.3 mg/dl (0-1.1); BILIRUBIN,TOTAL 0.3 mg/dl (0.2-1.3); CALCIUM 9.4 mg/dl (8.4-10.2); CREATININE 0.62 mg/dl (0.44-1.00); POTASSIUM 4.1 mmol/L (3.5-5.1); TOTAL PROTEIN 6.9 g/dl (6.1-8.1)
[2017-01-06] MEDS ORDERED: LORAZEPAM 2 MG INJ ONE (05:54)
[2017-01-06] MEDS ORDERED: hydrALAzine 20 MG INJ IV ONE (06:00)
[2017-01-06] MEDS ORDERED: LORAZEPAM 2 MG INJ IV ONE (06:00)
[2017-01-06] MEDS: HYDROCHLOROTHIAZIDE 25 MG TAB PO SCH ×2 (08:50→09:00)
[2017-01-06] MEDS: BACLOFEN 10 MG TAB PO SCH ×4 (08:51→22:51)
[2017-01-06] MEDS: PREGABALIN 75 MG CAP PO SCH ×4 (08:51→22:52)
[2017-01-06] MEDS: DIAZEPAM 5 MG TAB PO SCH ×2 (08:51→09:00)
[2017-01-06] MEDS: ENOXAPARIN 40 MG/0.4 ML SYG SC SCH (08:54)
[2017-01-06] MEDS: CYCLOSPORINE 0.05% OPH DROPERETTE BOTH EYES SCH ×2 (09:42→21:14)
--- NOTE | 2017-01-06 14:28 | PN ---
Date/Time of Note Date/Time of Note DATE: 01/06/17 TIME: 14:23 Assessment/Plan VTE Prophylaxis VTE Prophylaxis Intervention: LMWH Lines/Catheters IV Catheter Type (from Nrsg): port a cath Urinary Cath still in place: Yes Reason Cath still needed: other (indicate) Assessment/Plan Assessment/Plan 1. Weakness on left side an aphrasia, MRI brain, tele, carotid 2. Fractures of the first and second distal phalanges due to trauma, nonsurgical , pain control and wound care 3. Multiple sclerosis 4. Hypertension, controlled 5. Dyslipidemia, on statin 6. DVT prophylaxis: lovenox Exam/Review of Systems Vital Signs Vitals Vital Signs Date Time Temp Pulse Resp B/P Pulse Ox O2 Delivery O2 Flow Rate FiO2 01/06/17 13:49 97.9 87 17 125/63 95 Nasal Cannula 2.0 Intake and Output 01/05/17 01/05/17 01/06/17 15:00 23:00 07:00 Intake Total 450 ml 240 ml Output Total 1350 ml 1000 ml Balance -900 ml -760 ml Exam Constitutional: non-verbal, obese Head: atraumatic, normocephalic Eyes: EOMI, PERRL, nl conjunctiva, nl lids ENMT: nl external ears & nose, nl lips & teeth, nl nasal mucosa & septum Neck: non-tender, supple Respiratory: clear to auscultation, normal air movement, No congested cough, No crackles/rales, No diminished breath sounds, No intercostal retraction, No labored breathing, No other, No respirations, No tactile fremitus, No wheezing Cardiovascular: nl pulses, regular rate and rhythm, No S3, No S4, No bruits, No diastolic murmur, No edema, No gallop, No irregular rhythm, No jugular venous distention (JVD), No murmurs/extra sounds, No other, No rub, No systolic murmur Gastrointestinal: nl liver, spleen, non-tender, soft Musculoskeletal: nl extremities to inspection Extremities: normal pulses, other (wounds on feet) Neurological: other (not follow commends) Results Result Diagram: 01/06/1719 01/06/1719 Results 24 hrs Laboratory Tests Test 01/06/17 05:00 01/06/17 05:02 01/06/17 05:19 Blood Gas Specimen Source Blood arterial Arterial Blood Date Drawn 01/06/2017 5:35:54 AM Arterial Blood pH (Temp corrected) 7.486 H Arterial Blood pCO2 (Temp correct) 40.0 Arterial Blood pO2 (Temp corrected) 109.7 H Arterial Blood HCO3 29.5 H Arterial Blood Base Excess 5.7 H Arterial Blood Oxygen Saturation 98.1 H Jessee Test ACCEPTAB Arterial Blood Gas Puncture Site Right Radial Arterial Blood Carboxyhemoglobin 0.3 Arterial Blood Methemoglobin 0.3 Blood Gas A-a O2 Differential 57.2 H Oxyhemoglobin Percent 97.5 Total Hemoglobin 13.4 Blood Gas Temperature 37.0 Blood Gas Modality NASAL CANNULA FiO2 30.0 Blood Gas Critical Value Read Back Daniel PADILLA RN Blood Gas Notified Whom AP Blood Gas Notified Time 01/06/2017 5:41:52 AM Bedside Glucose 117 White Blood Count 10.3 # Red Blood Count 4.44 Hemoglobin 12.0 Hematocrit 37.7 Mean Corpuscular Volume 84.9 Mean Corpuscular Hemoglobin 27.0 L Mean Corpuscular Hemoglobin Concent 31.8 L Red Cell Distribution Width 15.2 H Platelet Count 271 Mean Platelet Volume 10.1 Neutrophils % 49.7 Lymphocytes % 35.6 Monocytes % 9.6 Eosinophils % 4.0 Basophils % 0.5 Nucleated Red Blood Cells % 0.4 H Neutrophils # 5.1 Lymphocytes # 3.7 H Monocytes # 1.0 H Eosinophils # 0.4 Basophils # 0.1 Nucleated Red Blood Cells # 0.0 Prothrombin Time 14.0 Prothrombin Time Ratio 1.1 INR International Normalized Ratio 1.08 Sodium Level 143 Potassium Level 4.1 Chloride Level 105 Carbon Dioxide Level 31 Anion Gap 11 Blood Urea Nitrogen 22 H Creatinine 0.62 Glucose Level 106 Calcium Level 9.4 Total Bilirubin 0.3 Direct Bilirubin 0.00 Indirect Bilirubin 0.3 Aspartate Amino Transf (AST/SGOT) 26 Alanine Aminotransferase (ALT/SGPT) 33 Alkaline Phosphatase 75 Total Protein 6.9 Albumin 3.6 Globulin 3.30 H Albumin/Globulin Ratio 1.09 Medications Medications Current Medications Diazepam (Valium) 10 mg DAILY PO Last administered on 01/03/17t 08:40; Admin Dose 10 MG; Start 01/02/17 at 09:00 Diphenhydramine HCl (Benadryl) 25 mg QHS PRN PO ITCHING; Start 01/01/17 at 17: 00 Fentanyl (Duragesic 75 Mcg/Hr Patch) 1 patch Q72H TRANSDERM Last administered on 01/04/17 19:59; Admin Dose 1 PATCH; Start 01/01/17 at 18:22 Hydrochlorothiazide (Hydrochlorothiazide) 25 mg DAILY PO Last administered on 01/05/17 09:54; Admin Dose 25 MG; Start 01/02/17 at 09:00 Ondansetron HCl (Zofran Tab) 4 mg DAILY PRN PO NAUSEA AND/OR VOMITING; Start 01/01/17 at 17:00 Oxycodone/ Acetaminophen (Endocet (10/ 325)) 2 tab Q6H PRN PO SEVERE PAIN LEVEL 7-10 Last administered on 01/01/17 20:40; Admin Dose 2 TAB; Start 01/01 at 17:00 Pregabalin (Lyrica) 75 mg TID PO Last administered on 01/05/17 20:31; Admin Dose 75 MG; Start 01/01/17 at 21:00 Atorvastatin Calcium (Lipitor) 20 mg QHS PO Last administered on 01/05/17 20: 31; Admin Dose 20 MG; Start 01/01/17 at 21:00 Acetaminophen (Tylenol Tab) 650 mg Q6H PRN PO PAIN LEVEL 1-3 OR FEVER; Start 01/01/17 at 17:00 Enoxaparin Sodium (Lovenox) 40 mg DAILY SC Last administered on 01/06/17 08: 54; Admin Dose 40 MG; Start 01/02/17 at 09:00 Duloxetine HCl (Cymbalta) 20 mg HS PO Last administered on 01/05/17 20:32; Admin Dose 20 MG; Start 01/01/17 at 22:30 Morphine Sulfate (morphine) 2 mg Q3H PRN IV PAIN LEVEL 7-10 Last administered on 01/06/17 13:59; Admin Dose 2 MG; Start 01/02/17 at 15:00 Baclofen (Lioresal) 20 mg TID PO Last administered on 01/05/17 20:32; Admin Dose 20 MG; Start 01/04/17 at 21:00 Cyclosporine (Restasis) 1 drop BID BOTH EYES Last administered on 01/06/17 09 :42; Admin Dose 1 DROP; Start 01/05/17 at 09:00 Eye Lubricant (Artificial Tears Oph) 2 drop Q6H PRN BOTH EYES DRY EYES; Start 01/05/17 at 06:30 Miscellaneous Information Patients own medicat... BID@ XX ; Start at 10:00 SHERRI ANDUJAR MD Jan 06, 2017 14:28
--- NOTE | 2017-01-06 15:58 | RADRPT ---
PROCEDURE: MRA Brain. CLINICAL INDICATION: Acute right leg weakness. TECHNIQUE: An MRA of the brain was performed without intravenous contrast utilizing the following sequences: 3-D [id number] images through the intracranial vasculature with post processed nena l intensity projections in multiple planes. COMPARISON: Concurrent MRI of the brain. FINDINGS: The petrous, cavernous, and supraclinoid internal carotid artery segments are patent without evidenc e of significant stenosis. The A1 segment of right SUMAYA is hypoplastic. The A1 segment of left SUMAYA i s patent and gives off bilateral A2 segments. The proximal anterior cerebral and middle cerebral art eries are patent without significant stenosis. There is predominant origin of right posterior cerebral artery with hypoplastic right P1 segm ent. The intradural vertebral arteries, basilar artery and posterior cerebral arteries are patent w ithout evidence of significant focal stenosis. No aneurysms are identified. IMPRESSION: 1. Patent major intracranial arteries. RPTAT: JJ .Kathia Jorgensen MD, Date Time Electronically viewed and signed by .Kathia Jorgensen MD, MD on 01/06/2017 15:58 .N/
--- NOTE | 2017-01-06 16:53 | RADRPT ---
PROCEDURE: MRA Neck without contrast. CLINICAL INDICATION: Acute right leg weakness. Aphasia. Altered mental status. History of multiple sclerosis. TECHNIQUE: An MRA of the major cervical arteries was performed utilizing axial 2D time of flight a nd 3-D [id number] through the carotid bifurcations. Source and MIP images were reviewed. COMPARISON: No prior studies are available for comparison. FINDINGS: The origins of the great vessels off the aortic arch are patent without significant stenosis. The c ommon carotid and internal carotid arteries are patent without hemodynamically significant stenosis by NASCET criteria. Direct measurements of vessel diameters was made in reference to measurements of the distal internal carotid artery diameter. Bilateral vertebral arteries are patent without high- grade stenosis. IMPRESSION: 1. Patent major neck arteries. RPTAT: JJ .Kathia Jorgensen MD, Date Time Electronically viewed and signed by .Kathia Jorgensen MD, MD on 01/06/2017 16:52 .N/
--- NOTE | 2017-01-06 17:37 | RADRPT ---
PROCEDURE: US carotid arteries. CLINICAL INDICATION: Dizziness. Cerebrovascular accident. TECHNIQUE: Multiple sonographic images of the carotid arteries and vertebral arteries were obtaine d utilizing calderón scale, duplex, and color-flow imaging. The images were reviewed on a PACS workstati on. COMPARISON: No prior studies are available for comparison. FINDINGS: Evaluation of the right carotid bifurcation region reveals mild atherosclerotic disease. Evaluation of the left carotid bifurcation region reveals mild atherosclerotic disease. There is antegrade flow within the vertebral arteries bilaterally. RIGHT CAROTID MEASUREMENTS: Common Carotid [id number] (cm/sec) Internal Carotid Artery 66 (cm/sec) External Carotid Artery 141 (cm/sec) Vertebral Artery 46 (cm/sec) Internal Carotid/Common Carotid1.1 LEFT CAROTID MEASUREMENTS: Common Carotid [id number] (cm/sec) Internal Carotid Artery 49 (cm/sec) External Carotid Artery 51 (cm/sec) Vertebral Artery 36 (cm/sec) Internal Carotid/Common Carotid0.6 Validated velocity measurements with angiographic measurements. Velocity criteria are extrapolated f rom diameter data as defined by the Society of Radiologists in Ultrasound Consensus Conference. Radi ology 2003; 229;340-346. This study does indirectly reference the measurement of the distal ICA geradl meter as the denominator for stenosis measurement. IMPRESSION: 1. Less than 50% stenosis bilaterally in the internal carotid arteries. 2. Normal antegrade flow in the vertebral arteries bilaterally. RPTAT: QQ SRU Consensus Conference Criteria for the Diagnosis of Carotid Artery Stenosis* Degree of Stenosis, % ICA PSV, cm/sec Plaque Estimate, % ICA/CCA PSV Ratio Normal <125 None <2.0 <50 <125 <50 <2.0 50 69 125-230 >50 2.0-4.0 >70 but less than near occlusion >230 >50 <4.0 Near occlusion High, low, or undetectable Visible Variable Total occlusion Undetectable Visible, no detectable lumen Not applicable *Cartoid artery stenosis: calderón-scale and Doppler US diagnosis. Society of Radiologists in Ultrasound Consensus Conference. Radiology 2003; 229: 340-346 .Walker Capps MD, Date Time Electronically viewed and signed by .Walker Capps MD, on 01/06/2017 17:37 .R/
[2017-01-06] MEDS: D5W-0.45 NACL + KCL 20 MEQ 1,000 ML IV SCH (18:25)
--- NOTE | 2017-01-06 18:38 | RADRPT ---
PROCEDURE: MRI Brain without contrast. CLINICAL INDICATION: Acute right leg weakness. Aphasia. Altered mental status. History of multiple sclerosis. TECHNIQUE: An MRI of the brain was performed utilizing the following sequences: Sagittal and axial T1 weighted, axial T2 weighted, axial diffusion weighted with ADC mapping, coronal GRE, and axial F LAIR. COMPARISON: Brain MRI 09/25/2015. Brain CT 01/06/2017. FINDINGS: No diffusion weighted abnormalities are seen to suggest the presence of acute ischemia or recent inf arct. No hypointense signal abnormalities are seen on the GRE images to suggest the presence of blo od degradation products. There is no evidence of intracranial hemorrhage, mass effect, or midline s hift. No extra-axial fluid collections are seen. The ventricles and sulci are mildly enlarged indica tive of volume loss. There are several scattered foci of T2 and FLAIR hyperintensity in the periventricular, deep, and garcia bcortical white matter, more than twenty. Several of these lesions demonstrate hypointensity on T1 weighted images, so-called "black holes". No abnormal intracranial vascular flow void is noted. The visualized paranasal sinuses demonstrate m ild mucosal thickening mainly in ethmoid air cells. IMPRESSION: 1. Several scattered white matter signal abnormality, compatible with provided history of demyelina ting disease. Follow-up brain MRI with contrast can be obtained to evaluate for possible acute demye lination as clinically warranted. 2. No acute intracranial hemorrhage, infarction or mass. 3. Mild generalized cerebral volume loss. RPTAT: JJ .Kathia Jorgensen MD, MD Date Time Electronically viewed and signed by .Kathia Jorgensen MD, MD on 01/06/2017 15:47 .N/
[2017-01-06] MEDS: ATORVASTATIN 20 MG TAB PO SCH (20:55)
[2017-01-06] MEDS: DULOXETINE 20 MG CAP DR PO SCH (20:55)
[2017-01-06] MEDS: ARTIFICIAL TEARS 15 ML OPH BOTH EYES PRN (23:39)
[2017-01-07] VITALS (12 sets, daily range): BP systolic 110–122; BP diastolic 46–88; PULSE 55–83; RESP 16–20
[2017-01-07] MEDS: morphine 2 MG INJ IV PRN ×6 (00:08→19:31)
--- NOTE | 2017-01-07 01:56 | STROKE ---
Date/Time of Note Date/Time of Note DATE: 01/06/17 TIME: 23:54 Patient Information General Patient location: inpatient Arrival Date Age 66 Gender female Weight 100.5 kg POC Glucose Glucose Result Bedside Glucose - 72 Hours Test 01/06/17 05:02 Bedside Glucose 117mg/dL (70-220) Vital Signs Vital Signs Vital Signs Date Time Temp Pulse Resp B/P Pulse Ox O2 Delivery O2 Flow Rate FiO2 01/06/17 20:54 81 01/06/17 19:50 97.6 16 127/68 98 01/06/17 17:49 Nasal Cannula 2.0 Patient History Current Medications Allergies: Coded Allergies: Sulfa (Sulfonamide Antibiotics) (Verified Allergy, Severe, 01/01/17) NSAIDS (Non-Steroidal Anti-Inflamma (Verified Allergy, Unknown, 01/01/17) aspirin (Verified Allergy, Unknown, 01/01/17) atenolol (Verified Allergy, Unknown, 01/01/17) cefazolin (Verified Allergy, Unknown, 01/01/17) Labs Hematology Labs Hematology Test 01/06/17 05:19 White Blood Count 10.310^3/ul (4.8-10.8) Red Blood Count 4.4410^6/ul (4.20-5.40) Hemoglobin 12.0g/dl (12.0-16.0) Hematocrit 37.7% (37.0-47.0) Mean Corpuscular Volume 84.9fl (82.0-101.0) Mean Corpuscular Hemoglobin 27.0pg (29.0-33.0) Mean Corpuscular Hemoglobin Concent 31.8g/dl (32.0-37.0) Red Cell Distribution Width 15.2% (11.5-14.5) Platelet Count 33818^3/UL (140-415) Mean Platelet Volume 10.1fl (7.4-10.4) Neutrophils % 49.7% (39.0-77.0) Lymphocytes % 35.6% (15.0-51.0) Monocytes % 9.6% (0.0-11.0) Eosinophils % 4.0% (0.0-7.0) Basophils % 0.5% (0.0-2.0) Nucleated Red Blood Cells % 0.4/100WBC (0.0-0.0) Neutrophils # 5.110^3/ul (1.6-7.5) Lymphocytes # 3.710^3/ul (0.8-2.9) Monocytes # 1.010^3/ul (0.3-0.9) Eosinophils # 0.410^3/ul (0.0-0.5) Basophils # 0.110^3/ul (0.0-0.1) Nucleated Red Blood Cells # 0.010^3/ul (0.0-0.0) Chemistry Labs Chemistry Test 01/02/17 06:43 01/03/17 05:28 01/06/17 05:02 01/06/17 05:19 Hemoglobin A1c 5.5% (0-5.9) Triglycerides Level 92mg/dl (0-149) Cholesterol Level 181mg/dl (100-200) LDL Cholesterol, Calculated 135mg/dl HDL Cholesterol 28mg/dl (35-98) Cholesterol/HDL Ratio 6.4RATIO Magnesium Level 1.8mg/dl (1.7-2.5) Bedside Glucose 117mg/dL (70-220) Sodium Level 143mmol/L (135-144) Potassium Level 4.1mmol/L (3.5-5.1) Chloride Level 105mmol/L (97-110) Carbon Dioxide Level 31mmol/L (21-31) Anion Gap 11 (8-16) Blood Urea Nitrogen 22mg/dl (7-20) Creatinine 0.62mg/dl (0.44-1.00) Glucose Level 106mg/dl (70-220) Calcium Level 9.4mg/dl (8.4-10.2) Total Bilirubin 0.3mg/dl (0.2-1.3) Direct Bilirubin 0.00mg/dl (0.00-0.20) Indirect Bilirubin 0.3mg/dl (0-1.1) Aspartate Amino Transf (AST/SGOT) 26IU/L (15-46) Alanine Aminotransferase (ALT/SGPT) 33IU/L (13-69) Alkaline Phosphatase 75IU/L (42-121) Total Protein 6.9g/dl (6.1-8.1) Albumin 3.6g/dl (3.3-4.9) Globulin 3.30g/dl (1.3-3.2) Albumin/Globulin Ratio 1.09 Coagulation Labs: Coagulation Test 01/06/17 05:19 Prothrombin Time 14.0Sec (12.2-14.2) Prothrombin Time Ratio 1.1 INR International Normalized Ratio 1.08 History & Physical History of Present Illness 66yo F with h/o MS wheelchair bound for many years, admitted after a fall, hospitalized for 5 days with a broken toe severe back pain, who now presents with acute onset speech difficulty. Patient was last seen normal at 4:10am. At 4:20, became aphasic with nystagmus continuously. She had received morphine 20 min earlier so given Narcan. Now patient continues to moan. Review of Systems Constitutional: no symptoms reported EENTM: no symptoms reported Respiratory: no symptoms reported Cardiovascular: no symptoms reported Gastrointestinal: no symptoms reported Genitourinary: no symptoms reported Musculoskeletal: no symptoms reported Skin: no symptoms reported Psychiatric/Neurological: no symptoms reported All Other Systems: Reviewed and Negative NIH Stroke Scale NIH Stroke Scale 1A - Level of Conciousness: 0 - Alert keenly [id number] LOC Questions: 2 - Answers no [id number] - LOC Commands: 0 - Performs both tasks2 - Best Gaze: 0 - Normal3 - Visual: 0 - No visual loss4 - Facial Palsy: 0 - No visual loss 5A - Motor Arm - Left: 3 - No effort to [id number] - Motor Arm - Right: 3 - No effort to [id number] - Motor Leg - Left: 4 - No [id number] - Motor Leg - Right: 4 - No movement7 - Limb Ataxia: 0 - Absent8 - Sensory: 1 - Mild to moderate loss9 - Best Language: 1- Mild to moderate aphasiaDysarthria: 2 - [id number] - Extinction and inattentio: 0 - No abnormality (19) Date/Time Recorded DATE: 01/06/17 TIME: 23:54 Submitted By Balbir Daly t-PA Imaging Review Imaging Reviewed: Yes Date/Time Imaging Reviewed DATE: 01/06/17 TIME: 05:54 Imaging Findings No acute changes t-PA Administration Recommendation: No Weight 100.5 kg Recommedation submitted by Balbir Daly Reason t-PA not Recommended not clearly stroke Recommendations Impression Diagnosis speech impairment Recommendation 66yo F with h/o MS presents with acute onset speech difficulty. Neurological exam is notable for patient's baseline bilateral lower extremity weakness, baseline left sided numbness, bilateral arm weakness, mild aphasia, and severe dysarthria. Differential diagnosis includes ischemic stroke vs pseudoexacerbation of patient's multiple sclerosis, vs multiple sclerosis exacerbation. I reviewed the risks and benefits of IV TPA in detail with the patient and recommended against IV TPA as I do not feel confident that patient' s symptoms are related to stroke. Patient agreed that she did not want TPA as she felt her symptoms were related to her multiple sclerosis. When asked, patient reported similar symptoms in the past, but was unable to describe in detail how similar symptoms came about. I recommend workup include MRI Brain with and without gadolinium, MRA of the head without gadolinium, MRA of the neck with gadolinium, EEG, and metabolic/infectious workup. Further workup is pending the results of these tests. Diagnostic Labs: Lipid Proile Hgb A1C CMP CBC w/Diff Coags Urinaysis Therapy: Physical Therapy Speech Therapy Occupational Therapy Misc. Recommendations: Bedside Swallow Evaluation Pnumatic Compression Devices Stroke Education Smoking Education BALBIR DALY Jan 07, 2017 00:27
[2017-01-07] MEDS: D5W-0.45 NACL + KCL 20 MEQ 1,000 ML IV SCH ×4 (03:50→22:23)
[2017-01-07] MEDS: PREGABALIN 75 MG CAP PO SCH ×3 (08:26→22:07)
[2017-01-07 08:27] LABS: ABNORMAL IP MESSAGE 1; BASOPHILS % 0.2 % (0.0-2.0); EOSINOPHILS % 0.1 % (0.0-7.0); HEMATOCRIT 35.5 % (37.0-47.0); HEMOGLOBIN 10.9 g/dl (12.0-16.0); LYMPHOCYTES # 2.2 10^3/ul (0.8-2.9); LYMPHOCYTES % 18.7 % (15.0-51.0); MEAN CORPUSCULAR HEMOGLOBIN 26.2 pg (29.0-33.0); MEAN CORPUSCULAR HGB CONC 30.7 g/dl (32.0-37.0); MEAN CORPUSCULAR VOLUME 85.3 fl (82.0-101.0); MEAN PLATELET VOLUME 10.4 fl (7.4-10.4); MONOCYTE # 1.6 10^3/ul (0.3-0.9); MONOCYTES % 13.3 % (0.0-11.0); NEUTROPHIL # 8.1 10^3/ul (1.6-7.5); NEUTROPHILS % 67.1 % (39.0-77.0); NUCLEATED RED BLOOD CELLS # 0.1 10^3/ul (0.0-0.0); NUCLEATED RED BLOOD CELLS% 0.5 /100WBC (0.0-0.0); PLATELET COUNT 281 10^3/UL (140-415); RED BLOOD COUNT 4.16 10^6/ul (4.20-5.40); RED CELL DISTRIBUTION WIDTH 15.3 % (11.5-14.5)
[2017-01-07] MEDS: CYCLOSPORINE 0.05% OPH DROPERETTE BOTH EYES SCH ×2 (08:27→22:07)
[2017-01-07] MEDS: BACLOFEN 10 MG TAB PO SCH ×3 (08:27→22:07)
[2017-01-07] MEDS: HYDROCHLOROTHIAZIDE 25 MG TAB PO SCH (08:29)
[2017-01-07 08:35] LABS: POSITIVE DIFF @See below
[2017-01-07] MEDS: ENOXAPARIN 40 MG/0.4 ML SYG SC SCH (08:35)
[2017-01-07] MEDS: DIAZEPAM 5 MG TAB PO SCH (08:35)
[2017-01-07 08:58] LABS: CALCIUM 8.9 mg/dl (8.4-10.2); CHOL/HDL RATIO 6.6 RATIO; CREATININE 0.59 mg/dl (0.44-1.00); POTASSIUM 3.9 mmol/L (3.5-5.1)
--- NOTE | 2017-01-07 12:08 | PN ---
Date/Time of Note Date/Time of Note DATE: 01/07/17 TIME: 12:02 Assessment/Plan VTE Prophylaxis VTE Prophylaxis Intervention: LMWH Lines/Catheters IV Catheter Type (from Nrsg): Portacath Urinary Cath still in place: Yes Reason Cath still needed: other (indicate) Assessment/Plan Assessment/Plan 1. Weakness on left side an aphrasia, transient, happened in the past, unremarkable MRI/MRA brain except MS changes, awaiting for EEG 2. Fractures of the first and second distal phalanges due to trauma, nonsurgical , pain control and wound care 3. Multiple sclerosis 4. Hypertension, controlled 5. Dyslipidemia, on statin 6. DVT prophylaxis: lovenox Subjective 24 Hr Interval Summary Free Text/Dictation full alert and oriented, baseline weakness on extremities Exam/Review of Systems Vital Signs Vitals Vital Signs Date Time Temp Pulse Resp B/P Pulse Ox O2 Delivery O2 Flow Rate FiO2 01/07/17 08:00 55 01/07/17 07:35 97.9 18 119/56 97 01/06/17 21:00 Nasal Cannula 2.0 Intake and Output 01/06/17 01/06/17 01/07/17 15:00 23:00 07:00 Intake Total 150 ml Balance 150 ml Exam Constitutional: alert, oriented, well developed Psych: nl mood/affect, no complaints Head: atraumatic, normocephalic Eyes: EOMI, nl conjunctiva, nl lids ENMT: nl external ears & nose, nl lips & teeth, nl nasal mucosa & septum Neck: non-tender, supple Respiratory: clear to auscultation, normal air movement, No congested cough, No crackles/rales, No diminished breath sounds, No intercostal retraction, No labored breathing, No other, No respirations, No tactile fremitus, No wheezing Cardiovascular: nl pulses, regular rate and rhythm, No S3, No S4, No bruits, No diastolic murmur, No edema, No gallop, No irregular rhythm, No jugular venous distention (JVD), No murmurs/extra sounds, No other, No rub, No systolic murmur Gastrointestinal: nl liver, spleen, non-tender, soft Musculoskeletal: nl extremities to inspection Extremities: normal pulses, No calf tenderness, No clubbing, No cyanosis, No edema, No other, No palpable cord, No pitting pedal edema, No tenderness 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, nl mental status, nl speech Skin: nl turgor Lymph: nl lymph nodes Results Result Diagram: 01/07/1780201/07/17 0803 Results 24 hrs Laboratory Tests Test 01/07/17 08:03 White Blood Count 12.0 H Red Blood Count 4.16 L Hemoglobin 10.9 L Hematocrit 35.5 L Mean Corpuscular Volume 85.3 Mean Corpuscular Hemoglobin 26.2 L Mean Corpuscular Hemoglobin Concent 30.7 L Red Cell Distribution Width 15.3 H Platelet Count 281 Mean Platelet Volume 10.4 Neutrophils % 67.1 Lymphocytes % 18.7 Monocytes % 13.3 H Eosinophils % 0.1 Basophils % 0.2 Nucleated Red Blood Cells % 0.5 H Neutrophils # 8.1 H Lymphocytes # 2.2 Monocytes # 1.6 H Eosinophils # 0.0 Basophils # 0.0 Nucleated Red Blood Cells # 0.1 H Sodium Level 143 Potassium Level 3.9 Chloride Level 106 Carbon Dioxide Level 30 Anion Gap 11 Blood Urea Nitrogen 32 H Creatinine 0.59 Glucose Level 110 Calcium Level 8.9 Triglycerides Level 65 Cholesterol Level 214 H LDL Cholesterol, Calculated 169 HDL Cholesterol 32 L Cholesterol/HDL Ratio 6.6 Medications Medications Current Medications Diazepam (Valium) 10 mg DAILY PO Last administered on 01/03/17 08:40; Admin Dose 10 MG; Start 01/02/17 at 09:00 Diphenhydramine HCl (Benadryl) 25 mg QHS PRN PO ITCHING; Start 01/01/17 at 17: 00 Fentanyl (Duragesic 75 Mcg/Hr Patch) 1 patch Q72H TRANSDERM Last administered on 01/04/17 19:59; Admin Dose 1 PATCH; Start 01/01/17 at 18:22 Hydrochlorothiazide (Hydrochlorothiazide) 25 mg DAILY PO Last administered on 01/07/17 08:29; Admin Dose 25 MG; Start 01/02/17 at 09:00 Ondansetron HCl (Zofran Tab) 4 mg DAILY PRN PO NAUSEA AND/OR VOMITING; Start 01/01/17 at 17:00 Oxycodone/ Acetaminophen (Endocet (10/ 325)) 2 tab Q6H PRN PO SEVERE PAIN LEVEL 7-10 Last administered on 01/01/17 20:40; Admin Dose 2 TAB; Start 01/01 at 17:00 Pregabalin (Lyrica) 75 mg TID PO Last administered on 01/07/17 08:26; Admin Dose 75 MG; Start 01/01/17 at 21:00 Atorvastatin Calcium (Lipitor) 20 mg QHS PO Last administered on 01/06/17 20: 55; Admin Dose 20 MG; Start 01/01/17 at 21:00 Acetaminophen (Tylenol Tab) 650 mg Q6H PRN PO PAIN LEVEL 1-3 OR FEVER; Start 01/01/17 at 17:00 Enoxaparin Sodium (Lovenox) 40 mg DAILY SC Last administered on 01/06/17 08: 54; Admin Dose 40 MG; Start 01/02/17 at 09:00 Duloxetine HCl (Cymbalta) 20 mg HS PO Last administered on 01/06/17 20:55; Admin Dose 20 MG; Start 01/01/17 at 22:30 Morphine Sulfate (morphine) 2 mg Q3H PRN IV PAIN LEVEL 7-10 Last administered on 01/07/17 06:48; Admin Dose 2 MG; Start 01/02/17 at 15:00 Baclofen (Lioresal) 20 mg TID PO Last administered on 01/07/17 08:27; Admin Dose 20 MG; Start 01/04/17 at 21:00 Cyclosporine (Restasis) 1 drop BID BOTH EYES Last administered on 01/07/17 08 :27; Admin Dose 1 DROP; Start 01/05/17 at 09:00 Eye Lubricant (Artificial Tears Oph) 2 drop Q6H PRN BOTH EYES DRY EYES Last administered on 01/06/17 23:39; Admin Dose 2 DROP; Start 01/05/17 at 06:30 Miscellaneous Information Patients own medicat... BID@10,16 XX ; Start at 10:00 Potassium Chloride/Dextrose/ Sod Cl (D5-1/2ns + KCl 20 Meq) 1,000 ml @ 75 mls/ hr [id number] IV Last administered on 01/07/17 08:30; Admin Dose 75 MLS/HR; Start 01/06/17 at 14:30 SHERRI ANDUJAR MD Jan 07, 2017 12:08
--- NOTE | 2017-01-07 12:23 | CONS ---
Date/Time of Note Date/Time of Note DATE: 01/07/17 TIME: 12:20 Assessment/Plan Assessment/Plan Chief Complaint/Hosp Course 66 yo female with hx of MS on Tysabri with episode of speech disturbance and weakness nystagmus. suspect likely secondary to pain meds metabolic, now improved. EEG not necessary i do not suspect seizure at this time continue current management outpatient neurology fu Problems: Consultation Date/Type/Reason Admit Date/Time 01/07/17 Date of Consultation: Jan 07, 2017 Type of Consultation: Neurology Reason for Consultation eval for TIA Hx of Present Illness 66 yo female with hx of MS on Tysabri and Baclofen ambulates with a walker prior to admission had episodes yesterday of speech disturbances nystagmus and gen. weakness. Code stroke called to evaluate felt was likely more a metabolic issue not a tPA candidate. Patient was receiving morphine for pain yesterday she is now back to baseline. MRI was done on 01/06 shows changes c/w MS no stroke. Constitutional: no complaints Eyes: no complaints ENT: no complaints Respiratory: no complaints Cardiovascular: no complaints Gastrointestinal: no complaints Psychological: nl mood/affect, no complaints Social History Alcohol Use: none Smoking Status: Never smoker Drug Use: none Exam/Review of Systems Vital Signs Vitals Vital Signs Date Time Temp Pulse Resp B/P Pulse Ox O2 Delivery O2 Flow Rate FiO2 01/07/17 12:04 98.6 67 18 111/58 100 01/06/17 21:00 Nasal Cannula 2.0 Intake and Output 01/06/17 01/06/17 01/07/17 15:00 23:00 07:00 Intake Total 150 ml Balance 150 ml Exam Constitutional: alert, obese, oriented Neurological: ENAMEL DIPPER II-XII intact, nl mental status (speech is mild dysarthric and slowed no aphasia can lift all extremities anti-gravity no drift, symmetric reflexes) Results Result Diagram: 01/07/17 0803 01/07/17 0803 Results 24 hrs Laboratory Tests Test 01/07/17 08:03 White Blood Count 12.0 H Red Blood Count 4.16 L Hemoglobin 10.9 L Hematocrit 35.5 L Mean Corpuscular Volume 85.3 Mean Corpuscular Hemoglobin 26.2 L Mean Corpuscular Hemoglobin Concent 30.7 L Red Cell Distribution Width 15.3 H Platelet Count 281 Mean Platelet Volume 10.4 Neutrophils % 67.1 Lymphocytes % 18.7 Monocytes % 13.3 H Eosinophils % 0.1 Basophils % 0.2 Nucleated Red Blood Cells % 0.5 H Neutrophils # 8.1 H Lymphocytes # 2.2 Monocytes # 1.6 H Eosinophils # 0.0 Basophils # 0.0 Nucleated Red Blood Cells # 0.1 H Sodium Level 143 Potassium Level 3.9 Chloride Level 106 Carbon Dioxide Level 30 Anion Gap 11 Blood Urea Nitrogen 32 H Creatinine 0.59 Glucose Level 110 Calcium Level 8.9 Triglycerides Level 65 Cholesterol Level 214 H LDL Cholesterol, Calculated 169 HDL Cholesterol 32 L Cholesterol/HDL Ratio 6.6 Medications Medications Current Medications Diazepam (Valium) 10 mg DAILY PO Last administered on 01/03/17 08:40; Admin Dose 10 MG; Start 01/02/17 at 09:00 Diphenhydramine HCl (Benadryl) 25 mg QHS PRN PO ITCHING; Start 01/01/17 at 17: 00 Fentanyl (Duragesic 75 Mcg/Hr Patch) 1 patch Q72H TRANSDERM Last administered on 01/04/17 19:59; Admin Dose 1 PATCH; Start 01/01/17 at 18:22 Hydrochlorothiazide (Hydrochlorothiazide) 25 mg DAILY PO Last administered on 01/07/17 08:29; Admin Dose 25 MG; Start 01/02/17 at 09:00 Ondansetron HCl (Zofran Tab) 4 mg DAILY PRN PO NAUSEA AND/OR VOMITING; Start 01/01/17 at 17:00 Oxycodone/ Acetaminophen (Endocet (10/ 325)) 2 tab Q6H PRN PO SEVERE PAIN LEVEL 7-10 Last administered on 01/01/17 20:40; Admin Dose 2 TAB; Start 01/01 at 17:00 Pregabalin (Lyrica) 75 mg TID PO Last administered on 01/07/17 08:26; Admin Dose 75 MG; Start 01/01/17 at 21:00 Atorvastatin Calcium (Lipitor) 20 mg QHS PO Last administered on 01/06/17 20: 55; Admin Dose 20 MG; Start 01/01/17 at 21:00 Acetaminophen (Tylenol Tab) 650 mg Q6H PRN PO PAIN LEVEL 1-3 OR FEVER; Start 01/01/17 at 17:00 Enoxaparin Sodium (Lovenox) 40 mg DAILY SC Last administered on 01/06/17 08: 54; Admin Dose 40 MG; Start 01/02/17 at 09:00 Duloxetine HCl (Cymbalta) 20 mg HS PO Last administered on 01/06/17 20:55; Admin Dose 20 MG; Start 01/01/17 at 22:30 Morphine Sulfate (morphine) 2 mg Q3H PRN IV PAIN LEVEL 7-10 Last administered on 01/07/17 06:48; Admin Dose 2 MG; Start 01/02/17 at 15:00 Baclofen (Lioresal) 20 mg TID PO Last administered on 01/07/17 08:27; Admin Dose 20 MG; Start 01/04/17 at 21:00 Cyclosporine (Restasis) 1 drop BID BOTH EYES Last administered on 01/07/17 08 :27; Admin Dose 1 DROP; Start 01/05/17 at 09:00 Eye Lubricant (Artificial Tears Oph) 2 drop Q6H PRN BOTH EYES DRY EYES Last administered on 01/06/17 23:39; Admin Dose 2 DROP; Start 01/05/17 at 06:30 Miscellaneous Information Patients own medicat... BID@10,16 XX ; Start at 10:00 Potassium Chloride/Dextrose/ Sod Cl (D5-1/2ns + KCl 20 Meq) 1,000 ml @ 75 mls/ hr [id number] IV Last administered on 01/07/17 08:30; Admin Dose 75 MLS/HR; Start 01/06/17 at 14:30 PK BELL MD Jan 07, 2017 12:23
--- NOTE | 2017-01-07 17:28 | PN ---
Date/Time of Note Date/Time of Note DATE: 01/07/17 TIME: 17:25 Assessment/Plan Lines/Catheters IV Catheter Type (from Nrsg): PORTACATH Ayala in Place (from Nrsg): Yes Assessment/Plan Problems: (1) Dislocation of hip, right, closed Status: Acute (2) Migraine Status: Acute (3) Weakness of right leg Status: Acute (4) Contusion of foot, left (5) Contusion of foot, right (6) Morbidly obese Assessment/Plan Continue Betadine paint to the toes on both feet. Continue heel elevation. Patient will be followed in-house. No surgery recommended on both feet. Subjective 24 Hr Interval Summary Patient was seen today at bedside. She is in no acute distress. Reports no specific pain in both feet. States that the left foot is being left to air dry with Betadine paint. Patient says that she is going to be transferred to rehab either today or tomorrow. Constitutional: no complaints Pain Control: well controlled Exam/Review of Systems Vital Signs Vitals Vital Signs Date Time Temp Pulse Resp B/P Pulse Ox O2 Delivery O2 Flow Rate FiO2 01/07/17 15:40 98.1 67 18 121/57 99 01/06/17 21:00 Nasal Cannula 2.0 Intake and Output 01/06/17 01/06/17 01/07/17 15:00 23:00 07:00 Intake Total 150 ml Balance 150 ml Exam Free Text/Dictation Morbidly obese female in no acute distress. Dressing intact to the right foot. Dressing was removed and the foot was examined. Dry excoriations noted. Dry excoriation is noted on the left foot as well. No edema present. Palpable pedal pulses bilaterally. No other changes noted. Labs reviewed. Results Result Diagram: 01/07/17 0803 01/07/17 0803 CHRISTINE HINSON DPM Jan 07, 2017 17:28
[2017-01-07] MEDS: ATORVASTATIN 20 MG TAB PO SCH (22:07)
[2017-01-07] MEDS: DULOXETINE 20 MG CAP DR PO SCH (22:07)
[2017-01-07] MEDS: FENTAnyl PATCH 75 MCG/HR TRANSDERM SCH (22:15)
[2017-01-08] VITALS (13 sets, daily range): BP systolic 92–125; BP diastolic 47–63; PULSE 47–70; RESP 17–72
[2017-01-08] MEDS: morphine 2 MG INJ IV PRN ×3 (06:24→17:53)
[2017-01-08] MEDS: BACLOFEN 10 MG TAB PO SCH ×3 (08:34→20:54)
[2017-01-08] MEDS: PREGABALIN 75 MG CAP PO SCH ×3 (08:34→20:54)
[2017-01-08] MEDS: HYDROCHLOROTHIAZIDE 25 MG TAB PO SCH (08:35)
[2017-01-08] MEDS: CYCLOSPORINE 0.05% OPH DROPERETTE BOTH EYES SCH ×2 (08:35→23:14)
[2017-01-08] MEDS: ARTIFICIAL TEARS 15 ML OPH BOTH EYES PRN ×2 (08:35→20:54)
[2017-01-08] MEDS: ENOXAPARIN 40 MG/0.4 ML SYG SC SCH (08:36)
[2017-01-08] MEDS: DIAZEPAM 5 MG TAB PO SCH (08:36)
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
[2017-01-08] MEDS: D5W-0.45 NACL + KCL 20 MEQ 1,000 ML IV SCH (17:52)
[2017-01-08] MEDS: DULOXETINE 20 MG CAP DR PO SCH (20:53)
[2017-01-08] MEDS: ATORVASTATIN 20 MG TAB PO SCH (20:54)
[2017-01-09] VITALS (10 sets, daily range): BP systolic 98–119; BP diastolic 43–88; PULSE 53–73; RESP 18
[2017-01-09] MEDS: morphine 2 MG INJ IV PRN ×5 (01:06→17:56)
[2017-01-09] MEDS: DIAZEPAM 5 MG TAB PO SCH (09:00)
[2017-01-09] MEDS: ENOXAPARIN 40 MG/0.4 ML SYG SC SCH (09:00)
[2017-01-09] MEDS: D5W-0.45 NACL + KCL 20 MEQ 1,000 ML IV SCH (09:03)
[2017-01-09] MEDS: CYCLOSPORINE 0.05% OPH DROPERETTE BOTH EYES SCH (09:05)
[2017-01-09] MEDS: BACLOFEN 10 MG TAB PO SCH ×2 (09:05→12:26)
[2017-01-09] MEDS: HYDROCHLOROTHIAZIDE 25 MG TAB PO SCH (09:06)
[2017-01-09] MEDS: PREGABALIN 75 MG CAP PO SCH ×2 (09:06→12:26)
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
== END 2017-01-09 18:20 | DRG 563 ==
LOC: E/R 11:08 → PP2 15:18 → OBSVTOIN 01-04 10:18 → MS4 01-06 17:18
PROVIDERS: ADMIT Internal Medicine; ATTEND Internal Medicine
DX: S92.411A Displaced fracture of proximal phalanx of right great toe, initial encounter for closed fracture (principal); G35 Multiple sclerosis; R47.01 Aphasia; E66.9 Obesity, unspecified; S80.02XA Contusion of left knee, initial encounter; V00.831A Fall from motorized mobility scooter, initial encounter; Y92.414 Local residential or business street as the place of occurrence of the external cause; Z68.33 Body mass index [BMI] 33.0-33.9, adult; S90.32XA Contusion of left foot, initial encounter; S90.31XA Contusion of right foot, initial encounter; S92.534A Nondisplaced fracture of distal phalanx of right lesser toe(s), initial encounter for closed fracture; I10 Essential (primary) hypertension; E78.5 Hyperlipidemia, unspecified; M85.80 Other specified disorders of bone density and structure, unspecified site; N39.498 Other specified urinary incontinence; R40.4 Transient alteration of awareness; M54.9 Dorsalgia, unspecified; M25.559 Pain in unspecified hip; R13.10 Dysphagia, unspecified; H55.00 Unspecified nystagmus; R29.710 NIHSS score 10
CPT/HCPCS: 36600; 70450; 70544; 70549; 70551; 72100; 72148; 73562; 73630; 80048; 80053; 80061; 82803; 82962; 83036; 83735; 85025; 85610; 90715; 93880; 96374; 96375; 97116; 97162; 97530; G0378; J0360; J1650; J1885; J2060; J2270; J2310; J2930; J3475; J3480

== ENCOUNTER 2017-03-19 14:33 | Emergency (ER) | END 2017-03-19 20:32 | disposition home or self-care (01) ==

== ENCOUNTER 2017-04-07 00:47 | Observation (INO) | END 2017-04-09 20:53 | disposition home or self-care (01) ==

== ENCOUNTER 2017-06-09 11:13 | Inpatient (IN) | END 2017-06-12 16:05 | DRG 689 ==

== ENCOUNTER 2017-12-30 10:21 | Emergency (ER) | END 2017-12-30 15:31 | disposition home or self-care (01) ==

== ENCOUNTER 2018-03-30 12:31 | Emergency (ER) | payer MEDICARE, BC ==
[~2018-03-30] VITALS: Wt 107.3 kg
[~2018-03-30 12:31] MED LIST changes: +BEN25 PO; -BENA5TAB2 PO; +CRES5 PO; +CYCL1DRO BOTH EYES; -FENT-23 TD; +ONDA4TAB8 PO; -ROSU20TA PO; +TEMA30CA6 PO
--- NOTE | 2018-03-30 13:23 | ERD ---
ER Documentation Chief Complaint Chief Complaint epigastric pain last night, anxious HPI The patient is a 67-year-old female, presenting to the ER because of epigastric abdominal discomfort, indigestion, palpitation that began last night, denies similar symptom previously, denies fever, chills, neck pain, chest pain, dyspnea, vomiting, diarrhea, complains of dysuria. She does not smoke nor drink Past medical history: Dyslipidemia, MS, CAD, history of CVA with minimal right hemiplegia, hypertension, chronic pain syndrome Past surgical history: Cholecystectomy, appendectomy, hysterectomy, left shoulder arthroplasty, bilateral hip arthroplasty, right knee arthroplasty, left second toe amputation ROS All systems reviewed and are negative except as per history of present illness. Medications Home Meds Active Scripts Phenazopyridine Hcl* (Pyridium*) 200 Mg Tab, 200 MG PO TID PRN for URINARY PAIN, #6 TAB Prov:JOSE ALFREDO ZAMORANO MD 03/30/18 Ciprofloxacin Hcl* (Ciprofloxacin Hcl*) 500 Mg Tablet, 500 MG PO BID for 7 Days, TAB Prov:JOSE ALFREDO ZAMORANO MD 03/30/18 Reported Medications Cranberry Extract (Cranberry) 425 Mg Capsule, 425 MG PO DAILY, CAP 03/30/18 Lactobacillus Acidophilus (Probiotic) 1 Each Capsule, 1 CAP PO DAILY, CAP 03/30/18 Cholecalciferol* (Vitamin D3*) 1,000 Unit Tablet, 1000 UNIT PO DAILY, TAB 03/30/18 Temazepam* (Temazepam*) 30 Mg Capsule, 30 MG PO HS PRN for INSOMNIA, CAP 03/30/18 Rosuvastatin Calcium* (Crestor*) 5 Mg Tablet, 5 MG PO QHS, #30 TAB 03/30/18 Pregabalin* (Lyrica*) 75 Mg Capsule, 75 MG PO TID, CAP 03/30/18 Oxycodone Hcl-Acetaminophen* (Endocet*) 10-325 Mg Tablet, 0.5 TAB PO BID PRN for PAIN, TAB 03/30/18 Ondansetron Hcl* (Zofran*) 4 Mg Tablet, 4 MG PO Q8 PRN for NAUSEA AND/OR VOMITING, TAB 03/30/18 Hydrochlorothiazide* (Hydrochlorothiazide*) 25 Mg Tab, 25 MG PO DAILY, #30 TAB 03/30/18 Diphenhydramine Hcl* (Benadryl*) 25 Mg Cap, 25 MG PO QHS PRN for ITCHING, CAP 03/30/18 Cyclosporine (RESTASIS) 1 Each Droperette, 1 DROP BOTH EYES Q12, #1 BOX 03/30/18 Baclofen* (Baclofen*) 20 Mg Tablet, 20 MG PO QID, TAB 03/30/18 Discontinued Reported Medications Cyclosporine (RESTASIS) 1 Each Droperette, 1 DROP BOTH EYES Q12, #1 BOX 12/30/17 Temazepam* (Restoril*) 30 Mg Capsule, 30 MG PO HS PRN for INSOMNIA, CAP 12/30/17 Baclofen* (Baclofen*) 20 Mg Tablet, 20 MG PO QID, TAB 12/30/17 Ondansetron Hcl* (Zofran*) 4 Mg Tablet, 4 MG PO DAILY PRN for NAUSEA AND OR VOMITING, TAB 01/01/17 Diphenhydramine Hcl* (Benadryl*) 25 Mg Cap, 25 MG PO QHS PRN for ITCHING, CAP 01/01/17 Rosuvastatin Calcium* (Crestor*) 5 Mg Tablet, 5 MG PO QHS, #30 TAB 01/01/17 Amphet Vmh-Kfqkhy-V-Amphet (Adderall) 10 Mg Tablet, 10 MG PO DAILY, TAB 09/23/16 Hydrochlorothiazide* (Hydrochlorothiazide*) 25 Mg Tab, 25 MG PO DAILY, #30 TAB 03/01/16 Pregabalin* (Lyrica*) 75 Mg Capsule, 75 MG PO TID, CAP 09/18/15 Oxycodone Hcl-Acetaminophen* (Oxycodone Hcl-Acetaminophen*) 10-325 Mg Tablet, 0.5 TAB PO DAILY PRN for SEVERE PAIN LEVEL 7-10, TAB 09/18/15 Allergies Allergies: Coded Allergies: Sulfa (Sulfonamide Antibiotics) (Verified Allergy, Severe, 03/30/18) NSAIDS (Non-Steroidal Anti-Inflamma (Verified Allergy, Unknown, 03/30/18) aspirin (Verified Allergy, Unknown, 03/30/18) atenolol (Verified Allergy, Unknown, 03/30/18) cefazolin (Verified Allergy, Unknown, 03/30/18) PMhx/Soc History of Surgery: Yes (PT STATED "BACK, WRIST AND KNEE SURGERIES") Anesthesia Reaction: No Hx Neurological Disorder: Yes (MS) Hx Respiratory Disorders: No Hx Cardiac Disorders: Yes Hx Psychiatric Problems: No Hx Miscellaneous Medical Probl: Yes (acute metabolic toxic encephalopathy , uti , HTN, [place], CVA WITH RT SIDED WEA) Hx Alcohol Use: No Hx Substance Use: No Hx Tobacco Use: No Physical Exam Vitals Vital Signs Date Temp Pulse Resp B/P (MAP) Pulse Ox O2 O2 Flow FiO2 Time Delivery Rate 03/30/18 96.4 73 22 175/82 100 12:40 (113) Physical Exam Const: No acute distress. Head: Atraumatic. Eyes: Normal Conjunctiva. ENT: Normal External Ears, Nose and Mouth. Neck: Full range of motion. No meningismus. Resp: Clear to auscultation bilaterally. Cardio: Regular rate and rhythm. Abd: Soft, non distended, normal bowel sounds, minimal epigastric tender. Skin: No petechiae or rashes. Back: No midline or flank tenderness. Ext: No cyanosis, or edema. Neur: Awake and alert. No focal deficit Psych: Normal Mood and Affect. Result Diagram: 03/30/18 1420 03/30/18 1501 Results 24 hrs Laboratory Tests Test 03/30/18 14:20 03/30/18 15:01 03/30/18 15:04 White Blood Count 6.9 10^3/ul Red Blood Count 4.49 10^6/ul Hemoglobin 13.3 g/dl Hematocrit 41.2 % Mean Corpuscular Volume 91.8 fl Mean Corpuscular Hemoglobin 29.6 pg Mean Corpuscular 32.3 g/dl Hemoglobin Concent Red Cell Distribution Width 13.8 % Platelet Count 190 10^3/UL Mean Platelet Volume 11.0 fl Immature Granulocytes % 0.300 % Neutrophils % 72.8 % Lymphocytes % 14.9 % Monocytes % 10.0 % Eosinophils % 1.7 % Basophils % 0.3 % Nucleated Red Blood Cells % 0.0 /100WBC Immature Granulocytes # 0.020 10^3/ul Neutrophils # 5.0 10^3/ul Lymphocytes # 1.0 10^3/ul Monocytes # 0.7 10^3/ul Eosinophils # 0.1 10^3/ul Basophils # 0.0 10^3/ul Nucleated Red Blood Cells # 0.0 10^3/ul Sodium Level 145 mmol/L Potassium Level 3.4 mmol/L Chloride Level 104 mmol/L Carbon Dioxide Level 32 mmol/L Anion Gap 9 Blood Urea Nitrogen 21 mg/dl Creatinine 0.54 mg/dl Est Glomerular Filtrat > 60 mL/min Rate mL/min Glucose Level 96 mg/dl Calcium Level 9.5 mg/dl Total Bilirubin 0.7 mg/dl Direct Bilirubin 0.00 mg/dl Indirect Bilirubin 0.7 mg/dl Aspartate Amino Transf (AST/SGOT) 22 IU/L Alanine 24 IU/L Aminotransferase (ALT/SGPT) Alkaline Phosphatase 66 IU/L Troponin I < 0.012 ng/ml Total Protein 6.8 g/dl Albumin 4.0 g/dl Globulin 2.80 g/dl Albumin/Globulin Ratio 1.42 Lipase 13 U/L Bedside Urine pH (LAB) 7.0 Bedside Urine Protein (LAB) Negative Bedside Urine Glucose (UA) Negative Bedside Urine Ketones (LAB) Negative Bedside Urine Blood Trace-intact Bedside Urine Nitrite (LAB) Negative Bedside Urine Leukocyte Esterase 3+ (L Current Medications Medications Dose Sig/Franky Start Time Status Last (Trade) Ordered Route PRN Stop Time Admin Dose Reason Admin 40 mg ONCE ONCE 03/30/18 DC 03/30/18 Pantoprazole IV 14:00 14:40 (Protonix 03/30/18 14:01 Iv) 500 mg ONCE ONCE 03/30/18 Ciprofloxacin PO 16:30 (Cipro) 03/30/18 16:31 Potassium 20 meq ONCE STAT 03/30/18 DC Chloride PO 16:06 (Klor-Con 20) 03/30/18 16:07 Procedures/[place] [address] Radiology Main Line: [phone] DIAGNOSTIC IMAGING REPORT Patient: ASHLEY LOMAX : 1950 Age: 67 Sex: F MR #: [id number] DOS: 03/30/18 1341 Ordering MD: JOSE ALFREDO ZAMORANO MD Location: E/R Room/Bed: PROCEDURE: XR Chest AP portable CLINICAL INDICATION: Abdominal pain TECHNIQUE: An AP portable radiograph of the chest was submitted. COMPARISON: Abdominal pain FINDINGS: Support Hardware: The right subclavian central venous catheter is stable in positioning. Cardiovascular: The cardiovascular silhouette appears unremarkable, except for mild persistent aortic tortuosity. Lung Zamora: The lung zamora appear clear with no nodule, alveolar infiltrate, or interstitial prominence evident. Pleural Spaces: No pneumothorax or pleural effusion is identified. Osseous Structures: Fractures are now more clearly seen to the left fifth, sixth and eighth ribs. A reversed total left glenohumeral joint replacement is again evident. Soft Tissues: The soft tissues appear generous. IMPRESSION: 1. The heart remains normal in size and the aorta again appears tortuous. The pulmonary vasculature no longer appears congested. 2. The interstitial infiltrates suspicious for interstitial edema have resolved and the lung zamora and pleural spaces are now clear. 3. Several left posterior rib fractures are now better identified. A reversed total left glenohumeral joint replacement is again evident. 4. The right subclavian central venous catheter is stable in positioning. Physician Ana Cristina Date Time Electronically viewed and signed by Physician Ana Cristina on 03/30/2018 14:07 RH/ CC: JOSE ALFREDO ZAMORANO MD [id number] EKG: Read by emergency physician Rate/Rhythm: Normal Sinus Rhythm 69 beats/min QRS, ST, T-waves: No ST elevation, no T inversion, LAD, artifacts Impression: Abnormal EKG MEDICAL MAKING DECISION: The patient is a 77-year-old female, presenting with acute epigastric abdominal pain of unclear etiology, is stable for outpatient follow-up, acute cystitis, acute hypokalemia. She was treated with Protonix 40 mg IV for epigastric abdominal pain, potassium chloride 20 mEq p.o. for acute hypokalemia and Cipro p.o. for acute cystitis with good response. The differential diagnoses considered include but are not limited to choledocholithiasis, cholangitis, pancreatitis, hepatitis, gastritis, peptic ulcer disease, gastric ulcer, appendicitis, cystitis, diverticulitis, partial small bowel obstruction. Departure Diagnosis: Primary Impression: Epigastric pain Additional Impressions: UTI (urinary tract infection) Hypokalemia Condition: Good Comments She was discharged with Cipro and Pyridium I discussed the findings with the patient. I advised the patient to follow-up with the primary physician in about 2-3 days evaluation and referral to gastroenterology for possible endoscopy, sooner if needed and return if any concern. Disclaimer: Inadvertent spelling and grammatical errors are likely due to EHR/dictation software use and do not reflect on the overall quality of patient care. Also, please note that the electronic time recorded on this note does not necessarily reflect the actual time of the patient encounter. JOSE ALFREDO ZAMORANO MD Mar 30, 2018 13:23
[2018-03-30] MEDS ORDERED: PANTOPRAZOLE 40 MG INJ IV ONE (14:00)
[2018-03-30] MEDS ORDERED: BACL20TA PO (14:25)
[2018-03-30] MEDS ORDERED: CYCL1DRO BOTH EYES (14:25)
[2018-03-30] MEDS ORDERED: BEN25 PO (14:25)
[2018-03-30] MEDS ORDERED: HYDR25TA6 PO (14:26)
[2018-03-30] MEDS ORDERED: ONDA4TAB8 PO (14:27)
[2018-03-30] MEDS ORDERED: OXYC-380 PO (14:28)
[2018-03-30] MEDS ORDERED: LYR75 PO (14:28)
[2018-03-30] MEDS ORDERED: CRES5 PO (14:29)
[2018-03-30] MEDS ORDERED: TEMA30CA PO (14:29)
[2018-03-30] MEDS ORDERED: CRAN425C6 PO (14:30)
[2018-03-30] MEDS ORDERED: LACT1CAP47 PO (14:30)
[2018-03-30] MEDS ORDERED: CHOL100062 PO (14:30)
[2018-03-30] MEDS ORDERED: POTASSIUM CHLORIDE (SR) 20 MEQ TAB PO STA (16:06)
[2018-03-30] MEDS ORDERED: CIPR500T4 PO (16:07)
[2018-03-30] MEDS ORDERED: PHEN-538 PO (16:09)
[2018-03-30] MEDS ORDERED: CIPROFLOXACIN 500 MG TAB PO ONE (16:30)
[2018-03-30 17:07] VITALS: BP 150/75; PULSE 78; RESP 18
== END 2018-03-30 17:23 | disposition home or self-care (01) ==
LOC: E/R 12:31
DX: N39.0 Urinary tract infection, site not specified (principal); E87.6 Hypokalemia; I25.2 Old myocardial infarction; I25.10 Atherosclerotic heart disease of native coronary artery without angina pectoris; I10 Essential (primary) hypertension; Z86.73 Personal history of transient ischemic attack (TIA), and cerebral infarction without residual deficits
CPT/HCPCS: 36415; 71045; 80053; 81003; 83690; 84484; 85025; 93005; 96374; 99285; C9113

== ENCOUNTER 2018-08-31 15:18 | Inpatient (IN) | payer MEDICARE, BC ==
[~2018-08-31] VITALS: Ht 172.7 cm; Wt 114.8 kg
[~2018-08-31 15:18] MED LIST changes: +CHOL100062 PO; +CIPR500T4 PO; +CRAN425C6 PO; -DEXT10TA9 PO; +LACT1CAP47 PO; -OXYC-183 PO; +OXYC-380 PO; +PHEN-538 PO; +TEMA30CA PO; -TEMA30CA6 PO
--- NOTE | 2018-08-31 15:35 | ERD ---
ER Documentation Chief Complaint Chief Complaint headache, nausea & dizziness s/p fall out electric wheelchair HPI The patient is a 67-year-old female, presenting to the ER because of headache, dizziness, neck pain after she fell off her electric wheelchair about 12 PM, it was questionable that she lost consciousness. She went home but did not feel better,then came to the ER for further evaluation. She denies fever, chills, neck pain, chest pain, dyspnea, vomiting, diarrhea, complains of dysuria. She does not smoke nor drink Past medical history: Dyslipidemia, MS, CAD, history of CVA with left hemiplegia, hypertension, chronic pain syndrome Past surgical history: Cholecystectomy, appendectomy, hysterectomy, left shoulder arthroplasty, bilateral hip arthroplasty, right knee arthroplasty, left second toe amputation ROS All systems reviewed and are negative except as per history of present illness. Medications Home Meds Reported Medications Hydrochlorothiazide* (Hydrochlorothiazide*) 25 Mg Tab, 25 MG PO DAILY, #30 TAB 08/31/18 Pregabalin* (Lyrica*) 75 Mg Capsule, 75 MG PO QID, CAP 08/31/18 Baclofen* (Baclofen*) 10 Mg Tablet, 10 MG PO BID, TAB 08/31/18 Nitrofurantoin Monohyd Macrocr* (Macrobid*) 100 Mg Capsr, 100 MG PO DAILY, CAP 08/31/18 Rosuvastatin Calcium* (Crestor*) 10 Mg Tablet, 10 MG PO QHS, #30 TAB 08/31/18 Oxycodone HCl/Acetaminophen (Oxycodone-Acetaminophen 10-325) 1 Each Tablet, 0.5 EACH PO BID, TAB 08/31/18 Discontinued Reported Medications Cranberry Extract (Cranberry) 425 Mg Capsule, 425 MG PO DAILY, CAP 03/30/18 Lactobacillus Acidophilus (Probiotic) 1 Each Capsule, 1 CAP PO DAILY, CAP 03/30/18 Cholecalciferol* (Vitamin D3*) 1,000 Unit Tablet, 1000 UNIT PO DAILY, TAB 03/30/18 Temazepam* (Temazepam*) 30 Mg Capsule, 30 MG PO HS PRN for INSOMNIA, CAP 03/30/18 Rosuvastatin Calcium* (Crestor*) 5 Mg Tablet, 5 MG PO QHS, #30 TAB 03/30/18 Pregabalin* (Lyrica*) 75 Mg Capsule, 75 MG PO TID, CAP 03/30/18 Oxycodone Hcl-Acetaminophen* (Endocet*) 10-325 Mg Tablet, 0.5 TAB PO BID PRN for PAIN, TAB 03/30/18 Ondansetron Hcl* (Zofran*) 4 Mg Tablet, 4 MG PO Q8 PRN for NAUSEA AND/OR VOMITING, TAB 03/30/18 Hydrochlorothiazide* (Hydrochlorothiazide*) 25 Mg Tab, 25 MG PO DAILY, #30 TAB 03/30/18 Diphenhydramine Hcl* (Benadryl*) 25 Mg Cap, 25 MG PO QHS PRN for ITCHING, CAP 03/30/18 Cyclosporine (RESTASIS) 1 Each Droperette, 1 DROP BOTH EYES Q12, #1 BOX 03/30/18 Baclofen* (Baclofen*) 20 Mg Tablet, 20 MG PO QID, TAB 03/30/18 Discontinued Scripts Phenazopyridine Hcl* (Pyridium*) 200 Mg Tab, 200 MG PO TID PRN for URINARY PAIN, #6 TAB Prov:JOSE ALFREDO ZAMORANO MD 03/30/18 Ciprofloxacin Hcl* (Ciprofloxacin Hcl*) 500 Mg Tablet, 500 MG PO BID for 7 Days, TAB Prov:JOSE ALFREDO ZAMORANO MD 03/30/18 Allergies Allergies: Coded Allergies: Sulfa (Sulfonamide Antibiotics) (Verified Allergy, Severe, 08/31/18) NSAIDS (Non-Steroidal Anti-Inflamma (Verified Allergy, Unknown, 08/31/18) aspirin (Verified Allergy, Unknown, 08/31/18) atenolol (Verified Allergy, Unknown, 08/31/18) cefazolin (Verified Allergy, Unknown, 08/31/18) PMhx/Soc History of Surgery: Yes (PT STATED "BACK, WRIST AND KNEE SURGERIES") Anesthesia Reaction: No Hx Neurological Disorder: Yes (MS) Hx Respiratory Disorders: No Hx Cardiac Disorders: Yes Hx Psychiatric Problems: No Hx Miscellaneous Medical Probl: Yes (acute metabolic toxic encephalopathy , uti , HTN, [place], CVA WITH RT SIDED WEA) Hx Alcohol Use: No Hx Substance Use: No Hx Tobacco Use: No Physical Exam Vitals Vital Signs Date Temp Pulse Resp B/P (MAP) Pulse Ox O2 O2 Flow FiO2 Time Delivery Rate 08/31/18 67 15 105/66 99 Nasal 2.0 18:33 (79) Cannula 08/31/18 65 18 154/82 100 Nasal 2.0 15:30 (106) Cannula 08/31/18 97.9 94 18 124/57 94 15:29 (79) Physical Exam Const: No acute distress Head: Atraumatic Eyes: Normal Conjunctiva ENT: Normal External Ears, Nose and Mouth. Neck: Full range of motion. No meningismus. Resp: Clear to auscultation bilaterally Cardio: Regular rate and rhythm, no murmurs Abd: Soft, non tender, non distended. Normal bowel sounds Skin: No petechiae or rashes Back: No midline or flank tenderness Ext: No cyanosis, or edema Neur: Awake and alert. Left hemiplegia Psych: Normal Mood and Affect Result Diagram: 08/31/18 1604 08/31/18 1604 Results 24 hrs Laboratory Tests Test 08/31/18 16:04 08/31/18 16:09 White Blood Count 8.5 10^3/ul Red Blood Count 4.49 10^6/ul Hemoglobin 14.0 g/dl Hematocrit 42.1 % Mean Corpuscular Volume 93.8 fl Mean Corpuscular Hemoglobin 31.2 pg Mean Corpuscular Hemoglobin Concent 33.3 g/dl Red Cell Distribution Width 12.9 % Platelet Count 216 10^3/UL Mean Platelet Volume 10.4 fl Immature Granulocytes % 0.500 % Neutrophils % 72.1 % Lymphocytes % 15.6 % Monocytes % 9.8 % Eosinophils % 1.5 % Basophils % 0.5 % Nucleated Red Blood Cells % 0.0 /100WBC Immature Granulocytes # 0.040 10^3/ul Neutrophils # 6.1 10^3/ul Lymphocytes # 1.3 10^3/ul Monocytes # 0.8 10^3/ul Eosinophils # 0.1 10^3/ul Basophils # 0.0 10^3/ul Nucleated Red Blood Cells # 0.0 10^3/ul Prothrombin Time 12.4 Sec Prothrombin Time Ratio 1.0 INR International Normalized Ratio 0.91 Activated Partial Thromboplast Time 53.9 Sec Sodium Level 145 mmol/L Potassium Level 3.1 mmol/L Chloride Level 104 mmol/L Carbon Dioxide Level 33 mmol/L Anion Gap 8 Blood Urea Nitrogen 18 mg/dl Creatinine 0.65 mg/dl Est Glomerular Filtrat Rate mL/min > 60 mL/min Glucose Level 138 mg/dl Calcium Level 9.2 mg/dl Troponin I < 0.012 ng/ml Bedside Glucose 134 mg/dL Current Medications Medications Dose Sig/Franky Start Time Status Last (Trade) Ordered Route PRN Stop Time Admin Dose Reason Admin Lorazepam 2 mg ONCE ONCE 08/31/18 DC 08/31/18 (Ativan) IM 16:00 16:56 08/31/18 16:01 100 ml @ ONCE ONCE 08/31/18 DC Levetiracetam 400 mls/hr IVPB 16:30 08/31/18 16:30 100 ml @ ONCE ONCE 08/31/18 DC 08/31/18 Levetiracetam 400 mls/hr IVPB 16:30 16:56 08/31/18 16:44 Potassium 100 ml @ Q2H IVPB 08/31/18 08/31/18 Chloride 50 mls/hr 17:30 17:17 08/31/18 21:29 IV Flush 3 ml PER 08/31/18 (NS 3 ml) PROTOCOL IV 18:00 Ondansetron 4 mg Q6H PRN 08/31/18 HCl (Zofran IV 18:00 Inj) NAUSEA/VOMITI NG Lorazepam 2 mg Q10MIN PRN 08/31/18 (Ativan) IV seizure 18:00 Procedures/[place] [address] Radiology Main Line: [phone] DIAGNOSTIC IMAGING REPORT Patient: ASHLEY LOMAX : 1950 Age: 68 Sex: F MR #: [id number] DOS: 08/31/18 1547 Ordering MD: JOSE ALFREDO ZAMORANO MD Location: E/R Room/Bed: PROCEDURE: CT Head without contrast. CLINICAL INDICATION: Seizure TECHNIQUE: The study was performed utilizing a GE 64-slice multidetector CT scanner. Direct spiral axial CT images of the brain were obtained from the vertex to the skull base without contrast. Coronal and sagittal reformatted images are provided. The CTDI vol is 38.29 mGy and the DLP is 634.23 mGy-cm. The images were reviewed on a PACS workstation. DICOM images are available. One or more of the following dose reduction techniques were used: Automated exposure control. Adjustment of the mA and/or kV according to patient size. Use of iterative reconstruction technique. COMPARISON: 06/09/2017 FINDINGS: Mild diffuse atrophy is seen with a compensatory ventricular enlargement. Very mild white matter disease in the periventricular white matter is seen. The calderón-white matter differentiation is maintained. No intra or extra-axial fluid collection or mass effect or shift in the midline structures is seen. A prior right frontal craniotomy is once again seen. The visualized paranasal sinuses, mastoid air cells, orbits, and remainder of the calvarium are unremarkable. Vascular calcifications are seen. IMPRESSION: 1. No acute intracranial pathology. 2. Stable mild diffuse volume loss and very mild chronic microvascular ischemic changes. RPTAT: HPNM Physician Yue Date Time Electronically viewed and signed by Wilber Wetzel Physician on 08/31/2018 17:05 / CC: JOSE ALFREDO ZAMORANO MD [id number] [place] [address] Radiology Main Line: [phone] DIAGNOSTIC IMAGING REPORT Patient: ASHLEY LOMAX : 1950 Age: 68 Sex: F MR #: [id number] DOS: 08/31/18 1547 Ordering MD: JOSE ALFREDO ZAMORANO MD Location: E/R Room/Bed: PROCEDURE: CT Cervical Spine without contrast. CLINICAL INDICATION: Trauma with neck pain. History of seizure TECHNIQUE: Using a [id number] slice CT scanner, multiple axial images through the cervical spine with coronal and sagittal reformats were obtained without contrast. The images were reviewed on a high-resolution PACS workstation. The CTDI vol is 22.3 mGy and the DLP is 561.35 mGy-cm. DICOM images are available. One or more of the following dose reduction techniques were used: Automated exposure control. Adjustment of the mA and/or kV according to patient size. Use of iterative reconstruction technique. COMPARISON: No prior studies are available for comparison. FINDINGS: The cervical lordosis is maintained. There is normal height of the vertebral bodies. Multilevel endplate and uncovertebral osteophytosis is seen. There is no bone destruction or sclerosis. The atlantoaxial joint demonstrates degenerative changes. Diffuse osteopenia is seen. There is no acute fracture or subluxation. No prevertebral or paravertebral soft tissue abnormality is seen. Multilevel disc height loss is seen which is severe at C5-6 and C6-7. Posterior disc osteophyte complexes are seen at C4-5 to C6-7. Multilevel foraminal stenosis is seen secondary to uncovertebral osteophytosis and facet arthropathy which is most prominent on the left side at C4-5 and side at C5-6 with severe narrowing. Multilevel central canal stenosis is seen which appears most prominent C4-5 with mild to moderate narrowing. IMPRESSION: 1. No CT evidence of an acute fracture or subluxation. 2. Multilevel degenerative spondylosis of the cervical spine. RPTAT: HPNM Physician Yue Date Time Electronically viewed and signed by Physician Yue on 08/31/2018 17:12 / CC: JOSE ALFREDO ZAMORANO MD [id number] [place] [address] Radiology Main Line: [phone] DIAGNOSTIC IMAGING REPORT Patient: ASHLEY LOMAX : 1950 Age: 68 Sex: F [id number] [id number] DOS: 08/31/18 1547 Ordering MD: JOSE ALFREDO ZAMORANO MD Location: E/R Room/Bed: PROCEDURE: XR Chest. CLINICAL INDICATION: Shortness of breath. History of seizure TECHNIQUE: A single portable view of the chest was obtained. COMPARISON: 09/18/2015 FINDINGS: A right chest wall port and left subclavian catheter is once again. The aorta is tortuous and atherosclerotic. The cardiomediastinal silhouette is otherwise within normal limits. The lungs and pleural spaces are clear. The soft tissues and osseous structures demonstrate benign age related senescent changes. Left shoulder arthroplasty is again seen. IMPRESSION: No acute cardiopulmonary disease. RPTAT: HPNM Wilber Wetzel Physician Date Time Electronically viewed and signed by Wilber Wetzel Physician on 08/31/2018 17:07 / CC: JOSE ALFREDO ZAMORANO MD [id number] EKG: Read by emergency physician Rate/Rhythm: Normal Sinus Rhythm 69 beats/min QRS, ST, T-waves: No ST elevation, no T inversion, first-degree AV block, PAC, LAD, incomplete right bundle branch block, LVH Impression: Abnormal EKG MEDICAL MAKING DECISION: The patient is a 68-year-old female, presenting to the ER because she did not feel well. She had an acute generalized, tonic-clonic seizure in the ER for approximately 2 minutes, aborted by Ativan 2 mg IM. She was postictal after the seizure. She was treated with Keppra 1 g IV for acute new onset seizure, potassium chloride 40 mEq IV for acute hypokalemia The differential diagnoses considered include but are not limited to subarac hnoid hemorrhage, occult trauma, CVA, meningitis, encephalitis, hypertension, tension, migraine, cluster, narcotic withdrawal, cervical spine disease. Departure Diagnosis: Primary Impression: New onset seizure Additional Impression: Hypokalemia Condition: Stable Comments I discussed the findings with the patient. I discussed the patient with Dr Rascon at who asked us to admit the patient to Dr Chao, who was made aware of the lab, the treatment, the patient condition. The patient is admitted to [facility] Disclaimer: Inadvertent spelling and grammatical errors are likely due to EHR/dictation software use and do not reflect on the overall quality of patient care. Also, please note that the electronic time recorded on this note does not necessarily reflect the actual time of the patient encounter. JOSE ALFREDO ZAMORANO MD Aug 31, 2018 15:35
[2018-08-31] MEDS ORDERED: LORAZEPAM 2 MG INJ ONE (15:44)
[2018-08-31] MEDS ORDERED: LORAZEPAM 2 MG INJ IM ONE (16:00)
[2018-08-31] MEDS ORDERED: LEVETIRACETAM 1000 MG (PMX) 100 ML IVPB ONE ×2 (16:30)
[2018-08-31] MEDS ORDERED: RSV10T PO (16:37)
[2018-08-31] MEDS ORDERED: OXYC-431 PO (16:37)
[2018-08-31] MEDS ORDERED: NITR-58 PO (16:38)
[2018-08-31] MEDS ORDERED: BACL10TA PO (16:38)
[2018-08-31] MEDS ORDERED: HYDR25TA6 PO (16:39)
[2018-08-31] MEDS ORDERED: LYR75 PO (16:39)
[2018-08-31] MEDS: POTASSIUM CHLORIDE 100 ML IVPB SCH ×2 (17:17→19:37)
[2018-08-31] MEDS ORDERED: NACL 0.9% 3 ML SYG IV SCH (18:00)
[2018-08-31] MEDS ORDERED: LORAZEPAM 2 MG INJ IV PRN (18:00)
[2018-08-31 20:00] VITALS: BP 142/65; PULSE 56; RESP 20
[2018-08-31 20:23] VITALS: PULSE 56
[2018-08-31 22:06] VITALS: Ht 172.7 cm; Wt 114.8 kg
[2018-08-31 23:54] VITALS: BP 127/58; PULSE 53; RESP 18
[2018-09-01] VITALS (11 sets, daily range): BP systolic 114–137; BP diastolic 56–63; PULSE 53–66; RESP 18–20
--- NOTE | 2018-09-01 00:19 | HP ---
Date/Time of Note Date/Time of Note DATE: 09/01/18 TIME: 00:18 Assessment/Plan VTE Prophylaxis Pharmacological prophylaxis: NA/contraindicated Pharm contraindication: low risk/ambulating Lines/Catheters IV Catheter Type (from Nrs): Assessment/Plan Hospital Course This is a 38-year female being admitted to the telemetry floor for: #1 new onset seizure: Patient had a witnessed seizure in the emergency department. Which was aborted with Ativan. She is currently awake and alert. CT of the brain was negative for any acute abnormalities. She did receive Keppra in the emergency department. Will monitor closely, seizure precautions. We will hold off on any further Keppra unless patient does have a repeat seizure episode. Will check an MRI of the brain with and without contrast. . Consider eeg at discretion of neurology. Will consult neurology Dr. Correia #2 suspect postconcussive syndrome: CT of the brain is negative, patient does report headache. Will monitor closely for any additional symptoms. Will check an MRI of the brain. Supportive care. Will consult neurology. #3 history of subdural hematoma: Patient is status post evacuation. Negative CT head at the current time #4 hypertension: Resume patient's home medications #5. History of CVA: mild chronic left sided weakness, continue home meds #6 hypertension: continue home meds. #7 multiple sclerosis: Currently not on any meds monitor #8 Dyslipidemia: We will check lipid panel, #9 obesity: We will check hemoglobin A 1C, lipid panel, TSH #10 chronic pain syndrome: We will hold off on baclofen at the current time given reduced threshold for seizures., Hold off on Lyrica. #11 DVT GI prophylaxis: SCDs, no GI prophylaxis indicated Further treatment strategy will be implemented as per the clinical course. Result Diagram: 08/31/18 1604 08/31/18 1604 Results 24hrs Laboratory Tests Test 08/31/18 16:04 08/31/18 16:09 White Blood Count 8.5 # Red Blood Count 4.49 Hemoglobin 14.0 Hematocrit 42.1 Mean Corpuscular Volume 93.8 Mean Corpuscular Hemoglobin 31.2 Mean Corpuscular Hemoglobin Concent 33.3 Red Cell Distribution Width 12.9 Platelet Count 216 Mean Platelet Volume 10.4 Immature Granulocytes % 0.500 H Neutrophils % 72.1 Lymphocytes % 15.6 Monocytes % 9.8 Eosinophils % 1.5 Basophils % 0.5 Nucleated Red Blood Cells % 0.0 Immature Granulocytes # 0.040 H Neutrophils # 6.1 Lymphocytes # 1.3 Monocytes # 0.8 Eosinophils # 0.1 Basophils # 0.0 Nucleated Red Blood Cells # 0.0 Prothrombin Time 12.4 Prothrombin Time Ratio 1.0 INR International Normalized Ratio 0.91 Activated Partial Thromboplast Time 53.9 H Sodium Level 145 H Potassium Level 3.1 L Chloride Level 104 Carbon Dioxide Level 33 H Anion Gap 8 Blood Urea Nitrogen 18 Creatinine 0.65 Est Glomerular Filtrat Rate mL/min > 60 Glucose Level 138 Calcium Level 9.2 Troponin I < 0.012 Bedside Glucose 134 HPI/ROS Admit Date/Time Admit Date/Time Aug 31, 2018 at 18:01 Hx of Present Illness The patient is a 67-year-old female, presenting to the ER because of headache, dizziness, neck pain after she fell off her electric wheelchair about 12 PM. She states that when she woke up she noticed that the wheelchair was on top of her. She notes that there were 3-minute around her who helped get the wheelchair off of her and they helped her up. They asked her if she wanted them to call 911 but she stated she felt fine.. They reported to her that they n oticed that she had lost consciousness.. She then got on the wheelchair and went back home. While she was at home she started to feel a headache and dizziness and the neck pain. It was questionable that she lost consciousness. She went home but did not feel better,then came to the ER for further evaluation. She denies fever, chills, neck pain, chest pain, dyspnea, vomiting, diarrhea, complains of dysuria. While in the emergency department patient was seen to have a 2-minute tonic- clonic seizure. It was aborted with Ativan. She did have a postictal period she does not have any history of seizures. She was given a dose of Keppra 1000 mg. Allergies: NSAIDs, sulfa, aspirin, atenolol, cefazolin Medications: See May Const: As per HPI Eyes : No pain discharge or redness or change in visual acuity ENT: No pain, sore throat, congestion, congestion, dysphagia or discharge Respiratory: No shortness of breath, cough, sputum, wheezing, or pleuritic pain Cardiovascular: No chest pain, palpitation, PND, or edema GI : no change in appetite, abdominal pain, nausea, vomiting, diarrhea, constipation, or change in the color his stool Genitourinary: No dysuria, hematuria, flank pain , discharge or CVA tenderness Musculoskeletal: As per HPI Skin: No rash, bruising or hives Neuro: As per HPI Endocrine: No polyuria, polydipsia, temperature intolerance Psych: No hallucination, depression, anxiety or suicidal ideation PMH/Family/Social Past Medical History Dyslipidemia, MS, CAD, history of CVA with left hemiplegia, hypertension, chronic pain syndrome, history of subdural hematoma Medications Current Medications IV Flush (NS 3 ml) 3 ml PER PROTOCOL IV ; Start 08/31/18 at 18:00 Ondansetron HCl (Zofran Inj) 4 mg Q6H PRN IV NAUSEA/VOMITING; Start 08/31/18 at 18:00 Lorazepam (Ativan) 2 mg Q10MIN PRN IV seizure; Start 08/31/18 at 18:00 Coded Allergies: Sulfa (Sulfonamide Antibiotics) (Verified Allergy, Severe, 08/31/18) NSAIDS (Non-Steroidal Anti-Inflamma (Verified Allergy, Unknown, 08/31/18) aspirin (Verified Allergy, Unknown, 08/31/18) atenolol (Verified Allergy, Unknown, 08/31/18) cefazolin (Verified Allergy, Unknown, 08/31/18) Past Surgical History Cholecystectomy, appendectomy, hysterectomy, left shoulder arthroplasty, bilateral hip arthroplasty, right knee arthroplasty, left second toe amputation Family History Significant Family History: no pertinent family hx Social History Alcohol Use: none Smoking Status: Never smoker Drug Use: none Exam/Review of Systems Vital Signs Vitals Vital Signs Date Temp Pulse Resp B/P (MAP) Pulse Ox O2 O2 Flow FiO2 Time Delivery Rate 08/31/18 98.0 53 18 127/58 97 Room Air 23:54 (81) 08/31/18 2.0 18:33 Intake and Output 08/31/18 08/31/18 09/01/18 1515:00 23:00 07:00 IntakeIntake Total 100 ml BalanceBalance 100 ml Exam Exam General: Patient is a pleasant female, currently lying in bed reporting mild right posterior headache, neck pain HEENT: Atraumatic, normocephalic. The pupils are equal, round and reactive. Extraocular motor are intact Neck: Supple with full range of motion. No rigidity or meningismus Chest: Nontender Lungs: Clear to auscultation bilaterally no crackles rales or wheezing Heart: Normal S1-S2, Regular rhythm and rate. No murmur, S3, or S4 Abdomen: Obese, soft , nontender, nondistended , bowel sounds are present. No guarding no rebound tenderness , No masses or organomegaly. No costovertebral temporal angle mass Extremities: mild left sided weakness (chronic) Neurologic: Normal mental status, speech normal, cranial nerves II through XII are intact, motor and sensory are intact, Additional Comments PROCEDURE: CT Head without contrast. CLINICAL INDICATION: Seizure TECHNIQUE: The study was performed utilizing a GE 64-slice multidetector CT scanner. Direct spiral axial CT images of the brain were obtained from the vertex to the skull base without contrast. Coronal and sagittal reformatted images are provided. The CTDI vol is 38.29 mGy and the DLP is 634.23 mGy-cm. The images were reviewed on a PACS workstation. DICOM images are available. One or more of the following dose reduction techniques were used: Automated exposure control. Adjustment of the mA and/or kV according to patient size. Use of iterative reconstruction technique. COMPARISON: 06/09/2017 FINDINGS: Mild diffuse atrophy is seen with a compensatory ventricular enlargement. Very mild white matter disease in the periventricular white matter is seen. The calderón-white matter differentiation is maintained. No intra or extra-axial fluid collection or mass effect or shift in the midline structures is seen. A prior right frontal craniotomy is once again seen. The visualized paranasal sinuses, mastoid air cells, orbits, and remainder of the calvarium are unremarkable. Vascular calcifications are seen. IMPRESSION: 1. No acute intracranial pathology. 2. Stable mild diffuse volume loss and very mild chronic microvascular ischemic changes. RPTAT: [facility] Physician Yue Date Time Electronically viewed and signed by Physician Yue on 08/31/2018 17:05 / CC: JOSE ALFREDO ZAMORANO MD [id number] PROCEDURE: CT Cervical Spine without contrast. CLINICAL INDICATION: Trauma with neck pain. History of seizure TECHNIQUE: Using a [id number] slice CT scanner, multiple axial images through the cervical spine with coronal and sagittal reformats were obtained without contrast. The images were reviewed on a high-resolution PACS workstation. The CTDI vol is 22.3 mGy and the DLP is 561.35 mGy-cm. DICOM images are available. One or more of the following dose reduction techniques were used: Automated exposure control. Adjustment of the mA and/or kV according to patient size. Use of iterative reconstruction technique. COMPARISON: No prior studies are available for comparison. FINDINGS: The cervical lordosis is maintained. There is normal height of the vertebral bodies. Multilevel endplate and uncovertebral osteophytosis is seen. There is no bone destruction or sclerosis. The atlantoaxial joint demonstrates degenerative changes. Diffuse osteopenia is seen. There is no acute fracture or subluxation. No prevertebral or paravertebral soft tissue abnormality is seen. Multilevel disc height loss is seen which is severe at C5-6 and C6-7. Posterior disc osteophyte complexes are seen at C4-5 to C6-7. Multilevel foraminal stenosis is seen secondary to uncovertebral osteophytosis and facet arthropathy which is most prominent on the left side at C4-5 and side at C5-6 with severe narrowing. Multilevel central canal stenosis is seen which appears most prominent C4-5 with mild to moderate narrowing. IMPRESSION: 1. No CT evidence of an acute fracture or subluxation. 2. Multilevel degenerative spondylosis of the cervical spine. RPTAT: [facility] Physician Yue Date Time Electronically viewed and signed by Physician Yue on 08/31/2018 17:12 / CC: JOSE ALFREDO ZAMORANO MD [id number] PROCEDURE: XR Chest. CLINICAL INDICATION: Shortness of breath. History of seizure TECHNIQUE: A single portable view of the chest was obtained. COMPARISON: 09/18/2015 FINDINGS: A right chest wall port and left subclavian catheter is once again. The aorta is tortuous and atherosclerotic. The cardiomediastinal silhouette is otherwise within normal limits. The lungs and pleural spaces are clear. The soft tissues and osseous structures demonstrate benign age related senescent changes. Left shoulder arthroplasty is again seen. IMPRESSION: No acute cardiopulmonary disease. RPTAT: [facility] Physician Yue Date Time Electronically viewed and signed by Wilber Wetzel Physician on 08/31/2018 1 7:07 / CC: JOSE ALFREDO ZAMORANO MD [id number] CHARLIE SARAVIA Sep 01, 2018 00:19
[2018-09-01] MEDS ORDERED: DIAZEPAM 5 MG/ML SYG IV ONE (03:30)
[2018-09-01] MEDS: ONDANSETRON 4 MG INJ IV PRN (03:46)
[2018-09-01] MEDS ORDERED: KETOROLAC 15 MG INJ IV STA (03:55)
[2018-09-01] MEDS ORDERED: LORAZEPAM 2 MG INJ IV PRN (04:00)
[2018-09-01] MEDS ORDERED: BACLOFEN 10 MG TAB PO SCH (09:00)
[2018-09-01] MEDS ORDERED: LEVETIRACETAM 1000 MG IVPB SCH (09:00)
[2018-09-01] MEDS: HYDROCHLOROTHIAZIDE 25 MG TAB PO SCH (09:16)
[2018-09-01] MEDS: OXYCODONE/ACETAMINOPHEN (5/325) TAB PO PRN (11:44)
[2018-09-01] MEDS: LEVETIRACETAM 500 MG TAB PO SCH ×2 (11:44→20:06)
--- NOTE | 2018-09-01 13:05 | QN ---
Documentation Comment 68 yo F with h/o MS,cva,htn,chronic pain,dlp, here w/new onset seizures.. started on antiseizure meds. pt also incontinent and now has a goldberg.send cultures to r/o uti which can contribute seizures. cont.seizure precautions. f/u imaging studies and neuro recommendations. Pt c/o intractable back pain. Will give iv Dilaudid and Will consider pain management consultation if no improvement. Pt was seen in collaboration w/BENNIE Mchugh NP Sep 01, 2018 13:05
--- NOTE | 2018-09-01 13:30 | CONSI ---
Assessment/Plan Assessment/Plan Assessment/Plan (Recall) 68 F c/ reported longstanding MS...who presents for evaluation of GRANDE, dizziness, and other Sx, s/p fall w/ head trauma. She was noted to have several seizures while in the ER, for which neurology is consulted.. The clinical picture could be consistent w/ concussion.. An underlying stroke is, though, not yet excluded.. Head CT is unrevealing. CT C spine is w/o acute Fx.. P: Await MRI brain for further characterization Add EEG Add Maintenance Keppra, 500mg bid for now Ativan iv prn prolonged seizure or cluster Add CT T and L spine to exclude acute Fx.. Await UA/UDS Pain control and other medical management per primary Will follow Consultation Date/Type/Reason Admit Date/Time Aug 31, 2018 at 18:01 Type of Consult Neurology Reason for Consultation seizures Requesting Provider: CHARLIE SARAVIA Date/Time of Note DATE: 09/01/18 TIME: 13:24 Hx of Present Illness The patient is a 68-year-old female, presenting to the ER because of headache, dizziness, neck pain after she fell off her electric wheelchair about 12 PM. She states that when she woke up she noticed that the wheelchair was on top of her. She notes that there were 3-minute around her who helped get the wheelchair off of her and they helped her up. They asked her if she wanted them to call 911 but she stated she felt fine.. They reported to her that they noticed that she had lost consciousness.. She then got on the wheelchair and went back home. While she was at home she started to feel a headache and dizziness and the neck pain. It was questionable that she lost consciousness. She went home but did not feel better,then came to the ER for further evaluation. She denies fever, chills, neck pain, chest pain, dyspnea, vomiting, diarrhea, complains of dysuria. While in the emergency department patient was seen to have a 2-minute tonic- clonic seizure, for which neurology is consulted.. It was aborted with Ativan. She did have a postictal period she does not have any history of seizures. She was given a dose of Keppra 1000 mg. t appears that she had several additional episodes in the ER also concerning for seizure... Allergies: NSAIDs, sulfa, aspirin, atenolol, cefazolin 12 PT ros ow neg Objective Exam Vitals Vital Signs Date Temp Pulse Resp B/P (MAP) Pulse Ox O2 O2 Flow FiO2 Time Delivery Rate 09/01/18 61 12:06 09/01/18 97.5 18 114/56 94 Room Air 11:25 (75) 08/31/18 2.0 18:33 Intake and Output 08/31/18 08/31/18 09/01/18 1515:00 23:00 07:00 IntakeIntake Total 100 ml BalanceBalance 100 ml Exam PE: Gen Appearance: No Apparent Distress HEENT: Normocephalic Cardiovascular: Regular rate Lungs: Clear bilaterally Abdomen: Soft Extremities: Dry NE: The patient was alert and oriented. Language was normal. Fund of knowledge was normal. Pupils were equal and reactive to light. There was no afferent pupillary defect. Visual zamora were normal. Funduscopic examination was limited. Extra-ocular movements were full. Ptosis was absent. There was no nystagmus. Facial sensation was normal. Face was symmetric with normal strength. Hearing was intact. Palate movements were normal. Neck strength was normal. There was normal tongue bulk and speed of movement. Tone was normal. Muscle bulk was normal. I did not see fasciculations. Arms and legs were weak, L >>R. Vibration sensation was reduced on the left. Temperature and pinprick sensation was reduced on the left. Rapid alternating movements were slow. There was no dysmetria. There was no intention tremor. Gait was deferred due to bedrest. Arm and leg reflexes were brisk.. Pride's sign was absent. Plantar responses were flexor. Results Result Diagram: 09/01/18 0538 09/01/18 0538 Results 24hrs Laboratory Tests Test 08/31/18 16:04 08/31/18 16:09 09/01/18 05:38 White Blood Count 8.5 # 6.6 # Red Blood Count 4.49 4.18 L Hemoglobin 14.0 13.0 Hematocrit 42.1 40.1 Mean Corpuscular Volume 93.8 95.9 Mean Corpuscular Hemoglobin 31.2 31.1 Mean Corpuscular Hemoglobin Concent 33.3 32.4 Red Cell Distribution Width 12.9 13.2 Platelet Count 216 184 Mean Platelet Volume 10.4 10.6 H Immature Granulocytes % 0.500 H 0.200 Neutrophils % 72.1 59.0 Lymphocytes % 15.6 25.0 Monocytes % 9.8 11.9 H Eosinophils % 1.5 3.1 Basophils % 0.5 0.8 Nucleated Red Blood Cells % 0.0 0.0 Immature Granulocytes # 0.040 H 0.010 Neutrophils # 6.1 3.9 Lymphocytes # 1.3 1.6 Monocytes # 0.8 0.8 Eosinophils # 0.1 0.2 Basophils # 0.0 0.1 Nucleated Red Blood Cells # 0.0 0.0 Prothrombin Time 12.4 Prothrombin Time Ratio 1.0 INR International Normalized Ratio 0.91 Activated Partial Thromboplast Time 53.9 H Sodium Level 145 H 142 Potassium Level 3.1 L 3.5 Chloride Level 104 107 Carbon Dioxide Level 33 H 29 Anion Gap 8 6 Blood Urea Nitrogen 18 17 Creatinine 0.65 0.59 Est Glomerular Filtrat Rate mL/min > 60 > 60 Glucose Level 138 93 # Calcium Level 9.2 8.9 Troponin I < 0.012 Bedside Glucose 134 Hemoglobin A1c 5.3 Magnesium Level 1.9 Total Bilirubin 0.8 Direct Bilirubin 0.00 Indirect Bilirubin 0.8 Aspartate Amino Transf (AST/SGOT) 22 Alanine Aminotransferase (ALT/SGPT) 24 Alkaline Phosphatase 53 Total Protein 6.0 L Albumin 3.6 Globulin 2.40 Albumin/Globulin Ratio 1.50 Past Medical History reviewed Home Meds Reported Medications Hydrochlorothiazide* (Hydrochlorothiazide*) 25 Mg Tab, 25 MG PO DAILY, #30 TAB 08/31/18 Pregabalin* (Lyrica*) 75 Mg Capsule, 75 MG PO QID, CAP 08/31/18 Baclofen* (Baclofen*) 10 Mg Tablet, 10 MG PO BID, TAB 08/31/18 Nitrofurantoin Monohyd Macrocr* (Macrobid*) 100 Mg Capsr, 100 MG PO DAILY, CAP 08/31/18 Rosuvastatin Calcium* (Crestor*) 10 Mg Tablet, 10 MG PO QHS, #30 TAB 08/31/18 Oxycodone HCl/Acetaminophen (Oxycodone-Acetaminophen 10-325) 1 Each Tablet, 0.5 EACH PO BID, TAB 08/31/18 Discontinued Reported Medications Cranberry Extract (Cranberry) 425 Mg Capsule, 425 MG PO DAILY, CAP 03/30/18 Lactobacillus Acidophilus (Probiotic) 1 Each Capsule, 1 CAP PO DAILY, CAP 03/30/18 Cholecalciferol* (Vitamin D3*) 1,000 Unit Tablet, 1000 UNIT PO DAILY, TAB 03/30/18 Temazepam* (Temazepam*) 30 Mg Capsule, 30 MG PO HS PRN for INSOMNIA, CAP 03/30/18 Rosuvastatin Calcium* (Crestor*) 5 Mg Tablet, 5 MG PO QHS, #30 TAB 03/30/18 Pregabalin* (Lyrica*) 75 Mg Capsule, 75 MG PO TID, CAP 03/30/18 Oxycodone Hcl-Acetaminophen* (Endocet*) 10-325 Mg Tablet, 0.5 TAB PO BID PRN for PAIN, TAB 03/30/18 Ondansetron Hcl* (Zofran*) 4 Mg Tablet, 4 MG PO Q8 PRN for NAUSEA AND/OR VOMITING, TAB 03/30/18 Hydrochlorothiazide* (Hydrochlorothiazide*) 25 Mg Tab, 25 MG PO DAILY, #30 TAB 03/30/18 Diphenhydramine Hcl* (Benadryl*) 25 Mg Cap, 25 MG PO QHS PRN for ITCHING, CAP 03/30/18 Cyclosporine (RESTASIS) 1 Each Droperette, 1 DROP BOTH EYES Q12, #1 BOX 03/30/18 Baclofen* (Baclofen*) 20 Mg Tablet, 20 MG PO QID, TAB 03/30/18 Discontinued Scripts Phenazopyridine Hcl* (Pyridium*) 200 Mg Tab, 200 MG PO TID PRN for URINARY PAIN, #6 TAB Prov:JOSE ALFREDO ZAMORANO MD 03/30/18 Ciprofloxacin Hcl* (Ciprofloxacin Hcl*) 500 Mg Tablet, 500 MG PO BID for 7 Days, TAB Prov:JOSE ALFREDO ZAMORANO MD 03/30/18 Medications Current Medications IV Flush (NS 3 ml) 3 ml PER PROTOCOL IV ; Start 08/31/18 at 18:00 Ondansetron HCl (Zofran Inj) 4 mg Q6H PRN IV NAUSEA/VOMITING Last administered on 09/01/18at 03:46; Admin Dose 4 MG; Start 08/31/18 at 18:00 Lorazepam (Ativan) 2 mg Q10MIN PRN IV seizure; Start 08/31/18 at 18:00 Atorvastatin Calcium (Lipitor) 40 mg DAILY@21 PO ; Start 09/01/18 at 21:00 Lorazepam (Ativan) 1 mg ONCE PRN IV prior to mri; Start 09/01/18 at 04:00; Stop 09/01/18 at 23:59 Hydrochlorothiazide (Hydrochlorothiazide) 25 mg DAILY PO Last administered on 09/01/18at 09:16; Admin Dose 25 MG; Start 09/01/18 at 09:00 Levetiracetam (Keppra) 500 mg BID PO Last administered on 09/01/18at 11:44; Admin Dose 500 MG; Start 09/01/18 at 11:30 Oxycodone/ Acetaminophen (Percocet (5/ 325)) 1 tab Q3H PRN PO MODERATE PAIN LEVEL 4-6 Last administered on 09/01/18at 11:44; Admin Dose 1 TAB; Start 09/01/18 at 11:30 Allergies: Coded Allergies: Sulfa (Sulfonamide Antibiotics) (Verified Allergy, Severe, 08/31/18) NSAIDS (Non-Steroidal Anti-Inflamma (Verified Allergy, Unknown, 08/31/18) aspirin (Verified Allergy, Unknown, 08/31/18) atenolol (Verified Allergy, Unknown, 08/31/18) cefazolin (Verified Allergy, Unknown, 08/31/18) Social History Alcohol Use: none Smoking Status: Never smoker Drug Use: none DENVER SAVAGE 18, 2019 13:30
[2018-09-01] MEDS: HYDROmorphONE 1 MG/ML SYG IV PRN ×2 (16:08→22:37)
[2018-09-01] MEDS: ATORVASTATIN 40 MG TAB PO SCH (20:08)
[2018-09-01] MEDS ORDERED: NON-FORMULARY/PATIENT OWN MED (Rosuvastatin Calcium* (Crestor*) 10 MG) PO SCH (21:00)
[2018-09-02] VITALS (11 sets, daily range): BP systolic 107–128; BP diastolic 52–64; PULSE 51–63; RESP 18–20
[2018-09-02] MEDS: ONDANSETRON 4 MG INJ IV PRN (00:11)
[2018-09-02] MEDS: OXYCODONE/ACETAMINOPHEN (5/325) TAB PO PRN ×5 (04:03→21:41)
[2018-09-02] MEDS: LEVETIRACETAM 500 MG TAB PO SCH ×2 (08:23→20:06)
[2018-09-02] MEDS: HYDROCHLOROTHIAZIDE 25 MG TAB PO SCH (08:27)
[2018-09-02] MEDS: PREGABALIN 75 MG CAP PO SCH ×3 (11:26→20:06)
[2018-09-02] MEDS: BACLOFEN 10 MG TAB PO SCH ×2 (11:27→20:06)
[2018-09-02] MEDS: CHOLECALCIFEROL 2,000 UNIT CAP PO SCH (11:28)
--- NOTE | 2018-09-02 13:11 | CONS ---
Assessment/Plan Assessment/Plan Assessment/Plan (Recall) 68 F c/ reported longstanding MS...who presents for evaluation of GRANDE, dizziness, and other Sx, s/p fall w/ head trauma. UA + She was noted to have several seizures while in the ER, for which neurology is consulted.. The clinical picture could be consistent w/ concussion.. MRI brain is reassuringly negative for acute intracranial pathology..though notable for sequelae of a prior craniotomy. Patient, though, vehemently denies Hx of prior seizures.. CT C,T, and L spine a w/o acute Fx.. P: Continue Maintenance Keppra, 500mg bid for now Ativan iv prn prolonged seizure or cluster Pain control and other medical management per primary Consultation Date/Type/Reason Admit Date/Time Sep 01, 2018 at 08:13 Type of Consult Neurology Reason for Consultation seizures Requesting Provider: CHARLIE SARAVIA Date/Time of Note DATE: 09/02/18 TIME: 13:08 24 HR Interval Summary Free Text/Dictation s/p MRI brain s/p CT CT and L spine Exam/Review of Systems Exam Vitals Vital Signs Date Temp Pulse Resp B/P (MAP) Pulse Ox O2 O2 Flow FiO2 Time Delivery Rate 09/02/18 60 12:07 09/02/18 98.1 19 107/52 95 Room Air 11:24 (70) 08/31/18 2.0 18:33 Intake and Output 09/01/18 09/01/18 09/02/18 1515:00 23:00 07:00 IntakeIntake Total 500 ml 350 ml OutputOutput Total 300 ml 280 ml BalanceBalance 200 ml 70 ml Results Result Diagram: 09/01/18 0538 09/01/18 0538 Results 24hrs Laboratory Tests Test 09/01/18 17:10 Urine Color YELLOW Urine Clarity CLOUDY A Urine pH 7.0 Urine Specific [place] 1.015 Urine Ketones NEGATIVE Urine Nitrite POSITIVE A Urine Bilirubin NEGATIVE Urine Urobilinogen NEGATIVE Urine Leukocyte Esterase 2+ H Urine Microscopic RBC 11 H Urine Microscopic WBC > 182 H Urine Squamous Epithelial Cells FEW Urine Bacteria FEW A Urine Mucus FEW A Urine Hemoglobin NEGATIVE Urine Glucose NEGATIVE Urine Total Protein 1+ H Medications Medication Current Medications IV Flush (NS 3 ml) 3 ml PER PROTOCOL IV ; Start 08/31/18 at 18:00 Ondansetron HCl (Zofran Inj) 4 mg Q6H PRN IV NAUSEA/VOMITING Last administered on 09/02/18 00:11; Admin Dose 4 MG; Start 08/31/18 at 18:00 Lorazepam (Ativan) 2 mg Q10MIN PRN IV seizure; Start 08/31/18 at 18:00 Atorvastatin Calcium (Lipitor) 40 mg DAILY@21 PO Last administered on 09/01/18 20:08; Admin Dose 40 MG; Start 09/01/18 at 21:00 Hydrochlorothiazide (Hydrochlorothiazide) 25 mg DAILY PO Last administered on 09/02/18 08:27; Admin Dose 25 MG; Start 09/01/18 at 09:00 Levetiracetam (Keppra) 500 mg BID PO Last administered on 09/02/18 08:23; Admin Dose 500 MG; Start 09/01/18 at 11:30 Oxycodone/ Acetaminophen (Percocet (5/ 325)) 1 tab Q3H PRN PO MODERATE PAIN LEVEL 4-6 Last administered on 09/02/18 07:42; Admin Dose 1 TAB; Start 09/01/18 at 11:30 Hydromorphone HCl (Dilaudid) 1 mg Q4H PRN IV SEVERE PAIN LEVEL 7-10 Last administered on 09/01/18 22:37; Admin Dose 1 MG; Start 09/01/18 at 13:30 Baclofen (Lioresal) 20 mg BID PO Last administered on 09/02/18 11:27; Admin Dose 20 MG; Start 09/02/18 at 11:30 Pregabalin (Lyrica) 75 mg TID PO Last administered on 09/02/18 11:26; Admin Dose 75 MG; Start 09/02/18 at 11:30 Cholecalciferol (Vitamin D) 2,000 unit DAILY PO Last administered on 09/02/18 11:28; Admin Dose 2,000 UNIT; Start 09/02/18 at 11:30 Meropenem/Sodium Chloride 50 ml @ 100 mls/hr Q8 IVPB ; Start 09/02/18 at 14:00 DENVER SAVAGE 19, 2019 13:11
--- NOTE | 2018-09-02 13:44 | PN ---
Date/Time of Note Date/Time of Note DATE: 09/02/18 TIME: 13:43 Assessment/Plan VTE Prophylaxis Risk score (from Ns)>0 risk: 2 SCD applied (from Ns): No SCD contraindicated: other Pharmacological prophylaxis: NA/contraindicated Pharm contraindication: low risk/ambulating Lines/Catheters IV Catheter Type (from [facility]): Urinary Cath still in place: No Assessment/Plan Hospital Course SUBJECTIVE: Lying in bed comfortably. No acute distress. OBJECTIVE: Vital signs-see below PHYSICAL EXAM: Constitutional: Obese female,not in acute distress. HEENT: Head atraumatic and normocephalic. Eyes: Extraocular muscles intact. Anicteric sclerae. Pupils equal bilaterally, reactive to light. NECK: Supple without lymph node. CHEST: Clear and good breath sounds equally. No wheezing. No rhonchi. HEART: S1, S2. Regular rate and rhythm. ABDOMEN: Soft/non tender with no rebound tenderness. Bowel sounds were present. EXTREMITIES: With chronic back tenderness. No numbness/tingling . no cyanosis, clubbing or edema. NEUROLOGIC: Alert and oriented x3. No focal deficit. No sensory deficit. PSYCHOSOCIAL: No signs of depression. INTEGUMENTARY: No open wounds. ASSESSMENT AND PLAN:68 yo F with h/o MS,htn,chronic pain,dlp, here w/new onset seizures.. New onset seizures -Appreciate neurology evaluation and per her evaluation clinical picture is consistent with concussion. Patient also has a UTI possibly contributing to seizure onset. -On Keppra -Continue seizure precautions. GNR UTI -We will start meropenem until get a final culture result. Not cefazolin allergy. Chronic lumbar degenerative disease with disc protrusion -No neurovascular compromise -Pain control, physical therapy Chronic back pain -Pain control, muscle relaxant Hx Multiple sclerosis Obesity with BMI 38.5 -Lifestyle changes advised. Essential hypertension -Continue home medications Dyslipidemia -On statin DVT prophylaxis: SCDs Disposition: Follow-up with final urine cultures. Start antimicrobials and DC planning in a.m. if there is no further seizure activities reported. Patient was seen in collaboration with Result Diagram: 09/01/18 0538 09/01/18 0538 Results 24hrs Laboratory Tests Test 09/01/18 17:10 Urine Color YELLOW Urine Clarity CLOUDY A Urine pH 7.0 Urine Specific [place] 1.015 Urine Ketones NEGATIVE Urine Nitrite POSITIVE A Urine Bilirubin NEGATIVE Urine Urobilinogen NEGATIVE Urine Leukocyte Esterase 2+ H Urine Microscopic RBC 11 H Urine Microscopic WBC > 182 H Urine Squamous Epithelial Cells FEW Urine Bacteria FEW A Urine Mucus FEW A Urine Hemoglobin NEGATIVE Urine Glucose NEGATIVE Urine Total Protein 1+ H Exam/Review of Systems Exam Vitals Vital Signs Date Temp Pulse Resp B/P (MAP) Pulse Ox O2 O2 Flow FiO2 Time Delivery Rate 09/02/18 60 12:07 09/02/18 98.1 19 107/52 95 Room Air 11:24 (70) 08/31/18 2.0 18:33 Intake and Output 09/01/18 09/01/18 09/02/18 1515:00 23:00 07:00 IntakeIntake Total 500 ml 350 ml OutputOutput Total 300 ml 280 ml BalanceBalance 200 ml 70 ml Results Results 24hrs Laboratory Tests Test 09/01/18 17:10 Urine Color YELLOW Urine Clarity CLOUDY A Urine pH 7.0 Urine Specific [place] 1.015 Urine Ketones NEGATIVE Urine Nitrite POSITIVE A Urine Bilirubin NEGATIVE Urine Urobilinogen NEGATIVE Urine Leukocyte Esterase 2+ H Urine Microscopic RBC 11 H Urine Microscopic WBC > 182 H Urine Squamous Epithelial Cells FEW Urine Bacteria FEW A Urine Mucus FEW A Urine Hemoglobin NEGATIVE Urine Glucose NEGATIVE Urine Total Protein 1+ H Medications Medication Current Medications IV Flush (NS 3 ml) 3 ml PER PROTOCOL IV ; Start 08/31/18 at 18:00 Ondansetron HCl (Zofran Inj) 4 mg Q6H PRN IV NAUSEA/VOMITING Last administered on 09/02/18at 00:11; Admin Dose 4 MG; Start 08/31/18 at 18:00 Lorazepam (Ativan) 2 mg Q10MIN PRN IV seizure; Start 08/31/18 at 18:00 Atorvastatin Calcium (Lipitor) 40 mg DAILY@21 PO Last administered on 09/01/18at 20:08; Admin Dose 40 MG; Start 09/01/18 at 21:00 Hydrochlorothiazide (Hydrochlorothiazide) 25 mg DAILY PO Last administered on 09/02/18at 08:27; Admin Dose 25 MG; Start 09/01/18 at 09:00 Levetiracetam (Keppra) 500 mg BID PO Last administered on 09/02/18at 08:23; Admin Dose 500 MG; Start 09/01/18 at 11:30 Oxycodone/ Acetaminophen (Percocet (5/ 325)) 1 tab Q3H PRN PO MODERATE PAIN LEVEL 4-6 Last administered on 09/02/18 07:42; Admin Dose 1 TAB; Start 09/01/18 at 11:30 Hydromorphone HCl (Dilaudid) 1 mg Q4H PRN IV SEVERE PAIN LEVEL 7-10 Last administered on 09/01/18 22:37; Admin Dose 1 MG; Start 09/01/18 at 13:30 Baclofen (Lioresal) 20 mg BID PO Last administered on 09/02/18 11:27; Admin Dose 20 MG; Start 09/02/18 at 11:30 Pregabalin (Lyrica) 75 mg TID PO Last administered on 09/02/18 11:26; Admin Dose 75 MG; Start 09/02/18 at 11:30 Cholecalciferol (Vitamin D) 2,000 unit DAILY PO Last administered on 09/02/18 11:28; Admin Dose 2,000 UNIT; Start 09/02/18 at 11:30 Meropenem/Sodium Chloride 50 ml @ 100 mls/hr Q8 IVPB ; Start 09/02/18 at 14:00 BENNIE ZAPATA NP Sep 02, 2018 13:44
[2018-09-02] MEDS: MEROPENEM 1 GM/50ML(PMX) 50 ML IVPB SCH ×2 (14:22→21:42)
[2018-09-02] MEDS: ATORVASTATIN 40 MG TAB PO SCH (20:06)
[2018-09-03] VITALS (7 sets, daily range): BP systolic 112–136; BP diastolic 56–62; PULSE 47–105; RESP 17–22
[2018-09-03] MEDS: MEROPENEM 1 GM/50ML(PMX) 50 ML IVPB SCH ×2 (05:39→13:28)
[2018-09-03] MEDS: OXYCODONE/ACETAMINOPHEN (5/325) TAB PO PRN (05:39)
[2018-09-03] MEDS: HYDROmorphONE 1 MG/ML SYG IV PRN ×2 (07:39→12:11)
[2018-09-03] MEDS: LEVETIRACETAM 500 MG TAB PO SCH (08:54)
[2018-09-03] MEDS: HYDROCHLOROTHIAZIDE 25 MG TAB PO SCH (08:54)
[2018-09-03] MEDS: PREGABALIN 75 MG CAP PO SCH ×2 (08:54→13:28)
[2018-09-03] MEDS: CHOLECALCIFEROL 2,000 UNIT CAP PO SCH (08:54)
[2018-09-03] MEDS: BACLOFEN 10 MG TAB PO SCH (08:54)
--- NOTE | 2018-09-03 12:00 | PDOCDIS ---
Discharge Instructions CONDITION [id number] Patient Condition: [id number] Stable HOME CARE INSTRUCTIONS: [id number] Diet Instructions: [id number] Low Fat /Cholesterol FOLLOW UP/APPOINTMENTS Follow-up Plan Follow- up with primary care physician in 1 week BENNIE ZAPATA NP Sep 03, 2018 12:00
[2018-09-03] MEDS ORDERED: CIPR500T4 PO (12:08)
[2018-09-03] MEDS ORDERED: LYR75 PO (12:08)
[2018-09-03] MEDS ORDERED: CHOL200073 PO (12:08)
[2018-09-03] MEDS ORDERED: BACL20TA PO (12:08)
[2018-09-03] MEDS ORDERED: LEVE-5 PO (12:08)
--- NOTE | 2018-09-03 12:16 | DS ---
Date/Time of Note Date/Time of Note DATE: 09/03/18 TIME: 12:12 Discharge Summary Admission/Discharge Info Admit Date/Time Sep 01, 2018 at 08:13 Discharge Date/Time Discharge Diagnosis New onset seizures,likely concussion. Recurrent UTI Chronic lumbar degenerative disease with disc protrusion Chronic back pain Hx Multiple sclerosis Obesity with BMI 38.5 Essential hypertension Dyslipidemia History of subdural hematoma/status post craniotomy/evacuation Patient Condition: Stable Consults Procedures 09 01 2018: Brain MRI: IMPRESSION: 1. No acute intracranial hemorrhage, infarction or mass. No intracranial enhancing abnormality. 2. No evidence of mesial temporal sclerosis or cortical dysplasia. 3. Prior right frontotemporal craniotomy. 4. Mild chronic small vessel ischemic changes. 5. Mild generalized cerebral volume loss. Hospital Course This is a 68-year-old obese female with a history of multiple sc lerosis, hypertension, chronic back pain, dyslipidemia, hypertension, urinary retention, recurrent UTIs, subdural hematoma with status post craniotomy/evacuation, admitted with new onset of seizures. Patient was seen by neurologist and was started on Keppra. Her clinical picture was consistent with concussion. Thoracic, lumbar CT without any acute fracture. MRI brain negative for any acute intracranial pathology. Patient was also noted with a UTI for which she was treated with meropenem initially with transition to Cipro. Patient was continued on seizure precaution and she did not have any further seizure episodes in house. She was continued on home medication for underlying comorbidities. Patient also required a Ayala insertion as she was incontinent with seizures. Ayala will be removed today. Patient also reports that she has urinary retention and she does in and out catheterization at home. At this time, she is very eager to be discharged home. There is no further inpatient work-up indicated. Patient to continue Keppra per neurology instructions. Patient to follow-up with her primary care physician in 1 week. Approximately 60 m spent on coordinating the discharge on this patient. Patient was seen in collaboration with [facility] Ciprofloxacin Hcl* (Ciprofloxacin Hcl*) 500 Mg Tablet, 500 MG PO BID, #14 TAB Prov:ZAPATA,BENNIE V. BRAND DEVELOPMENT MANAGER 09/03/18 Levetiracetam* (Keppra*) 500 Mg Tablet, 500 MG PO BID, #60 TAB Prov:ZAPATA,BENNIE V. BRAND DEVELOPMENT MANAGER 09/03/18 Cholecalciferol (Vitamin D3) (VITAMIN D-3) 2,000 Unit Capsule, 2000 UNIT PO DAILY, #30 CAP Prov:BENNIE ZAPAAT Verito. BRAND DEVELOPMENT MANAGER 09/03/18 Baclofen* (Baclofen*) 20 Mg Tablet, 20 MG PO BID, #60 TAB Prov:BENNIE ZAPATA V. BRAND DEVELOPMENT MANAGER 09/03/18 Pregabalin* (Lyrica*) 75 Mg Capsule, 75 MG PO TID, #90 CAP Prov:BENNIE ZAPATA Verito. BRAND DEVELOPMENT MANAGER 09/03/18 Reported Medications Hydrochlorothiazide* (Hydrochlorothiazide*) 25 Mg Tab, 25 MG PO DAILY, #30 TAB 08/31/18 Rosuvastatin Calcium* (Crestor*) 10 Mg Tablet, 10 MG PO QHS, #30 TAB 08/31/18 Oxycodone HCl/Acetaminophen (Oxycodone-Acetaminophen 10-325) 1 Each Tablet, 0.5 EACH PO BID, TAB 08/31/18 Discontinued Reported Medications Baclofen* (Baclofen*) 10 Mg Tablet, 10 MG PO BID, TAB 08/31/18 Nitrofurantoin Monohyd Macrocr* (Macrobid*) 100 Mg Capsr, 100 MG PO DAILY, CAP 08/31/18 Cranberry Extract (Cranberry) 425 Mg Capsule, 425 MG PO DAILY, CAP 03/30/18 Lactobacillus Acidophilus (Probiotic) 1 Each Capsule, 1 CAP PO DAILY, CAP 03/30/18 Cholecalciferol* (Vitamin D3*) 1,000 Unit Tablet, 1000 UNIT PO DAILY, TAB 03/30/18 Temazepam* (Temazepam*) 30 Mg Capsule, 30 MG PO HS PRN for INSOMNIA, CAP 03/30/18 Rosuvastatin Calcium* (Crestor*) 5 Mg Tablet, 5 MG PO QHS, #30 TAB 03/30/18 Pregabalin* (Lyrica*) 75 Mg Capsule, 75 MG PO TID, CAP 03/30/18 Oxycodone Hcl-Acetaminophen* (Endocet*) 10-325 Mg Tablet, 0.5 TAB PO BID PRN for PAIN, TAB 03/30/18 Ondansetron Hcl* (Zofran*) 4 Mg Tablet, 4 MG PO Q8 PRN for NAUSEA AND/OR VOMITING, TAB 03/30/18 Hydrochlorothiazide* (Hydrochlorothiazide*) 25 Mg Tab, 25 MG PO DAILY, #30 TAB 03/30/18 Diphenhydramine Hcl* (Benadryl*) 25 Mg Cap, 25 MG PO QHS PRN for ITCHING, CAP 03/30/18 Cyclosporine (RESTASIS) 1 Each Droperette, 1 DROP BOTH EYES Q12, #1 BOX 03/30/18 Baclofen* (Baclofen*) 20 Mg Tablet, 20 MG PO QID, TAB 03/30/18 Discontinued Scripts Phenazopyridine Hcl* (Pyridium*) 200 Mg Tab, 200 MG PO TID PRN for URINARY PAIN, #6 TAB Prov:JOSE ALFREDO ZAMORANO MD 03/30/18 Ciprofloxacin Hcl* (Ciprofloxacin Hcl*) 500 Mg Tablet, 500 MG PO BID for 7 Days, TAB Prov:JOSE ALFREDO ZAMORANO MD 03/30/18 Follow-up Plan Follow- up with primary care physician in 1 week Primary Care Provider Not On Staff Doctor BENNIE ZAPATA NP Sep 03, 2018 12:16
== END 2018-09-03 14:36 | disposition home or self-care (01) | DRG 101 ==
LOC: E/R 15:18 → 6WM 18:01 → OBSVTOIN 09-01 08:13
PROVIDERS: ADMIT Family Medicine; ATTEND Family Medicine
DX: R56.9 Unspecified convulsions (principal); S06.0X1A Concussion with loss of consciousness of 30 minutes or less, initial encounter; N39.0 Urinary tract infection, site not specified; Z68.41 Body mass index [BMI] 40.0-44.9, adult; I69.354 Hemiplegia and hemiparesis following cerebral infarction affecting left non-dominant side; G35 Multiple sclerosis; F07.81 Postconcussional syndrome; I10 Essential (primary) hypertension; E66.9 Obesity, unspecified; E87.6 Hypokalemia; E78.5 Hyperlipidemia, unspecified; M51.36 Other intervertebral disc degeneration, lumbar region; R33.9 Retention of urine, unspecified; R32 Unspecified urinary incontinence; B96.1 Klebsiella pneumoniae [K. pneumoniae] as the cause of diseases classified elsewhere; G44.309 Post-traumatic headache, unspecified, not intractable; G89.4 Chronic pain syndrome; Z71.3 Dietary counseling and surveillance; W05.0XXA Fall from non-moving wheelchair, initial encounter; Y93.9 Activity, unspecified; Y92.89 Other specified places as the place of occurrence of the external cause; Y99.8 Other external cause status
CPT/HCPCS: 36415; 70450; 70552; 71045; 72125; 72128; 72131; 80048; 80053; 81001; 82962; 83036; 83735; 84484; 85025; 85610; 85730; 87086; 93005; 95819; 96365; 96375; G0378; J1170; J1885; J1953; J2060; J2185; J2405; J3360; J3480